=== PATIENT | female | born 1965 | race Caucasian/White ===

== ENCOUNTER 2017-05-30 19:08 | Emergency (ER) | payer MEDICARE, SELFPAY | END 2017-05-30 20:20 | disposition home or self-care (01) | PROVIDERS: Emergency Provider Nurse Practitioner; Family Provider Family Medicine; Visit Provider Nurse Practitioner | DX: J11.1 Influenza due to unidentified influenza virus with other respiratory manifestations (principal); R04.0 Epistaxis; F17.210 Nicotine dependence, cigarettes, uncomplicated; Z88.0 Allergy status to penicillin; Z88.8 Allergy status to other drugs, medicaments and biological substances; Z79.82 Long term (current) use of aspirin; Z79.899 Other long term (current) drug therapy; Z79.51 Long term (current) use of inhaled steroids; I10 Essential (primary) hypertension; E78.5 Hyperlipidemia, unspecified; J44.9 Chronic obstructive pulmonary disease, unspecified | CPT/HCPCS: 71020; 87804; 87880; 99201 ==

== ENCOUNTER 2017-06-13 14:05 | Observation (INO) | payer MEDICARE, SELFPAY ==
[2017-06-13 19:26] VITALS: BMI 43.1
[2017-06-13 23:00] VITALS: PULSE 83; PULSE 89
[2017-06-14] VITALS (7 sets, daily range): BP systolic 142–164; BP diastolic 80–95; PULSE 89–100; RESP 18–22; TEMP 36.7–37.4; O2SAT 90–91
--- NOTE | 2017-06-14 07:20 | HMH.PHAVTE ---
[facility] Pharmacy VTE Monitoring - Patient Demographics Admission date: 07/14/17 Report Date: 06/14/17 Time: 07:20 Allergies/Adverse Reactions: erythromycin base [ERYTHROMYCIN BASE] Allergy (Unknown, Verified 06/14/17 02:22) I-RASH Penicillins [PENICILLINS] Allergy (Unknown, Verified 06/14/17 02:22) DIFFICULTY BREATHING Height: 1.52 m Weight: 100.244 kg - VTE Risk Labs: VTE Related Lab Results Hgb 14.5 g/dL (12.2-16.2) 06/13/17 11:45 Hct 46.1 % (37.0-47.0) 06/13/17 11:45 Plt Count 443 K/mm3 (142-424) H D 06/13/17 11:45 BUN 12 mg/dL (7-18) 06/13/17 11:45 Creatinine 0.8 mg/dL (0.55-1.02) 06/13/17 11:45 Estimated Creat Clear 1299 ML/MIN (50-200) H 06/13/17 11:45 Clinical Trial Participant: No - Prophylaxis VTE Prophylaxis Ordered?: Yes Types of VTE Prophylaxis: TEDS Knee High, Other Location of Applied Device: Refused
--- NOTE | 2017-06-14 07:47 | PC.NURSE ---
C/O PAIN IN CHEST FOLLOWING A COUGH AND C/O RIVERS, ADMINISTERED PRN TYLENOL, ON REASSESSMENT PT NOTED SLEEPING. 2LNC TOLERATED WELL. WHEEZES NOTED PER AUSCULTATION OF LUNG SOUNDS. INDEPENDENT WITH ADLS. VSS. WILL CONTINUE TO MONITOR.
[2017-06-14 08:12] LABS: Basophils % 0.1 % (0.1-2.0); Eosinophils % 0.1 % (0.1-12.0); Hematocrit 40.8 % (37.0-47.0); Lymphocytes # 1.9 K/mm3 (0.7-4.5); Lymphocytes % 7.7 K/mm3 (10-50); Mean Corpuscular HGB Conc 31.8 g/dL (31.8-35.4); Mean Corpuscular Hemoglobin 28.1 pg (27.0-31.2); Mean Corpuscular Volume 88.2 fl (81-99); Mean Platelet Volume 7.7 fl (7.4-10.4); Monocytes # 0.8 K/mm3 (0.1-1.0); Monocytes % 3.1 % (1.7-9.3); Neutrophils # 21.3 K/mm3 (1.8-7.8); Neutrophils % 88.9 % (37.0-80.0); Platelet Count 472 K/mm3 (142-424); Red Blood Count 4.62 M/mm3 (4.20-5.40); Red Cell Distribution Width 14.4 % (11.5-17.5); White Blood Count 23.9 K/mm3 (4.8-10.8)
[2017-06-14 08:13] LABS: MANUAL DIFFERENTIAL MANUAL DIFFERENTIAL (MANUAL DIFF)
[2017-06-14 08:24] LABS: Blood Urea Nitrogen 15 mg/dL (7-18); Carbon Dioxide 27 mmol/L (21.0-32.0); Chloride 98 mmol/L (98-107); Creatinine Clearance Estimated 62 mg/ml (0-300); Creatinine,Serum 0.76 mg/dL (0.55-1.02); Estimated Glomerular Filt Rate > 60 ml/min (>60); GFR (African American) > 60 ML/MIN (>60); Glucose 163 mg/dL (74-106); Sodium 137 mmol/L (136-145)
--- NOTE | 2017-06-14 09:01 | HMH.ACPN ---
Internal Medicine - PN: Subj *Date: 06/14/17 *Time: 09:01 Interval history: Patient did well overnight, is much more comfortable according to nursing staff. Exam Vital signs and Labs for Last 24 Hours: Temp Pulse Resp BP Pulse Ox 99.4 F 91 H 20 164/88 90 L 06/14/17 07:04 06/14/17 07:40 06/14/17 07:04 06/14/17 07:04 06/14/17 07:40 Short CBC 06/14/17 Range/Units 06:38 WBC 23.9 H* (4.8-10.8) K/mm3 Hgb 13.0 (12.2-16.2) g/dL Hct 40.8 (37.0-47.0) % Plt Count 472 H (142-424) K/mm3 BMP 06/14/17 06:38 Sodium 137 Potassium 4.0 Chloride 98 Carbon Dioxide 27 BUN 15 Creatinine 0.76 Glucose 163 H Narrative: Patient did well overnight. She continues to have a small oxygen requirement. She tells me that she has oxygen at home that she uses when I need it. Her respiratory rate has improved, heart rate is now normalized. She is no longer dyspneic with conversation, and her air movement is much improved although she continues to have some tight wheezing. She has no crackles or rhonchi, she also has no sputum production at this point. Heart rate regular. Abdomen soft, good perfusion, neurologically intact. Assessment and Plan (1) Asthma exacerbation in COPD Current visit: Yes Status: Acute Category: Medical Code(s): J44.1 - Chronic obstructive pulmonary disease with (acute) exacerbation; J45.901 - Unspecified asthma with (acute) exacerbation Patient's improving, continue steroids, continue supportive care, and IV fluids. Possible discharge tomorrow, labs ordered for tomorrow morning.
[2017-06-14 12:45] LABS: Lymphocytes % 11 % (10-50); Monocytes % 3 % (2-9); Neutrophils % 85 % (42-76); Total Cells Counted 100
[2017-06-14 12:46] LABS: Platelet Estimate Slight Increase
[2017-06-14 14:10] LABS: RBC Morphology Normal
[2017-06-15 00:53] VITALS: PULSE 90; O2SAT 91
[2017-06-15 04:34] VITALS: BP 147/93; PULSE 74; RESP 18; TEMP 36.9; O2SAT 93
[2017-06-15 06:41] VITALS: PULSE 79; PULSE 82
[2017-06-15 07:21] LABS: Basophils % 0.1 % (0.1-2.0); Eosinophils % 0.1 % (0.1-12.0); Hematocrit 39.7 % (37.0-47.0); Hemoglobin 12.6 g/dL (12.2-16.2); Lymphocytes # 1.7 K/mm3 (0.7-4.5); Lymphocytes % 5.8 K/mm3 (10-50); Mean Corpuscular HGB Conc 31.8 g/dL (31.8-35.4); Mean Corpuscular Hemoglobin 28.4 pg (27.0-31.2); Mean Corpuscular Volume 89.4 fl (81-99); Mean Platelet Volume 7.4 fl (7.4-10.4); Monocytes # 0.8 K/mm3 (0.1-1.0); Monocytes % 2.7 % (1.7-9.3); Neutrophils # 27.1 K/mm3 (1.8-7.8); Neutrophils % 91.4 % (37.0-80.0); Platelet Count 429 K/mm3 (142-424); Red Blood Count 4.44 M/mm3 (4.20-5.40); Red Cell Distribution Width 14.7 % (11.5-17.5); White Blood Count 29.6 K/mm3 (4.8-10.8)
[2017-06-15 07:30] LABS: Alanine Aminotransferase 23 U/L (12-78); Albumin/Globulin Ratio 0.7 (1.1-1.8); Alkaline Phosphatase 88 U/L (46-116); Anion Gap 12.2 mEq/L (5-15); Aspartate Amino Transferase 11 U/L (15-37); Bilirubin,Total 0.1 mg/dL (0.2-1.0); Blood Urea Nitrogen 23 mg/dL (7-18); Calcium 9.3 mg/dL (8.5-10.1); Carbon Dioxide 29 mmol/L (21.0-32.0); Chloride 101 mmol/L (98-107); Creatinine Clearance Estimated 64 mg/ml (0-300); Creatinine,Serum 0.74 mg/dL (0.55-1.02); Estimated Glomerular Filt Rate > 60 ml/min (>60); GFR (African American) > 60 ML/MIN (>60); Globulin 4.2 gm/dl (1.3-3.2); Glucose 159 mg/dL (74-106); Potassium 4.2 mmoL/L (3.5-5.1); Sodium 138 mmol/L (136-145); Total Protein,Serum 7.2 gm/dL (6.4-8.2)
[2017-06-15 07:43] LABS: MANUAL DIFFERENTIAL MANUAL DIFFERENTIAL (MANUAL DIFF)
--- NOTE | 2017-06-15 07:48 | HMH.DCSUM ---
General - General Admission date: 06/13/17 Discharge date: 06/15/17 HPI HPI: 51-year-old asthmatic who wears oxygen at home and to takes nebulizer treatments 3 times daily, who came to the emergency department with cough and congestion, found to have asthma exacerbation that had failed outpatient therapy. She was admitted to hospital for IV steroids, fluids and pulmonary toilet. Please see H&P for details. Objective Vital signs: Temp Pulse Resp BP Pulse Ox 98.4 F 82 18 147/93 93 L 06/15/17 04:34 06/15/17 06:41 06/15/17 04:34 06/15/17 04:34 06/15/17 04:34 Narrative: On admission patient was alert and oriented, she was tachypneic, she had difficulty finishing sentences because of shortness of air. Her lung exam revealed tight wheezing bilaterally but symmetric air entry. Heart rate was tachycardic but regular, morbidly obese, which limits her exam and complicates her care. Neurologically intact. Hospital Course Hospital Course: Patient was admitted, placed on IV steroids, placed on antibiotics, placed on oxygen. She improved in a stepwise fashion. She takes inhaled corticosteroids at home but only intermittently, and we started Advair on a scheduled basis twice daily. This seemed to help her situation, and this morning she was doing much better. Exam revealed much better air entry, no rhonchi, normal expiratory wheezing but excellent air movement. No edema noted. Neurologically intact, tachycardia and tachypnea had resolved. Plan will be to discharge patient today. She needs new, non- nebulizer medication, she needs Advair prescriptions and prednisone, these will be prescribed and she will be seen by her primary physician in the next 5-6 days. Results Labs on day of discharge: Labs from last 24 hours 06/15/17 06/14/17 06/14/17 06:51 06:38 06:38 WBC 29.6 H* 23.9 H* RBC 4.44 4.62 Hgb 12.6 13.0 Hct 39.7 40.8 MCV 89.4 88.2 MCH 28.4 28.1 MCHC 31.8 31.8 RDW 14.7 14.4 Plt Count 429 H 472 H MPV 7.4 7.7 Neut % (Auto) 91.4 H 88.9 H Lymph % (Auto) 5.8 L 7.7 L [place] % (Auto) 2.7 3.1 Eos % (Auto) 0.1 0.1 Baso % (Auto) 0.1 0.1 Neut # (Auto) 27.1 H 21.3 H Lymph # (Auto) 1.7 1.9 [place] # (Auto) 0.8 0.8 Eos # (Auto) 0.0 0.0 Baso # (Auto) 0.0 0.0 Total Counted 100 Neutrophils % (Manual) 85 H Lymphocytes % (Manual) 11 Monocytes % (Manual) 3 Basophils % (Manual) 1.0 Platelet Estimate Slight increase RBC Morphology Normal Sodium 137 Potassium 4.0 Chloride 98 Carbon Dioxide 27 Anion Gap 16.0 H BUN 15 Creatinine 0.76 Estimated Creat Clear 62 Estimated GFR > 60 Est GFR ( Amer) > 60 Glucose 163 H DS: Diagnosis - Discharge Diagnosis (1) Asthma exacerbation in COPD Status: Acute Meds Home Medications Medication Instructions Recorded Confirmed Type Atorvastatin Calcium [Atorvastatin 10 mg PO HS 06/14/17 06/14/17 History 10mg Tab] Bisoprolol Fumarate [Zebeta 5mg 5 mg PO BID 06/14/17 06/14/17 History tablet] Butalb/Acetaminophen/Caffeine 1 tab PO Q6HP PRN 06/14/17 06/14/17 History [Esgic 50-325-40 mg Tablet] Cyclobenzaprine HCl 5 mg PO TIDP PRN 06/14/17 06/14/17 History [Cyclobenzaprine 5mg Tab] Dextromethorphan Polistirex 10 ml PO Q12H 06/14/17 06/14/17 History [Delsym] Escitalopram Oxalate [Lexapro] 20 mg PO DAILY 06/14/17 06/14/17 History Fluticasone Propionate [Flonase 2 spr NS DAILY 06/14/17 06/14/17 History 50mcg nasal spray 16gm] Gabapentin [Neurontin 300mg 300 mg PO TID 06/14/17 06/14/17 History capsule] Ipratropium/Albuterol Sulfate 3 ml INHALATION QIDP PRN 06/14/17 06/14/17 History [Duoneb 3mL neb] Loratadine [Claritin] 10 mg PO DAILY 06/14/17 06/14/17 History Mometasone/Formoterol [Dulera 200 2 puffs INHALATION BID 06/14/17 06/14/17 History Mcg/5 Mcg Inhaler] Omeprazole [Omeprazole 40mg 4
--- NOTE | 2017-06-15 07:51 | P.DS_ITS ---
General - General Admission date: 06/13/17 Discharge date: 06/15/17 HPI HPI: 51-year-old asthmatic who wears oxygen at home and to takes nebulizer treatments 3 times daily, who came to the emergency department with cough and congestion, found to have asthma exacerbation that had failed outpatient therapy. She was admitted to hospital for IV steroids, fluids and pulmonary toilet. Please see H&P for details. Objective Vital signs: Temp Pulse Resp BP Pulse Ox 98.4 F 82 18 147/93 93 L 06/15/17 04:34 06/15/17 06:41 06/15/17 04:34 06/15/17 04:34 06/15/17 04:34 Narrative: On admission patient was alert and oriented, she was tachypneic, she had difficulty finishing sentences because of shortness of air. Her lung exam revealed tight wheezing bilaterally but symmetric air entry. Heart rate was tachycardic but regular, morbidly obese, which limits her exam and complicates her care. Neurologically intact. Hospital Course Hospital Course: Patient was admitted, placed on IV steroids, placed on antibiotics, placed on oxygen. She improved in a stepwise fashion. She takes inhaled corticosteroids at home but only intermittently, and we started Advair on a scheduled basis twice daily. This seemed to help her situation, and this morning she was doing much better. Exam revealed much better air entry, no rhonchi, normal expiratory wheezing but excellent air movement. No edema noted. Neurologically intact, tachycardia and tachypnea had resolved. Plan will be to discharge patient today. She needs new, non- nebulizer medication, she needs Advair prescriptions and prednisone, these will be prescribed and she will be seen by her primary physician in the next 5-6 days. Results Labs on day of discharge: Labs from last 24 hours 06/15/17 06/14/17 06/14/17 06:51 06:38 06:38 WBC 29.6 H* 23.9 H* RBC 4.44 4.62 Hgb 12.6 13.0 Hct 39.7 40.8 MCV 89.4 88.2 MCH 28.4 28.1 MCHC 31.8 31.8 RDW 14.7 14.4 Plt Count 429 H 472 H MPV 7.4 7.7 Neut % (Auto) 91.4 H 88.9 H Lymph % (Auto) 5.8 L 7.7 L [place] % (Auto) 2.7 3.1 Eos % (Auto) 0.1 0.1 Baso % (Auto) 0.1 0.1 Neut # (Auto) 27.1 H 21.3 H Lymph # (Auto) 1.7 1.9 [place] # (Auto) 0.8 0.8 Eos # (Auto) 0.0 0.0 Baso # (Auto) 0.0 0.0 Total Counted 100 Neutrophils % (Manual) 85 H Lymphocytes % (Manual) 11 Monocytes % (Manual) 3 Basophils % (Manual) 1.0 Platelet Estimate Slight increase RBC Morphology Normal Sodium 137 Potassium 4.0 Chloride 98 Carbon Dioxide 27 Anion Gap 16.0 H BUN 15 Creatinine 0.76 Estimated Creat Clear 62 Estimated GFR > 60 Est GFR ( Amer) > 60 Glucose 163 H DS: Diagnosis - Discharge Diagnosis (1) Asthma exacerbation in COPD Status: Acute Meds Home Medications Medication Instructions Recorded Confirmed Type Atorvastatin Calcium [Atorvastatin 10 mg PO HS 06/14/17 06/14/17 History 10mg Tab] Bisoprolol Fumarate [Zebeta 5mg 5 mg PO BID 06/14/17 06/14/17 History tablet] Butalb/Acetaminophen/Ca
[2017-06-15 08:00] VITALS: BP 184/94; PULSE 90; RESP 20; TEMP 36.7; O2SAT 97
[2017-06-15 09:04] LABS: Lymphocytes % 7 % (10-50); Monocytes % 2 % (2-9); Neutrophils % 91 % (42-76); Total Cells Counted 100
[2017-06-15 09:05] LABS: Hypochromasia 1+
[2017-06-15 09:06] LABS: Platelet Estimate Slight Increase
[2017-06-15 11:13] VITALS: PULSE 80; PULSE 84
--- NOTE | 2017-06-15 11:28 | CARE MANAGER ---
PATIENT IS DISCHARGING HOME TODAY WITH NO ORDERS FOR ANY HOME CARE... PATIENT ADMITTED TO [facility] WITH COPD EXACERBATION, SHE RESIDES AT HOME AND WILL NEED TO FOLLOW UP WITH DR MORRIS [facility] ST[facility]..
== END 2017-06-15 11:00 | disposition home or self-care (01) ==
PROVIDERS: Admitting Provider Internal Medicine Adolescent Medicine; Emergency Provider Emergency Medicine; Visit Provider Internal Medicine Adolescent Medicine
DX: J44.1 Chronic obstructive pulmonary disease with (acute) exacerbation (principal); Z99.81 Dependence on supplemental oxygen; Z72.0 Tobacco use; I10 Essential (primary) hypertension; R53.1 Weakness; R06.09 Other forms of dyspnea
CPT/HCPCS: 71020; 80048; 80053; 83605; 83735; 83880; 84484; 85007; 85025; 87040; 87486; 87581; 87633; 87798; 94640; 94761; 96365; 96375; G0378; J1956

== ENCOUNTER 2017-06-23 15:59 | Emergency (ER) | payer MEDICARE, SELFPAY ==
[2017-06-23 16:01] VITALS: BP 129/61; PULSE 99; RESP 20; TEMP 36.7; O2SAT 92; BMI 39.8
--- NOTE | 2017-06-23 17:15 | XR_ITS ---
XR pelvis 1-2V Ordering Physician: Babs Covington MD Patient Age: 51 years: Female HISTORY: ITS.REASON: pain, fall TECHNIQUE: AP, pelvis COMPARISON :Right hip 10/03/2015.. AP pelvis 01/26/2014 FINDINGS Less optimal resolution on today's radiograph versus the previous right hip 2015, and 2013 pelvis due to technique No fracture or acute findings at the pelvis. Mild hypertrophic lipping at the superior rim of acetabulum bilaterally is similar to previous study. There is some dystrophic calcification off the cap of the greater trochanter which is long-standing feature and stable as well on right. Previous posterior fusion L4/5 with disc spacer device incidentally noted. Sacrum and SI joints unremarkable IMPRESSION: ----- Osseous pelvis intact with no acute findings. AP view the hips stable no acute findings
--- NOTE | 2017-06-23 17:15 | XR_ITS ---
XR cervical spine 4V Ordering Physician: Babs Covington MD Patient Age: 51 years: Female HISTORY: ITS.REASON: pain, fall TECHNIQUE: AP, lateral and odontoid view C-spine with additional additional swimmer's view COMPARISON :None relevant FINDINGS No fracture nor subluxation. C1 1 C2 relationships appear normal on the open mouth odontoid view. The cervical spine with normal alignment and no fracture nor subluxation evident. There is disc space narrowing and early spondylosis suggested C6/7 C5/6. Anterior marginal osteophytes most evident C5-C6. Prevertebral soft tissues appear normal. Minimal calcification in the ligamentum nuchae noted posterior to the C 5 spinous process. Normal feature. Swimmer's view hows normal alignment to the cervical thoracic junction region. The AP view demonstrates hypertrophic degenerative facet changes most notable to the right at C3/4 . Apices of the lungs are clear IMPRESSION: . No acute findings. No fracture nor subluxation Early degenerative changes C-spine as above.
--- NOTE | 2017-06-23 19:20 | PC.NURSE ---
SHIFT CHANGE REPORT GIVEN TO MILANARN
--- NOTE | 2017-06-23 19:55 | HMH.EDGENADL ---
ED Disposition Clinical Impression: Musculoskeletal pain Disposition: Home, Self-Care Condition on Discharge: Good Instructions: DI for Acute Pain -- Adult Additional Instructions: Naproxen as needed, see your family MD for follow up in one to three days. Prescriptions: Naproxen [EC-Naprosyn] 500 mg PO BID PRN #20 tablet.dr KING Reason: Pain Per Pt (Interactive Producer Use Only) Referrals: Julien Sun [Primary Care Provider] - - Critical Care Critical Care Time: No Attestation: On 06/23/17, the high probability of a clinically significant, sudden or life threatening deterioration of the following system(s) required my full and direct attention, intervention and personal management. The time I documented below is in addition to time spent performing reported procedures but includes the following listed in this critical care notation. Medical Decision Making Vital Signs: 06/23/17 16:01 Temperature 98.1 F Temperature Source Oral Pulse Rate [Right Brachial] 99 H Respiratory Rate 20 Blood Pressure [Right Arm] 129/61 Blood Pressure Mean [Right Arm] 83 Blood Pressure Source [Right Arm] Automatic Cuff Blood Pressure Position [Right Arm] Sitting 02 Sat by Pulse Oximetry 92 L Oxygen Delivery Method Room Air - Radiology Data #1 Image(s): Pelvis Image Reviewed: Yes I reviewed the patient's radiology results, Yes I have reviewed radiologist's interpretation Preliminary Findings: Normal/NAD, No Fracture Seen #2 Image(s): C-Spine Image Reviewed: Yes I reviewed the patient's radiology image, Yes I have reviewed radiologist's interpretation - Connor Inquiry Pt receiving controlled substance: No General Adult HPI - General Chief complaint: PAIN Stated complaint: AO [id number] kneck/back/leg pain Time Seen by Provider: 06/23/17 19:00 Mode of Arrival: Ambulatory Source of Information: Patient Limitations: No Limitations Description of Symptoms (Recalled from ER Triage Doc. by RN): c/o posterior neck pain, lower back pain and shaina leg pain if standing. pt states fell out of the door of her house landing on her back. - History of Present Illness HPI narrative: Patient fell 2 feet backwards out of her back door today with negative LOC. Complaining of diffuse neck pain primarily on the left no weakness numbness or tingling. She also has a lot of left posterior pelvis pain. - Related Data Home Medications Medication Instructions Recorded Confirmed Atorvastatin Calcium [Atorvastatin 10 mg PO HS 06/14/17 06/14/17 10mg Tab] Bisoprolol Fumarate [Zebeta 5mg 5 mg PO BID 06/14/17 06/14/17 tablet] Butalb/Acetaminophen/Caffeine 1 tab PO Q6HP PRN 06/14/17 06/14/17 [Esgic 50-325-40 mg Tablet] Cyclobenzaprine HCl 5 mg PO TIDP PRN 06/14/17 06/14/17 [Cyclobenzaprine 5mg Tab] Escitalopram Oxalate [Lexapro] 20 mg PO DAILY 06/14/17 06/14/17 Gabapentin [Neurontin 300mg 300 mg PO TID 06/14/17 06/14/17 capsule] Omeprazole [Omeprazole 40mg 40 mg PO DAILY 06/14/17 06/14/17 Capsule] Trazodone HCl [Desyrel 50mg tablet] 50 mg PO HS 06/14/17 06/14/17 Valsartan/Hydrochlorothiazide 1 tab PO DAILY 06/14/17 06/14/17 [Valsartan-Hctz 320-25 mg Tab] dilTIAZem HCl [Diltiazem 120mg 120 mg PO DAILY 06/14/17 06/14/17 24Hr ER Cap] hydroCHLOROthiazide [HCTZ 25mg 25 mg PO DAILY 06/14/17 06/14/17 tab] Previous Rx's Medication Instructions Recorded Naproxen [EC-Naprosyn] 500 mg PO BID PRN #20 tablet. 06/23/17 Allergies Allergy/AdvReac Type Severity Reaction Status Date / Time erythromycin base Allergy Unknown I-RASH Verified 06/23/17 16:16 [ERYTHROMYCIN BASE] Penicillins [PENICILLINS] Allergy Unknown DIFFICULTY Verified 06/23/17 16:16 BREATHING H History Medical History: Denies:: Cancer, Diabetes Mellitus Type 1, Diabetes Mellitus Type 2, MRSA - *Social History Smoking Status: Former smoker Alcohol Intake: never - Psychiatric History Expresses thoughts of harming
--- NOTE | 2017-06-23 20:03 | ED_ITS ---
ED Disposition Clinical Impression: Musculoskeletal pain Disposition: Home, Self-Care Condition on Discharge: Good Instructions: DI for Acute Pain -- Adult Additional Instructions: Naproxen as needed, see your family MD for follow up in one to three days. 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 The time I documented below is in addition to time spent performing reported procedures but includes the following listed in this critical care notation. Medical Decision Making Vital Signs: 06/23/17 16:01 Temperature 98.1 F Temperature Source Oral Pulse Rate [Right Brachial] 99 H Respiratory Rate 20 Blood Pressure [Right Arm] 129/61 Blood Pressure Mean [Right Arm] 83 Blood Pressure Source [Right Arm] Automatic Cuff Blood Pressure Position [Right Arm] Sitting 02 Sat by Pulse Oximetry 92 L Oxygen Delivery Method Room Air - Radiology Data #1 Image(s): Pelvis Image Reviewed: Yes I reviewed the patient's radiology results, Yes I have reviewed radiologist's interpretation Preliminary Findings: Normal/NAD, No Fracture Seen #2 Image(s): C-Spine Image Reviewed: Yes I reviewed the patient's radiology image, Yes I have reviewed radiologist's interpretation - Connor Inquiry Pt receiving controlled substance: No General Adult HPI - General Chief complaint: PAIN Stated complaint: AO [id number] kneck/back/leg pain Time Seen by Provider: 06/23/17 19:00 Mode of Arrival: Ambulatory Source of Information: Patient Limitations: No Limitations Description of Symptoms (Recalled from ER Triage Doc. by RN): c/o posterior neck pain, lower back pain and shaina leg pain if standing. pt states fell out of the door of her house landing on her back. - History of Present Illness HPI narrative: Patient fell 2 feet backwards out of her back door today with negative LOC. Complaining of diffuse neck pain primarily on the left no weakness numbness or tingling. She also has a lot of left posterior pelvis pain. - Related Data Home Medications Medication Instructions Recorded Confirmed Atorvastatin Calcium [Atorvastatin 10 mg PO HS 06/14/17 06/14/17 10mg Tab] Bisoprolol Fumarate [Zebeta 5mg 5 mg PO BID 06/14/17 06/14/17 tablet] Butalb/Acetaminophen/Caffeine 1 tab PO Q6HP PRN 06/14/17 06/14/17 [Esgic 50-325-40 mg Tablet] Cyclobenzaprine HCl 5 mg PO TIDP PRN 06/14/17 06/14/17 [Cyclobenzaprine 5mg Tab] Escitalopram Oxalate [Lexapro] 20 mg PO DAILY 06/14/17 06/14/17 Gabapentin [Neurontin 300mg 300 mg PO TID 06/14/17 06/14/17 capsule] Omeprazole [Omeprazole 40mg 40 mg PO DAILY 06/14/17 06/14/17 Capsule] Trazodone HCl [Desyrel 50mg tablet] 50 mg PO HS 06/14/17 06/14/17 Valsartan/Hydrochlorothiazide 1 tab PO DAILY 06/14/17 06/14/17 [Valsartan-Hctz 320-25 mg Tab] dilTIAZem HCl [Diltiazem 120mg 120 mg PO DAILY 06/14/17 06/14/17 24Hr ER Cap] hydroCHLOROthiazide [HCTZ 25mg 25 mg PO DAILY 06/14/17 06/14/17
[2017-06-23 20:54] VITALS: BP 96/59; PULSE 85; RESP 20; TEMP 36.7; O2SAT 93
== END 2017-06-23 20:55 | disposition home or self-care (01) ==
PROVIDERS: Emergency Provider Emergency Medicine; Family Provider Family Medicine; PCP Family Medicine
DX: M54.2 Cervicalgia (principal); M54.5 Low back pain; W01.0XXA Fall on same level from slipping, tripping and stumbling without subsequent striking against object, initial encounter; Y92.019 Unspecified place in single-family (private) house as the place of occurrence of the external cause; Z88.0 Allergy status to penicillin; Z79.899 Other long term (current) drug therapy; J44.9 Chronic obstructive pulmonary disease, unspecified; Z87.891 Personal history of nicotine dependence
CPT/HCPCS: 72040; 72170; 99283

== ENCOUNTER 2018-05-12 12:22 | Observation (INO) ==
[2018-05-12 13:08] LABS: Basophils # 0.1 K/mm3 (0-0.2); Basophils % 0.5 % (0.1-2.0); Eosinophils # 0.5 K/mm3 (0.0-0.4); Eosinophils % 3.6 % (0.1-12.0); Hematocrit 45.2 % (37.0-47.0); Hemoglobin 14.6 g/dL (12.2-16.2); Lymphocytes # 3.2 K/mm3 (0.7-4.5); Lymphocytes % 25.3 % (10-50); Mean Corpuscular HGB Conc 32.3 g/dL (31.8-35.4); Mean Corpuscular Hemoglobin 28.9 pg (27.0-31.2); Mean Corpuscular Volume 89.3 fl (81-99); Mean Platelet Volume 7.8 fl (7.4-10.4); Monocytes # 0.7 K/mm3 (0.1-1.0); Monocytes % 5.7 % (1.7-9.3); Neutrophils # 8.1 K/mm3 (1.8-7.8); Platelet Count 304 K/mm3 (142-424); Red Blood Count 5.07 M/mm3 (4.20-5.40); Red Cell Distribution Width 14.4 % (11.5-17.5); White Blood Count 12.5 K/mm3 (4.8-10.8)
[2018-05-12 13:18] LABS: Anion Gap 14.1 mEq/L (5-15); Blood Urea Nitrogen 12 mg/dL (7-18); Calcium 8.8 mg/dL (8.5-10.1); Carbon Dioxide 27 mmol/L (21.0-32.0); Chloride 103 mmol/L (98-107); Glucose 116 mg/dL (74-106); Potassium 4.1 mmoL/L (3.5-5.1); Sodium 140 mmol/L (136-145)
--- NOTE | 2018-05-12 14:16 | Emergency Department Note ---
ED Disposition Clinical Impression: Chest pain Disposition: Admitted as Observation Condition on Discharge: Fair Referrals: Provider,Referral, [Primary Care Provider] - - Critical Care Critical Care Time: No Attestation: On 05/12/18, the high probability of a clinically significant, sudden or life threatening deterioration of the following system(s) required my full and direct attention, intervention and personal management. The time I documented below is in addition to time spent performing reported procedures but includes the following listed in this critical care notation. Medical Decision Making - Medical Records Medical records reviewed: Yes: I reviewed the patient's medical records. MR Comment: Discussed case with hospitalist donor relations officer (Dr. Avalos). Admitted to his care for farther management and monitoring .Patient remained stable during his ED care. - Connor Inquiry Pt receiving controlled substance: No Connor was queried for this patient: No Vital Signs: 05/12/18 12:27 05/12/18 12:52 05/12/18 12:59 Temperature 98 F Temperature Source Oral Pulse Rate Pulse Rate [Left Radial] 86 68 71 Respiratory Rate 16 18 Blood Pressure [Right Arm] 194/92 H 157/92 H 136/75 Blood Pressure Mean [Right Arm] 126 113 95 Blood Pressure Source [Right Arm] Automatic Cuff Automatic Cuff Automatic Cuff Blood Pressure Position [Right Arm] Sitting Sitting Sitting 02 Sat by Pulse Oximetry 97 96 Oxygen Delivery Method Room Air Room Air 05/12/18 13:23 05/12/18 13:51 Temperature Temperature Source Pulse Rate 67 Pulse Rate [Left Radial] 71 Respiratory Rate Blood Pressure [Right Arm] 132/72 Blood Pressure Mean [Right Arm] 92 Blood Pressure Source [Right Arm] Automatic Cuff Blood Pressure Position [Right Arm] Sitting 02 Sat by Pulse Oximetry 95 Oxygen Delivery Method Room Air - Lab Data Lab results reviewed: Yes: I reviewed the patient's lab results. Lab Results 05/12/18 12:39: WBC 12.5 H, RBC 5.07, Hgb 14.6, Hct 45.2, MCV 89.3, MCH 28.9, MCHC 32.3, RDW 14.4, Plt Count 304, MPV 7.8, Neut % (Auto) 65.0, Lymph % (Auto) 25.3, [place] % (Auto) 5.7, Eos % (Auto) 3.6, Baso % (Auto) 0.5, Neut # (Auto) 8.1 H, Lymph # (Auto) 3.2, [place] # (Auto) 0.7, Eos # (Auto) 0.5 H, Baso # (Auto) 0.1 05/12/18 12:39: Sodium 140, Potassium 4.1, Chloride 103, Carbon Dioxide 27, Anion Gap 14.1, BUN 12, Creatinine 0.76, Estimated Creat Clear 58, Estimated GFR 80, Est GFR ( Amer) 96, Glucose 116 H, Calcium 8.8, Troponin I < 0.02 Result diagrams: 05/12/18 12:39 05/12/18 12:39 Orders (Tests/Meds): ED MEDICATIONS Generic Name Dose Route Start Last Admin Trade Name Freq PRN Reason Stop Dose Admin Nitroglycerin 0.4 mg 05/12/18 12:24 05/12/18 12:53 Nitrostat 0.4mg Sl Tablet SL 05/13/18 12:24 0.4 mg Q5MINP PRN Administration Chest Pain Discontinued Medications Generic Name Dose Route Start Last Admin Trade Name Freq PRN Reason Stop Dose Admin Albuterol Sulfate 2.5 mg 05/12/18 13:21 05/12/18 13:40 Albuterol 0.083% 2.5mg/3ml Neb IH 05/12/18 13:22 2.5 mg ONCE ONE Administration Aspirin 324 mg 05/12/18 12:24 05/12/18 12:36 Aspirin 81mg Chewable Tablet PO 05/12/18 12:25 324 mg ONCE ONE Administration ORDERS Category Date Time Status Troponin I Q3H Lab 05/12/18 15:30 Ordered Troponin I Q3H Lab 05/12/18 18:30 Ordered - Radiology Data #1 Image(s): Chest Image Reviewed: Yes I reviewed the patient's radiology image - ECG Data Tracing #1 I reviewed this ECG and interpreted as documented below: Normal Sinus Rhythm: Yes Chest Pain HPI - General Chief Complaint: Chest Pain Stated Complaint: chest pain Time Seen by Provider: 05/12/18 12:27 Mode of Arrival: Ambulatory Limitations: No Limitations Description of Symptoms (Recalled from ER Triage Doc. by RN): to ed per pvt car with c/o chest pressure radiating up into lt shoulder and neck, states b/p elevated this am.c/o nausea, sob denies any diaphoresis. cpta b/p medications - History of Present Illness HPI narrative: Comes to the ED with complain of left sided chest pain. Describes her pain as chest discomfort with occasional radiation of her pain to left shoulder. Denies fever, chills, cough, sob, wheezing. Denies any other associated complains at this time. Onset (ago): hour(s) Duration: intermittent Activity at onset: during rest Pain location: left chest Severity: moderate Quality: tightness, aching Pain radiation: LUE Relieving factors: nitroglycerin Treatments prior to or on arrival for Cardiac Chest Pain: aspirin - Related Data Home Medications Medication Instructions Recorded Confirmed Atorvastatin Calcium [Atorvastatin 10 mg PO HS 06/14/17 05/12/18 10mg Tab] Cyclobenzaprine HCl 5 mg PO TIDP PRN 06/14/17 05/12/18 [Cyclobenzaprine 5mg Tab] Escitalopram Oxalate [Lexapro] 20 mg PO DAILY 06/14/17 05/12/18 Omeprazole [Omeprazole 40mg 40 mg PO DAILY 06/14/17 05/12/18 Capsule] dilTIAZem HCl [Diltiazem 120mg 120 mg PO DAILY 06/14/17 05/12/18 24Hr ER Cap] buspirone 10 mg tablet 10 mg PO BID 10/19/17 05/12/18 hydrocodone 5 mg-acetaminophen 325 1 tab PO Q6H PRN 10/19/17 05/12/18 mg tablet meloxicam 15 mg tablet 15 mg PO DAILY tab 10/19/17 05/12/18 gabapentin 800 mg tablet 800 mg PO BID 02/22/18 05/12/18 Bisoprolol Fumarate [Bisoprolol 10 mg PO BID 05/12/18 05/12/18 10mg Tablet] Furosemide [Furosemide 40MG tAB] 40 mg PO DAILY 05/12/18 05/12/18 Spironolactone [Aldactone 50mg Tab] 25 mg PO QAM 05/12/18 05/12/18 Allergies Allergy/AdvReac Type Severity Reaction Status Date / Time erythromycin base Allergy Unknown I-RASH Verified 02/22/18 13:49 [ERYTHROMYCIN BASE] Penicillins [PENICILLINS] Allergy Unknown DIFFICULTY Verified 02/22/18 13:49 BREATHING [facility] History I have reviewed the patient's past medical history: Yes Medical History: Reports:: Chronic Obstructive Pulmonary Disease (COPD), Hypertension Denies:: Cancer, Diabetes Mellitus Type 1, Diabetes Mellitus Type 2, MRSA Other Medical History: Reports: Other Laterality Cases: Bilateral: Tonsillectomy Other Surgeries: Yes: Tubal Ligation, Other (back) Amputation: No Fractures: No - Social History Smoking Status: Current every day smoker Tobacco Type: cigarettes # Packs/Day (cigarettes): 1 Alcohol Intake: never Alcohol Intake Frequency:: other - Psychiatric History Expresses thoughts of harming self/others: None Suicide Plan Description: No Plan ROS Obtained: Yes All systems reviewed & no additional complaints Physical Exam - General General appearance: alert, in no apparent distress - Head Head exam: atraumatic, normocephalic, normal inspection - Eye Eye exam: Present: normal appearance, PERRL, EOMI - ENT ENT exam: Present: normal exam, normal oropharynx, mucous membranes moist, TM's normal bilaterally, normal external ear exam - Neck Neck exam: Present: normal inspection, full ROM, trachea midline. Absent: meningismus, lymphadenopathy - Chest Chest inspection: Present: normal inspection, symmetric chest wall rise. Absent: tenderness - Respiratory Respiratory exam: Present: normal lung sounds bilaterally. Absent: respiratory distress - Cardiovascular Cardiovascular exam: Present: regular rate, normal rhythm. Absent: JVD - Abdominal Exam Abdominal exam: Present: soft, normal bowel sounds. Absent: distention, tenderness, guarding - Extremities Exam Extremities exam: Present: normal inspection, full ROM, normal capillary refill. Absent: calf tenderness - Back Exam Back exam: Present: normal inspection. Absent: tenderness - Neurological Exam Neurological exam: Present: alert, oriented X3 - Psychiatric Psychiatric exam: Present: normal affect, normal mood - Skin Skin exam: Present: warm, dry, intact, normal color - Lymphatic Lymphatic Findings: no adenopathy
--- NOTE | 2018-05-12 16:17 | Pharmacy Consult Notes ---
[facility] Pharmacy VTE Monitoring - Patient Demographics Admission date: 05/12/18 Report Date: 05/12/18 Time: 16:17 Allergies/Adverse Reactions: Patient Allergies erythromycin base [ERYTHROMYCIN BASE] Allergy (Unknown, Verified 02/22/18 13:49) I-RASH Penicillins [PENICILLINS] Allergy (Unknown, Verified 02/22/18 13:49) DIFFICULTY BREATHING Height: 1.5 m Weight: 101.293 kg Patient Problems: Current Active Problems Chest pain (Acute) - VTE Risk Labs: VTE Related Lab Results Hgb 14.6 g/dL (12.2-16.2) 05/12/18 12:39 Hct 45.2 % (37.0-47.0) 05/12/18 12:39 Plt Count 304 K/mm3 (142-424) 05/12/18 12:39 BUN 12 mg/dL (7-18) 05/12/18 12:39 Creatinine 0.76 mg/dL (0.55-1.02) 05/12/18 12:39 Estimated Creat Clear 58 mL/min (50-200) 05/12/18 12:39 Was VTE Risk Assessment Performed: Yes VTE Score: 3 VTE Risk Level: Low Risk Clinical Trial Participant: No - Prophylaxis VTE Prophylaxis Ordered?: Yes Types of VTE Prophylaxis: Pharmacological Location of Applied Device: Not Applicable Pharmacologic Type: Heparin
--- NOTE | 2018-05-12 17:18 | History & Physical Report ---
*Admission Date: 05/12/18 <Lala Coleman 05/12/18 17:21> *Chief complaint: chest pain, HTN <Lala Coleman 05/12/18 17:21> *History of present illness: Ms. aguirre is a 52-year-old female with a history of hypertension, COPD, and chronic back pain. She states she is a patient of Dr. Sun in [place]. She has been having issues for the past 2-3 weeks with elevated blood pressure sometimes as high as 220/104. Along with the elevated blood pressure she has had chest pressure off and on. Today her blood pressure was elevated and she had pain and pressure on the left side of her chest that radiated to her left shoulder, upper neck, and into her jaw. She presented the emergency room for further evaluation and treatment. As of now her enzymes have been normal. She did see Dr. Jimenes approximately 2-3 years ago and had a cath. She states at that time he told her there was a 30% blockage but it could be treated with medication and she did not need a stent. She was admitted for further evaluation and treatment. <Lala Coleman 05/12/18 17:21> [facility] History Medical History: Reports:: Chronic Obstructive Pulmonary Disease (COPD), Hypertension Denies:: Cancer, Diabetes Mellitus Type 1, Diabetes Mellitus Type 2, MRSA <Lala Coleman 05/12/18 17:21> Other Medical History: Reports: Other (Chronic back pain) <Lala Coleman 05/12/18 17:21> Laterality Cases: Bilateral: Tonsillectomy <Lala Coleman 05/12/18 17:21> Other Surgeries: Yes: Cardiac Catheterization, Tubal Ligation, Other (Back surgery, right ovarian cyst removed, tumor removed Left side of [place]) <Lala Coleman 05/12/18 17:21> Amputation: No <Lala Coleman 05/12/18 17:21> Fractures: No <Lala Coleman 05/12/18 17:21> - *Social History Educational Level: Completed High School <Lala Coleman 05/12/18 17:21> Smoking Status: Current every day smoker <Lala Coleman 05/12/18 17:21> Tobacco Type: cigarettes <Lala Coleman 05/12/18 17:21> # Packs/Day (cigarettes): 1 <Alcides Colemana 05/12/18 17:21> Alcohol Intake: never [facility] 05/12/18 17:21> Alcohol Intake Frequency:: other <[facility] 05/12/18 17:21> Occupational Status: disabled <[facility] 05/12/18 17:21> Housing: house <Alcides Colemana 05/12/18 17:21> Household Members: spouse <Alcides Colemana 05/12/18 17:21> - Psychiatric History Expresses thoughts of harming self/others: None <[facility] 05/12/18 17:21> Suicide Plan Description: No Plan <Alcides Colemana 05/12/18 17:21> *Family Hx:: Coronary Artery Disease, Diabetes, Heart Attack, Hypertension <JaredLala 05/12/18 17:21> Review of Systems - Constitutional Denies body ache(s), Denies chills, Denies fever(s) <Alcides Colemana 05/12/18 17:21> - Eyes Denies blurry vision, Denies double vision [facility]> - ENT Reports nasal congestion, Reports sore throat [facility] 05/12/18 17:21> - *Cardiovascular Reports chest pain, Reports shortness of breath, Reports rapid, pounding, or irregular heartbeat <[facility] 05/12/18 17:21> - *Respiratory Reports cough, Reports shortness of breath <[facility] 05/12/18 17:21> - *Gastrointestinal Reports nausea, Denies abdominal pain, Denies loose stools, Denies vomiting <[facility] 05/12/18 17:21> - *Genitourinary Denies difficulty urinating, Denies painful urination <[facility] 05/12/18 17:21> - *Musculoskeletal Reports back pain (chronic) [facility]/12/18 17:21> - *Neurologic Reports headache(s), Reports dizziness, Reports weakness <JaredLala - 05/12/18 17:21> Meds Home Medications Medication Instructions Recorded Confirmed Type Atorvastatin Calcium [Atorvastatin 10 mg PO HS 06/14/17 05/12/18 History 10mg Tab] Cyclobenzaprine HCl 5 mg PO TIDP PRN 06/14/17 05/12/18 History [Cyclobenzaprine 5mg Tab] Escitalopram Oxalate [Lexapro] 20 mg PO DAILY 06/14/17 05/12/18 History Omeprazole [Omeprazole 40mg 40 mg PO DAILY 06/14/17 05/12/18 History Capsule] meloxicam 15 mg tablet 15 mg PO DAILY tab 10/19/17 05/12/18 History gabapentin 800 mg tablet 800 mg PO TID 02/22/18 05/12/18 History Bisoprolol Fumarate [Bisoprolol 5 mg PO BID 05/12/18 05/12/18 History 5mg Tablet] Buspirone HCl 15 mg PO BID 05/12/18 05/12/18 History Butalbital/Aspirin/Caffeine 1 each PO Q6HP PRN 05/12/18 05/12/18 History [Fiorinal 50-325-40 mg Capsule] Furosemide [Furosemide 40MG tAB] 40 mg PO DAILY 05/12/18 05/12/18 History Hydrocodone/Acetaminophen 1 each PO Q8HP PRN 05/12/18 05/12/18 History [Hydrocodon-Acetaminophn 10-325] Loratadine [Claritin 10mg Tablet] 10 mg PO DAILY 05/12/18 05/12/18 History Spironolactone [Aldactone 50mg Tab] 25 mg PO DAILY 05/12/18 05/12/18 History Trazodone HCl 50 mg PO HS 05/12/18 05/12/18 History Umeclidinium [place] [Incruse 1 puff IH DAILY 05/12/18 05/12/18 History Ellipta] hydrOXYzine HCl [Hydroxyzine HCl] 25 mg PO BID 05/12/18 05/12/18 History <[place],Tito - 05/12/18 18:47> Allergies Allergy/AdvReac Type Severity Reaction Status Date / Time erythromycin base Allergy Unknown I-RASH Verified 02/22/18 13:49 [ERYTHROMYCIN BASE] Penicillins [PENICILLINS] Allergy Unknown DIFFICULTY Verified 02/22/18 13:49 BREATHING <Tito Avalos - 05/12/18 18:47> Exam Vital signs and Labs for Last 24 Hours: Temp Pulse Resp BP Pulse Ox 97.8 F 60 16 148/82 H 96 05/12/18 15:30 05/12/18 16:00 05/12/18 15:30 05/12/18 15:30 05/12/18 16:14 Laboratory Results - last 24 hr 05/12/18 12:39: WBC 12.5 H, RBC 5.07, Hgb 14.6, Hct 45.2, MCV 89.3, MCH 28.9, MCHC 32.3, RDW 14.4, Plt Count 304, MPV 7.8, Neut % (Auto) 65.0, Lymph % (Auto) 25.3, [place] % (Auto) 5.7, Eos % (Auto) 3.6, Baso % (Auto) 0.5, Neut # (Auto) 8.1 H, Lymph # (Auto) 3.2, [place] # (Auto) 0.7, Eos # (Auto) 0.5 H, Baso # (Auto) 0.1 05/12/18 12:39: Sodium 140, Potassium 4.1, Chloride 103, Carbon Dioxide 27, Anion Gap 14.1, BUN 12, Creatinine 0.76, Estimated Creat Clear 58, Estimated GFR 80, Est GFR ( Amer) 96, Glucose 116 H, Calcium 8.8, Troponin I < 0.02 05/12/18 16:11: Troponin I < 0.02 <Tito Avalos - 05/12/18 18:47> Temp Pulse Resp BP Pulse Ox 97.8 F 60 16 148/82 H 96 05/12/18 15:30 05/12/18 16:00 05/12/18 15:30 05/12/18 15:30 05/12/18 16:14 Laboratory Results - last 24 hr 05/12/18 12:39: WBC 12.5 H, RBC 5.07, Hgb 14.6, Hct 45.2, MCV 89.3, MCH 28.9, MCHC 32.3, RDW 14.4, Plt Count 304, MPV 7.8, Neut % (Auto) 65.0, Lymph % (Auto) 25.3, [place] % (Auto) 5.7, Eos % (Auto) 3.6, Baso % (Auto) 0.5, Neut # (Auto) 8.1 H, Lymph # (Auto) 3.2, [place] # (Auto) 0.7, Eos # (Auto) 0.5 H, Baso # (Auto) 0.1 05/12/18 12:39: Sodium 140, Potassium 4.1, Chloride 103, Carbon Dioxide 27, Anion Gap 14.1, BUN 12, Creatinine 0.76, Estimated Creat Clear 58, Estimated GFR 80, Est GFR ( Amer) 96, Glucose 116 H, Calcium 8.8, Troponin I < 0.02 05/12/18 16:11: Troponin I < 0.02 <JaredLala - 05/12/18 17:21> I & O for Last 24 hours: Intake & Output 05/10/18 05/11/18 05/12/18 05/13/18 11:59 11:59 11:59 11:59 Intake Total 240 / 240 Balance 240 / 240 Weight 223 lb 5 oz <[place],Tito - 05/12/18 18:47> Intake & Output 05/10/18 05/11/18 05/12/18 05/13/18 11:59 11:59 11:59 11:59 Weight 223 lb 5 oz <JaredLala - 05/12/18 17:21> - Constitutional no acute distress <JaredLala 05/12/18 17:21> - *Routine HEENT Exam Head: Present: normocephalic <JaredLala 05/12/18 17:21> Eye: Present: EOMI, PERRL <JaredLala 05/12/18 17:21> ENT: Present: mucous membranes moist <JaredLala - 05/12/18 17:21> - *Routine Neck Exam Present: supple. Absent: lymphadenopathy <JaredLala 05/12/18 17:21> - *Routine Respiratory Exam Present: CTA bilaterally <JaredLala 05/12/18 17:21> - *Routine Cardiovascular Exam Present: RRR <JaredLala 05/12/18 17:21> - *Routine Abdominal Exam Present: soft, normoactive bowel sounds. Absent: tenderness <Lala Coleman - 05/12/18 17:21> - *Routine Extremities Exam Absent: cyanosis, clubbing, edema <Lala Coleman 05/12/18 17:21> - *Routine Skin Exam Present: warm. Absent: rash <Lala Coleman - 05/12/18 17:21> - *Routine Neurological Exam Present: alert, oriented X3 <Lala Coleman 05/12/18 17:21> H&P: Result - Impressions CXR - nothing acute <Lala Coleman 05/12/18 17:21> Assessment and Plan (1) Chest pain Current visit: Yes Status: Acute Category: Medical Code(s): R07.9 - Chest pain, unspecified (2) CAD (coronary artery disease) Current visit: No Status: Chronic Qualifiers: Coronary Disease-Associated Artery/Lesion type: [place] artery [place] vs. transplanted heart: [place] heart Associated angina: without angina Qualified Code(s): I25.10 - Atherosclerotic heart disease of [place] coronary artery without angina pectoris Category: Medical Code(s): I25.10 - Atherosclerotic heart disease of [place] coronary artery without angina pectoris (3) HHD (hypertensive heart disease) Current visit: No Status: Chronic Qualifiers: Heart failure presence: without heart failure Qualified Code(s): I11.9 - Hypertensive heart disease without heart failure Category: Medical Code(s): I11.9 - Hypertensive heart disease without heart failure (4) Chronic back pain Current visit: Yes Status: Chronic Category: Medical Code(s): M54.9 - Dorsalgia, unspecified; G89.29 - Other chronic pain <[place],Tito - 05/12/18 18:47> (1) Chest pain Current visit: Yes Status: Acute Category: Medical Code(s): R07.9 - Chest pain, unspecified (2) CAD (coronary artery disease) Current visit: No Status: Chronic Qualifiers: Coronary Disease-Associated Artery/Lesion type: [place] artery [place] vs. transplanted heart: [place] heart Associated angina: without angina Qualified Code(s): I25.10 - Atherosclerotic heart disease of [place] coronary artery without angina pectoris Category: Medical Code(s): I25.10 - Atherosclerotic heart disease of [place] coronary artery without angina pectoris (3) HHD (hypertensive heart disease) Current visit: No Status: Chronic Qualifiers: Heart failure presence: without heart failure Qualified Code(s): I11.9 - Hypertensive heart disease without heart failure Category: Medical Code(s): I11.9 - Hypertensive heart disease without heart failure (4) Chronic back pain Current visit: Yes Status: Chronic Category: Medical Code(s): M54.9 - Dorsalgia, unspecified; G89.29 - Other chronic pain <Lala Coleman - 05/12/18 17:15> - Assessment and plan all Dx Assessment and Plan for all problems:: Saw patient, agree with above note. <Tito Avalos - 05/12/18 18:47> Patient's cardiac enzymes have returned normal. As Dr. Jimenes has seen her in the past, will consult cardiology. She is unsure of her medications so the hospital pharmacy is going to contact her pharmacy to get a correct medication list. <Lala Coleman - 05/12/18 17:21>
--- NOTE | 2018-05-13 08:51 | Progress Note ---
Internal Medicine - PN: Subj *Date: 05/13/18 *Time: 08:49 Interval history: Patient had one episode of chest pain last night, no other new complaints. Exam Vital signs and Labs for Last 24 Hours: Temp Pulse Resp BP Pulse Ox 98.4 F 71 18 126/81 93 L 05/13/18 08:00 05/13/18 08:00 05/13/18 08:00 05/13/18 08:00 05/13/18 08:00 Laboratory Results - last 24 hr 05/12/18 12:39: WBC 12.5 H, RBC 5.07, Hgb 14.6, Hct 45.2, MCV 89.3, MCH 28.9, MCHC 32.3, RDW 14.4, Plt Count 304, MPV 7.8, Neut % (Auto) 65.0, Lymph % (Auto) 25.3, [place] % (Auto) 5.7, Eos % (Auto) 3.6, Baso % (Auto) 0.5, Neut # (Auto) 8.1 H, Lymph # (Auto) 3.2, [place] # (Auto) 0.7, Eos # (Auto) 0.5 H, Baso # (Auto) 0.1 05/12/18 12:39: Sodium 140, Potassium 4.1, Chloride 103, Carbon Dioxide 27, Anion Gap 14.1, BUN 12, Creatinine 0.76, Estimated Creat Clear 58, Estimated GFR 80, Est GFR ( Amer) 96, Glucose 116 H, Calcium 8.8, Troponin I < 0.02 05/12/18 16:11: Troponin I < 0.02 05/12/18 18:17: Troponin I < 0.02 Vital Signs Temp Pulse Pulse Resp BP BP BP 05/13/18 08:00 98.4 F 71 18 126/81 05/13/18 04:00 97.9 F 60 62 17 172/97 H 05/13/18 00:00 98.7 F 70 64 16 160/93 H 05/12/18 20:00 98.6 F 70 69 18 143/66 H 05/12/18 16:14 05/12/18 16:00 60 05/12/18 15:30 97.8 F 62 16 148/82 H 05/12/18 15:21 98 F 78 16 135/75 05/12/18 14:35 69 16 138/69 05/12/18 13:51 67 05/12/18 13:23 71 132/72 05/12/18 12:59 71 18 136/75 05/12/18 12:52 68 157/92 H 05/12/18 12:27 98 F 86 16 194/92 H Pulse Ox 05/13/18 08:00 93 L 05/13/18 04:00 96 05/13/18 00:00 94 L 05/12/18 20:00 92 L 05/12/18 16:14 96 05/12/18 16:00 05/12/18 15:30 96 05/12/18 15:21 05/12/18 14:35 96 05/12/18 13:51 95 05/12/18 13:23 05/12/18 12:59 96 05/12/18 12:52 05/12/18 12:27 97 Intake and Output 05/12/18 05/13/18 05/13/18 19:59 03:59 11:59 Intake Total 240 / 240 600 / 600 Output Total 400 / 400 Balance 240 / 240 200 / 200 Intake: Intake, Oral Amount 240 / 240 600 / 600 Output: Output, Urine Amount 400 / 400 Other: Number of Voids 1 Number of Unmeasured Voids 1 Weight 223 lb 5 oz Patient Weight 05/13/18 11:59 Weight 223 lb 5 oz I & O for Last 24 hours: Intake & Output 05/10/18 05/11/18 05/12/18 05/13/18 11:59 11:59 11:59 11:59 Intake Total 840 / 840 Output Total 400 / 400 Balance 440 / 440 Weight 223 lb 5 oz - Constitutional no acute distress - *Routine HEENT Exam Head: Present: normocephalic Eye: Present: EOMI, PERRL ENT: Present: mucous membranes moist - *Routine Neck Exam Present: supple. Absent: lymphadenopathy - *Routine Respiratory Exam Present: CTA bilaterally - *Routine Cardiovascular Exam Present: RRR - *Routine Abdominal Exam Present: soft, normoactive bowel sounds. Absent: tenderness - *Routine Extremities Exam Absent: cyanosis, clubbing, edema - *Routine Skin Exam Present: warm. Absent: rash - *Routine Neurological Exam Present: alert, oriented X3 Assessment and Plan (1) Chest pain Current visit: Yes Status: Acute Category: Medical Code(s): R07.9 - Chest pain, unspecified (2) CAD (coronary artery disease) Current visit: No Status: Chronic Qualifiers: Coronary Disease-Associated Artery/Lesion type: [place] artery [place] vs. transplanted heart: [place] heart Associated angina: without angina Qualified Code(s): I25.10 - Atherosclerotic heart disease of [place] coronary artery without angina pectoris Category: Medical Code(s): I25.10 - Atherosclerotic heart disease of [place] coronary artery without angina pectoris (3) HHD (hypertensive heart disease) Current visit: No Status: Chronic Qualifiers: Heart failure presence: without heart failure Qualified Code(s): I11.9 - Hypertensive heart disease without heart failure Category: Medical Code(s): I11.9 - Hypertensive heart disease without heart failure (4) Chronic back pain Current visit: Yes Status: Chronic Category: Medical Code(s): M54.9 - Dorsalgia, unspecified; G89.29 - Other chronic pain - Assessment and plan all Dx Assessment and Plan for all problems:: Enzymes normal, Cardiology consult pending.
--- NOTE | 2018-05-13 16:14 | Discharge Summary ---
General - General Admission date:: 05/12/18 Discharge date: 05/13/18 HPI HPI: Ms. aguirre is a 52-year-old female with a history of hypertension, COPD, and chronic back pain. She states she is a patient of Dr. Sun in [place]. She has been having issues for the past 2-3 weeks with elevated blood pressure sometimes as high as 220/104. Along with the elevated blood pressure she has had chest pressure off and on. Today her blood pressure was elevated and she had pain and pressure on the left side of her chest that radiated to her left shoulder, upper neck, and into her jaw. She presented the emergency room for further evaluation and treatment. As of now her enzymes have been normal. She did see Dr. Jimenes approximately 2-3 years ago and had a cath. She states at that time he told her there was a 30% blockage but it could be treated with medication and she did not need a stent. She was admitted for further evaluation and treatment. Hospital Course Hospital Course: The patient's cardiac enzymes were normal but she continued with CP. Cardiology saw the patient and decided to do a heart cath. It was normal other than mild nonflow limiting CAD. She did have an elevated LVEDP. They felt she was stable to be discharged home and they sent a rx for 80mg of lasix daily to her pharmacy. She will need to f/u with cardiology in 1 week as well as her PCP in 2 weeks. Objective Vital signs: Temp Pulse Resp BP Pulse Ox 99.0 F 69 16 142/82 H 90 L 05/13/18 11:46 05/13/18 14:30 05/13/18 14:30 05/13/18 14:30 05/13/18 14:30 Narrative: - Constitutional no acute distress - *Routine HEENT Exam Head: Present: normocephalic Eye: Present: EOMI, PERRL ENT: Present: mucous membranes moist - *Routine Neck Exam Present: supple. Absent: lymphadenopathy - *Routine Respiratory Exam Present: CTA bilaterally - *Routine Cardiovascular Exam Present: RRR - *Routine Abdominal Exam Present: soft, normoactive bowel sounds. Absent: tenderness - *Routine Extremities Exam Absent: cyanosis, clubbing, edema - *Routine Skin Exam Present: warm. Absent: rash - *Routine Neurological Exam Present: alert, oriented X3 Results Labs on day of discharge: Labs from last 24 hours 05/12/18 05/12/18 18:17 16:11 Troponin I < 0.02 < 0.02 DS: Diagnosis - Discharge Diagnosis (1) Chest pain Status: Acute (2) CAD (coronary artery disease) Status: Chronic (3) HHD (hypertensive heart disease) Status: Chronic (4) Chronic back pain Status: Chronic Discharge Plan - Patient Discharge Instructions ACTIVITY: Continue current activity DIET: continue same diet - Follow up Plan Follow up with: Vinicio Jimenes MD [Staff Physician] - 1 week Julien Sun [Referring] - 2 weeks Disposition: Home, Self-Long-Term Medications: Home Medications Medication Instructions Recorded Confirmed Type Atorvastatin Calcium [Atorvastatin 10 mg PO HS 06/14/17 05/12/18 History 10mg Tab] Cyclobenzaprine HCl 5 mg PO TIDP PRN 06/14/17 05/12/18 History [Cyclobenzaprine 5mg Tab] Escitalopram Oxalate [Lexapro] 20 mg PO DAILY 06/14/17 05/12/18 History Omeprazole [Omeprazole 40mg 40 mg PO DAILY 06/14/17 05/12/18 History Capsule] meloxicam 15 mg tablet 15 mg PO DAILY tab 10/19/17 05/12/18 History gabapentin 800 mg tablet 800 mg PO TID 02/22/18 05/12/18 History Bisoprolol Fumarate [Bisoprolol 5 mg PO BID 05/12/18 05/12/18 History 5mg Tablet] Buspirone HCl 15 mg PO BID 05/12/18 05/12/18 History Butalbital/Aspirin/Caffeine 1 each PO Q6HP PRN 05/12/18 05/12/18 History [Fiorinal 50-325-40 mg Capsule] Hydrocodone/Acetaminophen 1 each PO Q8HP PRN 05/12/18 05/12/18 History [Hydrocodone-Acetamin 10-325 mg] Loratadine [Claritin 10mg Tablet] 10 mg PO DAILY 05/12/18 05/12/18 History Spironolactone [Aldactone 50mg Tab] 25 mg PO DAILY 05/12/18 05/12/18 History Trazodone HCl 50 mg PO HS 05/12/18 05/12/18 History Umeclidinium [place] [Incruse 1 puff IH DAILY 05/12/18 05/12/18 History Ellipta] hydrOXYzine HCl [Hydroxyzine HCl] 25 mg PO BID 05/12/18 05/12/18 History Prescriptions/Medication Reconciliation: New Furosemide [Lasix 80mg tab] 80 mg PO DAILY #30 tab Continue meloxicam 15 mg tablet 15 mg PO DAILY tab gabapentin 800 mg tablet 800 mg PO TID Escitalopram Oxalate [Lexapro] 20 mg PO DAILY Atorvastatin Calcium [Atorvastatin 10mg Tab] 10 mg PO HS Cyclobenzaprine HCl [Cyclobenzaprine 5mg Tab] 5 mg PO TIDP PRN PRN Reason: Muscle Spasm Omeprazole [Omeprazole 40mg Capsule] 40 mg PO DAILY Spironolactone [Aldactone 50mg Tab] 25 mg PO DAILY Trazodone HCl 50 mg PO HS Loratadine [Claritin 10mg Tablet] 10 mg PO DAILY Butalbital/Aspirin/Caffeine [Fiorinal 50-325-40 mg Capsule] 1 each PO Q6HP PRN PRN Reason: headaches Buspirone HCl 15 mg PO BID Bisoprolol Fumarate [Bisoprolol 5mg Tablet] 5 mg PO BID Hydrocodone/Acetaminophen [Hydrocodone-Acetamin 10-325 mg] 1 each PO Q8HP PRN PRN Reason: pain Umeclidinium [place] [Incruse Ellipta] 1 puff IH DAILY hydrOXYzine HCl [Hydroxyzine HCl] 25 mg PO BID Discontinued Furosemide [Furosemide 40MG tAB] 40 mg PO DAILY
== END 2018-05-13 18:55 | disposition home or self-care (01) ==
LOC: 2ND 12:22 → ER 12:22 → 2ND 15:23
PROVIDERS: ADMIT Family Medicine; ATTEND Family Medicine

== ENCOUNTER → 2018-06-16 13:37 | Outpatient (CLI) | payer MEDICARE, SELFPAY ==
--- NOTE | 2018-06-16 13:40 | CA_ITS ---
PROCEDURE: 2-D M-mode and color Doppler study INDICATIONS FOR THE TEST: Chest pain COPD+ Heart Murmur Tobacco Smoking+ Palpitations Fatigue Syncope Edema Hypertension+Diabetes Mellitus Rheumatic Fever SOB+BOBO Obesity+ Hyperlipidemia Family History HD Additional History cad,cath PATIENT INFORMATION HEIGHT:69 WEIGHT:220 GENDER: Female B/P:148/82 2-D/M-MODE INTERPRETATION: 2-D MEASUREMENTS OBSERVED VALUES IN CMS Right Ventricular Dimension (RVDd) 1.6 Interventricular Septum (Thickness)(IVsd) 0.9 Left Ventricular Internal Dimensions(LVIDd) 5.1 Left Ventricular Posterior Wall (Thickness)(LVPWd) 0.5 Aortic Root 2.1 Aortic Cusp Separation 1.6 Left Atrial Dimensions (LAD) 2.4 2D 1. Technically very difficult study, endocardial surface of very poorly visualized, a repeat study with Definity contrast is recommended. 2. Left atrium is mildly enlarged, left ventricle is normal size, there is mild concentric left ventricular hypertrophy, visually estimated ejection fraction 50%, there appears to be mild hypokinesis involving the inferior wall. Repeat study with Definity contrast is recommended. 3. The right atrium and right ventricle are normal size and contractility. 4. The aortic valve is minimally thickened and fibrosed. 5. Mitral and tricuspid valvular grossly normal. 6. The pulmonic valve is poorly visualized. 7. No significant pericardial effusion noted. DOPPLER INTERROGATION: Doppler interrogation of the aortic, mitral and tricuspid valvular presence of mild mitral and tricuspid regurgitation, tricuspid regurgitation jet velocity is inadequate for calculation of the right ventricular systolic pressure, grade 1 diastolic dysfunction seen with tissue Doppler evidence of raised left atrial pressure. CONCLUSION: 1. Mildly enlarged left atrium, normal left ventricular size, mild concentric left ventricular hypertrophy, visually estimated ejection fraction 50%, there appears to be mild hypokinesis involving the inferior wall, endocardial surfaces are poorly visualized, a repeat study with Definity contrast is recommended. Grade 1 diastolic dysfunction seen with tissue Doppler evidence of raised left atrial pressure. 2. Mild mitral and tricuspid regurgitation 3. No significant pericardial effusion noted.
== END ==
PROVIDERS: PCP Family Medicine; Visit Provider Internal Medicine Cardiovascular Disease
DX: E66.9 Obesity, unspecified (principal); G89.29 Other chronic pain; I11.9 Hypertensive heart disease without heart failure; I25.10 Atherosclerotic heart disease of native coronary artery without angina pectoris; J44.1 Chronic obstructive pulmonary disease with (acute) exacerbation; J45.901 Unspecified asthma with (acute) exacerbation; M54.9 Dorsalgia, unspecified; R06.09 Other forms of dyspnea; R07.9 Chest pain, unspecified; R53.83 Other fatigue
CPT/HCPCS: 93306

== ENCOUNTER → 2018-06-23 11:16 | Outpatient (CLI) | payer MEDICARE, SELFPAY ==
[2018-06-23 12:22] LABS: Anion Gap 14.6 mEq/L (5-15); Blood Urea Nitrogen 21 mg/dL (7-18); Calcium 8.6 mg/dL (8.5-10.1); Carbon Dioxide 31 mmol/L (21.0-32.0); Chloride 96 mmol/L (98-107); Creatinine,Serum 1.11 mg/dL (0.55-1.02); Estimated Glomerular Filt Rate 51 ml/min (>60); GFR (African American) 62 ML/MIN (>60); Glucose 117 mg/dL (74-106); Potassium 3.6 mmoL/L (3.5-5.1); Sodium 138 mmol/L (136-145)
== END ==
PROVIDERS: PCP Family Medicine; Visit Provider Internal Medicine Cardiovascular Disease
DX: G47.9 Sleep disorder, unspecified (principal); R06.83 Snoring; R40.0 Somnolence; E66.9 Obesity, unspecified; G89.29 Other chronic pain; I11.9 Hypertensive heart disease without heart failure; I25.10 Atherosclerotic heart disease of native coronary artery without angina pectoris; J44.1 Chronic obstructive pulmonary disease with (acute) exacerbation; J45.901 Unspecified asthma with (acute) exacerbation; M54.9 Dorsalgia, unspecified; R06.00 Dyspnea, unspecified; R07.9 Chest pain, unspecified; R53.83 Other fatigue; R06.09 Other forms of dyspnea
CPT/HCPCS: 36415; 80048; 83880; G0399

== ENCOUNTER → 2018-07-05 20:03 | Outpatient (CLI) | payer MEDICARE, SELFPAY | PROVIDERS: PCP Family Medicine; Visit Provider Internal Medicine Cardiovascular Disease | DX: I10 Essential (primary) hypertension; R40.0 Somnolence; R06.83 Snoring; G47.30 Sleep apnea, unspecified | CPT/HCPCS: 95810 ==

== ENCOUNTER → 2018-07-29 08:23 | Outpatient (CLI) | payer MEDICARE, SELFPAY ==
--- NOTE | 2018-07-29 08:25 | CA_ITS ---
PROCEDURE: Limited study with definitely contrast INDICATIONS FOR THE TEST: Chest pain COPD Heart Murmur Tobacco Smoking Palpitations Fatigue Syncope Edema Hypertension Diabetes Mellitus Rheumatic Fever SOB BOBO Obesity Hyperlipidemia Family History HD Additional History FOR DEFINITY EVAL PATIENT INFORMATION HEIGHT: WEIGHT: GENDER: Female B/P: 2-D/M-MODE INTERPRETATION: 2-D MEASUREMENTS OBSERVED VALUES IN CMS Right Ventricular Dimension (RVDd) Interventricular Septum (Thickness)(IVsd) Left Ventricular Internal Dimensions(LVIDd) Left Ventricular Posterior Wall (Thickness)(LVPWd) Aortic Root Aortic Cusp Separation Left Atrial Dimensions (LAD) 2D DOPPLER INTERROGATION: CONCLUSION: 1. Technically contrast was utilized to delineate endocardial surfaces, visually estimated ejection fraction of 55-60% with no regional wall motion abnormality.
== END ==
PROVIDERS: PCP Family Medicine; Visit Provider Internal Medicine Cardiovascular Disease
DX: E66.9 Obesity, unspecified (principal); I11.9 Hypertensive heart disease without heart failure; I25.10 Atherosclerotic heart disease of native coronary artery without angina pectoris; J44.1 Chronic obstructive pulmonary disease with (acute) exacerbation; J45.901 Unspecified asthma with (acute) exacerbation; R00.2 Palpitations; R06.09 Other forms of dyspnea; R53.83 Other fatigue
CPT/HCPCS: 93306

== ENCOUNTER → 2019-04-21 11:03 | Outpatient (CLI) | payer MEDICARE, SELFPAY ==
--- NOTE | 2019-04-21 11:12 | MM_ITS ---
PROCEDURE: MM DIG SCREENING MAMM BI W/CAD Patient Age:53Y CLINICAL INDICATION: SCREENING no hormones but no new complaints. Noncontributory family history. COMPARISON: DIGMAMMS MAMMOGRAM SCREEN-FAMILY ASSISTANT N/C from 01/01/2003 DMSB DIGITAL MAMM-SCREEN BILATERAL from 01/12/2012 DMDBAV DIG MAMM-DX BILAT W/ADD VIEWS from 10/14/2012 MM MAMMO DIGITAL EDGAR DIAGN BILAT from 09/22/2016Outside mammogram studies TECHNIQUE: Standard CC and MLO images were obtained. R2 CAD reviewed. Additional nipple profile views left breast CC and MLO included FINDINGS: Areas of moderate density breast tissue seen deep to the nipple at central breast. This pattern is stable since multiple prior studies with no new suspicious or dominant mass, no suspicious calcifications. Bilateral follow-up 1 year recommended IMPRESSION: Stable bilateral mammogram, with no new areas of concern. Bilateral follow-up 1 year recommended BI-RAD Category: 1 Negative FOLLOW-UP: 1YR 1 Year Follow-up (A letter has been sent to the patient regarding results of the study.) Dictated by: Ang Cuellar MD 05/02/2019 09:28 Electronically signed by Ang Cuellar MD in [place] 05/02/2019 09:28
== END ==
PROVIDERS: PCP Family Medicine; Visit Provider Family Medicine
DX: Z12.31 Encounter for screening mammogram for malignant neoplasm of breast (principal)
CPT/HCPCS: 77067

== ENCOUNTER 2019-12-28 21:17 | Observation (INO) | payer MEDICARE, SELFPAY ==
[2019-12-28 21:32] VITALS: BP 153/76; PULSE 110; RESP 16; TEMP 36.7; O2SAT 89; BMI 33.0
--- NOTE | 2019-12-28 21:37 | XR_ITS ---
PROCEDURE: XR CHEST 2V CLINICAL HISTORY: soa Shortness of breath, smoker COMPARISON: [facility] CT CHEST W/O CONTRAST from 06/30/2014 CXR1VP XR chest portable from 05/12/2018 XR CHEST 2V from 03/10/2019 XR CHEST 2V from 06/21/2019 FINDINGS: The cardiomediastinal silhouette and pulmonary vascularity are within normal limits. Stable 12 mm right lower lobe nodule. No lobar consolidation or collapse.. Stable nodular opacity in the retrocardiac region No acute bony abnormalities. IMPRESSION: As above, no change with no acute finding Dictated by: Mack Dunn MD 12/29/2019 06:35 Electronically signed by Mack Dunn MD in [place] 12/29/2019 06:35
[2019-12-28 21:54] LABS: ABG HCO3 32.9 mmhg (22.0-26.0); ABG Oxygen Saturation 94 % (90-100); ABG PO2 64.5 mmhg (80-100); ABG TCO2 34.6 mmhg (23-27)
[2019-12-28 21:54] LABS: Basophils # 0.1 K/mm3 (0-0.2); Basophils % 0.6 % (0.1-2.0); Eosinophils # 0.4 K/mm3 (0.0-0.4); Eosinophils % 3.1 % (0.1-12.0); Hematocrit 43.1 % (37.0-47.0); Hemoglobin 14.6 g/dL (12.2-16.2); Lymphocytes # 2.6 K/mm3 (0.7-4.5); Lymphocytes % 22.8 % (10-50); Mean Corpuscular HGB Conc 33.9 g/dL (31.8-35.4); Mean Corpuscular Hemoglobin 29.1 pg (27.0-31.2); Mean Corpuscular Volume 85.9 fl (81-99); Monocytes # 0.7 K/mm3 (0.1-1.0); Monocytes % 6.3 % (1.7-9.3); Neutrophils # 7.6 K/mm3 (1.8-7.8); Neutrophils % 67.3 % (37.0-80.0); Platelet Count 247 K/mm3 (142-424); Red Blood Count 5.01 M/mm3 (4.20-5.40); Red Cell Distribution Width 13.8 % (11.5-17.5); White Blood Count 11.3 K/mm3 (4.8-10.8)
[2019-12-28 21:55] LABS: Allen's Test Acceptable; Oxygen ROOM AIR %
[2019-12-28 21:56] LABS: Source Left Radial
[2019-12-28 21:57] LABS: ABG PCO2 54.7 mmhg (35.0-45.0)
[2019-12-28 21:59] LABS: Chloride 99 mmol/L (98-107); Potassium 4.1 mmoL/L (3.5-5.1); Sodium 140 mmol/L (136-145)
[2019-12-28 22:02] LABS: Alanine Aminotransferase 49 U/L (12-78); Albumin/Globulin Ratio 1.3 (1.1-1.8); Alkaline Phosphatase 113 U/L (38-126); Anion Gap 9.1 mEq/L (5-15); Aspartate Amino Transferase 38 U/L (14-36); Bilirubin,Total 0.2 mg/dl (0.2-1.3); Blood Urea Nitrogen 10 mg/dl (7-17); Carbon Dioxide 36 mmol/L (22.0-30.0); Creatinine Clearance Estimated 114 mL/min (50-200); Estimated Glomerular Filt Rate 87 ml/min (>60); GFR (African American) 105 ML/MIN (>60)
[2019-12-28 22:03] LABS: Calcium 8.9 mg/dl (8.4-10.2); Glucose 109 mg/dl (74-100); Lactic Acid 1.2 mmol/L (0.7-2.1)
[2019-12-28 22:11] LABS: NT Pro Brain Natriuretic Pep. 37.8 pg/mL (0-125)
[2019-12-28 22:16] VITALS: BP 93/72; PULSE 99; RESP 18; TEMP 36.6; O2SAT 97
--- NOTE | 2019-12-28 22:16 | PC.NURSE ---
pt to radiology via at this time.
[2019-12-28 22:20] LABS: Troponin I < 0.01 ng/ml (0.00-0.034)
--- NOTE | 2019-12-28 22:54 | HMH.EDSOB ---
ED Disposition Clinical Impression: Acute exacerbation of chronic obstructive airways disease, Elevated left ventricular end-diastolic pressure (LVEDP), Tobacco use HTN (hypertension) Qualifiers: Hypertension type: essential hypertension Qualified Code(s): I10 - Essential (primary) hypertension Obesity Qualifiers: Obesity type: due to excess calories Obesity classification: adult class 1 (BMI 30 - 34.9) Serious obesity comorbidity presence: with serious comorbidity Body mass index: BMI 33.0-33.9 Qualified Code(s): E66.09 - Other obesity due to excess calories; Z68.33 - Body mass index (BMI) 33.0-33.9, adult CAD (coronary artery disease) Qualifiers: Coronary Disease-Associated Artery/Lesion type: [place] artery [place] vs. transplanted heart: [place] heart Associated angina: with unspecified angina Qualified Code(s): I25.119 - Atherosclerotic heart disease of [place] coronary artery with unspecified angina pectoris Disposition: Admitted as Observation Condition on Discharge: Good Referrals: Julien Sun [Primary Care Provider] - - Critical Care Critical Care Time: No Attestation: On 12/28/19, the high probability of a clinically significant, sudden or life threatening deterioration of the following system(s) required my full and direct attention, intervention and personal management. The time I documented below is in addition to time spent performing reported procedures but includes the following listed in this critical care notation. Medical Decision Making - Medical Records Medical records reviewed: Yes: I reviewed the patient's medical records. - Connor Inquiry Pt receiving controlled substance: No Vital Signs: 12/28/19 21:32 12/28/19 22:16 12/28/19 23:12 Temperature 98.0 F 97.8 F Temperature Source Oral Oral Pulse Rate [Right Brachial] 110 H 99 H 86 Respiratory Rate 16 18 Blood Pressure [Right Arm] 153/76 H 93/72 L 160/98 H Blood Pressure Mean [Right Arm] 101 79 118 Blood Pressure Source [Right Arm] Automatic Cuff Automatic Cuff Automatic Cuff Blood Pressure Position [Right Arm] Sitting Sitting Sitting 02 Sat by Pulse Oximetry 89 L 97 95 Oxygen Delivery Method Room Air Nasal Cannula Oxygen Flow Rate (LPM) 2 - Lab Data Lab results reviewed: Yes: I reviewed the patient's lab results. Lab Results 12/28/19 21:37: Specimen Source Left radial, O2 % Room air, ABG pH 7.40, ABG pCO2 54.7 H, ABG pO2 64.5 L, ABG HCO3 32.9 H, ABG Total CO2 34.6 H, ABG O2 Saturation 94, ABG Base Excess 8.0 H, Mack Test Acceptable 12/28/19 21:40: WBC 11.3 H, RBC 5.01, Hgb 14.6, Hct 43.1, MCV 85.9, MCH 29.1, MCHC 33.9, RDW 13.8, Plt Count 247, MPV 8.0, Neut % (Auto) 67.3, Lymph % (Auto) 22.8, Leon % (Auto) 6.3, Eos % (Auto) 3.1, Baso % (Auto) 0.6, Neut # (Auto) 7.6, Lymph # (Auto) 2.6, Leon # (Auto) 0.7, Eos # (Auto) 0.4, Baso # (Auto) 0.1 12/28/19 21:40: Sodium 140, Potassium 4.1, Chloride 99, Carbon Dioxide 36 H, Anion Gap 9.1, BUN 10, Creatinine 0.70, Estimated Creat Clear 114, Estimated GFR 87, Est GFR ( Amer) 105, Glucose 109 H, Calcium 8.9, Total Bilirubin 0.2, AST 38 H, ALT 49, Alkaline Phosphatase 113, Troponin I < 0.01, NT-Pro-B Natriuret Pep 37.8, Total Protein 7.0, Albumin 4.0, Globulin 3.0, Albumin/Globulin Ratio 1.3 12/28/19 21:40: Lactate 1.2 12/28/19 21:40: Plasma/Serum Alcohol < 10 Result diagrams: 12/28/19 21:40 12/28/19 21:40 Orders (Tests/Meds): ED MEDICATIONS Generic Name Dose Route Start Last Admin Trade Name Freq PRN Reason Stop Dose Admin Sodium Chloride 1,000 mls @ 999 mls/hr 12/28/19 23:15 12/28/19 23:05 Sod Chlor 0.9% 1000ml Bag IV 12/29/19 00:15 999 mls/hr .Q1H1M ANA Administration Levofloxacin/Dextrose 500 mg in 100 mls @ 100 mls/hr 12/28/19 23:15 12/28/19 23:08 Levaquin 500mg/100ml Premix IV 01/11/20 23:14 100 mls/hr Q24H ANA Administration Protocol Discontinued Medications Generic Name Dose Route Start Last Admin Trade Name Freq PRN Reason Stop Dos
[2019-12-28 23:11] LABS: Ethyl Alcohol < 10 mg/dl (0-10)
[2019-12-28 23:12] VITALS: BP 160/98; PULSE 86; O2SAT 95
[2019-12-28 23:27] LABS: Adenovirus,PCR Not Detected (NotDetected); Bordetella Pertussis Not Detected (NotDetected); Chlamydophila Pneumoniae, PCR Not Detected (NotDetected); Coronavirus 19, PCR Not Detected (NotDetected); Coronavirus 229E Not Detected (NotDetected); Coronavirus NL63 Not Detected (NotDetected); Coronavirus OC43 Not Detected (NotDetected); Coronovirus HKU1,PCR Not Detected (NotDetected); Human Metapneumovirus Not Detected (NotDetected); Influenza A, PCR Not Detected (NotDetected); Influenza AH1, 2009 Not Detected (NotDetected); Influenza AH1, PCR Not Detected (NotDetected); Influenza AH3,PCR Not Detected (NotDetected); Influenza B, PCR Not Detected (NotDetected); Mycoplasma Pneumoniae, PCR Not Detected (NotDected); Parainfluenza 1, PCR Not Detected (NotDetected); Parainfluenza 2, PCR Not Detected (NotDetected); Parainfluenza 3, PCR Not Detected (NotDetected); Parainfluenza 4, PCR Not Detected (NotDetected); Respiratory Syncytial Virus Not Detected (NotDetected); Rhinovirus/Enterovirus Not Detected (NotDetected)
[2019-12-29] VITALS (18 sets, daily range): BP systolic 125–190; BP diastolic 61–116; PULSE 81–103; RESP 15–24; TEMP 36.5–37.3; O2SAT 88–98; BMI 45.6; BMI 45.8
--- NOTE | 2019-12-29 00:25 | ECG_ITS ---
APPROVED REPORT Exam: Resting ECG HR:92 bpm ECG Measurements Heart Rate 92 AXES RI 182 P 58 QRSd 88 QRS 59 QT 416 T 83 QTc 514 <Conclusion> Normal sinus rhythm Prolonged QT Abnormal ECG Electronically signed by : Baljinder Roach, 12/29/2019 17:01:19
--- NOTE | 2019-12-29 00:51 | PC.NURSE ---
pt arrived from the ed at 0048 via wheel chair
[2019-12-29 01:12] LABS: Troponin I < 0.01 ng/ml (0.00-0.034)
[2019-12-29 04:14] LABS: Basophils # 0.1 K/mm3 (0-0.2); Basophils % 0.4 % (0.1-2.0); Eosinophils # 0.1 K/mm3 (0.0-0.4); Eosinophils % 0.4 % (0.1-12.0); Hematocrit 45.9 % (37.0-47.0); Hemoglobin 15.1 g/dL (12.2-16.2); Lymphocytes # 1.2 K/mm3 (0.7-4.5); Lymphocytes % 10.7 % (10-50); Mean Corpuscular HGB Conc 32.9 g/dL (31.8-35.4); Mean Corpuscular Hemoglobin 28.5 pg (27.0-31.2); Mean Corpuscular Volume 86.7 fl (81-99); Mean Platelet Volume 7.7 fl (7.4-10.4); Monocytes # 0.2 K/mm3 (0.1-1.0); Monocytes % 1.8 % (1.7-9.3); Neutrophils % 86.6 % (37.0-80.0); Platelet Count 251 K/mm3 (142-424); Red Cell Distribution Width 13.9 % (11.5-17.5); White Blood Count 11.6 K/mm3 (4.8-10.8)
[2019-12-29 04:23] LABS: MANUAL DIFFERENTIAL MANUAL DIFFERENTIAL (MANUAL DIFF)
[2019-12-29 04:28] LABS: Chloride 95 mmol/L (98-107); Potassium 4.3 mmoL/L (3.5-5.1); Sodium 138 mmol/L (136-145)
[2019-12-29 04:30] LABS: Blood Urea Nitrogen 12 mg/dl (7-17); Creatinine Clearance Estimated 65 mL/min (50-200); Estimated Glomerular Filt Rate 87 ml/min (>60); GFR (African American) 105 ML/MIN (>60)
[2019-12-29 04:31] LABS: Anion Gap 14.3 mEq/L (5-15); Calcium 8.9 mg/dl (8.4-10.2); Carbon Dioxide 33 mmol/L (22.0-30.0); Chol/HDL Ratio 3.3 (1-3.5); Cholesterol 226 mg/dl (140-200); Glucose 161 mg/dl (74-100); HDL Cholesterol 68 mg/dl (40-60); Magnesium 1.7 mg/dl (1.6-2.3); Triglycerides 94 mg/dl (30-150); VLDL Cholesterol 19 mg/dL (0-40)
[2019-12-29 04:42] LABS: Direct LDL Cholesterol 127.84 mg/dL (100-129)
[2019-12-29 05:03] LABS: Troponin I < 0.01 ng/ml (0.00-0.034)
[2019-12-29 05:17] LABS: Lymphocytes % 13 % (10-50); Monocytes % 1 % (2-9); Neutrophils % 86 % (42-76); Stomatocytes 1+; Total Cells Counted 100
--- NOTE | 2019-12-29 06:29 | PC.NURSE ---
Pt has remained awake t/o this shift. Pt has had episodes of anxiety with SOA, but has been easily redirected with conversation. Pt has c/o pain in shoulders and arms, PRN acetaminophen administered per AUG. Sputum culture obtained and sent to lab, results pending. Call light within reach. Will continue to monitor.
--- NOTE | 2019-12-29 07:28 | P.CONPHA_ITS ---
[facility] Pharmacy VTE Monitoring - Patient Demographics Admission date: 12/29/19 Report Date: 12/29/19 Time: 07:28 Allergies/Adverse Reactions: Patient Allergies erythromycin base [ERYTHROMYCIN BASE] Allergy (Unknown, Verified 06/21/19 15:50) I-RASH Penicillins [PENICILLINS] Allergy (Unknown, Verified 06/21/19 15:50) DIFFICULTY BREATHING Height: 1.52 m Weight: 105.914 kg Patient Problems: Current Active Problems Acute exacerbation of chronic obstructive airways disease (Acute) Elevated left ventricular end-diastolic pressure (LVEDP) (Acute) Tobacco use (Acute) HTN (hypertension) (Acute) CAD (coronary artery disease) (Chronic) Obesity (Chronic) - VTE Risk Labs: VTE Related Lab Results Hgb 15.1 g/dL (12.2-16.2) 12/29/19 04:00 Hct 45.9 % (37.0-47.0) 12/29/19 04:00 Plt Count 251 K/mm3 (142-424) 12/29/19 04:00 BUN 12 mg/dl (7-17) 12/29/19 04:00 Creatinine 0.70 mg/dl (0.52-1.04) 12/29/19 04:00 Estimated Creat Clear 65 mL/min (50-200) 12/29/19 04:00 Was VTE Risk Assessment Performed: Yes VTE Score: 6 VTE Risk Level: Moderate Risk Clinical Trial Participant: No - Prophylaxis VTE Prophylaxis Ordered?: Yes Types of VTE Prophylaxis: TEDS Knee High
--- NOTE | 2019-12-29 08:00 | CA_ITS ---
APPROVED REPORT EXAM: Comprehensive 2D, Doppler, and color-flow Echocardiogram Prop And Effects Designer: Cindi Hernandez RDCS Ht: 5 ft 0 in Wt: 233lbs BSA: 1.99 BP: 160/98 mmHg Indications: CHF,COPD,SMOKER,SOA,BOBO,OBESITY M-Mode Dimensions RVDd 2.77 cm (0.9-2.6) LVDd 5.26 cm (3.5-5.7) LVDs 4.46 cm (3.5-5.7) IVSd 0.71 cm (0.6-1.1) PWd 0.98 cm (0.6-1.1) EF (Teich) 32.00% FS 15.20% EDV (Teich) 133.00 mL ESV (Teich) 90.50 mL LV Diastology E/A Ratio 0.53 Mitral Valve MV A Velocity 97.00 (40-130 cm/s) Left Ventricle Technically difficult study because of the patient factors and poor acoustic windows, left atrium is mildly enlarged, left ventricle is normal size, mild concentric left ventricular hypertrophy, visually estimated ejection fraction 55% with no regional wall motion abnormality, grade 1 diastolic dysfunction seen without tissue Doppler evidence of raise left atrial pressure. Right Ventricle Right atrium and right ventricle are mildly enlarged with normal contractility. Aortic Valve Aortic valve is minimally thickened and calcified, leaflet continue to display good mobility, there is no aortic stenosis or aortic insufficiency. Mitral Valve Mitral valve is minimally thickened, there is no mitral stenosis, there is mild mitral regurgitation. Tricuspid Valve Tricuspid valve is grossly normal, there is mild tricuspid regurgitation, tricuspid regurgitation jet velocity is inadequate for calculation of the right ventricular systolic pressure. Pulmonic Valve Pulmonic valve is poorly visualized. Great Vessels Aortic root is normal size. Pericardium No significant pericardial effusion noted. Conclusion 1. Technically difficult study because of the patient factors and poor acoustic windows. 2. Mild biatrial enlargement, normal left ventricular size, mild concentric left ventricular hypertrophy, visually estimated ejection fraction 55% with no regional wall motion abnormality, grade 1 diastolic dysfunction seen without tissue Doppler evidence of raise left atrial pressure. 3. Mildly enlarged right ventricle with normal contractility. 4. Mild mitral and tricuspid regurgitation. 5. No significant pericardial effusion noted. Electronically signed by : Lenin Hess, 12/29/2019 14:02:07
--- NOTE | 2019-12-29 09:29 | HMH.HP ---
*Admission Date: 12/28/19 *Chief complaint: soa *History of present illness: 54 year old female presented to the ED on 12/28/2019 with chest pain and increase shortness of breath. Pt stated for the past 2-3 days she has been having increase shortness of breath. Pt stated her oxygen level at home has been as low as 79%. Pt does wear oxygen at night due to her COPD. Pt continues to smoke. Pt stated her chest pain is dull. She describes this dullness is more in her lungs than in her chest.Initial workup was preformed in the ED. Initial ECG revealed Normal sinus rhythm with prolonged QT with heart rate of 92bpm. Lab work was unremarkable. Pt was hypertensive. Pt stated that he has not been taking her medication as prescribed. [facility] History I have reviewed the patient's past medical history: Yes Medical History: Reports:: Cancer, Chronic Obstructive Pulmonary Disease (COPD), Hyperlipidemia, Hypertension Denies:: Diabetes Mellitus Type 1, Diabetes Mellitus Type 2, MRSA *Have you ever received a pneumonia vaccine?: Yes *Have you received a flu vaccine this season?: Yes Other Medical History: Reports: Arthritis, Other Laterality Cases: Bilateral: Tonsillectomy Other Surgeries: Yes: Cancer Surgery (BENEATH L BREAST), Cardiac Catheterization, Tubal Ligation, Other Amputation: No Fractures: No - *Social History Last grade of school completed: High school graduate Smoking Status: Current some day smoker Tobacco Type: cigarettes # Packs/Day (cigarettes): 1 Alcohol Intake: never Alcohol Intake Frequency:: other Substance Use Type: denies use *Occupational Status:: disabled Housing: house Household Members: spouse *Travel in the last 8 weeks: None Family Hx:: Heart Attack Review of Systems - Review of Systems Review of systems:: pertinent systems reviewed and negative unless documented below - Constitutional Reports fatigue, Reports fever(s) - Eyes Denies blurry vision - ENT Denies nose pain - *Cardiovascular Reports shortness of breath, Denies chest pain with activity - *Respiratory Reports chest congestion, Reports cough, Reports shortness of breath, Reports shortness of breath with activity - *Gastrointestinal Denies nausea, Denies vomiting - *Genitourinary Denies urinary incontinence - *Musculoskeletal Denies body aches - Integumentary/Breasts Denies rash - *Neurologic Denies seizure-like activity - Psychiatric Denies anxiety - Endocrine Denies flushing - Hematologic/Lymphatic Denies enlarged lymph nodes - Allergic/Immunologic Denies lip swelling Meds Home Medications Medication Instructions Recorded Confirmed Type Cyclobenzaprine HCl 5 mg PO TIDP PRN 06/14/17 12/29/19 History [Cyclobenzaprine 5mg Tab] Omeprazole [Omeprazole 40mg 40 mg PO DAILY 06/14/17 12/29/19 History Capsule] Buspirone HCl [Buspirone 15 mg 15 mg PO BID 05/12/18 12/29/19 History Tablets] Butalbital/Aspirin/Caffeine 1 each PO Q6HP PRN 05/12/18 12/29/19 History [Fiorinal 50-325-40 mg Capsule] Loratadine [Claritin 10mg 10 mg PO DAILY 05/12/18 12/29/19 History Tablet] Umeclidinium [place] [Incruse 1 puff IH DAILY 05/12/18 12/29/19 History Ellipta] hydrOXYzine HCL [Hydroxyzine HCl] 25 mg PO BID 05/12/18 12/29/19 History spironolactone 50 mg tablet 50 mg PO DAILY #30 tab 02/17/19 12/29/19 Rx trazodone 50 mg tablet 75 mg PO HSP PRN 02/17/19 12/29/19 History bisoprolol fumarate 10 mg tablet 10 mg PO BID #60 tab 06/22/19 12/29/19 Rx furosemide 80 mg tablet 80 mg PO DAILY #30 tab 06/22/19 12/29/19 Rx losartan 100 mg tablet 100 mg PO DAILY #30 tab 08/30/19 12/29/19 Rx Atorvastatin [place] [Lipitor 40mg 40 mg PO HS 12/29/19 12/29/19 History Tab] Fluoxetine HCl 40 mg PO BID 12/29/19 12/29/19 History Gabapentin [Neurontin 600mg 600 mg PO QID 12/29/19 12/29/19 History tablet] NIFEdipine [Nifedipine ER] 60 mg PO DAILY 12/29/19 12/29/19 History Allergies Allergy/AdvReac Type Severity [place]
--- NOTE | 2019-12-29 09:47 | SW/DCPLANNER ---
This patient currently has home O2 for night time.
--- NOTE | 2019-12-29 13:39 | HMH.CNCARD ---
History of Present Illness Consult date: 12/29/19 Requesting physician: Robbie Kimball Consult reason: chest pain, shortness of breath Chief complaint: Chest pain and shortness of breath Additional Medical History:: 1. COPD (12/29/2019) 2. Chest pain (12/29/2019) a. Last cath: (2018) Mild to moderate non-flowing CAD. Elevated left ventricular end-diastolic pressure. 3. Hyperlipidemia a. LDL 129.84. On statin therapy. 4. Tobacco use. 5. Obesity (BMI 48) 6. Hypertension History of present illness: 54 year old Caucasion female presented to the ED on 12/28/2019 with chest pain and increase shortness of breath. Pt stated for the past 2-3 days she has been having increase shortness of breath. Pt stated her oxygen level at home has been as low as 79%. Pt does wear oxygen at night due to her COPD. Pt continues to smoke. Pt stated her chest pain is dull. She describes this dullness is more in her lungs than in her chest. Denies palpitations or dizziness. Pt does have edema noted of the lower extremities. Pt is wearing ROSALINA hose. Last cath revealed mild to moderate non-flowing CAD, with ELVEDP. Last echo (2019) revealed EF 55% with no wall motion abnormality. Initial workup was preformed in the ED. Initial ECG revealed Normal sinus rhythm with prolonged QT with heart rate of 92bpm. Lab work was unremarkable. Pt was hypertensive. Pt stated that he has not been taking her medication as prescribed. CXR revealed no acute changes or findings. Preliminary Echocardiogram revealed EF 55% with Mild MR and TR. Discussed plan of care with Dr. ZHU. Recommend Echocardiogram to assess LV function and valve status. Recommend better BP control. Instruct pt to take her medications as prescribed. Follow up cardiac clinic in one week for further cardiac testing. Thank you for letting Cardiology participate in the care of this pt. [facility] History Medical History: Reports:: Cancer, Chronic Obstructive Pulmonary Disease (COPD), Hyperlipidemia, Hypertension Denies:: Diabetes Mellitus Type 1, Diabetes Mellitus Type 2, MRSA *Have you ever received a pneumonia vaccine?: Yes *Have you received a flu vaccine this season?: Yes Other Medical History: Reports: Arthritis, Other Laterality Cases: Bilateral: Tonsillectomy Other Surgeries: Yes: Cancer Surgery (BENEATH L BREAST), Cardiac Catheterization, Tubal Ligation, Other Amputation: No Fractures: No - *Social History Last grade of school completed: High school graduate Smoking Status: Current some day smoker Tobacco Type: cigarettes # Packs/Day (cigarettes): 1 Alcohol Intake: never Alcohol Intake Frequency:: other Substance Use Type: denies use *Occupational Status:: disabled Housing: house Household Members: spouse *Travel in the last 8 weeks: None Family Hx:: Heart Attack Meds Home Medications Medication Instructions Recorded Confirmed Type Cyclobenzaprine HCl 5 mg PO TIDP PRN 06/14/17 12/29/19 History [Cyclobenzaprine 5mg Tab] Omeprazole [Omeprazole 40mg 40 mg PO DAILY 06/14/17 12/29/19 History Capsule] Buspirone HCl [Buspirone 15 mg 15 mg PO BID 05/12/18 12/29/19 History Tablets] Butalbital/Aspirin/Caffeine 1 each PO Q6HP PRN 05/12/18 12/29/19 History [Fiorinal 50-325-40 mg Capsule] Loratadine [Claritin 10mg 10 mg PO DAILY 05/12/18 12/29/19 History Tablet] Umeclidinium [place] [Incruse 1 puff IH DAILY 05/12/18 12/29/19 History Ellipta] hydrOXYzine HCL [Hydroxyzine HCl] 25 mg PO BID 05/12/18 12/29/19 History spironolactone 50 mg tablet 50 mg PO DAILY #30 tab 02/17/19 12/29/19 Rx trazodone 50 mg tablet 75 mg PO HSP PRN 02/17/19 12/29/19 History bisoprolol fumarate 10 mg tablet 10 mg PO BID #60 tab 06/22/19 12/29/19 Rx furosemide 80 mg tablet 80 mg PO DAILY #30 tab 06/22/19 12/29/19 Rx losartan 100 mg tablet 100 mg PO DAILY #30 tab 08/30/19 12/29/19 Rx Atorvastatin Calcium [Lipitor 40mg 40 mg PO HS 12/29/19 12/29/19 History Tab] Fluoxetine HCl 40 mg PO BID
--- NOTE | 2019-12-29 14:22 | PC.NURSE ---
PT IS RESTING IN BED. TOLERATED SHOWER THIS SHIFT. O2 SATURATION HAS MAINTAINED 90-92% ON 2 L NC. LUNG SOUNDS HAVE EXPIRATORY RHONCHI IN THE BILATERAL BASES. BOWEL SOUNDS NORMAL. PT STATED SHE HAD A NORMAL BOWEL MOVEMENT IN THE MIDDLE OF THE NIGHT. AMBULATES TO THE BATHROOM. ROSALINA ROONEY NOTED BLE. PT STATED HER BACK WAS HURTING THIS MORNING AND TYLENOL WAS NOT HELPING THE PAIN. NOTIFIED PCP AND HE ORDERED TORADOL 30 MG IV Q6H PRN. PT COMPLAINED OF NAUSEA AFTER EATING BREAKFAST AND REQUESTED A PRN DOSE OF ZOFRAN. WILL CONTINUE TO MONITOR.
--- NOTE | 2019-12-29 15:57 | DIET.NUTRFU ---
Nutritional Assessment,IP completed by student Kia Dong under my direct supervision.
--- NOTE | 2019-12-29 19:14 | PC.NURSE ---
report given to giorgio
--- NOTE | 2019-12-29 23:53 | PC.NURSE ---
Pt's room air sat at rest = 88%.
[2019-12-30] VITALS (12 sets, daily range): BP systolic 123–162; BP diastolic 70–83; PULSE 73–84; RESP 16–24; TEMP 36.4–37.1; O2SAT 92–94; BMI 46.2
--- NOTE | 2019-12-30 06:23 | PC.NURSE ---
Addendum entered by Violetta Brice RN 12/31/19 00:40: LUNGS NOTED DIMINISHED WITH INSPIRATORY WHEEZING IN RIGHT POSTERIOR BASE Original Note: A&OX3. PERRLA. PASTE UP ARTIST EQUAL BILAT. LUNGS NOTED DIMINISHED T/O AUSCULTATION. 2LNC TOLERATED WELL. RA ATTEMPTED AT BEGINNING OF SHIFT, O2SAT NOTED 88%, REAPPLIED 2LNC. ABDOMEN NOTED NONDISTENDED, ACTIVE BOWEL SOUNDS, SOFT AND NONTENDER PER PALPATION. NSR NOTED PER PLUG SORTER. PULSES +2, CAP REFILL <3 SEC. C/O CP, AND STATED MY STOMACH HAS JUST BEEN IN KNOTS PT REPORTS I HONESTLY THINK IT IS FROM MY ANXIETY. PT WAS NOTED TEARFUL ON ASSESSMENT AND ONCE FOLLOWING DOSE OF ATIVAN. MD DISPLAY MAKER WAS MADE AWARE OF C/O ANXIETY. FOLLOWING SPEAKING WITH MD AT 0217, MD ORDERED A ONE TIME DOSE OF HALDOL TO BE GIVEN FOR ANXIETY. ONCE MEDICATION WAS NOTED ON AUG, THIS RN WENT TO GIVE MEDICATION, PT WAS NOTED ASLEEP, PT SLEPT WELL REST OF SHIFT. WILL RETURN HALDOL AND PASS ON IN REPORT THAT THIS ONE TIME DOSE WAS NOT GIVEN. PT IS INDEPENDENT WITH ADLS. VSS. WILL CONTINUE TO MONITOR.
[2019-12-30 07:28] LABS: Basophils % 0.1 % (0.1-2.0); Eosinophils % 0.2 % (0.1-12.0); Hematocrit 40.8 % (37.0-47.0); Hemoglobin 13.3 g/dL (12.2-16.2); Lymphocytes # 1.6 K/mm3 (0.7-4.5); Lymphocytes % 10.3 % (10-50); Mean Corpuscular HGB Conc 32.7 g/dL (31.8-35.4); Mean Corpuscular Hemoglobin 28.5 pg (27.0-31.2); Mean Corpuscular Volume 87.3 fl (81-99); Mean Platelet Volume 7.4 fl (7.4-10.4); Monocytes # 0.6 K/mm3 (0.1-1.0); Monocytes % 3.8 % (1.7-9.3); Neutrophils # 13.6 K/mm3 (1.8-7.8); Neutrophils % 85.7 % (37.0-80.0); Platelet Count 249 K/mm3 (142-424); Red Blood Count 4.67 M/mm3 (4.20-5.40); White Blood Count 15.9 K/mm3 (4.8-10.8)
[2019-12-30 07:30] LABS: MANUAL DIFFERENTIAL MANUAL DIFFERENTIAL (MANUAL DIFF)
[2019-12-30 07:34] LABS: Chloride 98 mmol/L (98-107)
[2019-12-30 07:35] LABS: Potassium 4.2 mmoL/L (3.5-5.1); Sodium 139 mmol/L (136-145)
[2019-12-30 07:37] LABS: Blood Urea Nitrogen 13 mg/dl (7-17); Creatinine Clearance Estimated 72 mL/min (50-200); Estimated Glomerular Filt Rate 104 ml/min (>60); GFR (African American) 126 ML/MIN (>60)
[2019-12-30 07:38] LABS: Anion Gap 12.2 mEq/L (5-15); Calcium 8.9 mg/dl (8.4-10.2); Carbon Dioxide 33 mmol/L (22.0-30.0); Glucose 184 mg/dl (74-100)
[2019-12-30 08:04] LABS: Lymphocytes % 10 % (10-50); Monocytes % 3 % (2-9); Neutrophils % 87 % (42-76); Platelet Estimate Normal; RBC Morphology Normal; Total Cells Counted 100
--- NOTE | 2019-12-30 08:54 | XR_ITS ---
PROCEDURE: XR CHEST 2V CLINICAL INDICATION: sob Shortness of breath COMPARISON: [facility] CT CHEST W/O CONTRAST from 06/30/2014 XR CHEST 2V from 03/10/2019 XR CHEST 2V from 06/21/2019 XR CHEST 2V from 12/28/2019 FINDINGS: Mild cardiomegaly without failure. Lungs are clear. Calcified nodes are present in the retrocardiac region Other findings:No acute bony anomaly. IMPRESSION: Cardiomegaly otherwise negative, no acute finding Dictated by: Mack Dunn MD 12/30/2019 09:56 Electronically signed by Mack Dunn MD in [place] 12/30/2019 09:56
--- NOTE | 2019-12-30 08:55 | HMH.ACPN2 ---
Internal Medicine - PN: Subj *Date: 12/30/19 *Time: 08:55 Interval history: doing some better - has anxiety last pm - added ativan last pm - Exam Vital signs and Labs for Last 24 Hours: Temp Pulse Resp BP Pulse Ox 97.6 F 81 19 132/77 93 L 12/30/19 08:00 12/30/19 08:00 12/30/19 08:00 12/30/19 08:00 12/30/19 08:00 Laboratory Results - last 24 hr 12/30/19 06:44: WBC 15.9 H D, RBC 4.67, Hgb 13.3, Hct 40.8, MCV 87.3, MCH 28.5, MCHC 32.7, RDW 14.0, Plt Count 249, MPV 7.4, Neut % (Auto) 85.7 H, Lymph % (Auto) 10.3, [place] % (Auto) 3.8, Eos % (Auto) 0.2, Baso % (Auto) 0.1, Neut # (Auto) 13.6 H, Lymph # (Auto) 1.6, [place] # (Auto) 0.6, Eos # (Auto) 0.0, Baso # (Auto) 0.0, Total Counted 100, Neutrophils % (Manual) 87 H, Lymphocytes % (Manual) 10, Monocytes % (Manual) 3, Platelet Estimate Normal, RBC Morphology Normal 12/30/19 06:44: Sodium 139, Potassium 4.2, Chloride 98, Carbon Dioxide 33 H, Anion Gap 12.2, BUN 13, Creatinine 0.60, Estimated Creat Clear 72, Estimated GFR 104, Est GFR ( Amer) 126, Glucose 184 H, Calcium 8.9 I & O for Last 24 hours: Intake & Output 12/27/19 12/28/19 12/29/19 12/30/19 11:59 11:59 11:59 11:59 Intake Total 1328 / 1328 1960 / 1960 Output Total 900 / 900 860 / 860 Balance 428 / 428 1100 / 1100 Weight 233 lb 8 oz 235 lb 4.8 oz Microbiology Reports for the Last 24 Hours: Microbiology 12/29/19 05:35 Sputum - Expectorated Sputum Gram Stain - Final 12/29/19 05:35 Sputum - Expectorated Sputum Sputum Culture - Preliminary - Constitutional no acute distress, obese - *Routine HEENT Exam Head: Present: normocephalic Eye: Present: EOMI, PERRL ENT: Present: mucous membranes dry - *Routine Neck Exam Present: supple - *Routine Respiratory Exam Present: decreased breath sounds, wheezes - *Routine Cardiovascular Exam Present: RRR - *Routine Abdominal Exam Present: soft - *Routine Extremities Exam Absent: calf tenderness - *Routine Skin Exam Present: intact - *Routine Neurological Exam Present: alert, CN II-XII intact - Routine Psychiatric Exam Present: anxious Assessment and Plan (1) Acute exacerbation of chronic obstructive airways disease Current visit: Yes Status: Acute Category: Medical Code(s): J44.1 - Chronic obstructive pulmonary disease with (acute) exacerbation (2) Tobacco use Current visit: Yes Status: Acute Category: Social Hx Code(s): Z72.0 - Tobacco use (3) Obesity Current visit: Yes Status: Chronic Qualifiers: Obesity type: due to excess calories Obesity classification: adult class 1 (BMI 30 - 34.9) Serious obesity comorbidity presence: with serious comorbidity Body mass index: BMI 33.0-33.9 Qualified Code(s): E66.09 - Other obesity due to excess calories; Z68.33 - Body mass index (BMI) 33.0-33.9, adult Category: Medical Code(s): E66.9 - Obesity, unspecified (4) Anxiety Current visit: Yes Status: Acute Category: Medical Code(s): F41.9 - Anxiety disorder, unspecified (5) Elevated left ventricular end-diastolic pressure (LVEDP) Current visit: Yes Status: Acute Category: Medical Code(s): R94.30 - Abnormal result of cardiovascular function study, unspecified (6) HTN (hypertension) Current visit: Yes Status: Acute Qualifiers: Hypertension type: essential hypertension Qualified Code(s): I10 - Essential (primary) hypertension Category: Medical Code(s): I10 - Essential (primary) hypertension (7) CAD (coronary artery disease) Current visit: Yes Status: Chronic Qualifiers: Coronary Disease-Associated Artery/Lesion type: [place] artery [place] vs. transplanted heart: [place] heart Associated angina: with unspecified angina Qualified Code(s): I25.119 - Atherosclerotic heart disease of [place] coronary artery with unspecified angina pectoris Category: Medical Code(s): I25.10 - Atherosclerotic heart disease of [place] coronary artery without angin
--- NOTE | 2019-12-30 18:33 | PC.NURSE ---
Pt alert and oriented and able to make needs known. RR even and unlabored. Has continued on 2 L. Did have some anxiety earlier and prn ativan was given. Pt is calm and resting at this time. Has been up to chair this shift. CB in reach. Have encouraged po fluids. NSR on tele. Have also given toradol x 1 this shift for generalized pain. No c/o of pain at this time. VSS.
[2019-12-31] VITALS (10 sets, daily range): BP systolic 145–190; BP diastolic 76–94; PULSE 68–82; RESP 17–21; TEMP 36.4–36.9; O2SAT 90–96; BMI 46.5
--- NOTE | 2019-12-31 04:46 | PC.NURSE ---
ON INITIAL ASSESSMENT PT WAS NOTED LETHARGIC AND WAS UNABLE TO HOLD EYES OPEN WITH COMMUNICATION WITH STAFF. AROUSED TO LIGHT TOUCH AND VERBAL STIMULATION. HELD 2100 ANXIETY MEDICATIONS AT THIS TIME R/T LETHARGY. RESPIRATIONS WERE EVEN, UNLABORED, AND RR WNL. OTHER MEDICATIONS WERE GIVEN PER MAR AT 2100 MED PASS AND TOLERATED WELL. HAS ALSO HAD URGENCY, URINARY INCONTINENCE AND HAS VOIDED IN FLOOR IN R/T UNABLE TO GET TO BATHROOM FAST ENOUGH. BSC WAS PROVIDED AND INSTRUCTED PT TO NOTIFY STAFF IF NEEDING TO GET OOB FOR ASSISTANCE. AROUND 0 PT NOTIFIED STAFF OF NEED TO GO TO THE BATHROOM. PT WAS MORE ALERT AND ABLE TO COMMUNICATE WITH STAFF AND ALERT ENOUGH. REQUESTED ATIVAN AT THIS TIME AND EXPLAINED TO THAT 2100 ANXIETY MEDICATIONS WERE HELD AND REASONING FOR THOSE MEDICATIONS BEING HELD, EXPLAINED TO PT THAT THOSE MEDICATIONS WOULD BE ADMINISTERED NOW. TORADOL WAS ALSO ADMINISTERED FOR C/O CP THAT HAS BEEN EXPERIENCED T/O HOSPITAL STAY. PT VERBALIZED UNDERSTANDING. APPROXIMATELY A HOUR LATER, PT REQUESTED ATIVAN FOR FEELING ANXIOUS, ADMINISTERED ATIVAN PER AUG AND ON REASSESSMENT PT NOTED RESTING IN BED WITH EYES. LUNG SOUNDS NOTED DIMINISHED PER AUSCULTATION. WEANED TO RA AND TOLERATED WELL. PULSES +2, CAP REFILL < 3 SEC. ABDOMEN MILDLY DISTENDED, ACTIVE BOWEL SOUNDS IN ALL QUADS, SOFT AND NONTENDER PER PALPATION. VSS. WILL CONTINUE TO MONITOR.
--- NOTE | 2019-12-31 10:03 | HMH.ACPN2 ---
Internal Medicine - PN: Subj *Date: 01/01/20 *Time: 07:09 Interval history: looks and feels better Exam Vital signs and Labs for Last 24 Hours: Temp Pulse Resp BP Pulse Ox 97.5 F L 70 21 190/90 H 96 12/31/19 08:00 12/31/19 08:00 12/31/19 08:00 12/31/19 08:00 12/31/19 08:00 I & O for Last 24 hours: Intake & Output 12/28/19 12/29/19 12/30/19 12/31/19 11:59 11:59 11:59 11:59 Intake Total 1328 / 1328 2370 / 2370 2393 / 2393 Output Total 900 / 900 1960 / 1960 850 / 850 Balance 428 / 428 410 / 410 1543 / 1543 Weight 233 lb 8 oz 235 lb 4.8 oz 237 lb 4 oz Microbiology Reports for the Last 24 Hours: Microbiology 12/29/19 05:35 Sputum - Expectorated Sputum Gram Stain - Final 12/29/19 05:35 Sputum - Expectorated Sputum Sputum Culture - Preliminary Gram Positive Bacilli 12/28/19 21:40 Blood Blood Culture - Preliminary NO GROWTH AFTER 48 HOURS 12/28/19 21:40 Blood Blood Culture - Preliminary NO GROWTH AFTER 48 HOURS - Constitutional no acute distress, obese - *Routine HEENT Exam Head: Present: normocephalic Eye: Present: EOMI, PERRL ENT: Present: mucous membranes dry - *Routine Neck Exam Absent: JVD - *Routine Respiratory Exam Present: wheezes - *Routine Cardiovascular Exam Present: RRR, murmur - *Routine Abdominal Exam Present: soft - *Routine Extremities Exam Absent: calf tenderness - *Routine Skin Exam Present: intact - *Routine Neurological Exam Present: alert, CN II-XII intact - Routine Psychiatric Exam Present: normal affect Assessment and Plan (1) Acute exacerbation of chronic obstructive airways disease Current visit: Yes Status: Acute Category: Medical Code(s): J44.1 - Chronic obstructive pulmonary disease with (acute) exacerbation (2) Tobacco use Current visit: Yes Status: Acute Category: Social Hx Code(s): Z72.0 - Tobacco use (3) Obesity Current visit: Yes Status: Chronic Qualifiers: Obesity type: due to excess calories Obesity classification: adult class 1 (BMI 30 - 34.9) Serious obesity comorbidity presence: with serious comorbidity Body mass index: BMI 33.0-33.9 Qualified Code(s): E66.09 - Other obesity due to excess calories; Z68.33 - Body mass index (BMI) 33.0-33.9, adult Category: Medical Code(s): E66.9 - Obesity, unspecified (4) Anxiety Current visit: Yes Status: Acute Category: Medical Code(s): F41.9 - Anxiety disorder, unspecified (5) Elevated left ventricular end-diastolic pressure (LVEDP) Current visit: Yes Status: Acute Category: Medical Code(s): R94.30 - Abnormal result of cardiovascular function study, unspecified (6) HTN (hypertension) Current visit: Yes Status: Acute Qualifiers: Hypertension type: essential hypertension Qualified Code(s): I10 - Essential (primary) hypertension Category: Medical Code(s): I10 - Essential (primary) hypertension (7) CAD (coronary artery disease) Current visit: Yes Status: Chronic Qualifiers: Coronary Disease-Associated Artery/Lesion type: [place] artery [place] vs. transplanted heart: [place] heart Associated angina: with unspecified angina Qualified Code(s): I25.119 - Atherosclerotic heart disease of [place] coronary artery with unspecified angina pectoris Category: Medical Code(s): I25.10 - Atherosclerotic heart disease of [place] coronary artery without angina pectoris (8) Hyperlipidemia Current visit: Yes Status: Acute Qualifiers: Hyperlipidemia type: unspecified Qualified Code(s): E78.5 - Hyperlipidemia, unspecified Category: Medical Code(s): E78.5 - Hyperlipidemia, unspecified
[2020-01-01 01:35] VITALS: BP 189/110; BP 197/105; PULSE 77; RESP 18; TEMP 36.8; O2SAT 92
--- NOTE | 2020-01-01 01:59 | ECG_ITS ---
APPROVED REPORT Exam: Resting ECG HR:77 bpm ECG Measurements Heart Rate 77 AXES MD 144 P 49 QRSd 86 QRS 50 QT 416 T 71 QTc 470 <Conclusion> Normal sinus rhythm Normal ECG Electronically signed by : Baljinder Roach, 01/06/2020 08:13:44
--- NOTE | 2020-01-01 02:04 | PC.NURSE ---
rn speaking with md at this time
--- NOTE | 2020-01-01 03:44 | PC.NURSE ---
A&OX3. PERRLA NOTED. INTELLIGENCE OFFICER BASIC EQUAL BILAT. LUNGS NOTED DIMINISHED PER AUSCULTATION. TOLERATED RA WELL. SYMPTOMATIC HYPERTENSION NOTED APPROXIMATELY NOTED THIS SHIFT, MD REGISTERED OCCUPATIONAL THERAPIST MADE AWARE AND ORDERED CLONIDINE PO ONCE. WILL REASSESS EFFECTIVENESS AT 0400 FOR VS ROUND. ADMINISTERED TORADOL AND ATIVAN FOR C/O CP, PT REPORTS RELIEF ON REASSESSMENT. PULSES +2, CAP REFILL < 3 SEC. ABDOMEN NOTED NONDISTENDED, ACTIVE BOWEL SOUNDS IN ALL QUADS AUSCULTATED, SOFT AND NONTENDER PER PALPATION. INDEPENDENT WITH ADLS. VSS. WILL CONTINUE TO MONITOR.
[2020-01-01 04:23] VITALS: BP 153/95; PULSE 74; RESP 16; TEMP 36.7; O2SAT 91
[2020-01-01 05:00] VITALS: BMI 47.2
[2020-01-01 05:47] VITALS: PULSE 74; PULSE 75
--- NOTE | 2020-01-01 05:55 | PC.NURSE ---
URINE NOTED CLEAR AND YELLOW, VOIDS PER TOILET AND BSC.
[2020-01-01 08:00] VITALS: BP 141/102; PULSE 75; RESP 20; TEMP 36.7; O2SAT 90
--- NOTE | 2020-01-01 10:33 | HMH.ACPN ---
Internal Medicine - PN: Subj *Date: 01/01/20 *Time: 10:33 Exam Vital signs and Labs for Last 24 Hours: Temp Pulse Resp BP Pulse Ox 98.1 F 75 20 141/102 H 90 L 01/01/20 08:00 01/01/20 08:00 01/01/20 08:00 01/01/20 08:00 01/01/20 08:00 I & O for Last 24 hours: Intake & Output 12/29/19 12/30/19 12/31/19 01/01/20 23:59 23:59 23:59 23:59 Intake Total 2408 / 2808 2638 / 2638 1822 / 1822 873 / 873 Output Total 1350 / 1350 2360 / 2360 1600 / 1600 Balance 1058 / 1458 278 / 278 1822 / 1822 -727 / -727 Weight 105.9 kg 106.73 kg 107.615 kg 109.032 kg Microbiology Reports for the Last 24 Hours: Microbiology 12/29/19 05:35 Sputum - Expectorated Sputum Gram Stain - Final 12/29/19 05:35 Sputum - Expectorated Sputum Sputum Culture - Preliminary Assessment and Plan (1) Acute exacerbation of chronic obstructive airways disease Current visit: Yes Status: Acute Category: Medical Code(s): J44.1 - Chronic obstructive pulmonary disease with (acute) exacerbation (2) Tobacco use Current visit: Yes Status: Acute Category: Social Hx Code(s): Z72.0 - Tobacco use (3) Obesity Current visit: Yes Status: Chronic Qualifiers: Obesity type: due to excess calories Obesity classification: adult class 1 (BMI 30 - 34.9) Serious obesity comorbidity presence: with serious comorbidity Body mass index: BMI 33.0-33.9 Qualified Code(s): E66.09 - Other obesity due to excess calories; Z68.33 - Body mass index (BMI) 33.0-33.9, adult Category: Medical Code(s): E66.9 - Obesity, unspecified (4) Anxiety Current visit: Yes Status: Acute Category: Medical Code(s): F41.9 - Anxiety disorder, unspecified (5) Elevated left ventricular end-diastolic pressure (LVEDP) Current visit: Yes Status: Acute Category: Medical Code(s): R94.30 - Abnormal result of cardiovascular function study, unspecified (6) HTN (hypertension) Current visit: Yes Status: Acute Qualifiers: Hypertension type: essential hypertension Qualified Code(s): I10 - Essential (primary) hypertension Category: Medical Code(s): I10 - Essential (primary) hypertension (7) CAD (coronary artery disease) Current visit: Yes Status: Chronic Qualifiers: Coronary Disease-Associated Artery/Lesion type: [place] artery [place] vs. transplanted heart: [place] heart Associated angina: with unspecified angina Qualified Code(s): I25.119 - Atherosclerotic heart disease of [place] coronary artery with unspecified angina pectoris Category: Medical Code(s): I25.10 - Atherosclerotic heart disease of [place] coronary artery without angina pectoris (8) Hyperlipidemia Current visit: Yes Status: Acute Qualifiers: Hyperlipidemia type: unspecified Qualified Code(s): E78.5 - Hyperlipidemia, unspecified Category: Medical Code(s): E78.5 - Hyperlipidemia, unspecified The patient's infection will respond to the chosen ABx?: Yes Is the patient receiving the right drug, dose, and route?: Yes Could a more targeted ABx be ordered?: No (SPUTUM CURRENTLY PENDNG)
--- NOTE | 2020-01-01 12:39 | HMH.DCSUM ---
General - General Admission date:: 12/29/19 Discharge date: 01/01/20 HPI HPI: 54 year old female presented to the ED on 12/28/2019 with chest pain and increase shortness of breath. Pt stated for the past 2-3 days she has been having increase shortness of breath. Pt stated her oxygen level at home has been as low as 79%. Pt does wear oxygen at night due to her COPD. Pt continues to smoke. Pt stated her chest pain is dull. She describes this dullness is more in her lungs than in her chest.Initial workup was preformed in the ED. Initial ECG revealed Normal sinus rhythm with prolonged QT with heart rate of 92bpm. Lab work was unremarkable. Pt was hypertensive. Pt stated that he has not been taking her medication as prescribed. Hospital Course Hospital Course: The patient was admitted for nebulizer treatments and bp control. Further evaluation undertaken. Cardiology was consulted. They reported non-flow limiting lesion in 2018. Echo was done, report as below Conclusion 1. Technically difficult study because of the patient factors and poor acoustic windows. 2. Mild biatrial enlargement, normal left ventricular size, mild concentric left ventricular hypertrophy, visually estimated ejection fraction 55% with no regional wall motion abnormality, grade 1 diastolic dysfunction seen without tissue Doppler evidence of raise left atrial pressure. 3. Mildly enlarged right ventricle with normal contractility. 4. Mild mitral and tricuspid regurgitation. 5. No significant pericardial effusion noted. She had some anxiety. Hydralazine was added at 50 tid on brigid day of her discharge. She reported no further chest pain or dyspnea. She relays workup for joanie was unrevealing a few years ago, but habitus suggestive. Objective Vital signs: Temp Pulse Resp BP Pulse Ox 98.1 F 75 20 141/102 H 90 L 01/01/20 08:00 01/01/20 08:00 01/01/20 08:00 01/01/20 08:00 01/01/20 08:00 morbidly obese, cooperative - *Routine HEENT Exam Eye: Absent: conjunctival icterus, scleral injection ENT: Present: mucous membranes moist - *Routine Neck Exam Present: supple, trachea midline. Absent: JVD, tenderness - *Routine Respiratory Exam Present: CTA bilaterally. Absent: accessory muscle use - *Routine Cardiovascular Exam Present: RRR, Normal S1, Normal S2. Absent: murmur, gallop - *Routine Abdominal Exam Present: soft, obese - *Routine Extremities Exam Absent: cyanosis, clubbing, calf tenderness, tenderness - *Routine Skin Exam Present: intact. Absent: cyanosis, jaundice - *Routine Neurological Exam Present: alert, oriented X3 - Routine Psychiatric Exam Present: normal affect, normal thought process, good judgment, anxious Results Labs on day of discharge: Preliminary micro results at discharge 12/29/19 05:35 Sputum Culture - Preliminary Sputum - Expectorated Sputum 12/28/19 21:40 Blood Culture - Preliminary Blood NO GROWTH AFTER 48 HOURS 12/28/19 21:40 Blood Culture - Preliminary Blood NO GROWTH AFTER 48 HOURS DS: Diagnosis - Discharge Diagnosis (1) Acute exacerbation of chronic obstructive airways disease Status: Acute (2) Tobacco use Status: Chronic (3) Obesity Status: Chronic (4) Anxiety Status: Acute (5) Elevated left ventricular end-diastolic pressure (LVEDP) Status: Chronic (6) HTN (hypertension) Status: Chronic (7) CAD (coronary artery disease) Status: Chronic (8) Hyperlipidemia Status: Chronic Discharge Plan - Patient Discharge Instructions ACTIVITY: Ambulate as tolerated DIET: advance to your usual diet Patient Instructions: DI for Chronic Obstructive Pulmonary Disease, DI for Anxiety -- Adult, How to Quit Smoking - Follow up Plan Follow up with: Vinicio Jimenes MD [Staff Physician] - 1 week Julien Sun [Primary Care Provider] - 1 week Disposition: Home, Self-Correction Medications: Home Medications Medi
[2020-01-01 13:03] VITALS: PULSE 3; PULSE 74
--- NOTE | 2020-01-01 13:38 | HMH.PHAINT ---
PATIENT WAS COUNSELED ON NEW MEDICATIONS: METHYLPREDNISOLONE AND HYDRALAZINE. THE PATIENT WILL CONTINUE ALL HOME MEDICATIONS EXCEPT CYCLOBENZAPRINE. THE PATIENT DID NOT HAVE ANY QUESTIONS. THE RXS WERE SENT TO [facility] IN [place].
== END 2020-01-01 14:54 | disposition home or self-care (01) ==
LOC: ER 23:38 → 2ND 12-29 00:53
PROVIDERS: Nurse Practitioner Family; Admitting Provider Family Medicine; Emergency Provider Emergency Medicine; PCP Family Medicine; Visit Provider Family Medicine
DX: J44.1 Chronic obstructive pulmonary disease with (acute) exacerbation (principal); Z99.81 Dependence on supplemental oxygen; Z72.0 Tobacco use; E66.01 Morbid (severe) obesity due to excess calories; Z68.42 Body mass index [BMI] 45.0-49.9, adult; E78.5 Hyperlipidemia, unspecified; Z79.51 Long term (current) use of inhaled steroids; Z79.899 Other long term (current) drug therapy; Z88.0 Allergy status to penicillin; Z88.1 Allergy status to other antibiotic agents; R06.9 Unspecified abnormalities of breathing
CPT/HCPCS: 36415; 71046; 80048; 80053; 80061; 82803; 83605; 83735; 83880; 84484; 85007; 85025; 87040; 87070; 87077; 87205; 87581; 87633; 87798; 93005; 93306; 94640; 94760; 94761; 96365; 96367; 96375; 99284; G0378; J1956; J2405

== ENCOUNTER → 2020-01-15 08:02 | Outpatient (CLI) | payer MEDICARE, SELFPAY ==
--- NOTE | 2020-01-15 08:04 | CA_ITS ---
APPROVED REPORT Cocoa Bean Cleaner: Claudia Hernandez RVT Study Quality: Adequate Indications: HTN Risk Factors Hypertension Obesity Renal Artery Doppler Origin (R) 131.4/ cm/sec Proximal (R) 133.1/ cm/sec Mid (R) 90.5/ cm/sec Distal (R) 129.3/ cm/sec Renal Aorta Ratio (R) 0.84 Segmental A. (R) 80.8/24.3 cm/sec RI: 0.69 Segmental A. Sup (R) 80.8/24.3 cm/sec Segmental A. Mid (R) 66.3/25.9 cm/sec Segmental A. Inf (R) 66.3/27.5 cm/sec Mid (L) 107.7/ cm/sec Distal (L) 102.5/ cm/sec Renal Aorta Ratio (L) 0.68 Segmental A. (L) 82.3/27.4 cm/sec RI: 0.66 Segmental A. Sup (L) 42.8/12.0 cm/sec Segmental A. Mid (L) 56.5/24.0 cm/sec Segmental A. Inf (L) 82.3/27.4 cm/sec Renal Measurements Kidney Size (R) 11.6x6.8 cm Cortical Thickness (R) 1.3 cm Kidney Size (L) 11.9x8.7 cm Cortical Thickness (L) 1.7 cm Findings Study suggests no evidence of renal artery stenosis of the bilateral renal arteries. Proximal left renal artery was not visualized. Conclusion Study suggests no evidence of renal artery stenosis of the bilateral renal arteries. Proximal left renal artery was not visualizied. Electronically signed by : Mack Dunn MD 01/15/2020 15:28:25
== END ==
LOC: RT 08:04
PROVIDERS: PCP Family Medicine; Visit Provider Physician Assistant
DX: I10 Essential (primary) hypertension (principal)
CPT/HCPCS: 93976

== ENCOUNTER → 2020-02-06 12:23 | Outpatient (CLI) | payer MEDICARE, SELFPAY | PROVIDERS: PCP Family Medicine; Visit Provider Urology | DX: R00.2 Palpitations (principal) | CPT/HCPCS: 93270 ==

== ENCOUNTER 2020-02-12 22:23 | Observation (INO) | payer MEDICARE, SELFPAY ==
[2020-02-12 22:24] VITALS: BP 161/135; PULSE 82; RESP 24; TEMP 36.7; O2SAT 90; BMI 48.0
--- NOTE | 2020-02-12 22:31 | XR_ITS ---
PROCEDURE: XR CHEST PORTABLE CLINICAL HISTORY: short of breath COMPARISON: CT [facility] CT CHEST W/O CONTRAST from 06/30/2014 CR XR CHEST 2V from 06/21/2019 CR XR CHEST 2V from 12/28/2019 CR XR CHEST 2V from 12/30/2019 FINDINGS: Borderline cardiomegaly without failure. Calcified granuloma right lower lobe. Lungs are somewhat under penetrated secondary to technique and patient's body habitus. Cannot exclude right upper and right lower lobe infiltrate based on this exam. Consider upright PA and lateral chest for further evaluation. No acute bony abnormalities. IMPRESSION: Cardiomegaly with underpenetration. Possible right upper and right lower lobe infiltrate versus soft tissue attenuation. Consider upright PA and lateral chest for more thorough evaluation Dictated by: Mack Dunn MD 02/13/2020 07:02 Mack Dunn MD in [place] 02/13/2020 07:02
--- NOTE | 2020-02-12 22:41 | HMH.EDGENADL ---
ED Disposition Clinical Impression: COPD exacerbation, Tobacco use disorder Hypertension Qualifiers: Hypertension type: essential hypertension Qualified Code(s): I10 - Essential (primary) hypertension Disposition: Admitted As Inpatient Condition on Discharge: Fair Referrals: Julien Sun [Primary Care Provider] - Time of Disposition: 02:14 - Critical Care Critical Care Time: No Attestation: On , the high probability of a clinically significant, sudden or life threatening deterioration of the following system(s) required my full and direct attention, intervention and personal management. The time I documented below is in addition to time spent performing reported procedures but includes the following listed in this critical care notation. Medical Decision Making - Medical Records Medical records reviewed: Yes: I reviewed the patient's medical records. - Connor Inquiry Pt receiving controlled substance: No Vital Signs: 02/12/20 22:24 02/12/20 22:54 02/12/20 23:24 Temperature 98.1 F Temperature Source Oral Pulse Rate [Right Brachial] 82 78 77 Respiratory Rate 24 22 22 Blood Pressure [Right Arm] 161/135 H 93/68 L 126/55 L Blood Pressure Mean [Right Arm] 143 76 78 Blood Pressure Source [Right Arm] Automatic Cuff Blood Pressure Position [Right Arm] Sitting 02 Sat by Pulse Oximetry 90 L 95 96 Oxygen Delivery Method Nasal Cannula Nasal Cannula Nasal Cannula Oxygen Flow Rate (LPM) 3 3 3 02/12/20 23:30 02/13/20 00:00 02/13/20 00:30 Temperature Temperature Source Pulse Rate [Right Brachial] 77 85 80 Respiratory Rate 22 20 Blood Pressure [Right Arm] 143/87 H 140/80 137/76 Blood Pressure Mean [Right Arm] 105 100 96 Blood Pressure Source [Right Arm] Blood Pressure Position [Right Arm] 02 Sat by Pulse Oximetry 95 96 97 Oxygen Delivery Method Nasal Cannula Nasal Cannula Oxygen Flow Rate (LPM) 3 3 02/13/20 01:00 02/13/20 01:30 Temperature 98.3 F Temperature Source Oral Pulse Rate [Right Brachial] 79 80 Respiratory Rate 19 Blood Pressure [Right Arm] 146/96 H 156/89 H Blood Pressure Mean [Right Arm] 112 111 Blood Pressure Source [Right Arm] Blood Pressure Position [Right Arm] 02 Sat by Pulse Oximetry 93 L 95 Oxygen Delivery Method Nasal Cannula Nasal Cannula Oxygen Flow Rate (LPM) 3 3 - Lab Data Lab Results 02/12/20 22:45: WBC 13.9 H, RBC 4.89, Hgb 14.3, Hct 43.6, MCV 89.1, MCH 29.3, MCHC 32.9, RDW 14.8, Plt Count 319, MPV 7.8, Neut % (Auto) 61.0, Lymph % (Auto) 26.9, [place] % (Auto) 8.1, Eos % (Auto) 3.1, Baso % (Auto) 0.9, Neut # (Auto) 8.5 H, Lymph # (Auto) 3.8, [place] # (Auto) 1.1 H, Eos # (Auto) 0.4, Baso # (Auto) 0.1 02/12/20 22:45: Sodium 143, Potassium 4.3, Chloride 104, Carbon Dioxide 32 H, Anion Gap 11.3, BUN 16, Creatinine 0.70, Estimated Creat Clear 62, Estimated GFR 87, Est GFR ( Amer) 105, Glucose 199 H, Calcium 9.6, Troponin I < 0.01 02/12/20 22:45: SARS-CoV-2 IgG Ab (Rapid) Negative, SARS-CoV-2 IgM Ab (Rapid) Negative 02/12/20 22:45: NT-Pro-B Natriuret Pep 176 H 02/12/20 22:45: Lactate 1.4 02/12/20 22:54: VBG pH 7.31, VBG pCO2 57.1 H, VBG pO2 144.8 H, VBG HCO3 27.8, VBG Total CO2 29.5 H, VBG O2 Saturation 98.7 H, VBG Base Excess 1.4 Result diagrams: 02/12/20 22:45 02/12/20 22:45 Orders (Tests/Meds): ED MEDICATIONS Discontinued Medications Generic Name Dose Route Start Last Admin Trade Name Floyd PRN Reason Stop Dose Admin Albuterol Sulfate 2 puffs 02/12/20 22:50 02/12/20 22:54 Proventil-Hfa 90mcg/Puff Inhaler IH 02/12/20 22:51 2 puffs ONCE ONE Administration Hydrocodone Bit/Homatropine Methylb 1 each 02/13/20 00:25 02/13/20 00:31 Hycodan 5mg Tablet PO 02/13/20 00:26 1 each ONCE ONE Administration Levofloxacin 750 mg 02/12/20 22:47 02/12/20 22:52 Levaquin 750mg Tablet PO 02/12/20 22:48 750 mg ONCE ONE Administration Protocol Methylprednisolone Sodium Succinate 125 mg 02/12/20 22:32 02/12/20 22:36
--- NOTE | 2020-02-12 22:45 | ECG_ITS ---
APPROVED REPORT Exam: Resting ECG HR:76 bpm ECG Measurements Heart Rate 76 AXES MT 140 P 28 QRSd 72 QRS 64 QT 416 T 73 QTc 468 <Conclusion> Normal sinus rhythm Normal ECG Electronically signed by : Baljinder Roach, 02/16/2020 06:40:08
[2020-02-12 22:53] LABS: Basophils # 0.1 K/mm3 (0-0.2); Basophils % 0.9 % (0.1-2.0); Eosinophils # 0.4 K/mm3 (0.0-0.4); Eosinophils % 3.1 % (0.1-12.0); Hematocrit 43.6 % (37.0-47.0); Hemoglobin 14.3 g/dL (12.2-16.2); Lymphocytes # 3.8 K/mm3 (0.7-4.5); Lymphocytes % 26.9 % (10-50); Mean Corpuscular HGB Conc 32.9 g/dL (31.8-35.4); Mean Corpuscular Hemoglobin 29.3 pg (27.0-31.2); Mean Corpuscular Volume 89.1 fl (81-99); Mean Platelet Volume 7.8 fl (7.4-10.4); Monocytes # 1.1 K/mm3 (0.1-1.0); Monocytes % 8.1 % (1.7-9.3); Neutrophils # 8.5 K/mm3 (1.8-7.8); Platelet Count 319 K/mm3 (142-424); Red Blood Count 4.89 M/mm3 (4.20-5.40); Red Cell Distribution Width 14.8 % (11.5-17.5); White Blood Count 13.9 K/mm3 (4.8-10.8)
[2020-02-12 22:54] VITALS: BP 93/68; PULSE 78; RESP 22; O2SAT 95
[2020-02-12 23:01] LABS: VBG Base Excess 1.4 mmol/L (-2.4-2.3); VBG HCO3 27.8 mmol/L (23-30); VBG Oxygen Saturation 98.7 % (50-70); VBG PH 7.31 mmol/L (7.31-7.41); VBG PO2 144.8 mmol/L (28-40); VBG Total CO2 29.5 mmol/L (23-27)
[2020-02-12 23:02] LABS: VBG PCO2 57.1 mmol/L (35-51)
[2020-02-12 23:03] LABS: Lactic Acid 1.4 mmol/L (0.7-2.1)
[2020-02-12 23:15] LABS: Anion Gap 11.3 mEq/L (5-15); Blood Urea Nitrogen 16 mg/dl (7-17); Calcium 9.6 mg/dl (8.4-10.2); Carbon Dioxide 32 mmol/L (22.0-30.0); Chloride 104 mmol/L (98-107); Creatinine Clearance Estimated 62 mL/min (50-200); Estimated Glomerular Filt Rate 87 ml/min (>60); GFR (African American) 105 ML/MIN (>60); Glucose 199 mg/dl (74-100); Potassium 4.3 mmoL/L (3.5-5.1); Sodium 143 mmol/L (136-145)
[2020-02-12 23:16] LABS: NT Pro Brain Natriuretic Pep. 176 pg/mL (0-125); Troponin I < 0.01 ng/ml (0.00-0.034)
[2020-02-12 23:24] VITALS: BP 126/55; PULSE 77; RESP 22; O2SAT 96
[2020-02-12 23:30] VITALS: BP 143/87; PULSE 77; RESP 22; O2SAT 95
[2020-02-12 23:30] LABS: Coronavirus 19 IgG Antibody Negative (Negative); Coronavirus 19 IgM Antibody Negative (Negative)
[2020-02-13] VITALS (19 sets, daily range): BP systolic 127–170; BP diastolic 71–96; PULSE 70–91; RESP 18–22; TEMP 36.4–36.9; O2SAT 90–97; BMI 48.4
--- NOTE | 2020-02-13 00:03 | PC.NURSE ---
patient and given refreshments at this time. no further needs voiced at this time
--- NOTE | 2020-02-13 00:45 | PC.NURSE ---
patient given refreshment and updated on plan of care
--- NOTE | 2020-02-13 01:13 | PC.NURSE ---
Pt states that she feels slightly better. She is currently sitting up in the bed, resting. Updated on plan on care. Informed patient MD wanted to admit her, patient agreeable.
--- NOTE | 2020-02-13 01:40 | PC.NURSE ---
Assisted patient to bathroom at this time. Personal care pad given to patient. Pt needs 1x assist and oxygen with ambulation
--- NOTE | 2020-02-13 01:56 | PC.NURSE ---
MD ivett Saravia
--- NOTE | 2020-02-13 02:12 | PC.NURSE ---
Dr Franco paged for service call. Agreed to admit.
[2020-02-13 02:54] LABS: Troponin I < 0.01 ng/ml (0.00-0.034)
[2020-02-13 06:40] LABS: Mean Corpuscular HGB Conc 32.4 g/dL (31.8-35.4); Mean Corpuscular Hemoglobin 28.7 pg (27.0-31.2); Mean Platelet Volume 7.9 fl (7.4-10.4); Monocytes # 0.2 K/mm3 (0.1-1.0); Red Cell Distribution Width 14.7 % (11.5-17.5)
[2020-02-13 06:42] LABS: Chloride 101 mmol/L (98-107); Potassium 4.5 mmoL/L (3.5-5.1); Sodium 138 mmol/L (136-145)
[2020-02-13 06:45] LABS: Anion Gap 11.5 mEq/L (5-15); Blood Urea Nitrogen 15 mg/dl (7-17); Calcium 9.5 mg/dl (8.4-10.2); Carbon Dioxide 30 mmol/L (22.0-30.0); Creatinine Clearance Estimated 72 mL/min (50-200); Estimated Glomerular Filt Rate 104 ml/min (>60); GFR (African American) 126 ML/MIN (>60); Glucose 182 mg/dl (74-100)
--- NOTE | 2020-02-13 06:47 | PC.NURSE ---
She is A&Ox4. She reports tightness in her chest that she believes is from my COPD. She has a non-productive cough. She refused the ibuprofen for pain at first but later decided to take it. She has been ambulating to the bathroom independently with steady gait. Per report she is on 2LPM n/c at home. She states that she increases it when she is short of breathe. O2 noted to be at 3LPM n/c upon arrival to the floor. She reports SOA at rest. She has a flight attendant with her from cardiology. She is not wearing it at this time.
[2020-02-13 06:53] LABS: Basophils % 0.3 % (0.1-2.0); Eosinophils % 0.1 % (0.1-12.0); Hematocrit 39.8 % (37.0-47.0); Lymphocytes # 1.3 K/mm3 (0.7-4.5); Lymphocytes % 12.3 % (10-50); Mean Corpuscular Volume 88.6 fl (81-99); Monocytes % 2.2 % (1.7-9.3); Neutrophils # 8.9 K/mm3 (1.8-7.8); Platelet Count 272 K/mm3 (142-424); White Blood Count 10.4 K/mm3 (4.8-10.8)
[2020-02-13 07:07] LABS: Hemoglobin 12.9 g/dL (12.2-16.2); MANUAL DIFFERENTIAL MANUAL DIFFERENTIAL (MANUAL DIFF)
[2020-02-13 09:09] LABS: Eosinophils % 4 % (0-3); Lymphocytes % 9 % (10-50); Monocytes % 2 % (2-9); Neutrophils % 74 % (42-76); Total Cells Counted 100
[2020-02-13 09:10] LABS: Platelet Estimate Normal; RBC Morphology Normal
--- NOTE | 2020-02-13 10:41 | HMH.PHAVTE ---
[facility] Pharmacy VTE Monitoring - Patient Demographics Admission date: 02/13/20 Report Date: 02/13/20 Time: 10:41 Allergies/Adverse Reactions: Patient Allergies erythromycin base [ERYTHROMYCIN BASE] Allergy (Unknown, Verified 02/13/20 02:56) I-RASH Penicillins [PENICILLINS] Allergy (Unknown, Verified 02/13/20 02:56) DIFFICULTY BREATHING Height: 1.5 m Weight: 109.089 kg Patient Problems: Current Active Problems COPD exacerbation (Acute) Tobacco use disorder (Acute) HTN (hypertension) (Chronic) - VTE Risk Labs: VTE Related Lab Results Hgb 12.9 g/dL (12.2-16.2) 02/13/20 05:48 Hct 39.8 % (37.0-47.0) 02/13/20 05:48 Plt Count 272 K/mm3 (142-424) 02/13/20 05:48 BUN 15 mg/dl (7-17) 02/13/20 05:48 Creatinine 0.60 mg/dl (0.52-1.04) 02/13/20 05:48 Estimated Creat Clear 72 mL/min (50-200) 02/13/20 05:48 Was VTE Risk Assessment Performed: Yes VTE Score: 5 VTE Risk Level: Low Risk Clinical Trial Participant: No - Prophylaxis VTE Prophylaxis Ordered?: Yes Types of VTE Prophylaxis: TEDS Knee High
--- NOTE | 2020-02-13 14:03 | PC.NURSE ---
Sputum speciman sent to lab per Lexy Vivas, BAKERY SUPERVISOR @1400
--- NOTE | 2020-02-13 16:49 | HMH.HP ---
*Admission Date: 02/13/20 *Chief complaint: Shortness of breath *History of present illness: 54-year-old female with COPD presented to the emergency department with 3 days of progressive dyspnea that had reached the point were supplemental oxygen at home was no longer effective. She presented to the emergency department with active exacerbation with tight lungs on examination. Patient was given aerosol treatments and steroids with improvement in her work of breathing. A venous blood gas revealed mild hypercapnia. Decision was made to admit the patient for further treatment of COPD exacerbation with IV steroids, aerosols, antibiotics. This morning the patient reports feeling significantly better. She uses oxygen at home during the day on an as-needed basis and at night regularly. Home oxygen flow at night is 2 L/min [facility] History I have reviewed the patient's past medical history: Yes Medical History: Reports:: Anxiety, Cancer (skin cancer on her face.), Chronic Obstructive Pulmonary Disease (COPD), Coronary Artery Disease, Home Oxygen, Hyperlipidemia, Hypertension Denies:: Diabetes Mellitus Type 1, Diabetes Mellitus Type 2, MRSA *Have you ever received a pneumonia vaccine?: Yes *Have you received a flu vaccine this season?: No Other Medical History: Reports: Anemia, Arthritis, Other Laterality Cases: Bilateral: Tonsillectomy Other Surgeries: Yes: Cancer Surgery (BENEATH L BREAST), Cardiac Catheterization, Tubal Ligation, Other Amputation: No Fractures: No - *Social History Last grade of school completed: High school graduate Smoking Status: Current some day smoker Tobacco Type: cigarettes # Packs/Day (cigarettes): 1 Alcohol Intake: never Alcohol Intake Frequency:: other Substance Use Type: denies use *Occupational Status:: disabled Housing: house Household Members: spouse *Travel in the last 8 weeks: None - Psychiatric History Pschychiatric History:: Reports:: Anxiety Family Hx:: Heart Attack, Hyperlipidemia, Hypertension, Stroke Review of Systems - Constitutional Denies body ache(s), Denies chills - *Cardiovascular Denies chest pain at rest - *Respiratory Reports cough, Reports shortness of breath, Reports shortness of breath with activity, Denies excessive phlegm production, Denies coughing up blood, Denies pain on inspiration, Denies pain with cough - *Gastrointestinal Denies abdominal pain - *Musculoskeletal Denies abnormal walking, Denies joint pain, Denies decreased muscle mass - *Neurologic Reports weakness, Denies headache(s), Denies numbness Meds Home Medications Medication Instructions Recorded Confirmed Type Omeprazole [Omeprazole 40mg 40 mg PO DAILY 06/14/17 02/13/20 History Capsule] Butalbital/Aspirin/Caffeine 1 each PO Q6HP PRN 05/12/18 02/13/20 History [Fiorinal 50-325-40 mg Capsule] Loratadine [Claritin 10mg 10 mg PO DAILY 05/12/18 02/13/20 History Tablet] trazodone 50 mg tablet 75 mg PO HSP PRN 02/17/19 02/13/20 History Atorvastatin Calcium [Lipitor 40mg 40 mg PO HS 12/29/19 02/13/20 History Tab] Albuterol Sulfate [Proair 2 puffs IH Q4HP PRN 12/30/19 02/13/20 History Digihaler] gabapentin 600 mg tablet 600 mg PO 0900,1300 tab 02/06/20 02/13/20 History risperidone 1 mg tablet 1 mg PO DAILY 02/06/20 02/13/20 History Furosemide [Furosemide 80mg Tab] 80 mg PO DAILY 02/12/20 02/13/20 History Hydralazine HCl 50 mg PO TID 02/12/20 02/13/20 History Losartan Potassium [Cozaar 100mg 100 mg PO DAILY 02/12/20 02/13/20 History Tablets] Spironolactone 50 mg PO DAILY 02/12/20 02/13/20 History bisoproloL fumarate [Bisoprolol 20 mg PO BID 02/12/20 02/13/20 History 10mg Tablet] Amlodipine Besylate [Amlodipine 5 mg PO DAILY 02/13/20 02/13/20 History 5mg tab] Fluoxetine HCl [Prozac 20mg 80 mg PO DAILY 02/13/20 02/13/20 History Capsule] Fluticasone/Umeclidin/Vilanter 1 each IH DAILY #1 blst.w.dev 02/13/20 Rx [Agustín Zavala 100-62.5-25] Gabapentin [Oswaldo
--- NOTE | 2020-02-13 18:04 | PC.NURSE ---
PATIENT COMPLAINS OF TIGHTNESS AND PAIN IN CHEST ALONG WITH A MIGRAINE. THIS RN ENCOURAGED PATIENT TO SIT UP AND NOT LIE FLAT. THIS RN ADMINISTERED MIGRAINE MEDICATION. PATIENT HAD NO NEW COMPLAINTS. PATIENT IS A&O X4, LUNGS, WHEEZING HEARD, PULSES EQUAL. NO NEW CONCERNS AT THIS TIME.
--- NOTE | 2020-02-14 03:23 | PC.NURSE ---
A&OX4. PT UP INDEPENDENTLY IN ROOM. PT TOLERATING 2.5LNC WELL T/O SHIFT. PT HAS C/O COUGH, BUT NO C/O SOA OR TROUBLE BREATHING. PT HAS ALSO C/O OF PAINS T/O CHEST AND BACK FROM COUGHING, AND NA. ALL TREATED WITH TYLENOL, TESSALON PEARLS, AND ZOFRAN PER MAR. ON REASSESSMENT, PT RESTING IN BED WITH EYES CLOSED FOR REMAINDER OF SHIFT. PT HAS NO OTHER C/O THUS FAR, VSS WILL CONTINUE TO MONITOR.
[2020-02-14 05:00] VITALS: BMI 47.5
--- NOTE | 2020-02-14 06:48 | HMH.ACPN2 ---
Internal Medicine - PN: Subj *Date: 02/14/20 *Time: 06:48 Interval history: Patient reports improvement this morning compared to yesterday. She does admit her evening was somewhat challenging due to frequency of cough and chest discomfort from frequent coughing. Cough is produced only small amounts of sputum. She has maintained O2 sats in the 90s on 2 to 2-1/2 L/min of oxygen via the nasal cannula. Exam Vital signs and Labs for Last 24 Hours: Temp Pulse Resp BP Pulse Ox 98.2 F 82 22 140/80 96 02/13/20 20:00 02/13/20 20:30 02/13/20 20:00 02/13/20 20:00 02/13/20 20:00 Laboratory Results - last 24 hr 02/13/20 05:48: WBC 10.4 D, RBC 4.50, Hgb 12.9, Hct 39.8, MCV 88.6, MCH 28.7, MCHC 32.4, RDW 14.7, Plt Count 272, MPV 7.9, Neut % (Auto) 85.0 H, Lymph % (Auto) 12.3, [place] % (Auto) 2.2, Eos % (Auto) 0.1, Baso % (Auto) 0.3, Neut # (Auto) 8.9 H, Lymph # (Auto) 1.3, [place] # (Auto) 0.2, Eos # (Auto) 0.0, Baso # (Auto) 0.0, Total Counted 100, Neutrophils % (Manual) 74, Band Neutrophils % 9.0 H, Lymphocytes % (Manual) 9 L, Monocytes % (Manual) 2, Eosinophils % (Manual) 4 H, Basophils % (Manual) 2.0 H, Platelet Estimate Normal, RBC Morphology Normal I & O for Last 24 hours: Intake & Output 02/11/20 02/12/20 02/13/20 02/14/20 11:59 11:59 11:59 11:59 Intake Total 480 / 480 1080 / 1080 Output Total 350 / 350 Balance 480 / 480 730 / 730 Weight 240 lb 8 oz 236 lb Microbiology Reports for the Last 24 Hours: Microbiology 02/13/20 12:30 Sputum - Expectorated Sputum Gram Stain - Final Narrative: Patient awakens easily. She is conversant and oriented. Lung exam reveals improved aeration. Patient has some anterior wheezing this morning. No posterior rales or wheezes Assessment and Plan (1) COPD exacerbation Current visit: Yes Status: Acute Category: Medical Code(s): J44.1 - Chronic obstructive pulmonary disease with (acute) exacerbation Patient will be discharged home. She will finish her course of steroids, aerosols, as well as antibiotics due to suspicion of pneumonia on patient's chest x-ray. Patient will follow-up with her primary care physician within 48 hours.
--- NOTE | 2020-02-14 06:50 | HMH.DCSUM ---
General - General Admission date:: 02/13/20 Discharge date: 02/14/20 HPI HPI: 54-year-old female with COPD presented to the emergency department with 3 days of progressive dyspnea that had reached the point were supplemental oxygen at home was no longer effective. She presented to the emergency department with active exacerbation with tight lungs on examination. Patient was given aerosol treatments and steroids with improvement in her work of breathing. A venous blood gas revealed mild hypercapnia. Decision was made to admit the patient for further treatment of COPD exacerbation with IV steroids, aerosols, antibiotics. This morning the patient reports feeling significantly better. She uses oxygen at home during the day on an as-needed basis and at night regularly. Home oxygen flow at night is 2 L/min Hospital Course Hospital Course: Patient was admitted and started on IV steroids, duo nebs 4 times daily, and given oral Levaquin due to suspicion of pneumonia on chest x-ray. Patient responded well to treatments. Over course of hospitalization patient's aeration improved. At discharge she still had some faint wheezing anteriorly in the morning. Patient's O2 sats remained in the 90s on 2 to 2-1/2 L/min of oxygen via the nasal cannula. Patient has home oxygen. Patient's appetite was good. She was ambulating independently within her room and to the bathroom. Patient was discharged home on February 13. She will finish a course of oral Levaquin totaling 5 days of antibiotics, continue duo nebs 4 times daily, steroids. Patient was taking Incruse on admission and this is been discontinued in favor of Trelegy. Patient was provided with a sample. Patient will follow-up with her primary care physician within 48 hours. Objective Vital signs: Temp Pulse Resp BP Pulse Ox 98.2 F 82 22 140/80 96 02/13/20 20:00 02/13/20 20:30 02/13/20 20:00 02/13/20 20:00 02/13/20 20:00 no acute distress - *Routine Respiratory Exam Present: wheezes (Faint wheezes anteriorly, clear posteriorly), distant breath sounds. Absent: accessory muscle use - *Routine Cardiovascular Exam Present: RRR Results Labs on day of discharge: Labs from last 24 hours 02/13/20 05:48 WBC 10.4 D RBC 4.50 Hgb 12.9 Hct 39.8 MCV 88.6 MCH 28.7 MCHC 32.4 RDW 14.7 Plt Count 272 MPV 7.9 Neut % (Auto) 85.0 H Lymph % (Auto) 12.3 [place] % (Auto) 2.2 Eos % (Auto) 0.1 Baso % (Auto) 0.3 Neut # (Auto) 8.9 H Lymph # (Auto) 1.3 [place] # (Auto) 0.2 Eos # (Auto) 0.0 Baso # (Auto) 0.0 Total Counted 100 Neutrophils % (Manual) 74 Band Neutrophils % 9.0 H Lymphocytes % (Manual) 9 L Monocytes % (Manual) 2 Eosinophils % (Manual) 4 H Basophils % (Manual) 2.0 H Platelet Estimate Normal RBC Morphology Normal DS: Diagnosis - Discharge Diagnosis (1) COPD exacerbation Status: Acute (2) Community acquired pneumonia Status: Suspected Discharge Plan - Patient Discharge Instructions ACTIVITY: Continue current activity DIET: continue same diet - Follow up Plan Follow up with: Julien Sun [Primary Care Provider] - 2 days Disposition: Home, Self-Residential Medications: Home Medications Medication Instructions Recorded Confirmed Type Omeprazole [Omeprazole 40mg 40 mg PO DAILY 06/14/17 02/13/20 History Capsule] Butalbital/Aspirin/Caffeine 1 each PO Q6HP PRN 05/12/18 02/13/20 History [Fiorinal 50-325-40 mg Capsule] Loratadine [Claritin 10mg 10 mg PO DAILY 05/12/18 02/13/20 History Tablet] trazodone 50 mg tablet 75 mg PO HSP PRN 02/17/19 02/13/20 History Atorvastatin Calcium [Lipitor 40mg 40 mg PO HS 12/29/19 02/13/20 History Tab] Albuterol Sulfate [Proair 2 puffs IH Q4HP PRN 12/30/19 02/13/20 History Digihaler] gabapentin 600 mg tablet 600 mg PO 0900,1300 tab 02/06/20 02/13/20 History risperidone 1 mg tablet 1 mg PO DAILY 02/06/20 02/13/20 History Furosemide
[2020-02-14 07:12] VITALS: PULSE 90; PULSE 92; O2SAT 91
[2020-02-14 07:54] VITALS: BP 140/86; PULSE 91; RESP 18; TEMP 36.5; O2SAT 91
--- NOTE | 2020-02-14 09:10 | SW/DCPLANNER ---
PATIENT ADMITTED TO [facility] WITH A DIAGNOSIS OF ACUTE EXACERBATION OF COPD.. SHE IS DISCHARGING TO HOME WITH NO ORDERS FOR ANY HOME CARE.. SHE IS TO FOLLOW UP WITH DR ESPAÑA IN HIS OFFICE. AN APPT WILL BE MADE PRIOR TO PATIENT LEAVING THE BUILDING...
--- NOTE | 2020-02-14 11:43 | PC.NURSE ---
THIS RN PROVIDED D/C INSTRUCTIONS FOR SMOKING CESSATION AND COPD. PATIENT VERBALIZED AN UNDERSTANDING. THIS RN ENCOURAGED PATIENT TO LAY WITH HEAD OF BED SLIGHTLY ELEVATED FOR EASIER BREATHING. PATIENT VERBALIZED AN UNDERSTANDING. NO NEW CONCERNS AT D/C.
== END 2020-02-14 11:00 | disposition home or self-care (01) ==
LOC: ER 02-13 02:14 → 2ND 02-13 02:39
PROVIDERS: Admitting Provider Family Medicine; Emergency Provider Emergency Medicine; PCP Family Medicine; Visit Provider Family Medicine
DX: J44.1 Chronic obstructive pulmonary disease with (acute) exacerbation (principal); J18.9 Pneumonia, unspecified organism; J44.0 Chronic obstructive pulmonary disease with (acute) lower respiratory infection; I25.10 Atherosclerotic heart disease of native coronary artery without angina pectoris; Z99.81 Dependence on supplemental oxygen; E78.5 Hyperlipidemia, unspecified; I10 Essential (primary) hypertension; Z72.0 Tobacco use; Z79.52 Long term (current) use of systemic steroids; Z79.899 Other long term (current) drug therapy; Z88.0 Allergy status to penicillin; Z88.2 Allergy status to sulfonamides; R06.9 Unspecified abnormalities of breathing
CPT/HCPCS: 36415; 71045; 80048; 82803; 83605; 83880; 84484; 85007; 85025; 86328; 87040; 87070; 87205; 93005; 94640; 94761; 96374; 99285; G0378; J2405

== ENCOUNTER 2020-02-27 21:41 | Emergency (ER) | payer MEDICARE, SELFPAY ==
[2020-02-27 21:50] VITALS: BP 132/87; PULSE 87; RESP 18; TEMP 37; O2SAT 96; BMI 50.5
--- NOTE | 2020-02-27 21:55 | XR_ITS ---
PROCEDURE: XR KNEE RT 3V CLINICAL INDICATION: PAIN/SWELLING COMPARISON: No exams were available for comparison FINDINGS: No fracture or dislocation. No lytic or blastic change. There is normal mineralization. There are severe osteoarthritic changes at the patellofemoral joint. A well-circumscribed lucency with sclerotic margin is present along the superior aspect of the patella and there present either an old fracture or ununited ossification center. There are mild osteoarthritic changes of the medial and lateral compartment. Prominent osteophyte is present along the distal and lateral aspect of the femur. There is a faint rounded calcific density just lateral to the distal aspect of the femur at the diaphyseal metaphyseal junction within the soft tissues measuring 2.3 cm Other findings:None. IMPRESSION: 1. Osteoarthritis worse at the patellofemoral joint 2. 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 Calcification within the muscle itself is also consideration which could be posttraumatic or even neoplastic. Consider MRI for more thorough evaluation. Dictated by: Mack Dunn MD 02/28/2020 06:22 Mack Dunn MD in [place] 02/28/2020 06:22
--- NOTE | 2020-02-27 22:29 | HMH.EDGENADL ---
ED Disposition Clinical Impression: Acute knee pain Qualifiers: Laterality: right Qualified Code(s): M25.561 - Pain in right knee Disposition: Home, Self-Care Condition on Discharge: Good Instructions: DI for Knee Pain Additional Instructions: ice and call pcp and your ortho in am Prescriptions: predniSONE [Prednisone 20mg Tab] 20 mg PO BID #10 tab Transmission Status: P[facility] to [id number] Referrals: Julien Sun [Primary Care Provider] - - Critical Care Critical Care Time: No Attestation: On 02/27/20, the high probability of a clinically significant, sudden or life threatening deterioration of the following system(s) required my full and direct attention, intervention and personal management. The time I documented below is in addition to time spent performing reported procedures but includes the following listed in this critical care notation. Medical Decision Making - Medical Records Medical records reviewed: Yes: I reviewed the patient's medical records. - Connor Inquiry Pt receiving controlled substance: No Vital Signs: 02/27/20 21:50 Temperature 98.6 F Temperature Source Oral Pulse Rate [Left] 87 Respiratory Rate 18 Blood Pressure [Right Arm] 132/87 Blood Pressure Mean [Right Arm] 102 Blood Pressure Source [Right Arm] Automatic Cuff Blood Pressure Position [Right Arm] Sitting 02 Sat by Pulse Oximetry 96 Oxygen Delivery Method Room Air - Lab Data Lab results reviewed: Yes: I reviewed the patient's lab results. Orders (Tests/Meds): ORDERS Category Date Time Status XR knee RT 3V Stat Exams 02/27/20 21:55 Taken - Radiology Data #1 Image(s): Knee Image Reviewed: Yes I reviewed the patient's radiology image Preliminary Findings: No Fracture Seen General Adult HPI - General Chief complaint: PAIN Stated complaint: right knee swelling and pain Time Seen by Provider: 02/27/20 22:29 Mode of Arrival: Wheelchair Source of Information: Patient, Medical Record Limitations: No Limitations Description of Symptoms (Recalled from ER Triage Doc. by RN): PATIENT REPORTS SHE WAS SITTING ON THE COUGH LAST NIGHT WHEN SHE FELL ASLEEP, AND FELL FORWARD OFF OF THE COUGH. PATIENT UNAWARE OF ANY DIRECT INJURY, BUT REPORTS UNABLE TO BARE WEIGHT AND INCREASED PAIN/SWELLING. PATIENT HAS BEEN USING A WALKER SINCE LAST NIGHT, BUT ARRIVES IN A WHEELCHAIR - History of Present Illness HPI narrative: rt knee pain w/o def trauma over the last days - dec rom and wt bearing Onset (ago): day(s) Location: lower extremity Consistency: intermittent Associated symptoms: denies other symptoms Treatments prior to arrival: none - Related Data Home Medications Medication Instructions Recorded Confirmed Omeprazole [Omeprazole 40mg 40 mg PO DAILY 06/14/17 02/13/20 Capsule] Butalbital/Aspirin/Caffeine 1 each PO Q6HP PRN 05/12/18 02/13/20 [Fiorinal 50-325-40 mg Capsule] Loratadine [Claritin 10mg 10 mg PO DAILY 05/12/18 02/13/20 Tablet] trazodone 50 mg tablet 75 mg PO HSP PRN 02/17/19 02/13/20 Atorvastatin Calcium [Lipitor 40mg 40 mg PO HS 12/29/19 02/13/20 Tab] Albuterol Sulfate [Proair 2 puffs IH Q4HP PRN 12/30/19 02/13/20 Digihaler] gabapentin 600 mg tablet 600 mg PO 0900,1300 tab 02/06/20 02/13/20 risperidone 1 mg tablet 1 mg PO DAILY 02/06/20 02/13/20 Furosemide [Furosemide 80mg Tab] 80 mg PO DAILY 02/12/20 02/13/20 Hydralazine HCl 50 mg PO TID 02/12/20 02/13/20 Losartan Potassium [Cozaar 100mg 100 mg PO DAILY 02/12/20 02/13/20 Tablets] bisoproloL fumarate [Bisoprolol 20 mg PO BID 02/12/20 02/13/20 10mg Tablet] Amlodipine Besylate [Amlodipine 5 mg PO DAILY 02/13/20 02/13/20 5mg tab] Fluoxetine HCl [Prozac 20mg 80 mg PO DAILY 02/13/20 02/13/20 Capsule] Gabapentin [Gabapentin 100mg Cap] 1,200 mg PO HS 02/13/20 02/13/20 Previous Rx's Medication Instructions Recorded Fluticasone/Umeclidin/Vilanter 1 each IH DAILY #1 blst.w.dev 02/12
[2020-02-27 22:57] VITALS: BP 130/70; PULSE 74; RESP 16; TEMP 36.9; O2SAT 98
== END 2020-02-27 22:58 | disposition home or self-care (01) ==
PROVIDERS: Emergency Provider Emergency Medicine; PCP Family Medicine
DX: M25.561 Pain in right knee (principal); W01.0XXA Fall on same level from slipping, tripping and stumbling without subsequent striking against object, initial encounter; Y92.019 Unspecified place in single-family (private) house as the place of occurrence of the external cause; I10 Essential (primary) hypertension; E78.5 Hyperlipidemia, unspecified; J44.9 Chronic obstructive pulmonary disease, unspecified; I25.10 Atherosclerotic heart disease of native coronary artery without angina pectoris; F17.210 Nicotine dependence, cigarettes, uncomplicated; Z88.0 Allergy status to penicillin; Z90.09 Acquired absence of other part of head and neck; Z79.899 Other long term (current) drug therapy
CPT/HCPCS: 73562; 99282

== ENCOUNTER 2020-03-10 16:49 | Observation (INO) | payer MEDICARE, SELFPAY ==
[2020-03-10] VITALS (8 sets, daily range): BP systolic 124–205; BP diastolic 56–105; PULSE 83–96; RESP 16–20; TEMP 36.7–37.3; O2SAT 91–98; BMI 46.4; BMI 48.6
--- NOTE | 2020-03-10 17:05 | PC.NURSE ---
registration calls stating pt states they do not want to wait in UTC would like to be seen in ER. Pt assigned to room 10
--- NOTE | 2020-03-10 17:22 | HMH.EDGENADL ---
ED Disposition Clinical Impression: Dental abscess, Dental infection Disposition: Admitted as Observation Condition on Discharge: Fair Referrals: Sun,Viral [Primary Care Provider] - - Critical Care Critical Care Time: No Attestation: On 03/10/20, the high probability of a clinically significant, sudden or life threatening deterioration of the following system(s) required my full and direct attention, intervention and personal management. The time I documented below is in addition to time spent performing reported procedures but includes the following listed in this critical care notation. Medical Decision Making - Medical Records Medical records reviewed: Yes: I reviewed the patient's medical records. - Connor Inquiry Pt receiving controlled substance: Yes Connor was queried for this patient: Yes Reference #:: [id number] Risks and benefits of using a controlled substance: were discussed with pt by me Comment: 17 rxs. last rxs 6 Tyl#3 02/26, gabapentin 03/05 Vital Signs: 03/10/20 16:58 03/10/20 17:05 03/10/20 17:51 Temperature 99.1 F 99.1 F Temperature Source Oral Oral Pulse Rate [Left Radial] 84 84 89 Respiratory Rate 18 18 20 Blood Pressure [Left Arm] 161/94 H 161/94 H 205/105 H Blood Pressure Mean [Left Arm] 116 116 138 Blood Pressure Source [Left Arm] Automatic Cuff Automatic Cuff Blood Pressure Position [Left Arm] Sitting Sitting 02 Sat by Pulse Oximetry 95 95 96 Oxygen Delivery Method Room Air Room Air Room Air 03/10/20 19:02 Temperature Temperature Source Pulse Rate [Left Radial] 85 Respiratory Rate 18 Blood Pressure [Left Arm] 140/84 Blood Pressure Mean [Left Arm] 102 Blood Pressure Source [Left Arm] Automatic Cuff Blood Pressure Position [Left Arm] Sitting 02 Sat by Pulse Oximetry 95 Oxygen Delivery Method Room Air - Lab Data Lab results reviewed: Yes: I reviewed the patient's lab results. Lab Results 03/10/20 17:45: WBC 15.6 H, RBC 5.05, Hgb 14.7, Hct 44.3, MCV 87.7, MCH 29.1, MCHC 33.2, RDW 15.5, Plt Count 306, MPV 7.4, Neut % (Auto) 75.4, Lymph % (Auto) 15.5, [place] % (Auto) 6.1, Eos % (Auto) 2.6, Baso % (Auto) 0.4, Neut # (Auto) 11.8 H, Lymph # (Auto) 2.4, [place] # (Auto) 1.0, Eos # (Auto) 0.4, Baso # (Auto) 0.1, Total Counted 100, Neutrophils % (Manual) 81 H, Band Neutrophils % 5.0, Lymphocytes % (Manual) 11, Monocytes % (Manual) 2, Eosinophils % (Manual) 1, Platelet Estimate Normal, RBC Morphology Normal 03/10/20 17:45: Sodium 141, Potassium 4.0, Chloride 101, Carbon Dioxide 32 H, Anion Gap 12.0, BUN 14, Creatinine 0.60, Estimated Creat Clear 72, Estimated GFR 104, Est GFR ( Amer) 126, Glucose 92, Calcium 9.4, Total Bilirubin 0.3, AST 28, ALT 23, Alkaline Phosphatase 149 H, Total Protein 8.0, Albumin 4.5, Globulin 3.5 H, Albumin/Globulin Ratio 1.3 03/10/20 17:45: Lactate 0.9 Result diagrams: 03/10/20 17:45 03/10/20 17:45 Orders (Tests/Meds): ED MEDICATIONS Generic Name Dose Route Start Last Admin Trade Name Freq PRN Reason Stop Dose Admin Clindamycin Phosphate 900 mg/ 106 mls @ 100 mls/hr 03/10/20 17:45 03/10/20 17:46 Sodium Chloride IV 03/24/20 17:44 100 mls/hr Q8H ANA Administration Protocol Discontinued Medications Generic Name Dose Route Start Last Admin Trade Name Freq PRN Reason Stop Dose Admin Hydromorphone HCl 1 mg 03/10/20 17:40 03/10/20 17:45 Dilaudid 2mg/Ml Syringe IV 03/10/20 17:41 1 mg ONCE ONE Administration Ketorolac Tromethamine 30 mg 03/10/20 18:18 03/10/20 18:19 Toradol 30mg/Ml Vial IV 03/10/20 18:19 30 mg ONCE ONE Administration Ondansetron HCl 4 mg 03/10/20 17:40 03/10/20 17:46 Zofran 4mg/2ml Vial IV 03/10/20 17:41 4 mg ONCE ONE Administration ORDERS Category Date Time Status Covid-19 IgG/IgM ([facility]) Stat Lab 09/27/20 19:13 Ordered Blood Culture Stat Micro 03/10/20 17:45 Received - Physician Consults Physician Consulted: Dr. Roach Time: 19:19 Reason -: Admission, Pt con
[2020-03-10 18:04] LABS: Basophils # 0.1 K/mm3 (0-0.2); Basophils % 0.4 % (0.1-2.0); Eosinophils # 0.4 K/mm3 (0.0-0.4); Eosinophils % 2.6 % (0.1-12.0); Hematocrit 44.3 % (37.0-47.0); Hemoglobin 14.7 g/dL (12.2-16.2); Lymphocytes # 2.4 K/mm3 (0.7-4.5); Lymphocytes % 15.5 % (10-50); Mean Corpuscular HGB Conc 33.2 g/dL (31.8-35.4); Mean Corpuscular Hemoglobin 29.1 pg (27.0-31.2); Mean Corpuscular Volume 87.7 fl (81-99); Mean Platelet Volume 7.4 fl (7.4-10.4); Monocytes % 6.1 % (1.7-9.3); Neutrophils # 11.8 K/mm3 (1.8-7.8); Neutrophils % 75.4 % (37.0-80.0); Platelet Count 306 K/mm3 (142-424); Red Blood Count 5.05 M/mm3 (4.20-5.40); Red Cell Distribution Width 15.5 % (11.5-17.5); White Blood Count 15.6 K/mm3 (4.8-10.8)
[2020-03-10 18:08] LABS: MANUAL DIFFERENTIAL MANUAL DIFFERENTIAL (MANUAL DIFF)
[2020-03-10 18:18] LABS: Alanine Aminotransferase 23 U/L (12-78); Albumin Level 4.5 g/dl (3.5-5.0); Albumin/Globulin Ratio 1.3 (1.1-1.8); Alkaline Phosphatase 149 U/L (38-126); Aspartate Amino Transferase 28 U/L (14-36); Bilirubin,Total 0.3 mg/dl (0.2-1.3); Blood Urea Nitrogen 14 mg/dl (7-17); Calcium 9.4 mg/dl (8.4-10.2); Carbon Dioxide 32 mmol/L (22.0-30.0); Chloride 101 mmol/L (98-107); Creatinine Clearance Estimated 72 mL/min (50-200); Estimated Glomerular Filt Rate 104 ml/min (>60); GFR (African American) 126 ML/MIN (>60); Globulin 3.5 g/dL (1.3-3.2); Glucose 92 mg/dl (74-100); Sodium 141 mmol/L (136-145)
[2020-03-10 18:19] LABS: Lactic Acid 0.9 mmol/L (0.7-2.1)
[2020-03-10 18:24] LABS: Eosinophils % 1 % (0-3); Lymphocytes % 11 % (10-50); Monocytes % 2 % (2-9); Neutrophils % 81 % (42-76); Platelet Estimate Normal; RBC Morphology Normal; Total Cells Counted 100
--- NOTE | 2020-03-10 19:08 | PC.NURSE ---
received report from day nurse
--- NOTE | 2020-03-10 19:39 | PC.NURSE ---
attempt made to call report. receiving nurse states she is still getting report on her patient assignment and will call back
[2020-03-10 19:42] LABS: Coronavirus 19 IgG Antibody Negative (Negative); Coronavirus 19 IgM Antibody Negative (Negative)
--- NOTE | 2020-03-10 20:13 | PC.NURSE ---
PT ARRIVED TO THE FLOOR VIA W/C FROM ED W/NSG STAFF @ 2011
--- NOTE | 2020-03-11 03:51 | PC.NURSE ---
Pt is alert and oriented x4. Rested well with eyes closed this shift. PERRLA. Facial edema noted upon admission. Applied ice pack to face intermittently t/o shift. Decreased facial edema noted this am upon reassessment. Rates pain to right side of mouth and t/o face a 10/10 on pain scale at highest. Administered Dilaudid and Tylenol per mar for pain relief. Upon reassessment with both meds, pt was noted resting with eyes closed with no further complaints. 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 Cap refill < 3 seconds. Bilateral breath sounds noted clear t/o upon auscultation. Tolerated RA well with no c/o SOA. Applied 2 lnc for sleep this HS per pt request. She states she wears 2 lnc at home while sleeping due to her COPD. Tolerated 2 lnc well with no complaints. RR noted even and unlabored. Active bowel sounds noted in all 4 quads upon auscultation. Abdomen noted large, round and soft upon palpation. Ambulates well independently in room. Adequate urine output noted. TEDS BLE. No edema noted. VSS. Remains safe. Call light within reach. Will continue to monitor.
[2020-03-11 04:00] VITALS: BP 145/82; PULSE 85; RESP 19; TEMP 37.2; O2SAT 94
[2020-03-11 05:04] VITALS: BMI 49.9
[2020-03-11 06:44] LABS: Basophils % 0.2 % (0.1-2.0); Eosinophils # 0.1 K/mm3 (0.0-0.4); Eosinophils % 0.4 % (0.1-12.0); Hematocrit 39.1 % (37.0-47.0); Lymphocytes # 1.6 K/mm3 (0.7-4.5); Lymphocytes % 11.3 % (10-50); Mean Corpuscular HGB Conc 33.5 g/dL (31.8-35.4); Mean Corpuscular Hemoglobin 29.6 pg (27.0-31.2); Mean Corpuscular Volume 88.2 fl (81-99); Monocytes # 0.8 K/mm3 (0.1-1.0); Monocytes % 5.8 % (1.7-9.3); Neutrophils # 11.7 K/mm3 (1.8-7.8); Neutrophils % 82.3 % (37.0-80.0); Platelet Count 274 K/mm3 (142-424); Red Blood Count 4.43 M/mm3 (4.20-5.40); Red Cell Distribution Width 15.6 % (11.5-17.5); White Blood Count 14.2 K/mm3 (4.8-10.8)
[2020-03-11 07:57] VITALS: BP 157/80; PULSE 86; RESP 18; TEMP 36.5; O2SAT 93
--- NOTE | 2020-03-11 08:19 | P.CONPHA_ITS ---
[facility] Pharmacy VTE Monitoring - Patient Demographics Admission date: 03/10/20 Report Date: 03/11/20 Time: 08:20 Allergies/Adverse Reactions: Patient Allergies erythromycin base [ERYTHROMYCIN BASE] Allergy (Unknown, Verified 02/13/20 02:56) I-RASH Penicillins [PENICILLINS] Allergy (Unknown, Verified 02/13/20 02:56) DIFFICULTY BREATHING Height: 1.5 m Weight: 112.491 kg Patient Problems: Current Active Problems Dental abscess (Acute) Dental infection (Acute) - VTE Risk Labs: VTE Related Lab Results Hgb 14.7 g/dL (12.2-16.2) 03/10/20 17:45 Hct 39.1 % (37.0-47.0) 03/11/20 05:55 Plt Count 274 K/mm3 (142-424) 03/11/20 05:55 BUN 14 mg/dl (7-17) 03/10/20 17:45 Creatinine 0.60 mg/dl (0.52-1.04) 03/10/20 17:45 Estimated Creat Clear 72 mL/min (50-200) 03/10/20 17:45 Was VTE Risk Assessment Performed: Yes VTE Score: 8 VTE Risk Level: Moderate Risk - Prophylaxis VTE Prophylaxis Ordered?: Yes Types of VTE Prophylaxis: TEDS Knee High Location of Applied Device: Bilateral Lower Extremeties
--- NOTE | 2020-03-11 08:29 | HMH.HPDC ---
General - General Admission date:: 03/10/20 Discharge date: 03/11/20 *Admission Date: 03/10/20 *Chief complaint: Dental abscess *History of present illness: 54-year-old white female with hypertension, who normally sees Dr. Celestin as her dentist who 3 days ago began developing a very painful dental abscess in the right upper gumline. She tried to go camping but the pain became incredibly more intense and she came to the emergency department. Found to have a significant dental abscess, admitted overnight for IV antibiotics and steroids pending dental evaluation. [facility] History I have reviewed the patient's past medical history: Yes Medical History: Reports:: Anxiety, Cancer, Chronic Obstructive Pulmonary Disease (COPD), Coronary Artery Disease, Home Oxygen, Hyperlipidemia, Hypertension, MRSA Denies:: Diabetes Mellitus Type 1, Diabetes Mellitus Type 2 *Have you ever received a pneumonia vaccine?: Yes *Have you received a flu vaccine this season?: No Other Medical History: Reports: Anemia, Arthritis, Other Laterality Cases: Bilateral: Tonsillectomy Other Surgeries: Yes: Cancer Surgery (BENEATH L BREAST), Cardiac Catheterization, Tubal Ligation, Other Amputation: No Fractures: No - *Social History Last grade of school completed: High school graduate Smoking Status: Current every day smoker Tobacco Type: cigarettes # Packs/Day (cigarettes): 1 Alcohol Intake: current Alcohol Intake Frequency:: holidays/special occasions only Substance Use Type: denies use *Occupational Status:: disabled Housing: other Household Members: spouse *Travel in the last 8 weeks: None - Psychiatric History Pschychiatric History:: Reports:: Anxiety Family Hx:: Cancer, Heart Attack, Hyperlipidemia, Hypertension Review of Systems - Review of Systems Review of systems:: pertinent systems reviewed and negative unless documented below Exam Vital signs and Labs for Last 24 Hours: Temp Pulse Resp BP Pulse Ox 97.7 F 86 18 157/80 H 93 L 03/11/20 07:57 03/11/20 07:57 03/11/20 07:57 03/11/20 07:57 03/11/20 07:57 Laboratory Results - last 24 hr 03/10/20 17:45: WBC 15.6 H, RBC 5.05, Hgb 14.7, Hct 44.3, MCV 87.7, MCH 29.1, MCHC 33.2, RDW 15.5, Plt Count 306, MPV 7.4, Neut % (Auto) 75.4, Lymph % (Auto) 15.5, [place] % (Auto) 6.1, Eos % (Auto) 2.6, Baso % (Auto) 0.4, Neut # (Auto) 11.8 H, Lymph # (Auto) 2.4, [place] # (Auto) 1.0, Eos # (Auto) 0.4, Baso # (Auto) 0.1, Total Counted 100, Neutrophils % (Manual) 81 H, Band Neutrophils % 5.0, Lymphocytes % (Manual) 11, Monocytes % (Manual) 2, Eosinophils % (Manual) 1, Platelet Estimate Normal, RBC Morphology Normal 03/10/20 17:45: Sodium 141, Potassium 4.0, Chloride 101, Carbon Dioxide 32 H, Anion Gap 12.0, BUN 14, Creatinine 0.60, Estimated Creat Clear 72, Estimated GFR 104, Est GFR ( Amer) 126, Glucose 92, Calcium 9.4, Total Bilirubin 0.3, AST 28, ALT 23, Alkaline Phosphatase 149 H, Total Protein 8.0, Albumin 4.5, Globulin 3.5 H, Albumin/Globulin Ratio 1.3 03/10/20 17:45: Lactate 0.9 03/10/20 17:45: SARS-CoV-2 IgG Ab (Rapid) Negative, SARS-CoV-2 IgM Ab (Rapid) Negative 03/11/20 05:55: WBC 14.2 H, RBC 4.43, Hct 39.1, MCV 88.2, MCH 29.6, MCHC 33.5, RDW 15.6, Plt Count 274, MPV 8.0, Neut % (Auto) 82.3 H, Lymph % (Auto) 11.3, [place] % (Auto) 5.8, Eos % (Auto) 0.4, Baso % (Auto) 0.2, Neut # (Auto) 11.7 H, Lymph # (Auto) 1.6, [place] # (Auto) 0.8, Eos # (Auto) 0.1, Baso # (Auto) 0.0 I & O for Last 24 hours: Intake & Output 03/08/20 03/09/20 03/10/20 03/11/20 11:59 11:59 11:59 11:59 Intake Total 745 / 745 Balance 745 / 745 Weight 248 lb - Constitutional no acute distress, morbidly obese - *Routine HEENT Exam Head: Present: normocephalic Eye: Present: EOMI, PERRL ENT: Present: mucous membranes moist Comments: Significant abscess in the right upper gumline in the posterior molar area. No evidence of drainage. No neck lymphadenitis. Tympanic membrane's are clear. - *Routine Neck Exam Present
--- NOTE | 2020-03-11 08:31 | HMH.PHAINT ---
HOME MEDICATIONS RECONCILED FROM DISCHARGE LIST FROM [facility] THIS MONTH.
[2020-03-11 09:45] LABS: Hemoglobin 13.1 g/dL (12.2-16.2)
== END 2020-03-11 11:11 | disposition home or self-care (01) ==
LOC: ER 17:13 → 2ND 19:20
PROVIDERS: Admitting Provider Internal Medicine Adolescent Medicine; Emergency Provider Emergency Medicine; PCP Family Medicine; Visit Provider Internal Medicine Adolescent Medicine
DX: K04.7 Periapical abscess without sinus (principal); J44.9 Chronic obstructive pulmonary disease, unspecified; Z99.81 Dependence on supplemental oxygen; I25.10 Atherosclerotic heart disease of native coronary artery without angina pectoris; I10 Essential (primary) hypertension; E78.5 Hyperlipidemia, unspecified; Z72.0 Tobacco use; Z88.0 Allergy status to penicillin; Z79.899 Other long term (current) drug therapy
CPT/HCPCS: 36415; 80053; 83605; 85007; 85025; 86328; 87040; 94760; 96365; 96375; 99284; G0378; J2405

== ENCOUNTER 2020-04-10 15:23 | Emergency (ER) | payer MEDICARE, SELFPAY ==
[2020-04-10 15:38] VITALS: BP 135/118; PULSE 92; RESP 20; TEMP 36.7; O2SAT 91; BMI 46.8
--- NOTE | 2020-04-10 15:43 | XR_ITS ---
PROCEDURE: XR CHEST 2V CLINICAL HISTORY: soa Shortness of air, smoker COMPARISON: CT [facility] CT CHEST W/O CONTRAST from 06/30/2014 CR XR CHEST 2V from 12/28/2019 CR XR CHEST 2V from 12/30/2019 CR XR CHEST PORTABLE from 02/12/2020 FINDINGS: The cardiomediastinal silhouette and pulmonary vascularity are within normal limits. Well-circumscribed nodules present in the right lower lobe at 11 mm not significantly changed consistent with a granuloma. The remaining lungs are clear. No acute bony abnormalities. IMPRESSION: No change with no acute finding Dictated by: Mack Dunn MD 04/10/2020 16:46 Mack Dunn MD in [place] 04/10/2020 16:46
--- NOTE | 2020-04-10 15:49 | HMH.EDSOB ---
ED Disposition Clinical Impression: COPD with acute exacerbation Disposition: Home, Self-Care Condition on Discharge: Good Instructions: DI for Chronic Obstructive Pulmonary Disease Prescriptions: Doxycycline Hyclate [Doxycycline 100mg Capsule] 100 mg PO BID 7 Days #14 cap Prescription Printed predniSONE [Prednisone 50mg Tab] 50 mg PO DAILY #5 tab Prescription Printed Benzonatate [Tessalon Perle 100mg Cap*] 200 mg PO TID PRN 5 Days cap PRN Reason: Cough Prescription Printed Referrals: Sun,Viral [Primary Care Provider] - 3 days - Critical Care Critical Care Time: No Attestation: On , the high probability of a clinically significant, sudden or life threatening deterioration of the following system(s) required my full and direct attention, intervention and personal management. The time I documented below is in addition to time spent performing reported procedures but includes the following listed in this critical care notation. Medical Decision Making - Medical Records Medical records reviewed: Yes: I reviewed the patient's medical records. - Connor Inquiry Pt receiving controlled substance: No Vital Signs: 04/10/20 15:38 04/10/20 16:24 Temperature 98.1 F Temperature Source Oral Pulse Rate [Right Brachial] 92 H 89 Respiratory Rate 20 Blood Pressure [Right Arm] 135/118 H 150/108 H Blood Pressure Mean [Right Arm] 123 122 Blood Pressure Source [Right Arm] Automatic Cuff Automatic Cuff Blood Pressure Position [Right Arm] Sitting Sitting 02 Sat by Pulse Oximetry 91 L 91 L Oxygen Delivery Method Room Air Room Air - Lab Data Lab results reviewed: Yes: I reviewed the patient's lab results. Lab Results 04/10/20 16:20: WBC 9.1, RBC 5.18, Hgb 14.9, Hct 44.9, MCV 86.6, MCH 28.7, MCHC 33.2, RDW 14.5, Plt Count 303, MPV 7.7, Neut % (Auto) 61.4, Lymph % (Auto) 25.2, [place] % (Auto) 9.5 H, Eos % (Auto) 3.0, Baso % (Auto) 0.8, Neut # (Auto) 5.6, Lymph # (Auto) 2.3, [place] # (Auto) 0.9, Eos # (Auto) 0.3, Baso # (Auto) 0.1 04/10/20 16:20: Sodium 138, Potassium 3.7, Chloride 98, BUN 11, Creatinine 0.60, Estimated Creat Clear 76, Estimated GFR 104, Est GFR ( Amer) 126 Result diagrams: 04/10/20 16:20 04/10/20 16:20 Orders (Tests/Meds): ED MEDICATIONS Generic Name Dose Route Start Last Admin Trade Name Freq PRN Reason Stop Dose Admin Benzonatate 200 mg 04/10/20 17:00 Benzonatate 100mg Capsule PO 05/10/20 16:59 ONCE ANA Discontinued Medications Generic Name Dose Route Start Last Admin Trade Name Freq PRN Reason Stop Dose Admin Albuterol/Ipratropium 6 puff 04/10/20 15:48 04/10/20 16:13 Combivent 20mcg/100mcg Respimat Inhaler IH 04/10/20 15:49 6 puff ONCE ONE Administration Ibuprofen 600 mg 04/10/20 16:54 Ibuprofen 600 Mg Tablet PO 04/10/20 16:55 ONCE ONE Methylprednisolone Sodium Succinate 125 mg 04/10/20 15:48 04/10/20 16:51 Methylprednisolone Sod Succ 125mg Vial IV 04/10/20 15:49 125 mg ONCE ONE Administration Miscellaneous 1 unit 04/10/20 15:48 Aerochamber/Optihaler MC 04/10/20 15:49 ONCE ONE ORDERS Category Date Time Status Basic Metabolic Panel Stat Lab 04/10/20 16:20 Results Covid-19 Nasal PCR Sendout Roman Stat Lab 04/10/20 15:47 Ordered - Radiology Data #1 Image(s): Chest Image Reviewed: Yes I reviewed the patient's radiology results No acute changes or infiltrates. Medical Decision Narrative: Patient with acute COPD exacerbation, possibly viral URI. Covid swab was sent. Chest x-ray shows no signs of pneumonia. She has no fever or leukocytosis. She was given Solu-Medrol here and DuoNeb MDI. Recommend using her home nebulizers 3-4 times daily and will discharge home with prophylactic antibiotic and steroid burst therapy. Encouraged follow-up with PCP in 2 to 3 days and quarantine until results of Covid test are known. Resp/SOB HPI - General Chief Complaint: Shortness of Breath/Dyspnea State
--- NOTE | 2020-04-10 16:05 | PC.NURSE ---
RT at bedside
--- NOTE | 2020-04-10 16:12 | PC.NURSE ---
Pt to rad.
--- NOTE | 2020-04-10 16:15 | PC.NURSE ---
Pt returned from rad.
--- NOTE | 2020-04-10 16:23 | PC.NURSE ---
v/s delayed due to IV insertion
[2020-04-10 16:24] VITALS: BP 150/108; PULSE 89; O2SAT 91
[2020-04-10 16:31] LABS: Basophils # 0.1 K/mm3 (0-0.2); Basophils % 0.8 % (0.1-2.0); Eosinophils # 0.3 K/mm3 (0.0-0.4); Hematocrit 44.9 % (37.0-47.0); Hemoglobin 14.9 g/dL (12.2-16.2); Lymphocytes # 2.3 K/mm3 (0.7-4.5); Lymphocytes % 25.2 % (10-50); Mean Corpuscular HGB Conc 33.2 g/dL (31.8-35.4); Mean Corpuscular Hemoglobin 28.7 pg (27.0-31.2); Mean Corpuscular Volume 86.6 fl (81-99); Mean Platelet Volume 7.7 fl (7.4-10.4); Monocytes # 0.9 K/mm3 (0.1-1.0); Monocytes % 9.5 % (1.7-9.3); Neutrophils # 5.6 K/mm3 (1.8-7.8); Neutrophils % 61.4 % (37.0-80.0); Platelet Count 303 K/mm3 (142-424); Red Blood Count 5.18 M/mm3 (4.20-5.40); Red Cell Distribution Width 14.5 % (11.5-17.5); White Blood Count 9.1 K/mm3 (4.8-10.8)
[2020-04-10 16:34] LABS: Chloride 98 mmol/L (98-107)
[2020-04-10 16:35] LABS: Potassium 3.7 mmoL/L (3.5-5.1); Sodium 138 mmol/L (136-145)
[2020-04-10 16:37] LABS: Blood Urea Nitrogen 11 mg/dl (7-17); Creatinine Clearance Estimated 76 mL/min (50-200); Estimated Glomerular Filt Rate 104 ml/min (>60); GFR (African American) 126 ML/MIN (>60)
[2020-04-10 16:38] LABS: Anion Gap 11.7 mEq/L (5-15); Calcium 9.3 mg/dl (8.4-10.2); Carbon Dioxide 32 mmol/L (22.0-30.0); Glucose 98 mg/dl (74-100)
--- NOTE | 2020-04-10 16:49 | PC.NURSE ---
Pt complains of pain in her lungs and requests meds for it. aware.
[2020-04-10 17:00] VITALS: BP 180/116; PULSE 92; O2SAT 95
[2020-04-10 17:04] VITALS: BP 180/116; PULSE 92; RESP 20; TEMP 36.7; O2SAT 95
[2020-04-10 17:21] LABS: Adenovirus,PCR Not Detected (NotDetected); Bordetella Pertussis Not Detected (NotDetected); Chlamydophila Pneumoniae, PCR Not Detected (NotDetected); Coronavirus 19, PCR Not Detected (NotDetected); Coronavirus 229E Not Detected (NotDetected); Coronavirus NL63 Not Detected (NotDetected); Coronavirus OC43 Not Detected (NotDetected); Coronovirus HKU1,PCR Not Detected (NotDetected); Human Metapneumovirus Not Detected (NotDetected); Influenza A, PCR Not Detected (NotDetected); Influenza AH1, 2009 Not Detected (NotDetected); Influenza AH1, PCR Not Detected (NotDetected); Influenza AH3,PCR Not Detected (NotDetected); Influenza B, PCR Not Detected (NotDetected); Mycoplasma Pneumoniae, PCR Not Detected (NotDetected); Parainfluenza 1, PCR Not Detected (NotDetected); Parainfluenza 2, PCR Not Detected (NotDetected); Parainfluenza 3, PCR Not Detected (NotDetected); Parainfluenza 4, PCR Not Detected (NotDetected); Respiratory Syncytial Virus Not Detected (NotDetected)
[2020-04-11 09:23] LABS: Rhinovirus/Enterovirus Detected (NotDetected)
== END 2020-04-10 17:10 | disposition home or self-care (01) ==
PROVIDERS: Emergency Provider Emergency Medicine; PCP Family Medicine
DX: Z20.828 Contact with and (suspected) exposure to other viral communicable diseases (principal); J44.1 Chronic obstructive pulmonary disease with (acute) exacerbation; F17.210 Nicotine dependence, cigarettes, uncomplicated; I10 Essential (primary) hypertension; I25.10 Atherosclerotic heart disease of native coronary artery without angina pectoris; E78.5 Hyperlipidemia, unspecified; Z88.0 Allergy status to penicillin; Z79.899 Other long term (current) drug therapy
CPT/HCPCS: 71046; 80048; 85025; 87581; 87633; 87798; 96374; 99283; U0003

== ENCOUNTER 2021-01-04 22:18 | Emergency (ER) | payer MEDICARE, SELFPAY ==
[2021-01-04 22:42] VITALS: BP 171/118; PULSE 96; RESP 30; TEMP 39.6; O2SAT 96; BMI 39.8; BMI 40.2
--- NOTE | 2021-01-04 22:43 | XR_ITS ---
PROCEDURE INFORMATION: Exam: XR Chest Exam date and time: 01/04/2021 10:43 PM Age: 55 years old Clinical indication: Other: N/v/d TECHNIQUE: Imaging protocol: XR of the chest. Views: 2 views. COMPARISON: CR XR CHEST 2V 04/10/2020 4:05 PM FINDINGS: Lungs: Right hilar calcified nodes, and right lung base calcified granuloma unchanged from prior exam. Pleural spaces: Unremarkable. No pleural effusion. No pneumothorax. Heart/Mediastinum: Unremarkable. No cardiomegaly. Bones/joints: Unremarkable. IMPRESSION: No acute findings.
--- NOTE | 2021-01-04 22:43 | CT_ITS ---
PROCEDURE INFORMATION: Exam: CT Abdomen And Pelvis With Contrast Exam date and time: 01/04/2021 10:43 PM Age: 55 years old Clinical indication: Nausea and vomiting; Abdominal pain; Generalized; Patient HX: General abd pain; Additional info: N/v/d TECHNIQUE: Imaging protocol: Computed tomography of the abdomen and pelvis with contrast. Radiation optimization: All CT scans at this facility use at least one of these dose optimization techniques: automated exposure control; mA and/or kV adjustment per patient size (includes targeted exams where dose is matched to clinical indication); or iterative reconstruction. Contrast material: ISOVUE; Contrast volume: 75 ml; Contrast route: IV; COMPARISON: CR PEL1V XR pelvis 1-2V 06/23/2017 5:23 PM FINDINGS: Liver: Normal. No mass. Gallbladder and bile ducts: Normal. No calcified stones. No ductal dilation. Pancreas: Normal. No ductal dilation. Spleen: Multiple calcific densities spleen are likely related to prior granulomatous process. Adrenal glands: Normal. No mass. Kidneys and ureters: Normal. No hydronephrosis. Stomach and bowel: Unremarkable. No obstruction. No mucosal thickening. Appendix: No evidence of appendicitis. Intraperitoneal space: Unremarkable. No free air. No significant fluid collection. Vasculature: Mild calcific atherosclerotic disease is scattered throughout the abdominal aorta without aneurysmal dilatation. Lymph nodes: Right hilar calcified nodes and right lung base calcified granuloma likely related to prior granulomatous process. Left upper quadrant multiple mesenteric nodes measuring greater than 5 mm in short axis are present, which can be seen with mesenteric adenitis. Urinary bladder: Unremarkable as visualized. Reproductive: Unremarkable as visualized. Bones/joints: Posterior fusion hardware identified at L4-L5 without perihardware lucencies. Moderate discogenic degenerative changes from L3 through S1 are present. Soft tissues: Normal. IMPRESSION: Left upper quadrant multiple mesenteric nodes measuring greater than 5 mm in short axis are present, which can be seen with mesenteric adenitis.
[2021-01-04 22:48] LABS: Microscopic, Urine URINE MICROSCOPIC (MICROSCOPIC)
[2021-01-04 22:49] LABS: Appearance,Urine CLOUDY (Clear); Bilirubin,Urine Negative (Negative); Blood, Urine TRACE-I (Negative); Color,Urine YELLOW (Yellow); Glucose,Urine (UA) Negative (Negative); Ketones,Urine Negative (Negative); Leukocyte Esterase,Urine 1+ (Negative); Nitrate,Urine POSITIVE (Negative); Protein,Urine 1+ (Negative)
--- NOTE | 2021-01-04 22:54 | HMH.EDNVD ---
ED Disposition Clinical Impression: SIRS (systemic inflammatory response syndrome) UTI (urinary tract infection) Qualifiers: Urinary tract infection type: site unspecified Hematuria presence: without hematuria Qualified Code(s): N39.0 - Urinary tract infection, site not specified Disposition: Home, Self-Care Condition on Discharge: Good Instructions: DI for Urinary Tract Infection (UTI) Additional Instructions: fluids and use meds and call pcp for follow up and urine culture results Prescriptions: levoFLOXacin [Levaquin 500mg tab] 500 mg PO DAILY #7 tab Transmission Status: Pending to [id number] Referrals: DinoViral [Primary Care Provider] - - Critical Care Critical Care Time: No Attestation: On 01/04/21, the high probability of a clinically significant, sudden or life threatening deterioration of the following system(s) required my full and direct attention, intervention and personal management. The time I documented below is in addition to time spent performing reported procedures but includes the following listed in this critical care notation. Medical Decision Making - Medical Records Medical records reviewed: Yes: I reviewed the patient's medical records. - Connor Inquiry Pt receiving controlled substance: No Vital Signs: 01/04/21 22:42 01/04/21 23:01 Temperature 103.2 F H Temperature Source Oral Pulse Rate 87 Pulse Rate [Right] 96 H Respiratory Rate 30 H Blood Pressure 149/62 H Blood Pressure [Right Arm] 171/118 H Blood Pressure Mean 113 Blood Pressure Mean [Right Arm] 135 Blood Pressure Source [Right Arm] Automatic Cuff Blood Pressure Position [Right Arm] Supine 02 Sat by Pulse Oximetry 96 96 Oxygen Delivery Method Nasal Cannula Oxygen Flow Rate (LPM) 2 2 - Lab Data Lab results reviewed: Yes: I reviewed the patient's lab results. Lab Results 01/04/21 22:30: Urine Color Yellow, Urine Appearance Cloudy, Urine pH 7.0, Ur Specific [place] 1.020, Urine Protein 1+, Urine Glucose (UA) Negative, Urine Ketones Negative, Urine Blood Trace-i, Urine Nitrate Positive, Urine Bilirubin Negative, Urine Urobilinogen 4.0, Ur Leukocyte Esterase 1+ A, Urine WBC 50-100, Ur Squamous Epith Cells 5-10, Urine Bacteria 3+ 01/04/21 22:56: WBC 15.8 H, RBC 5.35, Hgb 15.1, Hct 45.3, MCV 84.6, MCH 28.2, MCHC 33.3, RDW 14.7, Plt Count 303, MPV 7.8, Neut % (Auto) 85.3 H, Lymph % (Auto) 8.6 L, [place] % (Auto) 4.7, Eos % (Auto) 0.8, Baso % (Auto) 0.7, Neut # (Auto) 13.5 H, Lymph # (Auto) 1.4, [place] # (Auto) 0.7, Eos # (Auto) 0.1, Baso # (Auto) 0.1, Total Counted 100, Neutrophils % (Manual) 78 H, Band Neutrophils % 8.0, Lymphocytes % (Manual) 12, Monocytes % (Manual) 2, Platelet Estimate Normal, RBC Morphology Normal, ESR 15 01/04/21 22:56: Lactate 1.2 01/04/21 22:56: C-Reactive Protein 99.5 H, Amylase 39, Procalcitonin 0.174 01/04/21 22:56: SARS-CoV-2 (PCR) Not detected, Influenza A Untype (PCR) Not detected, Influenza Type B (PCR) Not detected 01/04/21 22:56: Sodium 139, Potassium 3.8, Chloride 99, Carbon Dioxide 29, Anion Gap 14.8, BUN 12, Creatinine 0.80, Estimated Creat Clear 116, Estimated GFR 74, Est GFR ( Amer) 90, Glucose 91, Calcium 9.3, Total Bilirubin 0.5, AST 26, ALT 23, Alkaline Phosphatase 134 H, Total Protein 8.2, Albumin 4.7, Globulin 3.5 H, Albumin/Globulin Ratio 1.3, Lipase 16 L Result diagrams: 01/04/21 22:56 01/04/21 22:56 Orders (Tests/Meds): ED MEDICATIONS Generic Name Dose Route Start Last Admin Trade Name Freq PRN Reason Stop Dose Admin Sodium Chloride 1,000 mls @ 999 mls/hr 01/04/21 22:45 01/04/21 22:57 Sod Chlor 0.9% 1000ml Bag IV 01/04/21 23:45 999 mls/hr .Q1H1M ANA Administration Ceftriaxone Sodium 1 gm/ 50 mls @ 100 mls/hr 01/04/21 23:15 01/04/21 23:14 Sodium Chloride IV 01/18/21 23:14 100 mls/hr Q24H ANA Administration Protocol Sodium Chloride 8 ml 01/04/21 22:45 Sodium Chloride 0.9% 10ml Vial IV 02/03/21 22:44 NEED
[2021-01-04 22:56] LABS: Bacteria,Urine 3+ /lpf; WBC,Urine 50-100 #/hpf (0-3)
[2021-01-04 23:01] VITALS: BP 149/62; PULSE 87; O2SAT 96
[2021-01-04 23:02] LABS: Coronavirus 19, PCR Not Detected (NotDetected); Influenza A, PCR Not Detected (NotDetected); Influenza B, PCR Not Detected (NotDetected)
[2021-01-04 23:07] LABS: Basophils # 0.1 K/mm3 (0-0.2); Basophils % 0.7 % (0.1-2.0); Eosinophils # 0.1 K/mm3 (0.0-0.4); Eosinophils % 0.8 % (0.1-12.0); Hematocrit 45.3 % (37.0-47.0); Hemoglobin 15.1 g/dL (12.2-16.2); Lymphocytes # 1.4 K/mm3 (0.7-4.5); Lymphocytes % 8.6 % (10-50); Mean Corpuscular HGB Conc 33.3 g/dL (31.8-35.4); Mean Corpuscular Hemoglobin 28.2 pg (27.0-31.2); Mean Corpuscular Volume 84.6 fl (81-99); Mean Platelet Volume 7.8 fl (7.4-10.4); Monocytes # 0.7 K/mm3 (0.1-1.0); Monocytes % 4.7 % (1.7-9.3); Neutrophils # 13.5 K/mm3 (1.8-7.8); Neutrophils % 85.3 % (37.0-80.0); Platelet Count 303 K/mm3 (142-424); Red Blood Count 5.35 M/mm3 (4.20-5.40); Red Cell Distribution Width 14.7 % (11.5-17.5); White Blood Count 15.8 K/mm3 (4.8-10.8)
[2021-01-04 23:12] LABS: MANUAL DIFFERENTIAL MANUAL DIFFERENTIAL (MANUAL DIFF)
[2021-01-04 23:19] LABS: Amylase 39 U/L (30-110); Lymphocytes % 12 % (10-50); Monocytes % 2 % (2-9); Neutrophils % 78 % (42-76); Platelet Estimate Normal; RBC Morphology Normal; Total Cells Counted 100
[2021-01-04 23:20] LABS: Alanine Aminotransferase 23 U/L (12-78); Albumin Level 4.7 g/dl (3.5-5.0); Albumin/Globulin Ratio 1.3 (1.1-1.8); Alkaline Phosphatase 134 U/L (38-126); Anion Gap 14.8 mEq/L (5-15); Aspartate Amino Transferase 26 U/L (14-36); Bilirubin,Total 0.5 mg/dl (0.2-1.3); Blood Urea Nitrogen 12 mg/dl (7-17); Calcium 9.3 mg/dl (8.4-10.2); Carbon Dioxide 29 mmol/L (22.0-30.0); Chloride 99 mmol/L (98-107); Creatinine Clearance Estimated 116 mL/min (50-200); Estimated Glomerular Filt Rate 74 ml/min (>60); GFR (African American) 90 ML/MIN (>60); Globulin 3.5 g/dL (1.3-3.2); Glucose 91 mg/dl (74-100); Lipase 16 U/L (23-300); Potassium 3.8 mmoL/L (3.5-5.1); Sodium 139 mmol/L (136-145); Total Protein,Serum 8.2 g/dl (6.3-8.2)
[2021-01-04 23:21] LABS: Lactic Acid 1.2 mmol/L (0.7-2.1)
[2021-01-04 23:24] LABS: C-Reactive Protein 99.5 mg/L (0-4)
[2021-01-04 23:31] LABS: Erythrocyte Sedimentation Rate 15 mm/hr (0-30)
[2021-01-04 23:38] LABS: Procalcitonin 0.174 ng/mL (0.0-2.0)
[2021-01-05] VITALS: BP 137/79; PULSE 81; RESP 18; O2SAT 98
[2021-01-05 00:31] VITALS: BP 119/75; PULSE 82; RESP 20; O2SAT 96
[2021-01-05 01:02] VITALS: BP 134/79; PULSE 78; RESP 20; O2SAT 96
[2021-01-05 01:59] VITALS: BP 134/79; PULSE 78; RESP 18; TEMP 37.1; O2SAT 95
== END 2021-01-05 02:03 | disposition home or self-care (01) ==
PROVIDERS: Emergency Provider Emergency Medicine; PCP Family Medicine
DX: N30.00 Acute cystitis without hematuria (principal); R65.10 Systemic inflammatory response syndrome (SIRS) of non-infectious origin without acute organ dysfunction; J44.9 Chronic obstructive pulmonary disease, unspecified; I25.10 Atherosclerotic heart disease of native coronary artery without angina pectoris; I10 Essential (primary) hypertension; E78.5 Hyperlipidemia, unspecified; Z79.899 Other long term (current) drug therapy; Z88.0 Allergy status to penicillin; Z20.822 Contact with and (suspected) exposure to COVID-19
CPT/HCPCS: 71046; 74177; 80053; 81001; 82150; 83605; 83690; 84145; 85007; 85025; 85651; 86140; 87040; 87086; 87088; 87186; 96365; 96367; 96375; 99284; J2405; Q9967; U0003

== ENCOUNTER 2021-01-05 23:47 | Observation (INO) | payer MEDICARE, SELFPAY ==
[2021-01-06] VITALS (10 sets, daily range): BP systolic 112–178; BP diastolic 72–105; PULSE 70–87; RESP 17–24; TEMP 36.7–37.3; O2SAT 90–100; BMI 39.8; BMI 41.2; BMI 41.1
--- NOTE | 2021-01-06 00:12 | CT_ITS ---
PROCEDURE INFORMATION: Exam: CT Abdomen And Pelvis With Contrast Exam date and time: 01/06/2021 12:12 AM Age: 55 years old Clinical indication: Abdominal pain; Generalized; Patient HX: General pain with nausea; Additional info: Luq pain TECHNIQUE: Imaging protocol: Computed tomography of the abdomen and pelvis with contrast. Radiation optimization: All CT scans at this facility use at least one of these dose optimization techniques: automated exposure control; mA and/or kV adjustment per patient size (includes targeted exams where dose is matched to clinical indication); or iterative reconstruction. Contrast material: ISOVUE; Contrast volume: 75 ml; Contrast route: IV; COMPARISON: CT ABDOMEN PELVIS W CON 01/04/2021 11:42 PM FINDINGS: Liver: Hepatomegaly, measuring 19.5 cm in craniocaudal axis. No suspicious liver lesions. Gallbladder and bile ducts: Within normal limits. Pancreas: Within normal limits. Spleen: Scattered punctate calcifications in the spleen, likely sequelae of prior granulomatous disease. Adrenal glands: Within normal limits. Kidneys and ureters: Within normal limits. Stomach and bowel: Colonic diverticulosis without evidence of acute diverticulitis. Small bowel in the left hemiabdomen contains feculent material and gas mild regional mesenteric edema. No dilated small bowel to suggest bowel obstruction. Normal colonic stool burden. Appendix: Appendix is normal. Intraperitoneal space: No free fluid. No pneumoperitoneum. Vasculature: Within normal limits. Lymph nodes: No enlarged lymph nodes by CT criteria. Urinary bladder: Within normal limits. Reproductive: Postoperative changes of prior right oophorectomy. CT appearance of reproductive organs is otherwise unremarkable. Bones/joints: No acute osseous abnormality. Soft tissues: Unremarkable. IMPRESSION: 1. Mild mesenteric edema and ileus in the proximal small bowel, compatible with acute enteritis. 2. Colonic diverticulosis without evidence of acute diverticulitis. 3. Hepatomegaly.
[2021-01-06 00:18] LABS: Microscopic, Urine URINE MICROSCOPIC (MICROSCOPIC)
[2021-01-06 00:20] LABS: Appearance,Urine CLEAR (Clear); Bilirubin,Urine Negative (Negative); Blood, Urine TRACE-I (Negative); Color,Urine YELLOW (Yellow); Glucose,Urine (UA) Negative (Negative); Ketones,Urine Negative (Negative); Leukocyte Esterase,Urine Negative (Negative); Nitrate,Urine Negative (Negative); PH,Urine 6.5 (5.0-8.5); Protein,Urine Negative (Negative); Specific Gravity, Urine 1.015 (1.005-1.030); Urobilinogen,Urine 0.2 EU/dl (0.2)
[2021-01-06 00:21] LABS: Basophils # 0.1 K/mm3 (0-0.2); Basophils % 0.3 % (0.1-2.0); Eosinophils # 0.1 K/mm3 (0.0-0.4); Eosinophils % 0.7 % (0.1-12.0); Hematocrit 42.5 % (37.0-47.0); Lymphocytes # 2.5 K/mm3 (0.7-4.5); Lymphocytes % 16.1 % (10-50); Mean Corpuscular HGB Conc 32.9 g/dL (31.8-35.4); Mean Corpuscular Hemoglobin 28.3 pg (27.0-31.2); Mean Platelet Volume 7.8 fl (7.4-10.4); Monocytes # 0.8 K/mm3 (0.1-1.0); Monocytes % 5.3 % (1.7-9.3); Neutrophils # 12.3 K/mm3 (1.8-7.8); Neutrophils % 77.6 % (37.0-80.0); Platelet Count 266 K/mm3 (142-424); Red Blood Count 4.95 M/mm3 (4.20-5.40); Red Cell Distribution Width 13.9 % (11.5-17.5); White Blood Count 15.8 K/mm3 (4.8-10.8)
[2021-01-06 00:22] LABS: Chloride 101 mmol/L (98-107); Sodium 139 mmol/L (136-145)
[2021-01-06 00:23] LABS: Amorphous Sediment,Urine Trace /lpf; Potassium 3.4 mmoL/L (3.5-5.1); WBC,Urine Occasional #/hpf (0-3)
[2021-01-06 00:25] LABS: Alanine Aminotransferase 21 U/L (12-78); Alkaline Phosphatase 130 U/L (38-126); Amylase 34 U/L (30-110); Anion Gap 12.4 mEq/L (5-15); Aspartate Amino Transferase 25 U/L (14-36); Bilirubin,Total 0.2 mg/dl (0.2-1.3); Blood Urea Nitrogen 17 mg/dl (7-17); Calcium 9.4 mg/dl (8.4-10.2); Carbon Dioxide 29 mmol/L (22.0-30.0); Creatinine Clearance Estimated 115 mL/min (50-200); Estimated Glomerular Filt Rate 74 ml/min (>60); GFR (African American) 90 ML/MIN (>60); Glucose 95 mg/dl (74-100); Lipase 26 U/L (23-300)
[2021-01-06 00:26] LABS: Albumin Level 4.6 g/dl (3.5-5.0); Albumin/Globulin Ratio 1.4 (1.1-1.8); Globulin 3.3 g/dL (1.3-3.2); Lactic Acid 0.9 mmol/L (0.7-2.1); MANUAL DIFFERENTIAL MANUAL DIFFERENTIAL (MANUAL DIFF); Total Protein,Serum 7.9 g/dl (6.3-8.2)
[2021-01-06 00:42] LABS: Lymphocytes % 12 % (10-50); Monocytes % 4 % (2-9); Neutrophils % 77 % (42-76); Platelet Estimate Normal; RBC Morphology Normal; Total Cells Counted 100
[2021-01-06 00:48] LABS: Erythrocyte Sedimentation Rate 25 mm/hr (0-30)
[2021-01-06 01:00] LABS: C-Reactive Protein 96.4 mg/L (0-4)
[2021-01-06 01:38] LABS: Coronavirus 19, PCR Not Detected (NotDetected); Influenza A, PCR Not Detected (NotDetected); Influenza B, PCR Not Detected (NotDetected)
--- NOTE | 2021-01-06 01:49 | HMH.EDGENADL ---
ED Disposition Clinical Impression: Enteritis, Dehydration Disposition: Admitted as Observation Condition on Discharge: Fair - Critical Care Critical Care Time: No Attestation: On 01/05/21, the high probability of a clinically significant, sudden or life threatening deterioration of the following system(s) required my full and direct attention, intervention and personal management. The time I documented below is in addition to time spent performing reported procedures but includes the following listed in this critical care notation. Medical Decision Making - Medical Records Medical records reviewed: Yes: I reviewed the patient's medical records. MR Comment: Reviewed emergency department record from last night. Reviewed lab results, CT scan result. Chest x-ray result. Urine culture result: No growth at 24 hours. - Connor Inquiry Pt receiving controlled substance: No Vital Signs: 01/06/21 00:00 01/06/21 01:08 01/06/21 01:31 Temperature 99.2 F Temperature Source Oral Pulse Rate 72 76 Pulse Rate [Right] 87 Respiratory Rate 24 Blood Pressure 178/105 H 148/84 H Blood Pressure [Right Arm] 134/78 Blood Pressure Mean 105 Blood Pressure Mean [Right Arm] 96 Blood Pressure Source [Right Arm] Automatic Cuff Blood Pressure Position [Right Arm] Supine 02 Sat by Pulse Oximetry 94 L 100 99 Oxygen Delivery Method Room Air 01/06/21 02:01 Temperature Temperature Source Pulse Rate 73 Pulse Rate [Right] Respiratory Rate Blood Pressure 135/98 H Blood Pressure [Right Arm] Blood Pressure Mean 109 Blood Pressure Mean [Right Arm] Blood Pressure Source [Right Arm] Blood Pressure Position [Right Arm] 02 Sat by Pulse Oximetry Oxygen Delivery Method - Lab Data Lab Results 01/06/21 00:05: Urine Color Yellow, Urine Appearance Clear, Urine pH 6.5, Ur Specific [place] 1.015, Urine Protein Negative, Urine Glucose (UA) Negative, Urine Ketones Negative, Urine Blood Trace-i, Urine Nitrate Negative, Urine Bilirubin Negative, Urine Urobilinogen 0.2, Ur Leukocyte Esterase Negative, Urine RBC 3-5, Urine WBC Occasional, Amorphous Sediment Trace 01/06/21 00:05: WBC 15.8 H, RBC 4.95, Hgb 14.0, Hct 42.5, MCV 86.0, MCH 28.3, MCHC 32.9, RDW 13.9, Plt Count 266, MPV 7.8, Neut % (Auto) 77.6, Lymph % (Auto) 16.1, [place] % (Auto) 5.3, Eos % (Auto) 0.7, Baso % (Auto) 0.3, Neut # (Auto) 12.3 H, Lymph # (Auto) 2.5, [place] # (Auto) 0.8, Eos # (Auto) 0.1, Baso # (Auto) 0.1, Total Counted 100, Neutrophils % (Manual) 77 H, Band Neutrophils % 7.0, Lymphocytes % (Manual) 12, Monocytes % (Manual) 4, Platelet Estimate Normal, RBC Morphology Normal, ESR 25 01/06/21 00:05: Sodium 139, Potassium 3.4 L, Chloride 101, Carbon Dioxide 29, Anion Gap 12.4, BUN 17 D, Creatinine 0.80, Estimated Creat Clear 115, Estimated GFR 74, Est GFR ( Amer) 90, Glucose 95, Calcium 9.4, Total Bilirubin 0.2, AST 25, ALT 21, Alkaline Phosphatase 130 H, C-Reactive Protein 96.4 H, Total Protein 7.9, Albumin 4.6, Globulin 3.3 H, Albumin/Globulin Ratio 1.4, Amylase 34, Lipase 26, Procalcitonin 0.210 01/06/21 00:05: Lactate 0.9 01/06/21 01:31: SARS-CoV-2 (PCR) Not detected, Influenza A Untype (PCR) Not detected, Influenza Type B (PCR) Not detected Result diagrams: 01/06/21 00:05 01/06/21 00:05 Orders (Tests/Meds): ED MEDICATIONS Generic Name Dose Route Start Last Admin Trade Name Freq PRN Reason Stop Dose Admin Sodium Chloride 1,000 mls @ 999 mls/hr 01/06/21 00:15 01/06/21 00:21 Sod Chlor 0.9% 1000ml Bag IV 01/06/21 01:15 999 mls/hr .Q1H1M ANA Administration Levofloxacin/Dextrose 750 mg in 150 mls @ 100 mls/hr 01/06/21 02:15 Levofloxacin 750mg/150ml Premix IV 01/20/21 02:14 Q24H ANA Protocol Discontinued Medications Generic Name Dose Route Start Last Admin Trade Name Freq PRN Reason Stop Dose Admin Iopamidol 75 ml 01/06/21 00:56 01/06/21 00:57 Iopamidol-370 (76%);100ml Bottle IV 01/06/21 00:57 75 ml ONCE
--- NOTE | 2021-01-06 02:59 | PC.NURSE ---
patient up to floor via stretcher.
--- NOTE | 2021-01-06 06:09 | PC.NURSE ---
shift summary, received patient to floor on 2l nc. patient complaining of pain after receiving pain medication within the last hour, ed physician put prn morphine order in. when medication was due it was administered. patients it does help but the pain is still there, doesn't wish to have doctor called for additional meds at this time.
--- NOTE | 2021-01-06 08:43 | HMH.HP ---
*Admission Date: 01/05/21 *Chief complaint: Vomiting and diarrhea *History of present illness: States that she has been ill for the past few days. Initially had diarrhea. A day later developed generalized abdominal pain/cramping with vomiting and fever. Seen in this emergency department last night approximately 24 hours ago for the symptoms. Had an extensive work-up including CT scan of the abdomen and pelvis. Diagnosed with a urinary tract infection. She declined admission. She was given a dose of Rocephin and says she filled her outpatient antibiotic prescription this morning and started it today, but has not improved. No longer having diarrhea or vomiting but still has nausea severe abdominal cramping and spiked a fever of 101 degrees this evening, treated with Tylenol. She now feels like she needs to be admitted to the hospital says I cannot do this anymore . No recent travel or exposures. No recent antibiotics prior to this illness. No blood in her diarrhea. Decreased urine output despite drinking lots of water today. Above Per ER admission. Patient states this morning that she is had no further diarrhea but continues to feel somewhat nauseated, has been able to take Jell-O and fluids down. [facility] History I have reviewed the patient's past medical history: Yes Medical History: Reports:: Anxiety, Cancer, Congestive Heart Failure, Chronic Obstructive Pulmonary Disease (COPD), Coronary Artery Disease, Home Oxygen, Hyperlipidemia, Hypertension, MRSA Denies:: Diabetes Mellitus Type 1, Diabetes Mellitus Type 2 *Have you ever received a pneumonia vaccine?: Yes *Have you received a flu vaccine this season?: Yes Other Medical History: Reports: Anemia, Arthritis, Other Laterality Cases: Bilateral: Tonsillectomy Other Surgeries: Yes: Cancer Surgery (BENEATH L BREAST), Cardiac Catheterization, Tubal Ligation, Other Amputation: No Fractures: No - *Social History Smoking Status: Current every day smoker Tobacco Type: cigarettes # Packs/Day (cigarettes): 1 Alcohol Intake: never Alcohol Intake Frequency:: holidays/special occasions only Substance Use Type: denies use *Occupational Status:: disabled Housing: other Household Members: spouse *Travel in the last 8 weeks: None - Psychiatric History Pschychiatric History:: Reports:: Anxiety Family Hx:: No significant family history Review of Systems - Review of Systems Review of systems:: pertinent systems reviewed and negative unless documented below Meds Home Medications Medication Instructions Recorded Confirmed Type Omeprazole [Omeprazole 40mg 40 mg PO DAILY 06/14/17 01/06/21 History Capsule] Butalbital/Aspirin/Caffeine 1 each PO Q6HP PRN 05/12/18 01/06/21 History [Fiorinal 50-325-40 mg Capsule] Loratadine [Claritin 10mg 10 mg PO DAILY 05/12/18 01/06/21 History Tablet] trazodone 50 mg tablet 75 mg PO HSP PRN 02/17/19 01/06/21 History Atorvastatin Calcium [Lipitor 40mg 40 mg PO HS 12/29/19 01/06/21 History Tab] Albuterol Sulfate [Proair 2 puffs IH Q4HP PRN 12/30/19 01/06/21 History Digihaler] risperidone 1 mg tablet 1 mg PO HS 02/06/20 01/06/21 History Furosemide [Furosemide 80mg Tab] 80 mg PO DAILY 02/12/20 01/06/21 History bisoproloL fumarate [Bisoprolol 10 mg PO BID 02/12/20 01/06/21 History 10mg Tablet] Amlodipine Besylate [Amlodipine 5 mg PO DAILY 02/13/20 01/06/21 History 5mg tab] Fluoxetine HCl [Prozac 20mg 80 mg PO DAILY 02/13/20 01/06/21 History Capsule] Gabapentin [Gabapentin 100mg Cap] 1,200 mg PO HS 02/13/20 01/06/21 History spironolactone 50 mg tablet 50 mg PO DAILY #30 tab 02/20/20 01/06/21 Rx Fluticasone/Umeclidin/Vilanter 1 each IH DAILY 03/10/20 01/06/21 History [Trelegy Ellipta 100-62.5-25] Gabapentin [Neurontin 800mg Tab] 800 mg PO DAILY 03/10/20 01/06/21 History losartan 100 mg tablet 100 mg PO DAILY #30 tab 04/18/20 01/06/21 Rx levoFLOXacin [Levaquin 500mg 500 mg PO DAILY 01/06/21 01/06/21 History tab]
--- NOTE | 2021-01-06 10:46 | HMH.PHAINT ---
MEDICATION RECONCILIATION COMPLETED USING LIST FROM MD OFFICE, JASE REPORT, PATIENT INTERVIEW, AND EXTERNAL PHARMACY FILL HISTORY.
--- NOTE | 2021-01-06 17:27 | PC.NURSE ---
Patient is alert and oriented x4. Lungs are clear, bowel sounds active x4. She remains on 2L NC w/O2 sats in the upper 90's. She ambulates independently to the bathroom. She has requested pain meds around the clock for abd/flank pain and zofran x1 for nausea. Relief noted on reassessment. She is tolerating her clear liquid diet. Family is at bedside and supportive.
[2021-01-07 03:48] VITALS: BP 134/79; PULSE 63; RESP 18; TEMP 36.9; O2SAT 98
--- NOTE | 2021-01-07 03:56 | PC.NURSE ---
patient has had much better night than previous night. patient has requested pain medication twice this shift, toradol given with successful results. patient has been ambulating to restroom independantly, has voided multiple times. patient denies burning or urgency when voiding. states i feel like I'm emptying completely out when i pee . states i feel like i can go home today
[2021-01-07 05:07] VITALS: BMI 41.3
--- NOTE | 2021-01-07 07:24 | HMH.DCSUM ---
General - General Admission date:: 01/06/21 Discharge date: 01/07/21 HPI HPI: States that she has been ill for the past few days. Initially had diarrhea. A day later developed generalized abdominal pain/cramping with vomiting and fever. Seen in this emergency department last night approximately 24 hours ago for the symptoms. Had an extensive work-up including CT scan of the abdomen and pelvis. Diagnosed with a urinary tract infection. She declined admission. She was given a dose of Rocephin and says she filled her outpatient antibiotic prescription this morning and started it today, but has not improved. No longer having diarrhea or vomiting but still has nausea severe abdominal cramping and spiked a fever of 101 degrees this evening, treated with Tylenol. She now feels like she needs to be admitted to the hospital says I cannot do this anymore . No recent travel or exposures. No recent antibiotics prior to this illness. No blood in her diarrhea. Decreased urine output despite drinking lots of water today. Above Per ER admission. Patient states this morning that she is had no further diarrhea but continues to feel somewhat nauseated, has been able to take Jell-O and fluids down. Hospital Course Hospital Course: Patient was diagnosed with gastroenteritis. Treated with IV fluids and levofloxacin. Tolerated this well, ER doctor ordered morphine for abdominal pain, this was transitioned to Toradol which was much better for her. This morning she was doing well, eating clear liquids vigorously. [place] well enough to go home. Plan will be to discharge home with Toradol and Phenergan and Levaquin to finish therapy for possible bacterial gastroenteritis. She will follow up with her regular doctor Dr. Sun in [place] in the next week. Objective Vital signs: Temp Pulse Resp BP Pulse Ox 98.4 F 63 18 134/79 98 01/07/21 03:48 01/07/21 03:48 01/07/21 03:48 01/07/21 03:48 01/07/21 03:48 no acute distress - *Routine HEENT Exam Head: Present: normocephalic Eye: Present: EOMI, PERRL ENT: Present: mucous membranes moist - *Routine Neck Exam Present: supple - *Routine Respiratory Exam Present: CTA bilaterally - *Routine Cardiovascular Exam Present: RRR - *Routine Abdominal Exam Present: soft, normoactive bowel sounds. Absent: tenderness - *Routine Extremities Exam Absent: cyanosis, clubbing, edema - *Routine Skin Exam Present: warm. Absent: rash - Detailed Eye Exam Eyelids: Bilateral normal inspection DS: Diagnosis - Discharge Diagnosis (1) Dehydration Status: Resolved (2) Enteritis Status: Acute Discharge Plan - Patient Discharge Instructions ACTIVITY: Continue current activity DIET: continue same diet Patient Instructions: Diarrhea, DI for Dehydration -- Adult - Follow up Plan Follow up with: Julien Sun [Primary Care Provider] - Disposition: Home, Self-Care Condition at discharge:: Improved Home Medications: Home Medications Medication Instructions Recorded Confirmed Type Omeprazole [Omeprazole 40mg 40 mg PO DAILY 06/14/17 01/06/21 History Capsule] Loratadine [Claritin 10mg 10 mg PO DAILY 05/12/18 01/06/21 History Tablet] trazodone 50 mg tablet 75 mg PO HSP PRN 02/17/19 01/06/21 History Atorvastatin Calcium [Lipitor 40mg 40 mg PO HS 12/29/19 01/06/21 History Tab] Albuterol Sulfate [Proair 2 puffs IH Q4HP PRN 12/30/19 01/06/21 History Digihaler] risperidone 1 mg tablet 1 mg PO HS 02/06/20 01/06/21 History Furosemide [Furosemide 80mg Tab] 80 mg PO DAILY 02/12/20 01/06/21 History bisoproloL fumarate [Bisoprolol 10 mg PO BID 02/12/20 01/06/21 History 10mg Tablet] Amlodipine Besylate [Amlodipine 5 mg PO DAILY 02/13/20 01/06/21 History 5mg tab] Fluoxetine HCl [Prozac 20mg 80 mg PO DAILY 02/13/20 01/06/21 History Capsule] spironolactone 50 mg tablet 50 mg PO DAILY #30 tab 02/20/20 01/06/21 Rx Fluticasone/
[2021-01-07 08:00] VITALS: BP 128/74; PULSE 69; RESP 17; TEMP 37; O2SAT 90
[2021-01-07 08:24] LABS: Basophils % 0.4 % (0.1-2.0); Eosinophils # 0.1 K/mm3 (0.0-0.4); Eosinophils % 2.4 % (0.1-12.0); Hematocrit 39.4 % (37.0-47.0); Hemoglobin 12.4 g/dL (12.2-16.2); Lymphocytes # 1.6 K/mm3 (0.7-4.5); Lymphocytes % 27.4 % (10-50); Mean Corpuscular HGB Conc 31.4 g/dL (31.8-35.4); Mean Corpuscular Hemoglobin 27.8 pg (27.0-31.2); Mean Corpuscular Volume 88.5 fl (81-99); Mean Platelet Volume 7.4 fl (7.4-10.4); Monocytes # 0.4 K/mm3 (0.1-1.0); Monocytes % 7.1 % (1.7-9.3); Neutrophils # 3.5 K/mm3 (1.8-7.8); Neutrophils % 62.7 % (37.0-80.0); Platelet Count 183 K/mm3 (142-424); Red Blood Count 4.45 M/mm3 (4.20-5.40); Red Cell Distribution Width 14.1 % (11.5-17.5); White Blood Count 5.6 K/mm3 (4.8-10.8)
[2021-01-07 08:37] LABS: Chloride 105 mmol/L (98-107); Sodium 140 mmol/L (136-145)
[2021-01-07 08:38] LABS: Potassium 3.8 mmoL/L (3.5-5.1)
[2021-01-07 08:40] LABS: Alanine Aminotransferase 22 U/L (12-78); Albumin Level 3.5 g/dl (3.5-5.0); Albumin/Globulin Ratio 1.2 (1.1-1.8); Alkaline Phosphatase 98 U/L (38-126); Anion Gap 9.8 mEq/L (5-15); Aspartate Amino Transferase 28 U/L (14-36); Bilirubin,Total 0.2 mg/dl (0.2-1.3); Blood Urea Nitrogen 6 mg/dl (7-17); Calcium 8.5 mg/dl (8.4-10.2); Carbon Dioxide 29 mmol/L (22.0-30.0); Creatinine Clearance Estimated 71 mL/min (50-200); Estimated Glomerular Filt Rate 103 ml/min (>60); GFR (African American) 125 ML/MIN (>60); Glucose 119 mg/dl (74-100); Total Protein,Serum 6.5 g/dl (6.3-8.2)
[2021-01-07 08:41] LABS: Magnesium 1.8 mg/dl (1.6-2.3)
== END 2021-01-07 10:20 | disposition home or self-care (01) ==
LOC: ER 23:56 → 2ND 01-06 02:10
PROVIDERS: Admitting Provider Internal Medicine Adolescent Medicine; Emergency Provider Emergency Medicine; PCP Family Medicine; Visit Provider Internal Medicine Adolescent Medicine
DX: E86.0 Dehydration (principal); K52.9 Noninfective gastroenteritis and colitis, unspecified; Z20.822 Contact with and (suspected) exposure to COVID-19; Z79.899 Other long term (current) drug therapy; J44.9 Chronic obstructive pulmonary disease, unspecified; Z99.81 Dependence on supplemental oxygen; I10 Essential (primary) hypertension; I25.10 Atherosclerotic heart disease of native coronary artery without angina pectoris
CPT/HCPCS: G0378; 36415; 74177; 80053; 81001; 82150; 83605; 83690; 83735; 84145; 85007; 85025; 85651; 86140; 87040; 96365; 96367; 96375; 99285; J1956; J2405; Q9967; U0003

== ENCOUNTER 2021-02-13 23:27 | Emergency (ER) | payer MEDICARE, SELFPAY ==
[2021-02-13 23:42] VITALS: BP 181/99; PULSE 108; RESP 22; TEMP 36.7; O2SAT 94; BMI 39.0
[2021-02-13 23:47] VITALS: BMI 36.1
[2021-02-14 00:01] VITALS: BP 171/72; PULSE 106; O2SAT 95
[2021-02-14 00:18] LABS: Basophils # 0.1 K/mm3 (0-0.2); Basophils % 0.8 % (0.1-2.0); Eosinophils # 0.3 K/mm3 (0.0-0.4); Eosinophils % 2.1 % (0.1-12.0); Hematocrit 44.3 % (37.0-47.0); Hemoglobin 14.5 g/dL (12.2-16.2); Lymphocytes % 23.5 % (10-50); Mean Corpuscular HGB Conc 32.6 g/dL (31.8-35.4); Mean Corpuscular Hemoglobin 28.9 pg (27.0-31.2); Mean Corpuscular Volume 88.7 fl (81-99); Mean Platelet Volume 8.3 fl (7.4-10.4); Monocytes # 0.6 K/mm3 (0.1-1.0); Monocytes % 4.3 % (1.7-9.3); Neutrophils # 8.8 K/mm3 (1.8-7.8); Neutrophils % 69.2 % (37.0-80.0); Platelet Count 412 K/mm3 (142-424); Red Cell Distribution Width 14.1 % (11.5-17.5); White Blood Count 12.6 K/mm3 (4.8-10.8)
[2021-02-14 00:20] LABS: Chloride 98 mmol/L (98-107); Sodium 142 mmol/L (136-145)
[2021-02-14 00:23] LABS: Alanine Aminotransferase 26 U/L (12-78); Albumin Level 4.2 g/dl (3.5-5.0); Albumin/Globulin Ratio 1.2 (1.1-1.8); Alkaline Phosphatase 136 U/L (38-126); Aspartate Amino Transferase 28 U/L (14-36); Blood Urea Nitrogen 8 mg/dl (7-17); Calcium 9.4 mg/dl (8.4-10.2); Carbon Dioxide 33 mmol/L (22.0-30.0); Creatinine Clearance Estimated 130 mL/min (50-200); Estimated Glomerular Filt Rate 74 ml/min (>60); GFR (African American) 90 ML/MIN (>60); Globulin 3.6 g/dL (1.3-3.2); Glucose 109 mg/dl (74-100); Total Protein,Serum 7.8 g/dl (6.3-8.2)
[2021-02-14 00:29] LABS: Bilirubin,Total 0.1 mg/dl (0.2-1.3); C-Reactive Protein 23.9 mg/L (0-4)
[2021-02-14 00:30] VITALS: BP 166/90; PULSE 99; RESP 18; O2SAT 95
--- NOTE | 2021-02-14 00:34 | PC.NURSE ---
Juan in LAB called Critical K+ and results to Dr Kimball
[2021-02-14 00:47] LABS: Erythrocyte Sedimentation Rate 18 mm/hr (0-30)
--- NOTE | 2021-02-14 01:36 | HMH.EDANIB ---
ED Disposition Clinical Impression: Dog bite Qualifiers: Encounter type: initial encounter Qualified Code(s): W54.0XXA - Bitten by dog, initial encounter Disposition: Home, Self-Care Condition on Discharge: Good Instructions: Animal Bites Additional Instructions: call pcp for follow up Prescriptions: clindamycin HCL [Clindamycin HCl] 300 mg PO TID #30 cap Transmission Status: Pending to [id number] Minocycline HCl [Minocycline HCl 100mg Tab*] 100 mg PO BID #20 tab Transmission Status: Pending to [id number] Referrals: Sun,Viral [Primary Care Provider] - - Critical Care Critical Care Time: No Attestation: On 02/13/21, the high probability of a clinically significant, sudden or life threatening deterioration of the following system(s) required my full and direct attention, intervention and personal management. The time I documented below is in addition to time spent performing reported procedures but includes the following listed in this critical care notation. Medical Decision Making - Medical Records Medical records reviewed: Yes: I reviewed the patient's medical records. - Connor Inquiry Pt receiving controlled substance: No Vital Signs: 02/13/21 23:42 02/14/21 00:01 Temperature 98.1 F Temperature Source Oral Pulse Rate 106 H Pulse Rate [Right] 108 H Respiratory Rate 22 Blood Pressure 171/72 H Blood Pressure [Right Arm] 181/99 H Blood Pressure Mean [Right Arm] 126 Blood Pressure Source [Right Arm] Automatic Cuff Blood Pressure Position [Right Arm] Supine 02 Sat by Pulse Oximetry 94 L 95 Oxygen Delivery Method Room Air - Lab Data Lab results reviewed: Yes: I reviewed the patient's lab results. Lab Results 02/14/21 00:07: WBC 12.6 H, RBC 5.00, Hgb 14.5, Hct 44.3, MCV 88.7, MCH 28.9, MCHC 32.6, RDW 14.1, Plt Count 412, MPV 8.3, Neut % (Auto) 69.2, Lymph % (Auto) 23.5, [place] % (Auto) 4.3, Eos % (Auto) 2.1, Baso % (Auto) 0.8, Neut # (Auto) 8.8 H, Lymph # (Auto) 3.0, [place] # (Auto) 0.6, Eos # (Auto) 0.3, Baso # (Auto) 0.1, ESR 18 02/14/21 00:07: Sodium 142, Potassium 3.0 L, Chloride 98, Carbon Dioxide 33 H, Anion Gap 14.0, BUN 8, Creatinine 0.80, Estimated Creat Clear 130, Estimated GFR 74, Est GFR ( Amer) 90, Glucose 109 H, Calcium 9.4, Total Bilirubin 0.1 L, AST 28, ALT 26, Alkaline Phosphatase 136 H, C-Reactive Protein 23.9 H, Total Protein 7.8, Albumin 4.2, Globulin 3.6 H, Albumin/Globulin Ratio 1.2 02/14/21 00:07: Lactate 1.0 Result diagrams: 02/14/21 00:07 02/14/21 00:07 Orders (Tests/Meds): ED MEDICATIONS Generic Name Dose Route Start Last Admin Trade Name Freq PRN Reason Stop Dose Admin Sodium Chloride 1,000 mls @ 999 mls/hr 02/13/21 23:45 02/14/21 00:05 Sod Chlor 0.9% 1000ml Bag IV 02/14/21 00:45 999 mls/hr .Q1H1M ANA Administration Discontinued Medications Generic Name Dose Route Start Last Admin Trade Name Freq PRN Reason Stop Dose Admin Ketorolac Tromethamine 30 mg 02/13/21 23:53 02/14/21 00:05 Ketorolac 30mg/Ml Vial IV 02/13/21 23:54 30 mg ONCE ONE Administration ORDERS Category Date Time Status C-Reactive Protein Stat Lab 02/13/21 23:53 Results Comprehensive Metabolic Panel Stat Lab 02/13/21 23:53 Results Procalcitonin Stat Lab 02/13/21 23:53 Results Blood Culture Stat Micro 02/14/21 00:07 Received Wound Culture and Gram Stain Stat Micro 02/14/21 00:07 Results Medical Decision Narrative: dog bite and has finished augumentin - will add abx and ask pt to see pcp Animal Bite HPI - General Chief Complaint: Animal Bite Stated Complaint: dog bite from 01/31/21 with drainage Time Seen by Provider: 02/14/21 00:20 Mode of Arrival: Wheelchair Source of Information: Patient, Medical Record Limitations: No Limitations Description of Symptoms (Recalled from ER Triage Doc. by RN): Pt was dog bit on 01/31/21 and was placed on Augmentin, she has completed her ABX, but has not f/u with her PCP
--- NOTE | 2021-02-14 01:37 | PC.NURSE ---
This RN and Dr. Kimball at bedside for eval of healing dog bite.
[2021-02-14 01:39] VITALS: BP 175/87; PULSE 104; RESP 20; TEMP 36.8; O2SAT 97
== END 2021-02-14 02:05 | disposition home or self-care (01) ==
PROVIDERS: Emergency Provider Emergency Medicine; PCP Family Medicine
DX: S71.132A Puncture wound without foreign body, left thigh, initial encounter (principal); W54.0XXA Bitten by dog, initial encounter; J44.9 Chronic obstructive pulmonary disease, unspecified; I50.9 Heart failure, unspecified; F41.9 Anxiety disorder, unspecified; I10 Essential (primary) hypertension; F17.210 Nicotine dependence, cigarettes, uncomplicated; Z88.0 Allergy status to penicillin; Z79.899 Other long term (current) drug therapy
CPT/HCPCS: 80053; 83605; 84145; 85025; 85651; 86140; 87040; 87070; 87205; 96365; 96375; 99284

== ENCOUNTER 2021-03-18 10:13 | Emergency (ER) | payer MEDICARE, SELFPAY ==
[2021-03-18] VITALS (7 sets, daily range): BP systolic 167–215; BP diastolic 100–128; PULSE 67–73; RESP 14–18; TEMP 36.6; O2SAT 94–97; BMI 40.6
--- NOTE | 2021-03-18 10:13 | ECG_ITS ---
APPROVED REPORT Exam: Resting ECG HR:74 bpm ECG Measurements Heart Rate 74 AXES SC 130 P 26 QRSd 78 QRS 58 QT 440 T 112 QTc 488 Conclusion Normal sinus rhythm Nonspecific T wave abnormality Prolonged QT Abnormal ECG Electronically signed by : Baljinder Roach MD 03/20/2021 17:51:18
--- NOTE | 2021-03-18 10:17 | XR_ITS ---
PROCEDURE: XR CHEST PORTABLE CLINICAL HISTORY: cp Chest pain COMPARISON: CT [facility] CT CHEST W/O CONTRAST from 06/30/2014 CR XR CHEST PORTABLE from 02/12/2020 CR XR CHEST 2V from 04/10/2020 CR XR CHEST 2V from 01/04/2021 FINDINGS: The cardiomediastinal silhouette and pulmonary vascularity are within normal limits. Calcified granuloma is present in the right lung base. No acute bony abnormalities. IMPRESSION: No acute findings. Dictated by: Mack Dunn MD 03/18/2021 11:22 Mack Dunn MD in [place] 03/18/2021 11:22
--- NOTE | 2021-03-18 10:20 | HMH.EDGENADL ---
ED Disposition Clinical Impression: Chest pain Qualifiers: Chest pain type: unspecified Qualified Code(s): R07.9 - Chest pain, unspecified Disposition: Home, Self-Care Condition on Discharge: Good Additional Instructions: Medications as directed. Return to emergency department for chest pain, shortness of breath, breaking out in sweat. Follow with Dr. Jimenes at 9:00 in the morning. Referrals: Provider,MD Rosangela [Primary Care Provider] - 3 days Vinicio Jimenes MD [Staff Physician] - 03/19/21 9:00 am Time of Disposition: 15:06 - Critical Care Critical Care Time: No Attestation: On , the high probability of a clinically significant, sudden or life threatening deterioration of the following system(s) required my full and direct attention, intervention and personal management. The time I documented below is in addition to time spent performing reported procedures but includes the following listed in this critical care notation. Medical Decision Making - Medical Records Medical records reviewed: Yes: I reviewed the patient's medical records. - Connor Inquiry Pt receiving controlled substance: No Vital Signs: 03/18/21 10:18 03/18/21 10:51 03/18/21 11:01 Pulse Rate 72 72 Pulse Rate [Radial] 73 Respiratory Rate 17 18 16 Blood Pressure 212/112 H 172/101 H Blood Pressure [Right Arm] 215/128 H Blood Pressure Mean 139 124 Blood Pressure Mean [Right Arm] 157 Blood Pressure Source Blood Pressure Source [Right Arm] Automatic Cuff Blood Pressure Position Blood Pressure Position [Right Arm] Sitting 02 Sat by Pulse Oximetry 94 L 94 L 94 L Oxygen Delivery Method Room Air 03/18/21 11:30 03/18/21 12:01 03/18/21 13:25 Pulse Rate 67 70 71 Pulse Rate [Radial] Respiratory Rate 16 14 16 Blood Pressure 181/103 H 199/102 H 197/102 H Blood Pressure [Right Arm] Blood Pressure Mean 130 134 Blood Pressure Mean [Right Arm] Blood Pressure Source Automatic Cuff Blood Pressure Source [Right Arm] Blood Pressure Position Sitting Blood Pressure Position [Right Arm] 02 Sat by Pulse Oximetry 96 97 95 Oxygen Delivery Method Room Air - Lab Data Lab results reviewed: Yes: I reviewed the patient's lab results. Lab Results 03/18/21 10:52: WBC 13.5 H, RBC 5.21, Hgb 15.2, Hct 46.9, MCV 90.1, MCH 29.3, MCHC 32.5, RDW 13.9, Plt Count 308, MPV 8.3, Neut % (Auto) 71.2, Lymph % (Auto) 17.7, [place] % (Auto) 4.6, Eos % (Auto) 5.9, Baso % (Auto) 0.7, Neut # (Auto) 9.6 H, Lymph # (Auto) 2.4, [place] # (Auto) 0.6, Eos # (Auto) 0.8 H, Baso # (Auto) 0.1 03/18/21 10:52: Sodium 141, Potassium 3.8, Chloride 104, Carbon Dioxide 28, Anion Gap 12.8, BUN 16, Creatinine 0.70, Estimated Creat Clear 129, Estimated GFR 87, Est GFR ( Amer) 105, Glucose 133 H, Calcium 9.0, Total Bilirubin < 0.1 L, AST 30, ALT 26, Alkaline Phosphatase 109, Troponin I < 0.01, Total Protein 7.1, Albumin 3.9, Globulin 3.2, Albumin/Globulin Ratio 1.2 03/18/21 10:52: SARS-CoV-2 (PCR) Not detected, Influenza A Untype (PCR) Not detected, Influenza Type B (PCR) Not detected 03/18/21 13:00: Troponin I < 0.01 Result diagrams: 03/18/21 10:52 03/18/21 10:52 Orders (Tests/Meds): ED MEDICATIONS Discontinued Medications Generic Name Dose Route Start Last Admin Trade Name Vanceq PRN Reason Stop Dose Admin Acetaminophen 1,000 mg 03/18/21 12:52 03/18/21 12:54 Acetaminophen 500mg Tab PO 03/18/21 12:53 1,000 mg ONCE ONE Administration Aspirin 324 mg 03/18/21 10:17 03/18/21 10:57 Aspirin 81mg Chewable Tablet PO 03/18/21 10:18 324 mg ONCE ONE Administration Hydralazine HCl 5 mg 03/18/21 12:22 03/18/21 12:54 Hydralazine 20mg/Ml Vial IV 03/18/21 12:23 5 mg ONCE ONE Administration Nitroglycerin 0.4 mg 03/18/21 10:25 03/18/21 10:57 Nitroglycerin 0.4mg Sl Tablet SL 03/18/21 10:26 0.4 mg ONCE ONE Administration Ondansetron HCl 4 mg 03/18/21 12:52 03/18/21 12:54 Ondansetron 4mg/2ml Vial IV 10
[2021-03-18 10:56] LABS: Coronavirus 19, PCR Not Detected (NotDetected); Influenza A, PCR Not Detected (NotDetected); Influenza B, PCR Not Detected (NotDetected)
[2021-03-18 10:58] LABS: Basophils # 0.1 K/mm3 (0-0.2); Basophils % 0.7 % (0.1-2.0); Eosinophils # 0.8 K/mm3 (0.0-0.4); Eosinophils % 5.9 % (0.1-12.0); Hematocrit 46.9 % (37.0-47.0); Hemoglobin 15.2 g/dL (12.2-16.2); Lymphocytes # 2.4 K/mm3 (0.7-4.5); Lymphocytes % 17.7 % (10-50); Mean Corpuscular HGB Conc 32.5 g/dL (31.8-35.4); Mean Corpuscular Hemoglobin 29.3 pg (27.0-31.2); Mean Corpuscular Volume 90.1 fl (81-99); Mean Platelet Volume 8.3 fl (7.4-10.4); Monocytes # 0.6 K/mm3 (0.1-1.0); Monocytes % 4.6 % (1.7-9.3); Neutrophils # 9.6 K/mm3 (1.8-7.8); Neutrophils % 71.2 % (37.0-80.0); Platelet Count 308 K/mm3 (142-424); Red Blood Count 5.21 M/mm3 (4.20-5.40); Red Cell Distribution Width 13.9 % (11.5-17.5); White Blood Count 13.5 K/mm3 (4.8-10.8)
[2021-03-18 11:02] LABS: Chloride 104 mmol/L (98-107); Potassium 3.8 mmoL/L (3.5-5.1); Sodium 141 mmol/L (136-145)
[2021-03-18 11:05] LABS: Alanine Aminotransferase 26 U/L (12-78); Albumin Level 3.9 g/dl (3.5-5.0); Albumin/Globulin Ratio 1.2 (1.1-1.8); Alkaline Phosphatase 109 U/L (38-126); Anion Gap 12.8 mEq/L (5-15); Aspartate Amino Transferase 30 U/L (14-36); Blood Urea Nitrogen 16 mg/dl (7-17); Carbon Dioxide 28 mmol/L (22.0-30.0); Creatinine Clearance Estimated 129 mL/min (50-200); Estimated Glomerular Filt Rate 87 ml/min (>60); GFR (African American) 105 ML/MIN (>60); Globulin 3.2 g/dL (1.3-3.2); Total Protein,Serum 7.1 g/dl (6.3-8.2)
[2021-03-18 11:06] LABS: Glucose 133 mg/dl (74-100)
[2021-03-18 11:15] LABS: Bilirubin,Total < 0.1 mg/dl (0.2-1.3)
[2021-03-18 11:17] LABS: Troponin I < 0.01 ng/ml (0.00-0.034)
--- NOTE | 2021-03-18 13:28 | PC.NURSE ---
Went in and assessed pt. Pt advised most of her chest pain was gone and that her head still hurt a little but she had just received oral medications and wanted to see how she was feeling in a little bit. Pt resting in bed with lights off. Notified . B/P 170/96. No new orders at this time
[2021-03-18 14:09] LABS: Troponin I < 0.01 ng/ml (0.00-0.034)
== END 2021-03-18 15:20 | disposition home or self-care (01) ==
PROVIDERS: Emergency Provider Family Medicine
DX: R07.9 Chest pain, unspecified (principal); J44.9 Chronic obstructive pulmonary disease, unspecified; I25.10 Atherosclerotic heart disease of native coronary artery without angina pectoris; E78.5 Hyperlipidemia, unspecified; I10 Essential (primary) hypertension; F17.210 Nicotine dependence, cigarettes, uncomplicated; Z20.822 Contact with and (suspected) exposure to COVID-19; Z88.0 Allergy status to penicillin; Z79.899 Other long term (current) drug therapy
CPT/HCPCS: 71045; 80053; 84484; 85025; 93005; 96374; 96375; 99284; C9803; J2405; U0003; U0005

== ENCOUNTER 2021-07-05 15:02 | Observation (INO) | payer MEDICARE, SELFPAY ==
[2021-07-05] VITALS (7 sets, daily range): BP systolic 130–162; BP diastolic 77–100; PULSE 86–105; RESP 18–24; TEMP 36.8–36.9; O2SAT 91–95; BMI 42.4; BMI 42.3
[2021-07-05 16:11] LABS: Influenza A, PCR Not Detected (NotDetected); Influenza B, PCR Not Detected (NotDetected)
--- NOTE | 2021-07-05 16:30 | ECG_ITS ---
APPROVED REPORT Exam: Resting ECG HR:96 bpm ECG Measurements Heart Rate 96 AXES NC 153 P 55 QRSd 86 QRS 69 QT 364 T 74 QTc 418 Conclusion SINUS RHYTHM NONSPECIFIC ST & T-WAVE ABNORMALITY BORDERLINE ECG UNCONFIRMED REPORT Electronically signed by : Baljinder Roach MD 07/06/2021 14:04:36
--- NOTE | 2021-07-05 16:31 | XR_ITS ---
PROCEDURE INFORMATION: Exam: XR Chest Exam date and time: 07/05/2021 4:31 PM Age: 55 years old Clinical indication: Shortness of breath and wheezing; Additional info: Cough, shortness of breath, wheezing on exam TECHNIQUE: Imaging protocol: XR of the chest. Views: 1 view. COMPARISON: CR XR CHEST PORTABLE 03/18/2021 10:39 AM FINDINGS: Airway: Patent Lungs: Stable calcified granuloma in the right lung base. Low lung volumes causes crowding of the bronchovascular structures. Subtle bilateral basal and infrahilar segmental bronchial wall thickening and ground-glass opacity. Pleural spaces: Unremarkable. No pleural effusion. No pneumothorax. Heart/Mediastinum: Cardiomediastinal silhouette is magnified due to technique. Bones/joints: No acute skeletal abnormality or aggressive osseous lesion. IMPRESSION: Findings in the bilateral infrahilar regions and lung bases may be related to crowding of bronchovascular structures versus developing pneumonia in the appropriate clinical setting.
--- NOTE | 2021-07-05 16:32 | HMH.EDGENADL ---
ED Disposition Clinical Impression: COVID, Pneumonia due to COVID-19 virus Disposition: Admitted as Observation Condition on Discharge: [facility] - Critical Care Critical Care Time: No Attestation: On 07/05/21, the high probability of a clinically significant, sudden or life threatening deterioration of the following system(s) required my full and direct attention, intervention and personal management. The time I documented below is in addition to time spent performing reported procedures but includes the following listed in this critical care notation. Medical Decision Making - Connor Inquiry Pt receiving controlled substance: No Vital Signs: 07/05/21 15:20 07/05/21 16:00 07/05/21 16:42 Temperature 98.5 F Temperature Source Oral Pulse Rate 105 H 99 H Pulse Rate [Left Radial] 102 H Respiratory Rate 18 Blood Pressure 130/100 H Blood Pressure [Right Arm] 158/99 H Blood Pressure Mean [Right Arm] 118 Blood Pressure Source [Right Arm] Automatic Cuff Blood Pressure Position [Right Arm] Sitting 02 Sat by Pulse Oximetry 94 L 91 L 93 L Oxygen Delivery Method Room Air Nasal Cannula Oxygen Flow Rate (LPM) 1 07/05/21 18:12 07/05/21 20:00 07/05/21 20:27 Temperature 98.2 F 98.5 F Temperature Source Oral Oral Pulse Rate 94 H 91 H Pulse Rate [Left Radial] 86 Respiratory Rate 24 20 Blood Pressure 151/83 H 142/82 H Blood Pressure [Right Arm] 162/77 H Blood Pressure Mean [Right Arm] 105 Blood Pressure Source [Right Arm] Automatic Cuff Blood Pressure Position [Right Arm] 02 Sat by Pulse Oximetry 95 93 L Oxygen Delivery Method Nasal Cannula Nasal Cannula Nasal Cannula Oxygen Flow Rate (LPM) 1 2 2 - Lab Data Lab Results 07/05/21 15:20: SARS-CoV-2 (PCR) Detected A, Influenza A Untype (PCR) Not detected, Influenza Type B (PCR) Not detected 07/05/21 17:03: Urine Color Yellow, Urine Appearance Clear, Urine pH 6.0, Ur Specific [place] 1.025, Urine Protein Trace, Urine Glucose (UA) Negative, Urine Ketones Negative, Urine Blood Negative, Urine Nitrate Negative, Urine Bilirubin Negative, Urine Urobilinogen 0.2, Ur Leukocyte Esterase Negative, Urine RBC Occasional, Urine WBC 5-10, Ur Squamous Epith Cells 3-5, Urine Bacteria 1+ 07/05/21 17:48: WBC 7.5, RBC 4.87, Hgb 14.4, Hct 42.1, MCV 86.5, MCH 29.5, MCHC 34.1, RDW 14.8, Plt Count 238, MPV 8.5, Neut % (Auto) 62.1, Lymph % (Auto) 29.4, [place] % (Auto) 7.1, Eos % (Auto) 1.4, Baso % (Auto) 4.4 H, Neut # (Auto) 4.7, Lymph # (Auto) 2.2, [place] # (Auto) 0.5, Eos # (Auto) 0.1, Baso # (Auto) 0.3 H 07/05/21 17:48: Sodium 133 L, Potassium 4.0, Chloride 97 L, Carbon Dioxide 27, Anion Gap 13.0, BUN 25 H, Creatinine 0.70, Estimated Creat Clear 61, Estimated GFR 87, Est GFR ( Amer) 105, Glucose 93, Calcium 9.1, Magnesium 1.7, Total Bilirubin 0.6, AST 73 H, ALT 43, Alkaline Phosphatase 100, Troponin I < 0.01, Total Protein 7.6, Albumin 4.3, Globulin 3.3 H, Albumin/Globulin Ratio 1.3, Lipase 22 L Result diagrams: 07/05/21 17:48 07/05/21 17:48 Orders (Tests/Meds): ED MEDICATIONS Generic Name Dose Route Start Last Admin Trade Name Freq PRN Reason Stop Dose Admin Acetaminophen 650 mg 07/05/21 20:01 Acetaminophen 325mg Tab PO 08/04/21 17:56 Q6HP PRN Mild pain,fever,headache Ascorbic Acid 500 mg 07/05/21 21:00 07/05/21 20:54 Ascorbic Acid 500mg Tab PO 08/04/21 20:59 500 mg QID ANA Administration Buspirone HCl 10 mg 07/05/21 21:17 Buspirone Hcl 10 Mg Tablet PO 08/04/21 21:16 TIDP PRN Anxiety Docusate Sodium 100 mg 07/06/21 09:00 Docusate Sodium 100 Mg Capsule PO 08/04/21 17:59 DAILY [facility] Enoxaparin Sodium 60 mg 07/06/21 09:00 Enoxaparin 60mg/0.6ml Syringe SQ 08/04/21 17:59 DAILY ANA Ergocalciferol 50,000 unit 07/05/21 20:01 07/05/21 20:54 Ergocalciferol 50,000 Units (1.25mg) Capsule PO 08/04/21 17:59 50,000 unit WEEKLY ANA Administration Famotidine 20 mg 07/05/21 21:00 07/05
--- NOTE | 2021-07-05 16:49 | PC.NURSE ---
Radiology at bedside
--- NOTE | 2021-07-05 16:55 | PC.NURSE ---
Patient taken to bathroom by wheelchair.
[2021-07-05 17:07] LABS: Microscopic, Urine URINE MICROSCOPIC (MICROSCOPIC)
[2021-07-05 17:11] LABS: Appearance,Urine CLEAR (Clear); Bilirubin,Urine Negative (Negative); Blood, Urine Negative (Negative); Color,Urine YELLOW (Yellow); Glucose,Urine (UA) Negative (Negative); Ketones,Urine Negative (Negative); Leukocyte Esterase,Urine Negative (Negative); Nitrate,Urine Negative (Negative); Protein,Urine TRACE (Negative); Specific Gravity, Urine 1.025 (1.005-1.030); Urobilinogen,Urine 0.2 EU/dl (0.2)
[2021-07-05 17:15] LABS: Coronavirus 19, PCR Detected (NotDetected)
--- NOTE | 2021-07-05 17:53 | PC.NURSE ---
speaking with Dr. Roach
[2021-07-05 17:59] LABS: RBC,Urine Occasional #/hpf (0-3)
[2021-07-05 18:00] LABS: Bacteria,Urine 1+ /lpf
[2021-07-05 18:14] LABS: Alanine Aminotransferase 43 U/L (12-78); Albumin Level 4.3 g/dl (3.5-5.0); Albumin/Globulin Ratio 1.3 (1.1-1.8); Alkaline Phosphatase 100 U/L (38-126); Aspartate Amino Transferase 73 U/L (14-36); Bilirubin,Total 0.6 mg/dl (0.2-1.3); Blood Urea Nitrogen 25 mg/dl (7-17); Calcium 9.1 mg/dl (8.4-10.2); Carbon Dioxide 27 mmol/L (22.0-30.0); Chloride 97 mmol/L (98-107); Creatinine Clearance Estimated 61 mL/min (50-200); Estimated Glomerular Filt Rate 87 ml/min (>60); GFR (African American) 105 ML/MIN (>60); Globulin 3.3 g/dL (1.3-3.2); Glucose 93 mg/dl (74-100); Lipase 22 U/L (23-300); Magnesium 1.7 mg/dl (1.6-2.3); Sodium 133 mmol/L (136-145); Total Protein,Serum 7.6 g/dl (6.3-8.2)
[2021-07-05 18:18] LABS: Basophils # 0.3 K/mm3 (0-0.2); Basophils % 4.4 % (0.1-2.0); Eosinophils # 0.1 K/mm3 (0.0-0.4); Eosinophils % 1.4 % (0.1-12.0); Hematocrit 42.1 % (37.0-47.0); Hemoglobin 14.4 g/dL (12.2-16.2); Lymphocytes # 2.2 K/mm3 (0.7-4.5); Lymphocytes % 29.4 % (10-50); Mean Corpuscular HGB Conc 34.1 g/dL (31.8-35.4); Mean Corpuscular Hemoglobin 29.5 pg (27.0-31.2); Mean Corpuscular Volume 86.5 fl (81-99); Mean Platelet Volume 8.5 fl (7.4-10.4); Monocytes # 0.5 K/mm3 (0.1-1.0); Monocytes % 7.1 % (1.7-9.3); Neutrophils # 4.7 K/mm3 (1.8-7.8); Neutrophils % 62.1 % (37.0-80.0); Platelet Count 238 K/mm3 (142-424); Red Blood Count 4.87 M/mm3 (4.20-5.40); Red Cell Distribution Width 14.8 % (11.5-17.5); White Blood Count 7.5 K/mm3 (4.8-10.8)
[2021-07-05 18:26] LABS: Troponin I < 0.01 ng/ml (0.00-0.034)
--- NOTE | 2021-07-05 20:24 | PC.NURSE ---
PT ARRIVED TO FLOOR VIA W/C FROM ED W/STAFF @ 2024
[2021-07-05 21:12] LABS: Troponin I < 0.01 ng/ml (0.00-0.034)
[2021-07-06] VITALS: BP 162/96; PULSE 80; PULSE 90; RESP 24; TEMP 37.1; O2SAT 95
[2021-07-06 04:00] VITALS: BP 173/98; PULSE 71; PULSE 76; RESP 18; TEMP 36.7; O2SAT 99
--- NOTE | 2021-07-06 04:39 | PC.NURSE ---
Pt is unaware of the medication names and dosages she takes at home. States her pharmacy is in [place] but could not recall the name.
[2021-07-06 06:00] VITALS: BMI 42.3
[2021-07-06 08:00] VITALS: PULSE 70
--- NOTE | 2021-07-06 09:07 | HMH.HPDC ---
General - General Admission date:: 07/05/21 Discharge date: 07/06/21 *Admission Date: 07/05/21 *Chief complaint: Cough/congestion *History of present illness: 55-year-old white female, who suffers from morbid obesity, oxygen requiring COPD who is on 2 L nasal cannula at night and during most of the day when she sits down, who is unvaccinated from COVID because it is too new and I also have gnosticist objections. She came to the emergency department with cough, congestion and shortness of air. She had her baseline oxygen requirement, but was admitted because of her significant risk factors for progression, minimal infiltrate on chest x-ray. White count, kidney function normal on admission testing. [facility] History I have reviewed the patient's past medical history: Yes Medical History: Reports:: Anxiety, Congestive Heart Failure, Chronic Obstructive Pulmonary Disease (COPD), Coronary Artery Disease, Home Oxygen, Hyperlipidemia, Hypertension Denies:: Cancer, Diabetes Mellitus Type 1, Diabetes Mellitus Type 2, MRSA *Have you ever received a pneumonia vaccine?: Yes *Have you received a flu vaccine this season?: Yes Other Medical History: Reports: Anemia, Arthritis, Other Laterality Cases: Bilateral: Tonsillectomy Other Surgeries: Yes: Cancer Surgery (BENEATH L BREAST), Cardiac Catheterization, Tubal Ligation, Other Amputation: No Fractures: No - *Social History Smoking Status: Current some day smoker Tobacco Type: cigarettes # Packs/Day (cigarettes): 1 Alcohol Intake: never Alcohol Intake Frequency:: holidays/special occasions only Substance Use Type: denies use *Occupational Status:: disabled Housing: other Household Members: spouse *Travel in the last 8 weeks: None - Psychiatric History Pschychiatric History:: Reports:: Anxiety Family Hx:: No significant family history Review of Systems - Review of Systems Review of systems:: pertinent systems reviewed and negative unless documented below - *Neurologic Reports headache(s) Exam Vital signs and Labs for Last 24 Hours: Temp Pulse Resp BP Pulse Ox 98.0 F 71 18 173/98 H 99 07/06/21 04:00 07/06/21 04:00 07/06/21 04:00 07/06/21 04:00 07/06/21 04:00 Laboratory Results - last 24 hr 07/05/21 15:20: SARS-CoV-2 (PCR) Detected A, Influenza A Untype (PCR) Not detected, Influenza Type B (PCR) Not detected 07/05/21 17:03: Urine Color Yellow, Urine Appearance Clear, Urine pH 6.0, Ur Specific [place] 1.025, Urine Protein Trace, Urine Glucose (UA) Negative, Urine Ketones Negative, Urine Blood Negative, Urine Nitrate Negative, Urine Bilirubin Negative, Urine Urobilinogen 0.2, Ur Leukocyte Esterase Negative, Urine RBC Occasional, Urine WBC 5-10, Ur Squamous Epith Cells 3-5, Urine Bacteria 1+ 07/05/21 17:48: WBC 7.5, RBC 4.87, Hgb 14.4, Hct 42.1, MCV 86.5, MCH 29.5, MCHC 34.1, RDW 14.8, Plt Count 238, MPV 8.5, Neut % (Auto) 62.1, Lymph % (Auto) 29.4, [place] % (Auto) 7.1, Eos % (Auto) 1.4, Baso % (Auto) 4.4 H, Neut # (Auto) 4.7, Lymph # (Auto) 2.2, [place] # (Auto) 0.5, Eos # (Auto) 0.1, Baso # (Auto) 0.3 H 07/05/21 17:48: Sodium 133 L, Potassium 4.0, Chloride 97 L, Carbon Dioxide 27, Anion Gap 13.0, BUN 25 H, Creatinine 0.70, Estimated Creat Clear 61, Estimated GFR 87, Est GFR ( Amer) 105, Glucose 93, Calcium 9.1, Magnesium 1.7, Total Bilirubin 0.6, AST 73 H, ALT 43, Alkaline Phosphatase 100, Troponin I < 0.01, Total Protein 7.6, Albumin 4.3, Globulin 3.3 H, Albumin/Globulin Ratio 1.3, Lipase 22 L 07/05/21 19:50: Troponin I < 0.01 I & O for Last 24 hours: Intake & Output 07/03/21 07/04/21 07/05/21 07/06/21 11:59 11:59 11:59 11:59 Weight 210 lb - Constitutional no acute distress, morbidly obese, chronically ill appearing - *Routine HEENT Exam Head: Present: normocephalic Eye: Present: EOMI, PERRL ENT: Present: mucous membranes moist - *Routine Neck Exam Present: supple. Absent: lymphadenopathy - *Routine Respiratory Exam Present: prolonged expiratory ph
--- NOTE | 2021-07-06 11:07 | PC.NURSE ---
Patient stated understanding of all discharge instructions, and new prescriptions.
== END 2021-07-06 11:08 | disposition home or self-care (01) ==
LOC: ER 17:55 → 2ND 19:29
PROVIDERS: Admitting Provider Internal Medicine Adolescent Medicine; Emergency Provider Student in an Organized Health Care Education/Training Program; PCP Family Medicine; Visit Provider Internal Medicine Adolescent Medicine
DX: U07.1 COVID-19 (principal); J12.82 Pneumonia due to coronavirus disease 2019; Z79.899 Other long term (current) drug therapy; E66.01 Morbid (severe) obesity due to excess calories; Z68.41 Body mass index [BMI] 40.0-44.9, adult; J44.9 Chronic obstructive pulmonary disease, unspecified; Z99.81 Dependence on supplemental oxygen; I11.0 Hypertensive heart disease with heart failure; I50.9 Heart failure, unspecified
CPT/HCPCS: G0378; 36415; 71045; 80053; 81001; 83690; 83735; 84484; 85025; 93005; 96365; 96367; 99284; C9803; J2405; U0003; U0005

== ENCOUNTER 2021-10-01 15:11 | Observation (INO) | payer MEDICARE, SELFPAY ==
--- NOTE | 2021-10-01 15:08 | ECG_ITS ---
APPROVED REPORT Exam: Resting ECG HR:114 bpm ECG Measurements Heart Rate 114 AXES PA 151 P 58 QRSd 76 QRS 69 QT 351 T 82 QTc 418 Conclusion SINUS TACHYCARDIA MINIMAL ST DEPRESSION [0.025+ mV ST DEPRESSION] ABNORMAL RHYTHM ECG UNCONFIRMED REPORT Electronically signed by : Baljinder Roach MD 10/02/2021 11:48:12
[2021-10-01 15:11] VITALS: BP 163/102; PULSE 114; RESP 20; TEMP 36.9; O2SAT 93; BMI 45.8
--- NOTE | 2021-10-01 15:15 | HMH.EDGENADL ---
ED Disposition Clinical Impression: Hemoptysis, Lung mass Disposition: Admitted as Observation Condition on Discharge: Fair Referrals: Provider,Referral, [Referring] - - Critical Care Critical Care Time: No Attestation: On , the high probability of a clinically significant, sudden or life threatening deterioration of the following system(s) required my full and direct attention, intervention and personal management. The time I documented below is in addition to time spent performing reported procedures but includes the following listed in this critical care notation. Medical Decision Making - Connor Inquiry Pt receiving controlled substance: Yes Connor was queried for this patient: Yes Risks and benefits of using a controlled substance: were not discussed with pt by me Vital Signs: 10/01/21 15:11 Temperature 98.5 F Temperature Source Oral Pulse Rate [Right] 114 H Respiratory Rate 20 Blood Pressure [Right Arm] 163/102 H Blood Pressure Mean [Right Arm] 122 Blood Pressure Source [Right Arm] Automatic Cuff Blood Pressure Position [Right Arm] Sitting 02 Sat by Pulse Oximetry 93 L Oxygen Delivery Method Room Air - Lab Data Lab Results 10/01/21 15:16: WBC 12.5 H, RBC 5.00, Hgb 14.4, Hct 45.1, MCV 90.2, MCH 28.8, MCHC 31.9, RDW 14.6, Plt Count 349, MPV 8.7, Neut % (Auto) 70.7, Lymph % (Auto) 18.2, [place] % (Auto) 5.3, Eos % (Auto) 3.6, Baso % (Auto) 2.1 H, Neut # (Auto) 8.8 H, Lymph # (Auto) 2.3, [place] # (Auto) 0.7, Eos # (Auto) 0.5 H, Baso # (Auto) 0.3 H 10/01/21 15:16: Sodium 139, Potassium 3.9, Chloride 101, Carbon Dioxide 34 H, Anion Gap 7.9, BUN 19 H, Creatinine 0.70, Estimated Creat Clear 60, Estimated GFR 86, Est GFR ( Amer) 104, Glucose 175 H, Calcium 8.5, Total Bilirubin 0.2, AST 36, ALT 37, Alkaline Phosphatase 116, Troponin I < 0.01, Total Protein 7.1, Albumin 3.9, Globulin 3.2, Albumin/Globulin Ratio 1.2 Result diagrams: 10/01/21 15:16 10/01/21 15:16 Orders (Tests/Meds): ED MEDICATIONS Generic Name Dose Route Start Last Admin Trade Name Freq PRN Reason Stop Dose Admin Sodium Chloride 10 ml 10/01/21 15:31 Sodium Chloride 0.9% 10ml Flush Syringe IV 10/31/21 15:30 NEEDED PRN Maintain IV Site Discontinued Medications Generic Name Dose Route Start Last Admin Trade Name Freq PRN Reason Stop Dose Admin Iopamidol 70 ml 10/01/21 16:36 10/01/21 16:37 Iopamidol-370 (76%);100ml Bottle IV 10/01/21 16:37 70 ml ONCE ONE Administration Morphine Sulfate 4 mg 10/01/21 15:58 10/01/21 16:24 Morphine 4mg/Ml Syringe IV 10/01/21 15:59 4 mg ONCE ONE Administration Ondansetron HCl 4 mg 10/01/21 15:58 10/01/21 16:24 Ondansetron 4mg/2ml Vial IV 10/01/21 15:59 4 mg ONCE ONE Administration Sodium Chloride 50 ml 10/01/21 16:36 10/01/21 16:37 0.9 % Sodium Chloride 50 Ml Vial IV 10/01/21 16:37 50 ml ONCE ONE Administration Sodium Chloride 10 ml 10/01/21 16:36 10/01/21 16:37 Sodium Chloride 0.9% 10ml Syr (Rad Only) IV 10/01/21 16:37 10 ml ONCE ONE Administration ORDERS Category Date Time Status Troponin I Q3H Lab 10/01/21 18:45 Ordered Troponin I Q3H Lab 10/01/21 21:45 Ordered - Radiology Data #1 Image(s): Chest Image Reviewed: Yes I have reviewed radiologist's interpretation Procedure(s): XR chest 2V Accession Number(s): [id number] cc: Colby Kolb MD; Julien Sun ~ FINAL REPORT CLINICAL HISTORY: SOA COMPARISON: 07/05/2021 FINDINGS: 2 views of the chest were obtained. The heart size is normal. The mediastinum is unremarkable. The lungs are clear. There are no pleural effusions. There is no pneumothorax. There is no acute osseous abnormality. IMPRESSION: No acute cardiopulmonary process. Reviewed, Interpreted and Dictated by Colby Kolb III, MD Transcribed by Vida Devine Authenticated by Colby Kolb III, MD on 10/01/2021 04:42:30 PM [facility]
--- NOTE | 2021-10-01 15:31 | XR_ITS ---
FINAL REPORT CLINICAL HISTORY: SOA COMPARISON: 07/05/2021 FINDINGS: 2 views of the chest were obtained. The heart size is normal. The mediastinum is unremarkable. The lungs are clear. There are no pleural effusions. There is no pneumothorax. There is no acute osseous abnormality. IMPRESSION: No acute cardiopulmonary process. Reviewed, Interpreted and Dictated by Colby Kolb III, MD Transcribed by Vida Devine Authenticated by Colby Kolb III, MD on 10/01/2021 04:42:30 PM [facility]
--- NOTE | 2021-10-01 15:40 | PC.NURSE ---
Patient to radiology with electrostatic powder coating technician by wheelchair
[2021-10-01 15:48] LABS: Chloride 101 mmol/L (98-107); Potassium 3.9 mmoL/L (3.5-5.1); Sodium 139 mmol/L (136-145)
[2021-10-01 15:51] LABS: Alanine Aminotransferase 37 U/L (12-78); Albumin Level 3.9 g/dl (3.5-5.0); Albumin/Globulin Ratio 1.2 (1.1-1.8); Alkaline Phosphatase 116 U/L (38-126); Anion Gap 7.9 mEq/L (5-15); Aspartate Amino Transferase 36 U/L (14-36); Bilirubin,Total 0.2 mg/dl (0.2-1.3); Blood Urea Nitrogen 19 mg/dl (7-17); Calcium 8.5 mg/dl (8.4-10.2); Carbon Dioxide 34 mmol/L (22.0-30.0); Creatinine Clearance Estimated 60 mL/min (50-200); Estimated Glomerular Filt Rate 86 ml/min (>60); GFR (African American) 104 ML/MIN (>60); Globulin 3.2 g/dL (1.3-3.2); Glucose 175 mg/dl (74-100); Total Protein,Serum 7.1 g/dl (6.3-8.2)
[2021-10-01 15:54] LABS: Basophils # 0.3 K/mm3 (0-0.2); Basophils % 2.1 % (0.1-2.0); Eosinophils # 0.5 K/mm3 (0.0-0.4); Eosinophils % 3.6 % (0.1-12.0); Hematocrit 45.1 % (37.0-47.0); Hemoglobin 14.4 g/dL (12.2-16.2); Lymphocytes # 2.3 K/mm3 (0.7-4.5); Lymphocytes % 18.2 % (10-50); Mean Corpuscular HGB Conc 31.9 g/dL (31.8-35.4); Mean Corpuscular Hemoglobin 28.8 pg (27.0-31.2); Mean Corpuscular Volume 90.2 fl (81-99); Mean Platelet Volume 8.7 fl (7.4-10.4); Monocytes # 0.7 K/mm3 (0.1-1.0); Monocytes % 5.3 % (1.7-9.3); Neutrophils # 8.8 K/mm3 (1.8-7.8); Neutrophils % 70.7 % (37.0-80.0); Platelet Count 349 K/mm3 (142-424); Red Cell Distribution Width 14.6 % (11.5-17.5); White Blood Count 12.5 K/mm3 (4.8-10.8)
--- NOTE | 2021-10-01 15:55 | PC.NURSE ---
GEOVANNY TIM at
--- NOTE | 2021-10-01 15:58 | CT_ITS ---
PROCEDURE INFORMATION: Exam: CTA Chest With Contrast Exam date and time: 10/01/2021 4:30 PM Age: 56 years old Clinical indication: Other: Hemoptysis TECHNIQUE: Imaging protocol: Computed tomographic angiography of the chest with contrast. 3D rendering (Not supervised by radiologist): MIP and/or 3D reconstructed images were created by the technologist. Radiation optimization: All CT scans at this facility use at least one of these dose optimization techniques: automated exposure control; mA and/or kV adjustment per patient size (includes targeted exams where dose is matched to clinical indication); or iterative reconstruction. Contrast material: ISOVUE 370; Contrast volume: 70 ml; Contrast route: INTRAVENOUS (IV); COMPARISON: CR XR CHEST 2V 10/01/2021 3:34 PM FINDINGS: Pulmonary arteries: No evidence of pulmonary embolus. Aorta: Unremarkable. No aortic aneurysm. No aortic dissection. Lungs: There is a nodular region of opacification surrounding right upper lobe segmental arterial branches. This measures approximately 2.6 cm in maximum dimensions. Findings demonstrated on series 5, image number 36, 37, series 1002 image number 30. There is a 5 mm nodular opacity demonstrated anteriorly in the left lower lobe. There is an 8 mm polar poorly defined region of nodularity posteriorly at the left lung base. Findings demonstrated on series 5, image number 71, series 1001 image number 54. Additional smaller pulmonary nodules are present posteriorly in the left lower lobe . No cavitating lesions are demonstrated. There is a densely calcified granuloma at the right lung base which measures 1.4 cm in maximum dimensions. These findings are visible on film radiographs. Multiple calcified lymph nodes are present throughout the mediastinum as well as in the right perihilar region. A 17 mm calcified lymph node is demonstrated in the posterior mediastinum in the adjacent to the esophagus, resulting in mild mild mass effect. Pleural spaces: Unremarkable. No pneumothorax. No pleural effusion. Heart: Unremarkable. No cardiomegaly. No pericardial effusion. Lymph nodes: See Lungs finding. Liver: There is evidence of prior splenic and hepatic granulomas disease. Bones/joints: Unremarkable. No acute fracture. Soft tissues: Unremarkable. IMPRESSION: 1. No evidence of pulmonary embolus. 2. Demonstration of 2.6 cm noncalcified irregular pulmonary nodule surrounding a right upper lobe arterial branch. This most likely corresponds to the source of the hemoptysis. Additional scattered regions of nodular opacities anteriorly in the left lower lobe measuring up to 8 mm. No cavitating lesions demonstrated. Findings suspicious for malignancy although an infectious etiology could not be excluded. 3. Highly suspicious nodule(s). Consider non-emergent PET/CT, or tissue sampling.(Reference: Daniel) 4. Evidence of prior granulomatous disease with densely calcified lymph nodes in the middle mediastinum as well as posterior mediastinum as described above. 1.4 cm densely calcified granuloma right lung base. REFERENCES: Daniel Thorne, et al. Guidelines for Management of Incidental Pulmonary Nodules Detected on CT Images: From the Fleischner Society 2017. Radiology. 2017;284(1):228-243.
[2021-10-01 16:04] LABS: Troponin I < 0.01 ng/ml (0.00-0.034)
--- NOTE | 2021-10-01 16:17 | PC.NURSE ---
Pt going for CT
--- NOTE | 2021-10-01 16:42 | PC.NURSE ---
patient back from CT with technician support association by luciana
--- NOTE | 2021-10-01 17:21 | PC.NURSE ---
patient to restroom by wheelchair with assistance from tech
--- NOTE | 2021-10-01 17:49 | PC.NURSE ---
Updated pt on POC, advised her we were waiting on CT results. Pt has no new needs at this time
--- NOTE | 2021-10-01 18:22 | PC.NURSE ---
speaking with NAOMI at this time
--- NOTE | 2021-10-01 18:34 | PC.NURSE ---
ED MD at for update on POC
--- NOTE | 2021-10-01 18:41 | PC.NURSE ---
fruit harvest machine operator paging service logistics operations manager
--- NOTE | 2021-10-01 18:42 | PC.NURSE ---
GEOVANNY TIM speaking with
--- NOTE | 2021-10-01 18:46 | PC.NURSE ---
notified warehouse manager of admission
[2021-10-01 18:57] LABS: Coronavirus 19, PCR Not Detected (NotDetected); Influenza A, PCR Not Detected (NotDetected); Influenza B, PCR Not Detected (NotDetected)
[2021-10-01 19:32] LABS: Troponin I < 0.01 ng/ml (0.00-0.034)
--- NOTE | 2021-10-01 21:34 | PC.NURSE ---
PT requested that her pain meds be switched to dilaudid from morphine due to headaches
[2021-10-01 22:25] LABS: Troponin I < 0.01 ng/ml (0.00-0.034)
[2021-10-01 22:39] VITALS: BP 165/112; PULSE 99; RESP 21; TEMP 36.9; O2SAT 95
--- NOTE | 2021-10-01 22:53 | PC.NURSE ---
PT ARRIVED TO FLOOR VIA W/C FROM ED W/STAFF @ [id number]
[2021-10-01 23:01] VITALS: BP 126/85; PULSE 97; RESP 18; TEMP 36.7; O2SAT 91; BMI 46.6
[2021-10-01 23:51] VITALS: PULSE 100
[2021-10-02] VITALS (9 sets, daily range): BP systolic 116–150; BP diastolic 65–85; PULSE 75–103; RESP 16–21; TEMP 36.4–36.9; O2SAT 86–94; BMI 46.6
[2021-10-02 07:08] LABS: Basophils # 0.1 K/mm3 (0-0.2); Eosinophils # 0.6 K/mm3 (0.0-0.4); Eosinophils % 5.9 % (0.1-12.0); Hematocrit 42.8 % (37.0-47.0); Hemoglobin 13.2 g/dL (12.2-16.2); Lymphocytes % 28.6 % (10-50); Mean Corpuscular HGB Conc 30.7 g/dL (31.8-35.4); Mean Corpuscular Hemoglobin 28.7 pg (27.0-31.2); Mean Corpuscular Volume 93.3 fl (81-99); Mean Platelet Volume 8.7 fl (7.4-10.4); Monocytes # 0.7 K/mm3 (0.1-1.0); Monocytes % 6.8 % (1.7-9.3); Neutrophils # 6.1 K/mm3 (1.8-7.8); Neutrophils % 57.7 % (37.0-80.0); Platelet Count 301 K/mm3 (142-424); Red Blood Count 4.59 M/mm3 (4.20-5.40); Red Cell Distribution Width 14.8 % (11.5-17.5); White Blood Count 10.5 K/mm3 (4.8-10.8)
--- NOTE | 2021-10-02 07:28 | P.CONPHA_ITS ---
[facility] Pharmacy VTE Monitoring - Patient Demographics Admission date: 10/01/21 Report Date: 10/02/21 Time: 07:28 Allergies/Adverse Reactions: Patient Allergies erythromycin base [ERYTHROMYCIN BASE] Allergy (Unknown, Verified 03/18/21 10:40) I-RASH Penicillins [PENICILLINS] Allergy (Unknown, Verified 03/18/21 10:40) DIFFICULTY BREATHING Height: 1.5 m Weight: 105.007 kg Patient Problems: Current Active Problems Hemoptysis (Acute) Lung mass (Acute) - VTE Risk Labs: VTE Related Lab Results Hgb 14.4 g/dL (12.2-16.2) 10/01/21 15:16 Hct 45.1 % (37.0-47.0) 10/01/21 15:16 Plt Count 349 K/mm3 (142-424) 10/01/21 15:16 BUN 19 mg/dl (7-17) H 10/01/21 15:16 Creatinine 0.70 mg/dl (0.52-1.04) 10/01/21 15:16 Estimated Creat Clear 60 mL/min (50-200) 10/01/21 15:16 Was VTE Risk Assessment Performed: Yes VTE Score: 5 VTE Risk Level: Low Risk - Prophylaxis VTE Prophylaxis Ordered?: Yes Types of VTE Prophylaxis: TEDS Knee High Location of Applied Device: Bilateral Lower Extremeties
--- NOTE | 2021-10-02 09:01 | HMH.PHAINT ---
home medication list verified using list from outpatient pharmacy
--- NOTE | 2021-10-02 09:58 | HMH.HP ---
*Admission Date: 10/01/21 *Chief complaint: Hemoptysis, chest pain *History of present illness: Patient states she woke up this morning and coughed up a large amount of blood. Since then she has a pain across her anterior chest that feels like an ache, increases with deep breath. Increased shortness of breath today. She has had some aching in her right leg for a month. No recent hospitalizations, surgery, or travel. No history of PE, DVT. She has never had hemoptysis before. She is not on any anticoagulants. She has COPD and is oxygen dependent, 2 L, at home. She is a smoker. (above as per ER physician) The patient had a chest x-ray which showed nothing acute. She then had a chest CTA which showed a 2.6 cm noncalcified irregular pulmonary nodule surrounding the right upper lobe arterial branch. Radiology felt this most likely corresponded to the source of the hemoptysis. There were additional scattered regions of nodular opacities anteriorly in the left lower lobe. Findings were suspicious for malignancy although an infectious etiology cannot be excluded. She was admitted and pulmonology was consulted. This morning, her main complaint is of severe chest pain. She states the morphine is not helping and requests Dilaudid. [facility] History I have reviewed the patient's past medical history: Yes Medical History: Reports:: Anxiety, Congestive Heart Failure, Chronic Obstructive Pulmonary Disease (COPD), Coronary Artery Disease, Home Oxygen, Hyperlipidemia, Hypertension Denies:: Cancer, Diabetes Mellitus Type 1, Diabetes Mellitus Type 2, MRSA *Have you ever received a pneumonia vaccine?: Yes *Have you received a flu vaccine this season?: Yes Other Medical History: Reports: Anemia, Arthritis, Other Laterality Cases: Bilateral: Tonsillectomy Other Surgeries: Yes: Cancer Surgery (BENEATH L BREAST), Cardiac Catheterization, Tubal Ligation, Other Amputation: No Fractures: No - *Social History Last grade of school completed: Some college Smoking Status: Current every day smoker Tobacco Type: cigarettes # Packs/Day (cigarettes): 1 Alcohol Intake: never Alcohol Intake Frequency:: holidays/special occasions only Substance Use Type: other 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 *Occupational Status:: disabled Housing: house Household Members: spouse, children *Travel in the last 8 weeks: None - Psychiatric History Pschychiatric History:: Reports:: Anxiety Family Hx:: Asthma, Diabetes, Heart Attack, Hyperlipidemia, Hypertension Review of Systems - Constitutional Denies fever(s) - Eyes Denies blurry vision, Denies double vision - ENT Denies nasal congestion, Denies sore throat - *Cardiovascular Reports chest pain, Reports shortness of breath - *Respiratory Reports cough, Reports shortness of breath, Reports coughing up blood - *Gastrointestinal Reports nausea, Denies abdominal pain, Denies loose stools, Denies vomiting - *Genitourinary Denies difficulty urinating, Denies painful urination - *Musculoskeletal Denies body aches - *Neurologic Reports headache(s), Reports dizziness, Denies weakness Meds Home Medications Medication Instructions Recorded Confirmed Type Omeprazole [Omeprazole 40mg 40 mg PO DAILY 06/14/17 10/01/21 History Capsule] Loratadine [Claritin 10mg 10 mg PO DAILY 05/12/18 10/01/21 History Tablet] trazodone 50 mg tablet 75 mg PO HSP PRN 02/17/19 10/01/21 History Atorvastatin Calcium [Lipitor 40mg 40 mg PO HS 12/29/19 10/01/21 History Tab] Albuterol Sulfate [Proair 2 puffs IH Q4HP PRN 12/30/19 10/01/21 History Digihaler] risperidone 1 mg tablet 1 mg PO HS 02/06/20 10/01/21 History Furosemide [Furosemide 80mg Tab] 80 mg PO DAILY 02/12/20 10/01/21 History Fluoxetine HCl [Prozac 20mg 80 mg PO DAILY 02/13/20 10/01/21 History Capsule] spironolactone 50 mg tablet 50 mg PO DAILY #30 tab 02/20/20 10/01/21 Rx Fluticasone/Umeclidin/Vilanter 1 each IH DAILY 03/10/20 10/01/21 History
--- NOTE | 2021-10-02 12:46 | HMH.PULMCON ---
*Admission Date: 10/01/21 *Reason for consult:: Hemoptysis *History of present illness: Ms. Webb is a 56-year-old female current smoker greater than [id number] smoking history, carries a diagnosis COPD, on trilogy inhaler at home, long-term oxygen therapy to the hospital complaining of hemoptysis and pulmonary was called for further management. [facility] History Medical History: Reports:: Anxiety, Congestive Heart Failure, Chronic Obstructive Pulmonary Disease (COPD), Coronary Artery Disease, Home Oxygen, Hyperlipidemia, Hypertension Denies:: Cancer, Diabetes Mellitus Type 1, Diabetes Mellitus Type 2, MRSA *Have you ever received a pneumonia vaccine?: Yes *Have you received a flu vaccine this season?: Yes Other Medical History: Reports: Anemia, Arthritis, Other Laterality Cases: Bilateral: Tonsillectomy Other Surgeries: Yes: Cancer Surgery (BENEATH L BREAST), Cardiac Catheterization, Tubal Ligation, Other Amputation: No Fractures: No - *Social History Last grade of school completed: Some college Smoking Status: Current every day smoker Tobacco Type: cigarettes # Packs/Day (cigarettes): 1 Alcohol Intake: never Alcohol Intake Frequency:: holidays/special occasions only Substance Use Type: other 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 *Occupational Status:: disabled Housing: house Household Members: spouse, children *Travel in the last 8 weeks: None - Psychiatric History Pschychiatric History:: Reports:: Anxiety Family Hx:: Asthma, Diabetes, Heart Attack, Hyperlipidemia, Hypertension ROS - Cons Reports daytime sleepiness, Reports fatigue - Eyes Denies pain - ENT Reports nosebleed - Card Reports shortness of breath, Reports shortness of breath with activity, Reports leg swelling - Resp Respiratory: Reports chest congestion, Reports cough, Denies excessive phlegm production, Reports coughing up blood, Reports cough with sputum production - GI Gastrointestingal: Denies: abdominal pain - [place] Musculoskeletal: Reports back pain - Psych Denies thoughts of hurting/killing others, Denies thoughts of hurting/killing yourself Meds Home Medications Medication Instructions Recorded Confirmed Type Omeprazole [Omeprazole 40mg 40 mg PO DAILY 06/14/17 10/01/21 History Capsule] Loratadine [Claritin 10mg 10 mg PO DAILY 05/12/18 10/01/21 History Tablet] trazodone 50 mg tablet 75 mg PO HSP PRN 02/17/19 10/01/21 History Atorvastatin Calcium [Lipitor 40mg 40 mg PO HS 12/29/19 10/01/21 History Tab] Albuterol Sulfate [Proair 2 puffs IH Q4HP PRN 12/30/19 10/01/21 History Digihaler] risperidone 1 mg tablet 1 mg PO HS 02/06/20 10/01/21 History Furosemide [Furosemide 80mg Tab] 80 mg PO DAILY 02/12/20 10/01/21 History Fluoxetine HCl [Prozac 20mg 80 mg PO DAILY 02/13/20 10/01/21 History Capsule] spironolactone 50 mg tablet 50 mg PO DAILY #30 tab 02/20/20 10/01/21 Rx Fluticasone/Umeclidin/Vilanter 1 each IH DAILY 03/10/20 10/01/21 History [Trelegy Ellipta 100-62.5-25] Gabapentin [Neurontin 800mg Tab] 800 mg PO BID 03/10/20 10/01/21 History losartan 100 mg tablet 100 mg PO DAILY #30 tab 04/18/20 10/01/21 Rx Butalbital/Aspirin/Caffeine 1 each PO Q6HP PRN 01/06/21 10/01/21 History [Xhitqzsmdn-Yyhjndi-Veisqulz Tb] Cyclobenzaprine HCl 5 mg PO TIDP PRN 01/06/21 10/01/21 History [Cyclobenzaprine 5mg Tab*] Fluticasone Propionate [Flonase 1 spr NS DAILYP PRN 01/06/21 10/01/21 History 50mcg nasal spray 16gm] Ipratropium/Albuterol Sulfate 3 ml IH QIDP PRN 01/06/21 10/01/21 History [Duoneb 3mL neb] Amlodipine Besylate [Norvasc 2.5mg 2.5 mg PO DAILY 10/02/21 10/02/21 History tablet] Bisoprolol Fumarate [Bisoprolol 5 mg PO BID 10/02/21 10/02/21 History 5mg Tablet] hydrOXYzine HCL [Hydroxyzine HCl] 25 mg PO TIDP PRN 10/02/21 10/02/21 History Allergies Allergy/AdvReac Type Severity Reaction Status Date / Time erythromycin base Allergy Unknown I-RASH Verified 03/18/21 10:40 [ERYTHROMYCIN
--- NOTE | 2021-10-02 14:36 | PC.NURSE ---
patient has done well. complaints of pain/ pressure in chest. plan for bronch tomorrow so npo after midnight. some nausea, but noted to still eat well. family bringing food from outside. vitals have been stable. requiring 2 units o2. after ambulation from bathroom with out o2 noted to be 84%. some expiratory wheezing noted at times. rings out as needed.
--- NOTE | 2021-10-02 18:52 | PC.NURSE ---
patient noted to continue eating, but does have vomiting. encouraged patient to cut back on food, and take it slow for now
[2021-10-03] VITALS (33 sets, daily range): BP systolic 91–177; BP diastolic 59–114; PULSE 64–110; RESP 14–24; TEMP 36.2–37.1; O2SAT 81–99; BMI 50.5
--- NOTE | 2021-10-03 03:53 | PC.NURSE ---
NO ACUTE CHANGES FROM PREVIOUS ASSESSMENT. PT HAS SLEPT AT INTERVALS WITH PRN PAIN MEDICATION. PT HAS HAD A PRODUCTIVE COUGH WITH MAINLY CLEAR PHLEGM. VS REMAIN STABLE, WILL CONTINUE TO MONITOR.
--- NOTE | 2021-10-03 08:23 | HMH.PULMPN ---
Internal Medicine - PN: Subj *Date: 10/03/21 *Time: 09:37 Interval history: Acute respiratory events overnight. Patient continued to complain of wheezing and coughing intermittently productive with no episodes of hemoptysis Exam - Constitutional Constitutional:: Absent: no acute distress, comfortable - HENMT Exam HENMT: Present: normocephalic - Eye Exam Eyes:: Present: normal appearance both eyes and related structures - Neck Exam Neck:: Present: normal visual inspection - Respiratory Exam Respiratory:: Present: able to speak in complete sentences, respiratory distress, wheezing - Cardiovascular Exam Cardiac:: Present: S1, S2 - GI Exam GI:: Present: soft - Skin Exam Skin: Present: warm, no rash - Neurological Exam Neurological: Present: alert, awake - Extremities Exam Extremities: Present: no cyanosis, no clubbing - Psychiatric Exam Psychiatric: Present: normal affect Assessment and Plan (1) Hemoptysis Status: Acute Category: Medical Code(s): R04.2 - Hemoptysis (2) Lung mass Status: Acute Category: Medical Code(s): R91.8 - Other nonspecific abnormal finding of lung field (3) CAD (coronary artery disease) Status: Chronic Qualifiers: Coronary Disease-Associated Artery/Lesion type: [place] artery [place] vs. transplanted heart: [place] heart Associated angina: with unspecified angina Category: Medical Code(s): I25.10 - Atherosclerotic heart disease of [place] coronary artery without angina pectoris (4) HHD (hypertensive heart disease) Status: Chronic Qualifiers: Heart failure presence: without heart failure Qualified Code(s): I11.9 - Hypertensive heart disease without heart failure Category: Medical Code(s): I11.9 - Hypertensive heart disease without heart failure (5) HTN (hypertension) Status: Chronic Qualifiers: Hypertension type: essential hypertension Category: Medical Code(s): I10 - Essential (primary) hypertension (6) Hyperlipidemia Status: Chronic Qualifiers: Hyperlipidemia type: unspecified Qualified Code(s): E78.5 - Hyperlipidemia, unspecified Category: Medical Code(s): E78.5 - Hyperlipidemia, unspecified (7) Obesity Status: Chronic Qualifiers: Obesity type: due to excess calories Obesity classification: adult class 1 (BMI 30 - 34.9) Serious obesity comorbidity presence: with serious comorbidity Body mass index: BMI 33.0-33.9 Qualified Code(s): E66.09 - Other obesity due to excess calories; Z68.33 - Body mass index [BMI] 33.0-33.9, adult Category: Medical Code(s): E66.9 - Obesity, unspecified (8) Tobacco use Status: Chronic Category: Social Hx Code(s): Z72.0 - Tobacco use - Assessment and plan all Dx Assessment and Plan for all problems:: #Hemoptysis: #COPD exacerbation 56-year-old current smoker greater than [id number] smoking history, history of COPD. Presents hospital complaining of hemoptysis, patient admits basis episode started all of a sudden in the morning of 10/01/2021 and she coughed total of around 22 to 50 cc of blood that eventually stopped by 12 PM. Patient denies any further episodes of hemoptysis since then however she still admits phlegm mixed with blood streaks. Not on antiplatelets or anticoagulants upon reviewing home medications. Patient on long-term oxygen therapy at 2 L, admits recurrent nasal bleeds, however she denied any recent nasal bleeds yesterday. Hemoglobin stable. Appeared to be in mild respiratory distress. On [address] chest reviewed, patient noted to have prior granulomatous disease with calcified lymphadenopathy and calcified right lower lobe lung nodule, likely chronic She also noted to have RUL- Anterior groundglass airspace disease which is of a concern at this point of time. Interval update: Acute respiratory events overnight. Patient continued to notice more wheezing. Mild improvement in respiratory distress. We will follow with charlene
--- NOTE | 2021-10-03 08:41 | HMH.ANESCL ---
[facility] Anesthesia Checklist - Patient Identification Patient Identification: Arm Band - Structural Data Admitted From: Inpatient Planned Operative Procedure/s: Bronch Consent for Planned Operative Procedure(s) Verified: Yes - NPO Status Verified Time NPO: 00:00 - Airway Assessment C-Spine Mobility Assessed: Yes TMJ Mobility Assessed: Yes Dentition: Poor Dentition (Most missing) - Neurological Assessment Level of Consciousness: Awake Hx Seizures: No Numbness or tingling in extremities: No - Anesthesia Plan Anesthesia Risk discussed: Yes Anesthesia Plan: Verified ASA Class: IV Anesthesia Type: General [facility] History I have reviewed the patient's past medical history: Yes Medical History: Reports:: Anxiety, Congestive Heart Failure, Chronic Obstructive Pulmonary Disease (COPD), Coronary Artery Disease, Home Oxygen, Hyperlipidemia, Hypertension Denies:: Cancer, Diabetes Mellitus Type 1, Diabetes Mellitus Type 2, MRSA *Have you ever received a pneumonia vaccine?: Yes *Have you received a flu vaccine this season?: Yes Other Medical History: Reports: Anemia, Arthritis, Other Anesthesia experience/problems:: None Laterality Cases: Bilateral: Tonsillectomy Other Surgeries: Yes: Cancer Surgery (BENEATH L BREAST), Cardiac Catheterization, Tubal Ligation, Other Amputation: No Fractures: No - *Social History Last grade of school completed: Some college Smoking Status: Current every day smoker Tobacco Type: cigarettes # Packs/Day (cigarettes): 1 Alcohol Intake: never Alcohol Intake Frequency:: holidays/special occasions only Substance Use Type: other 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
--- NOTE | 2021-10-03 09:17 | P.PN_ITS ---
Internal Medicine - PN: Subj *Date: 10/03/21 *Time: 09:17 Interval history: Patient continues with pain across her chest and a cough. She states this has not improved. She was not able to rest last night. She was seen by pulmonology yesterday and is going to have a bronchoscopy with biopsy of the lung mass today. Exam Vital signs and Labs for Last 24 Hours: Temp Pulse Resp BP Pulse Ox 97.8 F 97 H 18 177/80 H 94 L 10/03/21 04:48 10/03/21 06:12 10/03/21 04:48 10/03/21 04:48 10/03/21 06:12 I & O for Last 24 hours: Intake & Output 09/30/21 10/01/21 10/02/21 10/03/21 11:59 11:59 11:59 11:59 Intake Total 240 / 240 2230 / 2230 Output Total 350 / 350 Balance 240 / 240 1880 / 1880 Weight 231 lb 7.766 oz 251 lb - Constitutional no acute distress - *Routine Respiratory Exam Present: decreased breath sounds, wheezes (Faint) - *Routine Cardiovascular Exam Present: RRR - *Routine Abdominal Exam Present: soft, normoactive bowel sounds. Absent: tenderness - *Routine Extremities Exam Present: edema (Trace lower extremity edema). Absent: cyanosis, clubbing - *Routine Skin Exam Present: warm. Absent: rash - *Routine Neurological Exam Present: alert, oriented X3 Assessment and Plan (1) Hemoptysis Status: Acute Category: Medical Code(s): R04.2 - Hemoptysis (2) Lung mass Status: Acute Category: Medical Code(s): R91.8 - Other nonspecific abnormal finding of lung field (3) CAD (coronary artery disease) Status: Chronic Qualifiers: Coronary Disease-Associated Artery/Lesion type: [place] artery [place] vs. transplanted heart: [place] heart Associated angina: with unspecified angina Qualified Code(s): I25.119 - Atherosclerotic heart disease of [place] coronary artery with unspecified angina pectoris Category: Medical Code(s): I25.10 - Atherosclerotic heart disease of [place] coronary artery without angina pectoris (4) HHD (hypertensive heart disease) Status: Chronic Qualifiers: Heart failure presence: without heart failure Qualified Code(s): I11.9 - Hypertensive heart disease without heart failure Category: Medical Code(s): I11.9 - Hypertensive heart disease without heart failure (5) HTN (hypertension) Status: Chronic Qualifiers: Hypertension type: essential hypertension Qualified Code(s): I10 - Essential (primary) hypertension Category: Medical Code(s): I10 - Essential (primary) hypertension (6) Hyperlipidemia Status: Chronic Qualifiers: Hyperlipidemia type: unspecified Qualified Code(s): E78.5 - Hyperlipidemia, unspecified Category: Medical Code(s): E78.5 - Hyperlipidemia, unspecified (7) Obesity Status: Chronic Qualifiers: Obesity type: due to excess calories Obesity classification: adult class 1 (BMI 30 - 34.9) Serious obesity comorbidity presence: with serious comorbidity Body mass index: BMI 33.0-33.9 Qualified Code(s): E66.09 - Other obesity due to excess calories; Z68.33 - Body mass index (BMI) 33.0-33.9, adult Category: Medical Code(s): E66.9 - Obesity, unspecified (8) Tobacco use Status: Chronic Category: Social Hx Code(s): Z72.0 - Tobacco use - Assessment and plan all Dx Assessment and Plan for all problems:: Patient is scheduled for bronchoscopy with biopsy of the lung mass today.
[2021-10-03 09:21] LABS: INR 0.93 (0.9-1.1); Prothrombin Time 10.6 seconds (10.1-12.5)
--- NOTE | 2021-10-03 10:37 | XR_ITS ---
FINAL REPORT TECHNIQUE: Fluoroscopy was provided for clinical service during bronchoscopy. CLINICAL HISTORY: BRONCH WITH BIOPSY IN OR FT: 1.9 FINDINGS: A single image demonstrates the bronchoscope in place. IMPRESSION: Fluoroscopy for bronchoscopy. Fluoroscopy time: 1.9 minutes Reviewed, Interpreted and Dictated by Camacho Izaguirre MD Transcribed by PIERRE Ballesteros Authenticated by Camacho Izaguirre MD on 10/06/2021 09:51:55 AM [facility]
--- NOTE | 2021-10-03 10:40 | P.PN_ITS ---
[facility] Anesthesia Record Part I Intake, IV Amount: 600 Estimated blood loss (mL): 5 Urine output (mL): 0 Blood Pressure: 154/83 SaO2: 92 Pulse Rate: 109 Respiratory Rate: 20 Temperature: 98.7 F Patient is:: Drowsy, Oral/Nasal airway Stable to PACU at:: 10:37
--- NOTE | 2021-10-03 10:57 | XR_ITS ---
FINAL REPORT CLINICAL HISTORY: post bronchoscopy COMPARISON: Plain radiographs and CT dated October 01, 2021 FINDINGS: The heart size is normal. The mediastinum is normal. There is seen right upper lobe opacity. The left lung is clear. There are no pleural effusions. There is no pneumothorax. There is no osseous abnormality. IMPRESSION: Worsening right upper lobe opacity may represent pneumonia or hemorrhage. No pneumothorax. Reviewed, Interpreted and Dictated by Colby Kolb III, MD Transcribed by Thien Winkler Authenticated by Colby Kolb III, MD on 10/03/2021 11:21:42 AM [facility]
[2021-10-03 11:27] LABS: ABG Base Excess 0.8 mmol/L (-2.4-2.3); ABG HCO3 27.7 mmhg (22.0-26.0); ABG Oxygen Saturation 86 % (90-100); ABG PH 7.27 mmol/L (7.35-7.45); ABG PO2 54.7 mmhg (80-100); ABG TCO2 29.6 mmhg (23-27)
[2021-10-03 11:29] LABS: Allen's Test Acceptable; Oxygen 30 %; PEEP 10; Source Left Radial; Vent Rate 20
[2021-10-03 11:32] LABS: ABG PCO2 62.2 mmhg (35.0-45.0)
--- NOTE | 2021-10-03 12:04 | SUR.PHASEI ---
1037- pt to pacu. pt at 89-90% 15L simple mask 1045- pt sats dropped to 81-83%, pt color pale and blue. Pt coughing thick secretions mixed with blood. Suction at bedside used. Pt did not tolerate well. Anesthesia notified. Respiratory contacted by phone and duoneb ordered. Chest xray taken at 1057. respiratory remains at bedside. Pt sats 89%. 1055 R. 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 Verbal order from anesthesia to respiratory to begin bi pap. VSS. pt color is improved and a pale pink. 1110- dr allen at bedside. Orders given to respiratory to draw ABGs and give an albuterol treatment. No further orders at this time. MD will notify of any changes to orders once ABG results are back. Pt to remain in PACU at this time. 1124- abg results reported to dr allen per respiratory. pt restless, remains on bi pap-respiratory maintaining. see recorded vss. 1140- spoke to dr allen per phone. Pt stable and clear to be discharged from pacu to inpt room. Attempted to call report to floor nurse. Floor nurse will call back. 1200- respiratory adjusted pt bi pap per MD orders. Pt resting more comfortably. VSS and heart rate and bp have returned to lower rates. see vs in charting. Pt maintaining sats at 93-94% on bipap. Attempted to call nurse again for report. 1215- report given via phone to Dyana Olivera RN. Nurse has no further questions at this time. Will notify respiratory pt is ready to be transferred back to room so that they can monitor bipap settings during transport.
[2021-10-04] VITALS (10 sets, daily range): BP systolic 108–141; BP diastolic 59–89; PULSE 79–93; RESP 16–18; TEMP 36.3–36.7; O2SAT 90–96; BMI 48.2
--- NOTE | 2021-10-04 04:57 | PC.NURSE ---
Patient has rested well this RN's shift and required 1 dose of pain medication. Patient requested to be taken off of BiPAP at the beginning of shift. She has remained on 5LNC and has maintained an oxygen saturation of 90-93%. Patient has been able to get up to the bedside commode with assistance of one. Patient has remained NSR on telemetry.
[2021-10-04 07:47] LABS: Basophils # 0.1 K/mm3 (0-0.2); Basophils % 0.3 % (0.1-2.0); Eosinophils # 0.1 K/mm3 (0.0-0.4); Eosinophils % 0.6 % (0.1-12.0); Hematocrit 38.8 % (37.0-47.0); Lymphocytes # 2.7 K/mm3 (0.7-4.5); Lymphocytes % 17.1 % (10-50); Mean Corpuscular HGB Conc 30.8 g/dL (31.8-35.4); Mean Corpuscular Hemoglobin 27.4 pg (27.0-31.2); Mean Corpuscular Volume 88.7 fl (81-99); Mean Platelet Volume 7.2 fl (7.4-10.4); Monocytes % 6.4 % (1.7-9.3); Neutrophils % 75.5 % (37.0-80.0); Platelet Count 255 K/mm3 (142-424); Red Blood Count 4.38 M/mm3 (4.20-5.40); Red Cell Distribution Width 13.7 % (11.5-17.5); White Blood Count 15.8 K/mm3 (4.8-10.8)
[2021-10-04 07:49] LABS: MANUAL DIFFERENTIAL MANUAL DIFFERENTIAL (MANUAL DIFF)
[2021-10-04 08:09] LABS: Chloride 99 mmol/L (98-107); Potassium 4.1 mmoL/L (3.5-5.1); Sodium 137 mmol/L (136-145)
[2021-10-04 08:12] LABS: Blood Urea Nitrogen 16 mg/dl (7-17); Creatinine Clearance Estimated 71 mL/min (50-200); Estimated Glomerular Filt Rate 103 ml/min (>60); GFR (African American) 125 ML/MIN (>60)
[2021-10-04 08:13] LABS: Anion Gap 5.1 mEq/L (5-15); Calcium 8.1 mg/dl (8.4-10.2); Carbon Dioxide 37 mmol/L (22.0-30.0); Glucose 143 mg/dl (74-100)
--- NOTE | 2021-10-04 09:12 | HMH.ACPN2 ---
Internal Medicine - PN: Subj *Date: 10/04/21 *Time: 09:12 Interval history: This lady seems much more stable. She is on nasal O2 and is not requiring BiPAP. Unfortunately I do not have the bronchoscopy report from pulmonary, nor do I have plans for continued management at this point. I anticipate that I will watch her through the weekend and discharge her on Wednesday morning if she is stable and if she receives permission for discharge from pulmonary. Exam Vital signs and Labs for Last 24 Hours: Temp Pulse Resp BP Pulse Ox 97.8 F 86 17 140/88 94 L 10/04/21 08:00 10/04/21 08:00 10/04/21 08:00 10/04/21 08:00 10/04/21 08:00 Laboratory Results - last 24 hr 10/03/21 09:03: PT 10.6, INR 0.93 10/03/21 11:24: Specimen Source Left radial, O2 % 30, ABG pH 7.27 L, ABG pCO2 62.2 H, ABG pO2 54.7 L, ABG HCO3 27.7 H, ABG Total CO2 29.6 H, ABG O2 Saturation 86 L*, ABG Base Excess 0.8, Mack Test Acceptable, Vent Rate 20, PEEP 10 10/04/21 07:10: WBC 15.8 H D, RBC 4.38, Hgb 12.0 L, Hct 38.8, MCV 88.7, MCH 27.4, MCHC 30.8 L, RDW 13.7, Plt Count 255, MPV 7.2 L, Neut % (Auto) 75.5, Lymph % (Auto) 17.1, Sullivan % (Auto) 6.4, Eos % (Auto) 0.6, Baso % (Auto) 0.3, Neut # (Auto) 12.0 H, Lymph # (Auto) 2.7, Sullivan # (Auto) 1.0, Eos # (Auto) 0.1, Baso # (Auto) 0.1 10/04/21 07:10: Sodium 137, Potassium 4.1, Chloride 99, Carbon Dioxide 37 H, Anion Gap 5.1, BUN 16, Creatinine 0.60, Estimated Creat Clear 71, Estimated GFR 103, Est GFR ( Amer) 125 D, Glucose 143 H, Calcium 8.1 L I & O for Last 24 hours: Intake & Output 10/01/21 10/02/21 10/03/21 10/04/21 11:59 11:59 11:59 11:59 Intake Total 240 / 240 2830 / 2830 454 / 454 Output Total 350 / 350 25 / 25 Balance 240 / 240 2480 / 2480 429 / 429 Weight 231 lb 7.766 oz 251 lb 239 lb 6.4 oz Microbiology Reports for the Last 24 Hours: Microbiology 10/03/21 10:00 Bronchial Washings - Right Upper Lobe Gram Stain - Final - Constitutional no acute distress - *Routine HEENT Exam Head: Present: normocephalic Eye: Present: EOMI, PERRL ENT: Present: mucous membranes moist - *Routine Neck Exam Present: supple. Absent: lymphadenopathy - *Routine Respiratory Exam Present: decreased breath sounds, wheezes - *Routine Cardiovascular Exam Present: RRR - *Routine Abdominal Exam Present: soft, normoactive bowel sounds, obese. Absent: tenderness - *Routine Extremities Exam Present: edema (Trace). Absent: cyanosis, clubbing - *Routine Skin Exam Present: warm. Absent: rash - *Routine Neurological Exam Present: alert, oriented X3, normal speech. Absent: altered mental status - Routine Psychiatric Exam Present: normal affect Assessment and Plan (1) Hemoptysis Status: Acute Category: Medical Code(s): R04.2 - Hemoptysis (2) Lung mass Status: Acute Category: Medical Code(s): R91.8 - Other nonspecific abnormal finding of lung field (3) CAD (coronary artery disease) Status: Chronic Qualifiers: Coronary Disease-Associated Artery/Lesion type: [place] artery [place] vs. transplanted heart: [place] heart Associated angina: with unspecified angina Category: Medical Code(s): I25.10 - Atherosclerotic heart disease of [place] coronary artery without angina pectoris (4) HHD (hypertensive heart disease) Status: Chronic Qualifiers: Heart failure presence: without heart failure Qualified Code(s): I11.9 - Hypertensive heart disease without heart failure Category: Medical Code(s): I11.9 - Hypertensive heart disease without heart failure (5) HTN (hypertension) Status: Chronic Qualifiers: Hypertension type: essential hypertension Category: Medical Code(s): I10 - Essential (primary) hypertension (6) Hyperlipidemia Status: Chronic Qualifiers: Hyperlipidemia type: unspecified Qualified Code(s): E78.5 - Hyperlipidemia, unspecified Category: Medical Code(s): E78.5 - Hyperlipidemia, unspecified (7) Obesity
[2021-10-04 09:42] LABS: Eosinophils % 1 % (0-3); Hypochromasia 2+; Lymphocytes % 17 % (10-50); Monocytes % 5 % (2-9); Neutrophils % 77 % (42-76); Platelet Estimate Normal; Total Cells Counted 100
[2021-10-05] VITALS (16 sets, daily range): BP systolic 116–152; BP diastolic 60–94; PULSE 62–90; RESP 16–20; TEMP 35.9–36.9; O2SAT 92–97; BMI 48.4
--- NOTE | 2021-10-05 04:00 | PC.NURSE ---
PT RESTED MOST OF THE NIGHT, PT STILL ASKING FOR DILAUDID FOR PAIN EVERY 4 HOURS, VSS, NOT OTHER ISSUES NOTED, PT REMAINS ON 02 AT 5L PNC, PT WAS TREATED FOR HEAD LICE YESTERDAY, VSS
--- NOTE | 2021-10-05 07:58 | XR_ITS ---
PROCEDURE INFORMATION: Exam: XR Chest Exam date and time: 10/05/2021 9:00 AM Age: 56 years old Clinical indication: Shortness of breath; Additional info: Follow-up TECHNIQUE: Imaging protocol: XR of the chest. Views: 1 view. COMPARISON: CR XR CHEST PORTABLE 10/03/2021 10:55 AM FINDINGS: Lungs: Marked interval improvement in right upper lobe airspace disease, with residual linear parenchymal density overlying the right mid lung field. Pleural spaces: Mild blunting of the left costophrenic angle. Heart/Mediastinum: No cardiomegaly. Bones/joints: Degenerative change. Calcific tendinitis about the left shoulder. IMPRESSION: Marked interval improvement in right upper lobe airspace disease, with residual linear parenchymal density overlying the right mid lung field.
--- NOTE | 2021-10-05 08:51 | HMH.ITSTN ---
2 view chest was ordered-- however when I went to get patient she was to weak and tired to stand for xrays had to modify to a portable. It was not safe for patient to stand.
[2021-10-05 08:52] LABS: Basophils # 0.1 K/mm3 (0-0.2); Basophils % 0.5 % (0.1-2.0); Eosinophils # 0.4 K/mm3 (0.0-0.4); Eosinophils % 3.2 % (0.1-12.0); Hematocrit 39.6 % (37.0-47.0); Hemoglobin 12.8 g/dL (12.2-16.2); Lymphocytes # 3.4 K/mm3 (0.7-4.5); Lymphocytes % 25.9 % (10-50); Mean Corpuscular HGB Conc 32.4 g/dL (31.8-35.4); Mean Corpuscular Hemoglobin 28.3 pg (27.0-31.2); Mean Corpuscular Volume 87.3 fl (81-99); Monocytes # 0.7 K/mm3 (0.1-1.0); Monocytes % 5.4 % (1.7-9.3); Neutrophils # 8.4 K/mm3 (1.8-7.8); Platelet Count 248 K/mm3 (142-424); Red Blood Count 4.53 M/mm3 (4.20-5.40); Red Cell Distribution Width 13.6 % (11.5-17.5)
[2021-10-05 09:59] LABS: Chloride 97 mmol/L (98-107); Potassium 4.1 mmoL/L (3.5-5.1); Sodium 137 mmol/L (136-145)
[2021-10-05 10:02] LABS: Anion Gap 8.1 mEq/L (5-15); Blood Urea Nitrogen 24 mg/dl (7-17); Calcium 9.5 mg/dl (8.4-10.2); Carbon Dioxide 36 mmol/L (22.0-30.0); Creatinine Clearance Estimated 71 mL/min (50-200); Estimated Glomerular Filt Rate 103 ml/min (>60); GFR (African American) 125 ML/MIN (>60); Glucose 155 mg/dl (74-100)
--- NOTE | 2021-10-05 10:42 | HMH.ACPN2 ---
Internal Medicine - PN: Subj *Date: 10/05/21 *Time: 10:42 Interval history: Clinically she is stable but she continues to complain of chest pain. She takes her Dilaudid frequently as ordered. I am going to change this to every 6 hours. Her breath sounds are decreased with expiratory wheezes. She is in no acute distress. We will see what Dr. Melissa judges tomorrow Exam Vital signs and Labs for Last 24 Hours: Temp Pulse Resp BP Pulse Ox 98.1 F 77 18 125/80 95 10/05/21 07:52 10/05/21 10:18 10/05/21 07:52 10/05/21 07:52 10/05/21 10:18 Laboratory Results - last 24 hr 10/05/21 08:30: WBC 13.0 H, RBC 4.53, Hgb 12.8, Hct 39.6, MCV 87.3, MCH 28.3, MCHC 32.4, RDW 13.6, Plt Count 248, MPV 8.0, Neut % (Auto) 65.0, Lymph % (Auto) 25.9, [place] % (Auto) 5.4, Eos % (Auto) 3.2, Baso % (Auto) 0.5, Neut # (Auto) 8.4 H, Lymph # (Auto) 3.4, [place] # (Auto) 0.7, Eos # (Auto) 0.4, Baso # (Auto) 0.1 10/05/21 08:30: Sodium 137, Potassium 4.1, Chloride 97 L, Carbon Dioxide 36 H, Anion Gap 8.1, BUN 24 H D, Creatinine 0.60, Estimated Creat Clear 71, Estimated GFR 103, Est GFR ( Amer) 125, Glucose 155 H, Calcium 9.5 I & O for Last 24 hours: Intake & Output 10/02/21 10/03/21 10/04/21 10/05/21 11:59 11:59 11:59 11:59 Intake Total 240 / 240 2830 / 2830 934 / 934 2160 / 2160 Output Total 350 / 350 25 / 25 400 / 400 Balance 240 / 240 2480 / 2480 909 / 909 1760 / 1760 Weight 231 lb 7.766 oz 251 lb 239 lb 6.4 oz 240 lb 3.2 oz Microbiology Reports for the Last 24 Hours: Microbiology 10/03/21 10:00 Transbronchial Biopsy - Right Upper Lobe Acid Fast Bacilli Smear - Final 10/03/21 10:00 Bronchial Washings - Right Upper Lobe Acid Fast Bacilli Smear - Final 10/03/21 10:00 Transbronchial Biopsy - Right Upper Lobe Gram Stain - Final 10/03/21 10:00 Transbronchial Biopsy - Right Upper Lobe Surgical Biopsy Culture - Preliminary - Constitutional no acute distress - *Routine HEENT Exam Head: Present: normocephalic Eye: Present: EOMI, PERRL ENT: Present: mucous membranes moist - *Routine Neck Exam Present: supple. Absent: lymphadenopathy - *Routine Respiratory Exam Present: decreased breath sounds, wheezes (Expiratory) - *Routine Cardiovascular Exam Present: RRR - *Routine Abdominal Exam Present: soft, normoactive bowel sounds, obese. Absent: tenderness - *Routine Extremities Exam Absent: cyanosis, clubbing, edema - *Routine Skin Exam Present: warm. Absent: rash - *Routine Neurological Exam Present: alert, oriented X3 Assessment and Plan (1) Hemoptysis Status: Acute Category: Medical Code(s): R04.2 - Hemoptysis (2) Lung mass Status: Acute Category: Medical Code(s): R91.8 - Other nonspecific abnormal finding of lung field (3) CAD (coronary artery disease) Status: Chronic Qualifiers: Coronary Disease-Associated Artery/Lesion type: [place] artery [place] vs. transplanted heart: [place] heart Associated angina: with unspecified angina Category: Medical Code(s): I25.10 - Atherosclerotic heart disease of [place] coronary artery without angina pectoris (4) HHD (hypertensive heart disease) Status: Chronic Qualifiers: Heart failure presence: without heart failure Qualified Code(s): I11.9 - Hypertensive heart disease without heart failure Category: Medical Code(s): I11.9 - Hypertensive heart disease without heart failure (5) HTN (hypertension) Status: Chronic Qualifiers: Hypertension type: essential hypertension Category: Medical Code(s): I10 - Essential (primary) hypertension (6) Hyperlipidemia Status: Chronic Qualifiers: Hyperlipidemia type: unspecified Qualified Code(s): E78.5 - Hyperlipidemia, unspecified Category: Medical Code(s): E78.5 - Hyperlipidemia, unspecified (7) Obesity Status: Chronic Qualifiers: Obesity type: due to excess calories Obesity classification: adult class 1 (BMI 30 - 34.9) Rajni
--- NOTE | 2021-10-05 17:57 | PC.NURSE ---
pt complains of pain off and on. When i administered the dilaudid earlier pt became hypotensive and lethargic for several hours. I contacted Dr. Hernandez regarding pt pain control. New orders received
[2021-10-06] VITALS (7 sets, daily range): BP systolic 124–175; BP diastolic 77–100; PULSE 74–94; RESP 18–21; TEMP 36.6–37.1; O2SAT 90–97; BMI 47.9
--- NOTE | 2021-10-06 06:00 | XR_ITS ---
PROCEDURE INFORMATION: Exam: XR Chest Exam date and time: 10/06/2021 5:40 AM Age: 56 years old Clinical indication: Cough and shortness of breath; Additional info: Pnm TECHNIQUE: Imaging protocol: XR of the chest. Views: 1 view. COMPARISON: CR XR CHEST PORTABLE 10/05/2021 9:00 AM FINDINGS: Lungs: Atelectasis in the right mid lung field. The lungs are otherwise clear. Pleural spaces: Unremarkable. No pleural effusion. No pneumothorax. Heart/Mediastinum: The heart is moderately enlarged. Bones/joints: Unremarkable. There is no acute fracture present. IMPRESSION: 1. Atelectasis in the right mid lung field. This is unchanged. 2. Moderate cardiomegaly.
--- NOTE | 2021-10-06 09:22 | HMH.PULMPN ---
Internal Medicine - PN: Subj *Date: 10/06/21 *Time: 11:31 Interval history: No acute respiratory events over the weekend. Exam - Constitutional Constitutional:: Present: no acute distress, comfortable - HENMT Exam HENMT: Present: normocephalic - Eye Exam Eyes:: Present: normal appearance both eyes and related structures - Neck Exam Neck:: Present: normal visual inspection - Respiratory Exam Respiratory:: Present: able to speak in complete sentences, no respiratory distress. Absent: crackles, wheezing - Cardiovascular Exam Cardiac:: Present: S1, S2 - GI Exam GI:: Present: soft - Skin Exam Skin: Present: warm, no rash - Neurological Exam Neurological: Present: alert, awake - Extremities Exam Extremities: Present: no cyanosis, no clubbing Assessment and Plan (1) Hemoptysis Status: Acute Category: Medical Code(s): R04.2 - Hemoptysis (2) Lung mass Status: Acute Category: Medical Code(s): R91.8 - Other nonspecific abnormal finding of lung field (3) CAD (coronary artery disease) Status: Chronic Qualifiers: Coronary Disease-Associated Artery/Lesion type: [place] artery [place] vs. transplanted heart: [place] heart Associated angina: with unspecified angina Category: Medical Code(s): I25.10 - Atherosclerotic heart disease of [place] coronary artery without angina pectoris (4) HHD (hypertensive heart disease) Status: Chronic Qualifiers: Heart failure presence: without heart failure Qualified Code(s): I11.9 - Hypertensive heart disease without heart failure Category: Medical Code(s): I11.9 - Hypertensive heart disease without heart failure (5) HTN (hypertension) Status: Chronic Qualifiers: Hypertension type: essential hypertension Category: Medical Code(s): I10 - Essential (primary) hypertension (6) Hyperlipidemia Status: Chronic Qualifiers: Hyperlipidemia type: unspecified Qualified Code(s): E78.5 - Hyperlipidemia, unspecified Category: Medical Code(s): E78.5 - Hyperlipidemia, unspecified (7) Obesity Status: Chronic Qualifiers: Obesity type: due to excess calories Obesity classification: adult class 1 (BMI 30 - 34.9) Serious obesity comorbidity presence: with serious comorbidity Body mass index: BMI 33.0-33.9 Qualified Code(s): E66.09 - Other obesity due to excess calories; Z68.33 - Body mass index [BMI] 33.0-33.9, adult Category: Medical Code(s): E66.9 - Obesity, unspecified (8) Tobacco use Status: Chronic Category: Social Hx Code(s): Z72.0 - Tobacco use - Assessment and plan all Dx Assessment and Plan for all problems:: #Hemoptysis: #COPD exacerbation 56-year-old current smoker greater than [id number]-[id number] smoking history, history of COPD. Presents hospital complaining of hemoptysis, patient admits basis episode started all of a sudden in the morning of 10/01/2021 and she coughed total of around 22 to 50 cc of blood that eventually stopped by 12 PM. Patient denies any further episodes of hemoptysis since then however she still admits phlegm mixed with blood streaks. Not on antiplatelets or anticoagulants upon reviewing home medications. Patient on long-term oxygen therapy at 2 L, admits recurrent nasal bleeds, however she denied any recent nasal bleeds yesterday. Hemoglobin stable. Appeared to be in mild respiratory distress. On [address] chest reviewed, patient noted to have prior granulomatous disease with calcified lymphadenopathy and calcified right lower lobe lung nodule, likely chronic She also noted to have RUL- Anterior [place] airspace disease which is of a concern at this point of time. She underwent bronchoscopy with BAL and transbronchial biopsy, she experienced significant bronchospasm needing BiPAP postprocedure eventually weaned to nasal cannula. Interval update: No further episodes hemoptysis. Had pain and pain medications managed by primary team. BAL infectious work-up negativ
--- NOTE | 2021-10-06 09:25 | HMH.ACPN2 ---
Internal Medicine - PN: Subj *Date: 10/06/21 *Time: 09:25 Interval history: Ms. aguirre is clinically stable except she is still coughing up blood. She is not in distress. Again we need direction from pulmonary regarding her disposition. On auscultation she has some bilateral rhonchi and wheezes still present. She has no leg edema. Exam Vital signs and Labs for Last 24 Hours: Temp Pulse Resp BP Pulse Ox 97.9 F 83 20 169/100 H 97 10/06/21 08:00 10/06/21 08:00 10/06/21 08:00 10/06/21 08:00 10/06/21 08:00 Laboratory Results - last 24 hr 10/05/21 08:30: Sodium 137, Potassium 4.1, Chloride 97 L, Carbon Dioxide 36 H, Anion Gap 8.1, BUN 24 H D, Creatinine 0.60, Estimated Creat Clear 71, Estimated GFR 103, Est GFR ( Amer) 125, Glucose 155 H, Calcium 9.5 I & O for Last 24 hours: Intake & Output 10/03/21 10/04/21 10/05/21 10/06/21 11:59 11:59 11:59 11:59 Intake Total 2830 / 2830 934 / 934 2160 / 2160 2609 / 2609 Output Total 350 / 350 400 / 400 1999 / 1999 Balance 2480 / 2480 909 / 909 1760 / 1760 609 / 609 Weight 251 lb 239 lb 6.4 oz 240 lb 3.2 oz 238 lb 1.588 oz Microbiology Reports for the Last 24 Hours: Microbiology 10/05/21 18:19 Sputum - Expectorated Sputum Gram Stain - Final 10/05/21 18:19 Sputum - Expectorated Sputum GLORY Preparation - Final 10/03/21 10:00 Transbronchial Biopsy - Right Upper Lobe Acid Fast Bacilli Smear - Final 10/03/21 10:00 Bronchial Washings - Right Upper Lobe Acid Fast Bacilli Smear - Final 10/03/21 10:00 Transbronchial Biopsy - Right Upper Lobe Gram Stain - Final 10/03/21 10:00 Transbronchial Biopsy - Right Upper Lobe Surgical Biopsy Culture - Preliminary - Constitutional no acute distress - *Routine HEENT Exam Head: Present: normocephalic Eye: Present: EOMI, PERRL ENT: Present: mucous membranes moist - *Routine Neck Exam Present: supple. Absent: lymphadenopathy - *Routine Respiratory Exam Present: rhonchi, wheezes - *Routine Cardiovascular Exam Present: RRR - *Routine Abdominal Exam Present: soft, normoactive bowel sounds, obese. Absent: tenderness - *Routine Extremities Exam Absent: cyanosis, clubbing, edema - *Routine Skin Exam Present: warm. Absent: rash - *Routine Neurological Exam Present: alert, oriented X3 Assessment and Plan (1) Hemoptysis Status: Acute Category: Medical Code(s): R04.2 - Hemoptysis (2) Lung mass Status: Acute Category: Medical Code(s): R91.8 - Other nonspecific abnormal finding of lung field (3) CAD (coronary artery disease) Status: Chronic Qualifiers: Coronary Disease-Associated Artery/Lesion type: [place] artery [place] vs. transplanted heart: [place] heart Associated angina: with unspecified angina Category: Medical Code(s): I25.10 - Atherosclerotic heart disease of [place] coronary artery without angina pectoris (4) HHD (hypertensive heart disease) Status: Chronic Qualifiers: Heart failure presence: without heart failure Qualified Code(s): I11.9 - Hypertensive heart disease without heart failure Category: Medical Code(s): I11.9 - Hypertensive heart disease without heart failure (5) HTN (hypertension) Status: Chronic Qualifiers: Hypertension type: essential hypertension Category: Medical Code(s): I10 - Essential (primary) hypertension (6) Hyperlipidemia Status: Chronic Qualifiers: Hyperlipidemia type: unspecified Qualified Code(s): E78.5 - Hyperlipidemia, unspecified Category: Medical Code(s): E78.5 - Hyperlipidemia, unspecified (7) Obesity Status: Chronic Qualifiers: Obesity type: due to excess calories Obesity classification: adult class 1 (BMI 30 - 34.9) Serious obesity comorbidity presence: with serious comorbidity Body mass index: BMI 33.0-33.9 Qualified Code(s): E66.09 - Other obesity due to excess calories; Z68.33 - Body mass index [BMI] 33.0-33.9, adult Category: Medic
--- NOTE | 2021-10-06 09:52 | P.PN_ITS ---
[facility] Anesthesia Record Part II Discharge Time: 12:25 Destination: Medical Surgical Department PACU nurse assessment reviewed?: Yes Patient Condition:: Good Anesthesia Complications:: None Swallowing reflex intact?: Yes Cyanosis?: No Blood Pressure: 124/77 Pulse Rate: 93 Temperature: 98.7 F Mental Status: Alert & Oriented Pain level:: 0 Nausea and/or vomitting:: None Intake, IV Amount: 0 Comments:: Pt became hypoxemic in PACU. Facemask O2 attempted but saturations remained in the 80's. Bipap initiated and 02 saturations became more stable in the 90's.
--- NOTE | 2021-10-06 12:09 | PC.NURSE ---
RESP CARE NOTE: Pt instructed on incentive spirometry usage and Trelegy MDI usage.
--- NOTE | 2021-10-06 13:40 | HMH.PHAINT ---
I spoke with the patient today about her medication list. Went over the new medications that were being sent in for the patient, medications she was to continue, change in directions of one of her home medications, and the medications he was to stop taking. When we spoke the patient did not have any questions or concerns. The patient was provided a copy of the medication list and informed on where she could pickle cutter the prescriptions being sent in for her.
--- NOTE | 2021-10-06 15:12 | PC.NURSE ---
PT IS BEING DISCHARGED HOME. O2 SATURATION HAS MAINTAINED 90-93% ON 2 L NC. LUNG SOUNDS HAVE SCATTERED WHEEZES/RHONCHI. PT WAS MEDICATED PER MAR THIS SHIFT FOR BACK DISCOMFORT.
--- NOTE | 2021-10-07 13:32 | CARE MANAGER ---
Spoke with patient during post-discharge phone interview and he states that patient is fine and he will pick her meds up today. No needs noted.
--- NOTE | 2021-10-07 22:17 | HMH.DCSUM ---
General - General Admission date:: 10/01/21 Discharge date: 10/06/21 HPI HPI: Patient states she woke up this morning and coughed up a large amount of blood. Since then she has a pain across her anterior chest that feels like an ache, increases with deep breath. Increased shortness of breath today. She has had some aching in her right leg for a month. No recent hospitalizations, surgery, or travel. No history of PE, DVT. She has never had hemoptysis before. She is not on any anticoagulants. She has COPD and is oxygen dependent, 2 L, at home. She is a smoker. (above as per ER physician) The patient had a chest x-ray which showed nothing acute. She then had a chest CTA which showed a 2.6 cm noncalcified irregular pulmonary nodule surrounding the right upper lobe arterial branch. Radiology felt this most likely corresponded to the source of the hemoptysis. There were additional scattered regions of nodular opacities anteriorly in the left lower lobe. Findings were suspicious for malignancy although an infectious etiology cannot be excluded. She was admitted and pulmonology was consulted. This morning, her main complaint is of severe chest pain. She states the morphine is not helping and requests Dilaudid. Hospital Course Hospital Course: The patient was admitted. Her cardiac enzymes were all normal. Pulmonology was consulted for her hemoptysis and lung mass. The community planner saw her in consultation and scheduled a bronchoscopy with biopsy. He felt she should be continued on duo nebs and also initiated Levaquin 750 mg. She did continue to have pain across her chest. She had the bronchoscopy and had a repeat chest x-ray post bronchoscopy that showed worsening right upper lobe opacity representing either pneumonia or hemorrhage. There was no pneumothorax. During the bronchoscopy, she experienced significant bronchospasm and needed BiPAP. She was then weaned to nasal oxygen. She was kept for monitoring through the weekend. She had another chest x-ray on 10/05/2021 which showed marked interval improvement in the right upper lobe airspace disease with residual density overlying the right midlung field. She continued to complain of chest pain and took Dilaudid frequently as ordered. The Dilaudid was changed to every 6 hours. Her gabapentin was increased to 800 mg 3 times a day. She was seen in follow-up by pulmonology who wanted to initiate the patient on Trelegy and felt she could be discharged on duo nebs, Trelegy, and Levaquin. He wanted her to follow-up with him for bronchoscopy and transbronchial biopsy results. She was stable to be discharged. Objective Vital signs: Temp Pulse Resp BP Pulse Ox 98.7 F 92 H 21 175/86 H 90 L 10/06/21 12:00 10/06/21 13:30 10/06/21 12:00 10/06/21 12:00 10/06/21 13:30 Narrative: - Constitutional no acute distress - *Routine HEENT Exam Head: Present: normocephalic Eye: Present: EOMI, PERRL ENT: Present: mucous membranes moist - *Routine Neck Exam Present: supple. Absent: lymphadenopathy - *Routine Respiratory Exam Present: CTA bilaterally - *Routine Cardiovascular Exam Present: RRR - *Routine Abdominal Exam Present: soft, normoactive bowel sounds. Absent: tenderness - *Routine Rectal Exam Rectal:: deferred - *Routine Genitalia Exam Genitalia:: deferred - *Routine Extremities Exam Absent: cyanosis, clubbing, edema - *Routine Skin Exam Present: warm. Absent: rash - *Routine Neurological Exam Present: alert, oriented X3 Results Labs on day of discharge: Preliminary micro results at discharge 10/03/21 10:00 Surgical Biopsy Culture - Preliminary Transbronchial Biopsy - Right Upper Lobe 10/05/21 18:19 Sputum Culture - Preliminary Sputum - Expectorated Sputum DS: Diagnosis - Discharge Diagnosis (1) Hemoptysis Status: Acute (2) Lung mass Status: Acute (3) CAD (coronary artery disease) Status: Chr
--- NOTE | 2021-10-13 13:19 | HMH.BRONCH ---
- Procedure: Date: 10/03/21 Patient Date of :: 1965 Procedure Performed:: Bronchoscopy airway examination and transbronchial biopsy Indications:: Hemoptysis Performing Provider:: Clark Melissa MD Referring Provider:: Dr. Saravia Sedation:: General anesthesia Procedure:: Bronchoscopy airway examination and transbronchial biopsy: Clean diagnostic bronchoscopy was advanced the ET tube and airways were examined up to subsegmental bronchi. No active evidence of hemoptysis noted. No old blood clots noted. Diffuse airway inflammation with airway thickening noted predominantly in the right upper lobe along with right lower lobe bronchi. Left lung bronchi appeared grossly normal. BAL was performed in the right upper lobe with a total of instillation of 60 cc with a return of 30 cc back. BAL fluid were sent for bacterial fungal AFB stain culture along with cytopathology with special request to look for AFB and fungal elements in the cytopathology specimen. Transbronchial biopsy was also performed the right upper lobe total of 7 biopsies performed, 2 biopsies were sent in normal saline for bacterial fungal AFB stain culture and 5 biopsies were sent for cytopathologic examination. Diffuse bronchospasm was noted throughout the procedure needing albuterol treatments Patient tolerated the procedure well. Patient experienced worsening respiratory distress and increased wheezing postprocedure and was initiated noninvasive ventilation therapy. Findings:: Please see the procedure note Recommendations:: Follow with final results. Complications:: No acute complications. Patient noted to have worsening respiratory distress needing noninvasive ventilator therapy postprocedure Estimated blood obtained (mL): 5
== END 2021-10-06 15:14 | disposition home or self-care (01) ==
LOC: ER 18:45 → 2ND 23:42
PROVIDERS: Internal Medicine Pulmonary Disease; Admitting Provider Family Medicine; Emergency Provider Emergency Medicine; PCP Family Medicine; Visit Provider Family Medicine
PROC: (CPT 31624; principal; 2021-10-03 11:00)
DX: R07.9 Chest pain, unspecified (principal); R91.8 Other nonspecific abnormal finding of lung field; Z20.822 Contact with and (suspected) exposure to COVID-19; Z99.81 Dependence on supplemental oxygen; J44.9 Chronic obstructive pulmonary disease, unspecified; R04.2 Hemoptysis; I25.10 Atherosclerotic heart disease of native coronary artery without angina pectoris; I10 Essential (primary) hypertension; Z79.899 Other long term (current) drug therapy; Z68.42 Body mass index [BMI] 45.0-49.9, adult; E66.9 Obesity, unspecified
CPT/HCPCS: 31624; 31628; 96365; G0378; 36415; 71045; 71046; 71275; 76000; 80048; 80053; 82803; 84484; 85007; 85025; 85610; 87070; 87077; 87102; 87116; 87186; 87205; 87206; 87220; 88305; 88312; 89051; 93005; 94640; 94660; 94760; 94761; 96375; 96376; 99285; C9803; J1956; J2405; Q9967; U0003; U0005

== ENCOUNTER 2022-01-26 16:59 | Inpatient (IN) | payer MEDICARE, SELFPAY ==
[2022-01-26 16:45] VITALS: BP 145/109; PULSE 112; RESP 22; TEMP 37.1; O2SAT 96; BMI 46.4
--- NOTE | 2022-01-26 16:52 | XR_ITS ---
PROCEDURE INFORMATION: Exam: XR Chest Exam date and time: 01/26/2022 5:11 PM Age: 56 years old Clinical indication: Cough TECHNIQUE: Imaging protocol: Radiologic exam of the chest. Views: 1 view. Portable AP upright exam 5:13 p.m. COMPARISON: CR XR CHEST PORTABLE 10/06/2021 5:40 AM FINDINGS: Tubes, catheters and devices: Overlying monitor car operator electrodes, and overlying clothing artifacts. Lungs: No acute pulmonary findings. No pulmonary consolidation. Lung volumes within normal limits. Pulmonary vessels do not appear congested. Pleural spaces: Unremarkable. No significant pleural effusion. No pneumothorax. Heart/Mediastinum: Cardiac silhouette remains mildly enlarged, accentuated by portable AP technique. Bones/joints: There are spinal degenerative changes, with multilevel disc narrrowing and spondylosis. IMPRESSION: 1. No acute findings. 2. Non emergency and chronic findings as above.
--- NOTE | 2022-01-26 17:04 | PC.NURSE ---
Rebel STACK RN ATTEMPTED TO PLACE IV X 3 UNSUCCESSFUL. WILL ATTEMPT US GUIDED IV
--- NOTE | 2022-01-26 17:04 | PC.NURSE ---
attempted an IV x3 with no success. Charge will attempt via US
--- NOTE | 2022-01-26 17:07 | PC.NURSE ---
Manager Drive Gay at bs attempting IV
[2022-01-26 17:08] LABS: Influenza A, PCR Not Detected (NotDetected); Influenza B, PCR Not Detected (NotDetected)
--- NOTE | 2022-01-26 17:12 | PC.NURSE ---
respiratory called for duoneb order
--- NOTE | 2022-01-26 17:21 | PC.NURSE ---
contacted lab to draw blood on pt, IV line started per spenser bass unable to obtain blood specimens.
--- NOTE | 2022-01-26 17:30 | PC.NURSE ---
AFTER 2 IV'S NO SUCCESS WITH BLOOD LAB CALLED
--- NOTE | 2022-01-26 17:30 | HMH.EDSOB ---
ED Disposition Clinical Impression: COPD with acute exacerbation, COVID-19, Acute on chronic respiratory failure with hypoxia and hypercapnia Disposition: Admitted As Inpatient Condition on Discharge: Fair Referrals: Provider,Referral, [Primary Care Provider] - - Critical Care Critical Care Time: No Attestation: On 01/26/22, the high probability of a clinically significant, sudden or life threatening deterioration of the following system(s) required my full and direct attention, intervention and personal management. The time I documented below is in addition to time spent performing reported procedures but includes the following listed in this critical care notation. Medical Decision Making - Medical Records Medical records reviewed: Yes: I reviewed the patient's medical records. - Connor Inquiry Pt receiving controlled substance: No Vital Signs: 01/26/22 16:45 01/26/22 17:51 Temperature 98.8 F Temperature Source Oral Pulse Rate 85 Pulse Rate [Radial] 112 H Respiratory Rate 22 Blood Pressure [Right Arm] 145/109 H Blood Pressure Mean [Right Arm] 121 Blood Pressure Source [Right Arm] Automatic Cuff Blood Pressure Position [Right Arm] Sitting 02 Sat by Pulse Oximetry 96 Oxygen Delivery Method Nasal Cannula Oxygen Flow Rate (LPM) 4 - Lab Data Lab Results 01/26/22 16:55: SARS-CoV-2 (PCR) Detected A, Influenza A Untype (PCR) Not detected, Influenza Type B (PCR) Not detected 01/26/22 17:31: Specimen Source Right radial, O2 % 3lpm, ABG pH 7.40, ABG pCO2 46.9 H, ABG pO2 67.8 L, ABG HCO3 28.7 H, ABG Total CO2 30.1 H, ABG O2 Saturation 94, ABG Base Excess 3.9 H, Mack Test Acceptable 01/26/22 17:55: WBC 7.6, RBC 4.67, Hgb 11.9 L, Hct 37.2, MCV 79.6 L, MCH 25.4 L, MCHC 31.9, RDW 16.4, Plt Count 271, MPV 8.1, Neut % (Auto) 72.1, Lymph % (Auto) 14.1, Sharkey % (Auto) 7.6, Eos % (Auto) 5.1, Baso % (Auto) 1.1, Neut # (Auto) 5.5, Lymph # (Auto) 1.1, Sharkey # (Auto) 0.6, Eos # (Auto) 0.4, Baso # (Auto) 0.1 01/26/22 17:55: Sodium 135 L, Potassium 4.0, Chloride 102, Carbon Dioxide 28, Anion Gap 9.0, BUN 12, Creatinine 0.50 L, Estimated Creat Clear 85, Estimated GFR 127, Est GFR ( Amer) 154, Glucose 104 H, Calcium 8.9, Total Bilirubin 0.4, AST 74 H, ALT 48, Alkaline Phosphatase 131 H, Troponin I < 0.01, NT-Pro-B Natriuret Pep 67.9, Total Protein 6.4, Albumin 3.7, Globulin 2.7, Albumin/Globulin Ratio 1.4 Result diagrams: 01/26/22 17:55 01/26/22 17:55 Orders (Tests/Meds): ED MEDICATIONS Generic Name Dose Route Start Last Admin Trade Name Freq PRN Reason Stop Dose Admin Sodium Chloride 1,000 mls @ 999 mls/hr 01/26/22 17:00 01/26/22 17:20 Sod Chlor 0.9% 1000ml Bag IV 01/26/22 18:00 999 mls/hr .Q1H1M ANA Administration Sodium Chloride 10 ml 01/26/22 17:24 Sodium Chloride 0.9% 10ml Flush Syringe IV 02/25/22 17:23 NEEDED PRN Maintain IV Site Discontinued Medications Generic Name Dose Route Start Last Admin Trade Name Freq PRN Reason Stop Dose Admin Albuterol/Ipratropium 3 ml 01/26/22 16:52 01/26/22 17:51 Ipratropium/Albuterol 3 Ml Neb IH 01/26/22 16:53 3 ml ONCE ONE Administration Dexamethasone Sodium Phosphate 10 mg 01/26/22 16:52 01/26/22 17:20 Dexamethasone 4mg/Ml 5ml Mdv IV 01/26/22 16:53 10 mg ONCE ONE Administration Diphenhydramine HCl 25 mg 01/26/22 17:30 01/26/22 18:23 Diphenhydramine 50mg/Ml Vial IV 01/26/22 17:31 25 mg ONCE ONE Administration Morphine Sulfate 4 mg 01/26/22 19:29 Morphine 4mg/Ml Syringe IV 01/26/22 19:30 ONCE ONE ORDERS Category Date Time Status CTA Chest [CT angio chest PE protocol] Stat Cat Scan 01/26/22 19:29 Ordered Consult to Pulmonology [CONS] Stat Cons 01/26/22 19:32 Ordered Troponin I Q3H Lab 01/26/22 20:00 Ordered Troponin I Q3H Lab 01/26/22 23:00 Ordered - Radiology Data #1 Image(s): Chest Image Reviewed: Yes I reviewed the patient's radiology results, Yes I hav
[2022-01-26 17:36] LABS: Coronavirus 19, PCR Detected (NotDetected)
[2022-01-26 17:51] VITALS: PULSE 115; PULSE 85
[2022-01-26 18:09] LABS: Basophils # 0.1 K/mm3 (0-0.2); Basophils % 1.1 % (0.1-2.0); Eosinophils # 0.4 K/mm3 (0.0-0.4); Eosinophils % 5.1 % (0.1-12.0); Hematocrit 37.2 % (37.0-47.0); Hemoglobin 11.9 g/dL (12.2-16.2); Lymphocytes # 1.1 K/mm3 (0.7-4.5); Lymphocytes % 14.1 % (10-50); Mean Corpuscular HGB Conc 31.9 g/dL (31.8-35.4); Mean Corpuscular Hemoglobin 25.4 pg (27.0-31.2); Mean Corpuscular Volume 79.6 fl (81-99); Mean Platelet Volume 8.1 fl (7.4-10.4); Monocytes # 0.6 K/mm3 (0.1-1.0); Monocytes % 7.6 % (1.7-9.3); Neutrophils # 5.5 K/mm3 (1.8-7.8); Neutrophils % 72.1 % (37.0-80.0); Platelet Count 271 K/mm3 (142-424); Red Blood Count 4.67 M/mm3 (4.20-5.40); Red Cell Distribution Width 16.4 % (11.5-17.5); White Blood Count 7.6 K/mm3 (4.8-10.8)
--- NOTE | 2022-01-26 18:10 | ECG_ITS ---
APPROVED REPORT Exam: Resting ECG HR:114 bpm ECG Measurements Heart Rate 114 AXES LA 144 P 51 QRSd 74 QRS 69 QT 331 T 90 QTc 398 Conclusion SINUS TACHYCARDIA NONSPECIFIC ST & T-WAVE ABNORMALITY ABNORMAL RHYTHM ECG UNCONFIRMED REPORT Electronically signed by : Baljinder Roach MD 01/27/2022 13:51:54
[2022-01-26 18:15] LABS: ABG Base Excess 3.9 mmol/L (-2.4-2.3); ABG HCO3 28.7 mmhg (22.0-26.0); ABG Oxygen Saturation 94 % (90-100); ABG PCO2 46.9 mmhg (35.0-45.0); ABG PO2 67.8 mmhg (80-100); ABG TCO2 30.1 mmhg (23-27); Allen's Test Acceptable; Oxygen 3LPM %; Source Right Radial
--- NOTE | 2022-01-26 18:32 | PC.NURSE ---
PT REQUESTING WATER, OK'D PER ED MD. WATER PROVIDED AT THIS TIME. NO FURTHER NEEDS
[2022-01-26 19:00] LABS: Chloride 102 mmol/L (98-107); Sodium 135 mmol/L (136-145)
[2022-01-26 19:03] LABS: Alanine Aminotransferase 48 U/L (12-78); Albumin Level 3.7 g/dl (3.5-5.0); Albumin/Globulin Ratio 1.4 (1.1-1.8); Alkaline Phosphatase 131 U/L (38-126); Aspartate Amino Transferase 74 U/L (14-36); Bilirubin,Total 0.4 mg/dl (0.2-1.3); Blood Urea Nitrogen 12 mg/dl (7-17); Calcium 8.9 mg/dl (8.4-10.2); Carbon Dioxide 28 mmol/L (22.0-30.0); Creatinine Clearance Estimated 85 mL/min (50-200); Estimated Glomerular Filt Rate 127 ml/min (>60); GFR (African American) 154 ML/MIN (>60); Globulin 2.7 g/dL (1.3-3.2); Glucose 104 mg/dl (74-100); Total Protein,Serum 6.4 g/dl (6.3-8.2)
[2022-01-26 19:12] LABS: NT Pro Brain Natriuretic Pep. 67.9 pg/mL (0-125)
[2022-01-26 19:16] LABS: Troponin I < 0.01 ng/ml (0.00-0.034)
--- NOTE | 2022-01-26 19:29 | CT_ITS ---
PROCEDURE INFORMATION: Exam: CTA Chest With Contrast Exam date and time: 01/26/2022 7:52 PM Age: 56 years old Clinical indication: Shortness of breath; Additional info: SOB TECHNIQUE: Imaging protocol: Computed tomographic angiography of the chest with contrast. 3D rendering (Not supervised by radiologist): MIP and/or 3D reconstructed images were created by the technologist. Radiation optimization: All CT scans at this facility use at least one of these dose optimization techniques: automated exposure control; mA and/or kV adjustment per patient size (includes targeted exams where dose is matched to clinical indication); or iterative reconstruction. Contrast material: ISOVUE; Contrast volume: 70 ml; Contrast route: INTRAVENOUS (IV); COMPARISON: CT ANGIO CHEST PE PROTOCOL 10/01/2021 4:30 PM FINDINGS: Pulmonary arteries: No definite pulmonary emboli. Resolution is suboptimal due to large body habitus. No large, central or segmental pulmonary emboli. Aorta: No thoracic aortic aneurysm. No evidence of aortic dissection in the chest. Calcified atherosclerotic plaques. Lungs: A previously reported 2.6 cm ground-glass nodule in the anterior right upper lobe has resolved since the previous CT from 10/01/2021, arguing in favor of infectious/inflammatory etiology. There is a large partially calcified granuloma in the right lower lobe which is unchanged. No consolidation. Mild subsegmental atelectasis in the posterior and lower lungs. Pleural spaces: Unremarkable. No pneumothorax. No pleural effusion. Heart: The heart is not enlarged. Multiple coronary artery calcifications are present. No significant pericardial effusion. Heart RV/LV ratio: RV/LV ratio approximate 0.8, within normal limits. There is no reflux of contrast into the IVC or hepatic veins to suggest acute right heart strain. Lymph nodes: Calcified mediastinal and right hilar lymph nodes. Small noncalcified nodes. No significantly enlarged noncalcified nodes, by short axis criteria. Spleen: Calcified splenic granulomas. Bones/joints: There are spinal degenerative changes, with multilevel disc narrrowing and spondylosis. Soft tissues: There are no soft tissue masses or fluid collections. IMPRESSION: 1. No acute findings. 2. No acute pulmonary emboli. 3. A previously reported right upper lobe nodule on CTA of 10/01/2021 has resolved in the interval, suggesting this was infectious/inflammatory in nature. Chronic calcified right pulmonary granuloma. No new mass or consolidation. 4. Coronary artery disease. 5. Additional nonemergency and chronic findings as above.
--- NOTE | 2022-01-26 19:43 | PC.NURSE ---
PATIENT ADMITTED TO [facility] WITH DX OF COPD WITH EXACERBATION AND COVID, TO SERVICE OF DR. WOO.
[2022-01-26 19:50] VITALS: BMI 49.6
[2022-01-26 20:25] VITALS: BP 137/98; PULSE 97; RESP 22; TEMP 37.1; O2SAT 95
--- NOTE | 2022-01-26 20:59 | PC.NURSE ---
PT ARRIVED TO FLOOR VIA W/C @ 2058
[2022-01-27] VITALS: BP 156/76; PULSE 98; RESP 19; TEMP 37; O2SAT 93
[2022-01-27 04:00] VITALS: BP 154/92; PULSE 73; RESP 16; TEMP 36.5; O2SAT 94
--- NOTE | 2022-01-27 04:42 | PC.NURSE ---
Patient rested well t/o night. Pt reported generalized pain x2, admin meds per MAR with relief. Pt remains on 4L NC O2 93-94%. Lung sounds bilaterally inspiratory and expiratory wheezing present. Pt states she normally wears 2L O2 NC at home. Pt ambulates to the bathroom independently. Bed alarm on for safety.
[2022-01-27 06:52] LABS: Basophils # 0.1 K/mm3 (0-0.2); Basophils % 1.4 % (0.1-2.0); Eosinophils # 0.1 K/mm3 (0.0-0.4); Hematocrit 41.8 % (37.0-47.0); Lymphocytes # 0.7 K/mm3 (0.7-4.5); Lymphocytes % 10.7 % (10-50); Mean Corpuscular HGB Conc 31.3 g/dL (31.8-35.4); Mean Corpuscular Hemoglobin 26.2 pg (27.0-31.2); Mean Corpuscular Volume 83.6 fl (81-99); Mean Platelet Volume 8.8 fl (7.4-10.4); Monocytes # 0.3 K/mm3 (0.1-1.0); Monocytes % 3.9 % (1.7-9.3); Neutrophils # 5.8 K/mm3 (1.8-7.8); Platelet Count 268 K/mm3 (142-424); Red Blood Count 5.01 M/mm3 (4.20-5.40); Red Cell Distribution Width 16.4 % (11.5-17.5)
[2022-01-27 06:53] LABS: Hemoglobin 13.1 g/dL (12.2-16.2)
--- NOTE | 2022-01-27 07:19 | P.CONPHA_ITS ---
[facility] Pharmacy VTE Monitoring - Patient Demographics Admission date: 01/26/22 Report Date: 01/27/22 Time: 07:19 Allergies/Adverse Reactions: Patient Allergies erythromycin base [ERYTHROMYCIN BASE] Allergy (Unknown, Verified 03/18/21 10:40) I-RASH Penicillins [PENICILLINS] Allergy (Unknown, Verified 03/18/21 10:40) DIFFICULTY BREATHING Height: 1.5 m Weight: 111.72 kg Patient Problems: Current Active Problems COPD with acute exacerbation (Acute) COVID-19 (Acute) Acute on chronic respiratory failure with hypoxia and hypercapnia (Acute) - VTE Risk Labs: VTE Related Lab Results Hgb 13.1 g/dL (12.2-16.2) D 01/27/22 06:17 Hct 41.8 % (37.0-47.0) 01/27/22 06:17 Plt Count 268 K/mm3 (142-424) 01/27/22 06:17 BUN 12 mg/dl (7-17) 01/26/22 17:55 Creatinine 0.50 mg/dl (0.52-1.04) L 01/26/22 17:55 Estimated Creat Clear 85 mL/min (50-200) 01/26/22 17:55 VTE Score: 7 VTE Risk Level: Moderate Risk - Prophylaxis VTE Prophylaxis Ordered?: Yes Types of VTE Prophylaxis: TEDS Knee High, Pharmacological Location of Applied Device: Bilateral Lower Extremeties Pharmacologic Type: Enoxaparin
[2022-01-27 07:20] LABS: Chloride 101 mmol/L (98-107); Potassium 4.4 mmoL/L (3.5-5.1); Sodium 136 mmol/L (136-145)
[2022-01-27 07:23] LABS: Anion Gap 6.4 mEq/L (5-15); Blood Urea Nitrogen 13 mg/dl (7-17); Calcium 9.1 mg/dl (8.4-10.2); Carbon Dioxide 33 mmol/L (22.0-30.0); Creatinine Clearance Estimated 85 mL/min (50-200); Estimated Glomerular Filt Rate 127 ml/min (>60); GFR (African American) 154 ML/MIN (>60); Glucose 160 mg/dl (74-100)
[2022-01-27 08:00] VITALS: BP 156/66; PULSE 88; RESP 25; TEMP 36.4; O2SAT 90
--- NOTE | 2022-01-27 08:58 | HMH.HP ---
*Admission Date: 01/26/22 *Chief complaint: Shortness of breath *History of present illness: 56-year-old female patient presented to the [facility] emergency department with reports of increasing shortness of breath and cough for 2 days. She also reports hives to scalp, under chin, and abdomen. She does have history of tobacco use with COPD and is on 2 L per nasal cannula at home. She reports some change in yellow productive sputum. She denies fever/chills/body aches, nausea/vomiting/diarrhea, or abdominal pain. Oxygen saturation in the emergency department 92% on 4 L per nasal cannula and she tested positive for COVID-19. 01/26/2022 chest x-ray: Lungs: No acute pulmonary findings. No pulmonary consolidation. Lung volumes within normal limits. Pulmonary vessels do not appear congested. Pleural spaces: Unremarkable. No significant pleural effusion. No pneumothorax. Heart/Mediastinum: Cardiac silhouette remains mildly enlarged, accentuated by portable AP technique. Bones/joints: There are spinal degenerative changes, with multilevel disc narrrowing and spondylosis. IMPRESSION: 1. No acute findings. 2. Non emergency and chronic findings as above. Electronically signed by Anastasiya Khalil MD 01/26/2022 chest CTA: FINDINGS: Pulmonary arteries: No definite pulmonary emboli. Resolution is suboptimal due to large body habitus. No large, central or segmental pulmonary emboli. Aorta: No thoracic aortic aneurysm. No evidence of aortic dissection in the chest. Calcified atherosclerotic plaques. Lungs: A previously reported 2.6 cm ground-glass nodule in the anterior right upper lobe has resolved since the previous CT from 10/01/2021, arguing in favor of infectious/inflammatory etiology. There is a large partially calcified granuloma in the right lower lobe which is unchanged. No consolidation. Mild subsegmental atelectasis in the posterior and lower lungs. Pleural spaces: Unremarkable. No pneumothorax. No pleural effusion. Heart: The heart is not enlarged. Multiple coronary artery calcifications are present. No significant pericardial effusion. Heart RV/LV ratio: RV/LV ratio approximate 0.8, within normal limits. There is no reflux of contrast into the IVC or hepatic veins to suggest acute right heart strain. Lymph nodes: Calcified mediastinal and right hilar lymph nodes. Small noncalcified nodes. No significantly enlarged noncalcified nodes, by short axis criteria. Spleen: Calcified splenic granulomas. Bones/joints: There are spinal degenerative changes, with multilevel disc narrrowing and spondylosis. Soft tissues: There are no soft tissue masses or fluid collections. IMPRESSION: 1. No acute findings. 2. No acute pulmonary emboli. 3. A previously reported right upper lobe nodule on CTA of 10/01/2021 has resolved in the interval, suggesting this was infectious/inflammatory in nature. Chronic calcified right pulmonary granuloma. No new mass or consolidation. 4. Coronary artery disease. 5. Additional nonemergency and chronic findings as above. Electronically signed by Anastasiya Khalil MD [facility] History I have reviewed the patient's past medical history: Yes Medical History: Reports:: Anxiety, Congestive Heart Failure, Chronic Obstructive Pulmonary Disease (COPD), Coronary Artery Disease, Home Oxygen, Hyperlipidemia, Hypertension, Palpitations Denies:: Cancer, Diabetes Mellitus Type 1, Diabetes Mellitus Type 2, MRSA, Seizures *Have you ever received a pneumonia vaccine?: Yes *Have you received a flu vaccine this season?: Yes Other Medical History: Reports: Anemia, Arthritis, Other Laterality Cases: Bilateral: Tonsillectomy Other Surgeries: Yes: Cancer Surgery (BENEATH L BREAST), Cardiac Catheterization, Tubal Ligation, Other Amputation: No Fractures: No - *Social History Smoking Status: Former smoker Tobacco Type: cigarettes # Packs/Day (cigarettes): 1 Alcohol Intake: never Alcohol Intake
--- NOTE | 2022-01-27 09:11 | HMH.PHAINT ---
MEDICATION RECONCILIATION COMPLETED ON PATIENT USING EXTERNAL FILL HISTORY FROM PHARMACY. -MILAD MILLER, CHRISTOD
--- NOTE | 2022-01-27 09:20 | HMH.PULMCON ---
*Admission Date: 01/26/22 *Reason for consult:: Acute on chronic hypoxic respiratory failure, COVID-19 pneumonia *History of present illness: 56-year-old female history of COPD on long-term oxygen therapy 2 L presented to the hospital with worsening respiratory distress followed by cough and productive phlegm gradually getting worse for the last 1 week. Denies any known sick contacts. Have not not received vaccination for COVID-19 pneumonia. [facility] History Medical History: Reports:: Anxiety, Congestive Heart Failure, Chronic Obstructive Pulmonary Disease (COPD), Coronary Artery Disease, Home Oxygen, Hyperlipidemia, Hypertension, Palpitations Denies:: Cancer, Diabetes Mellitus Type 1, Diabetes Mellitus Type 2, MRSA, Seizures *Have you ever received a pneumonia vaccine?: Yes *Have you received a flu vaccine this season?: Yes Other Medical History: Reports: Anemia, Arthritis, Other Laterality Cases: Bilateral: Tonsillectomy Other Surgeries: Yes: Cancer Surgery (BENEATH L BREAST), Cardiac Catheterization, Tubal Ligation, Other Amputation: No Fractures: No - *Social History Smoking Status: Former smoker Tobacco Type: cigarettes # Packs/Day (cigarettes): 1 Alcohol Intake: never Alcohol Intake Frequency:: holidays/special occasions only Substance Use Type: other *Occupational Status:: disabled Housing: house Household Members: spouse *Travel in the last 8 weeks: None - Psychiatric History Pschychiatric History:: Reports:: Anxiety Family Hx:: Cancer, Heart Attack ROS - Cons Reports body ache(s), Reports chills, Reports fatigue, Reports lack of energy - Eyes Reports blurry vision, Denies change in vision - ENT Denies bleeding gums, Denies difficulty swallowing - Card Reports shortness of breath, Reports shortness of breath with activity, Reports leg swelling - Resp Respiratory: Reports shortness of breath, Reports chest congestion, Reports cough, Reports cough with sputum production - GI Gastrointestingal: Reports: nausea. Denies: abdominal pain - [place] Musculoskeletal: Reports back pain, Reports muscle weakness - Psych Denies thoughts of hurting/killing others, Denies thoughts of hurting/killing yourself Meds Home Medications Medication Instructions Recorded Confirmed Type Omeprazole [Omeprazole 40mg 40 mg PO DAILY 06/14/17 01/26/22 History Capsule] trazodone 50 mg tablet 75 mg PO HS 02/17/19 01/27/22 History Atorvastatin Calcium [Lipitor 40mg 40 mg PO HS 12/29/19 01/26/22 History Tab] Albuterol Sulfate [Proair 2 puffs IH Q4HP PRN 12/30/19 01/26/22 History Digihaler] Furosemide [Furosemide 80mg Tab] 80 mg PO DAILY 02/12/20 01/26/22 History Fluoxetine HCl [Prozac 20mg 80 mg PO DAILY 02/13/20 01/26/22 History Capsule] spironolactone 50 mg tablet 50 mg PO DAILY #30 tab 02/20/20 01/26/22 Rx losartan 100 mg tablet 100 mg PO DAILY #30 tab 04/18/20 01/26/22 Rx Butalbital/Aspirin/Caffeine 1 each PO Q6HP PRN 01/06/21 01/26/22 History [Heslrnoyiy-Culauzu-Pet[place]asc Tb] Cyclobenzaprine HCl 5 mg PO TIDP PRN 01/06/21 01/26/22 History [Cyclobenzaprine 5mg Tab*] Ipratropium/Albuterol Sulfate 3 ml IH QIDP PRN 01/06/21 01/26/22 History [Duoneb 3mL neb] Bisoprolol Fumarate [Bisoprolol 5 mg PO BID 10/02/21 01/27/22 History 5mg Tablet] hydrOXYzine HCL [Hydroxyzine HCl] 25 mg PO TIDP PRN 10/02/21 01/26/22 History Amlodipine Besylate [Norvasc 2.5mg 2.5 mg PO DAILY 01/27/22 01/27/22 History tablet] Gabapentin [Neurontin 800mg Tab] 800 mg PO BID 01/27/22 01/27/22 History Loratadine [Claritin 10mg 10 mg PO DAILY 01/27/22 01/27/22 History Tablet] Umeclidinium [place] [Incruse 1 puff IH DAILY 01/27/22 01/27/22 History Ellipta] risperiDONE [Risperdal] 1 mg PO DAILY 01/27/22 01/27/22 History Allergies Allergy/AdvReac Type Severity Reaction Status Date / Time erythromycin base Allergy Unknown I-RASH Verified 03/18/21 10:40 [ERYTHROMYCIN BASE] Penicillins [PENICILLINS]
--- NOTE | 2022-01-27 10:09 | PC.NURSE ---
Rounded on pt, cleaned and straightened room. Pt resting, no needs voiced at this time.
[2022-01-27 11:15] LABS: C-Reactive Protein 57.1 mg/L (0-4); D-Dimer 0.75 ug/mL (0.0-0.5)
[2022-01-27 12:00] VITALS: BP 154/88; PULSE 92; RESP 22; TEMP 36.8; O2SAT 91
--- NOTE | 2022-01-27 12:06 | PC.NURSE ---
Addendum entered by Pia Pulliam RN 01/27/22 12:10: also to add patient did mention she had been having hives at home. upon further discussion patient states this has been something shes had for multiple years. patient does not currently have any hives noted. wrote this on white board as a reminder to bring up to md for patient. she is encouraged to ring out with any concerns or needs. call light within reach. Original Note: two iv sticks done without ultrasound, and two done with ultrasound. 20 gauge in r upper arm was successful. during this time patient stated she had just had a shower, educated on importance of daily baths, also assisted patient to bathroom twice. patient had just gotten lasix. removed old iv in l forearm. patient states no concerns or questions currently.. no needs voiced at this time.
[2022-01-27 13:56] VITALS: BMI 49.3
--- NOTE | 2022-01-27 14:51 | PC.NURSE ---
Patient complains of generalized pain everywhere on body. Patient states her pain is a 9 out of ten on most pain assessments despite patient calmly sitting in chair. IV morphine given for pain with some relief noted. German Chung notified of patient requests for Dilaudid during rounds, no new orders placed. VS stable. Patient oxygen increased to 5LNC and iv lasix given with good output noted.
--- NOTE | 2022-01-27 15:03 | PC.NURSE ---
RESP CARE NOTE: RN informed of MDI in lock drawer for patient use. [place] slip request also noted.
[2022-01-27 16:00] VITALS: BP 144/89; PULSE 87; RESP 20; TEMP 36.8; O2SAT 95
[2022-01-27 20:00] VITALS: BP 167/95; PULSE 91; RESP 19; TEMP 36.5; O2SAT 93
[2022-01-28] VITALS (11 sets, daily range): BP systolic 92–121; BP diastolic 51–72; PULSE 65–83; RESP 16–20; TEMP 36.4–37.1; O2SAT 93–100; BMI 50.3
--- NOTE | 2022-01-28 05:41 | PC.NURSE ---
Pt has rested well throughout shift. Pt voiced generalized pain x1, medicated per AUG. Pt remains on 4L NC with O2 93-96%. Pt can ambulate independently to bathroom to void. Lung sounds bilaterally inspiratory and expiratory wheezing present.
[2022-01-28 06:08] LABS: Basophils # 0.1 K/mm3 (0-0.2); Eosinophils # 0.1 K/mm3 (0.0-0.4); Eosinophils % 1.5 % (0.1-12.0); Hematocrit 39.8 % (37.0-47.0); Hemoglobin 12.2 g/dL (12.2-16.2); Lymphocytes # 2.1 K/mm3 (0.7-4.5); Lymphocytes % 22.6 % (10-50); Mean Corpuscular HGB Conc 30.6 g/dL (31.8-35.4); Mean Corpuscular Hemoglobin 25.2 pg (27.0-31.2); Mean Corpuscular Volume 82.4 fl (81-99); Mean Platelet Volume 7.7 fl (7.4-10.4); Monocytes # 0.8 K/mm3 (0.1-1.0); Monocytes % 9.1 % (1.7-9.3); Neutrophils % 65.9 % (37.0-80.0); Platelet Count 281 K/mm3 (142-424); Red Blood Count 4.83 M/mm3 (4.20-5.40); Red Cell Distribution Width 16.5 % (11.5-17.5); White Blood Count 9.2 K/mm3 (4.8-10.8)
[2022-01-28 06:12] LABS: Chloride 98 mmol/L (98-107)
[2022-01-28 06:13] LABS: Potassium 3.3 mmoL/L (3.5-5.1); Sodium 139 mmol/L (136-145)
[2022-01-28 06:15] LABS: Alanine Aminotransferase 44 U/L (12-78); Alkaline Phosphatase 130 U/L (38-126); Anion Gap 8.3 mEq/L (5-15); Aspartate Amino Transferase 42 U/L (14-36); Blood Urea Nitrogen 24 mg/dl (7-17); Carbon Dioxide 36 mmol/L (22.0-30.0); Creatinine Clearance Estimated 47 mL/min (50-200); Estimated Glomerular Filt Rate 65 ml/min (>60); GFR (African American) 78 ML/MIN (>60)
[2022-01-28 06:16] LABS: Albumin Level 3.7 g/dl (3.5-5.0); Albumin/Globulin Ratio 1.3 (1.1-1.8); Bilirubin,Total < 0.1 mg/dl (0.2-1.3); Calcium 8.7 mg/dl (8.4-10.2); Globulin 2.9 g/dL (1.3-3.2); Glucose 154 mg/dl (74-100); Total Protein,Serum 6.6 g/dl (6.3-8.2)
--- NOTE | 2022-01-28 08:51 | HMH.ACPN2 ---
Internal Medicine - PN: Subj *Date: 01/28/22 *Time: 12:44 Exam Vital signs and Labs for Last 24 Hours: Temp Pulse Resp BP Pulse Ox 97.6 F 66 16 105/51 L 94 L 01/28/22 07:35 01/28/22 07:35 01/28/22 07:35 01/28/22 07:35 01/28/22 08:07 Laboratory Results - last 24 hr 01/27/22 10:55: C-Reactive Protein 57.1 H 01/27/22 10:55: D-Dimer 0.75 H 01/28/22 05:48: Sodium 139, Potassium 3.3 L D, Chloride 98, Carbon Dioxide 36 H, Anion Gap 8.3, BUN 24 H D, Creatinine 0.90 D, Estimated Creat Clear 47, Estimated GFR 65, Est GFR ( Amer) 78 D, Glucose 154 H, Calcium 8.7, Total Bilirubin < 0.1 L, AST 42 H D, ALT 44, Alkaline Phosphatase 130 H, Total Protein 6.6, Albumin 3.7, Globulin 2.9, Albumin/Globulin Ratio 1.3 01/28/22 05:48: WBC 9.2 D, RBC 4.83, Hgb 12.2, Hct 39.8, MCV 82.4, MCH 25.2 L, MCHC 30.6 L, RDW 16.5, Plt Count 281, MPV 7.7, Neut % (Auto) 65.9, Lymph % (Auto) 22.6, [place] % (Auto) 9.1, Eos % (Auto) 1.5, Baso % (Auto) 1.0, Neut # (Auto) 6.0, Lymph # (Auto) 2.1, [place] # (Auto) 0.8, Eos # (Auto) 0.1, Baso # (Auto) 0.1 I & O for Last 24 hours: Intake & Output 01/25/22 01/26/22 01/27/22 01/28/22 23:59 23:59 23:59 23:59 Intake Total 1380 / 1380 120 / 120 Output Total 1300 / 1300 120 / 120 Balance 80 / 80 0 / 0 Weight 246 lb 4.8 oz 244 lb 11.41 oz 250 lb - Constitutional mild distress, obese, chronically ill appearing - *Routine HEENT Exam Head: Present: normocephalic Eye: Present: EOMI ENT: Present: mucous membranes moist - *Routine Neck Exam Present: trachea midline. Absent: tracheal deviation - *Routine Respiratory Exam Present: wheezes, crackles - *Routine Cardiovascular Exam Present: RRR - *Routine Abdominal Exam Present: soft, normoactive bowel sounds. Absent: tenderness, firm - *Routine Extremities Exam Present: edema, full ROM, pulses intact. Absent: cyanosis, clubbing, calf tenderness - *Routine Skin Exam Present: dry, warm. Absent: intact, cyanosis, erythema - *Routine Neurological Exam Present: alert, oriented X3, moving all extremities. Absent: motor deficit - Routine Psychiatric Exam Present: normal affect, normal thought process. Absent: auditory hallucinations Assessment and Plan (1) Acute exacerbation of chronic obstructive airways disease Status: Acute Category: Medical Code(s): J44.1 - Chronic obstructive pulmonary disease with (acute) exacerbation (2) Tobacco use Status: Chronic Category: Social Hx Code(s): Z72.0 - Tobacco use (3) Anxiety Status: Acute Category: Medical Code(s): F41.9 - Anxiety disorder, unspecified (4) Pneumonia due to COVID-19 virus Status: Acute Category: Medical Code(s): U07.1 - COVID-19; J12.82 - Pneumonia due to coronavirus disease 2019 (5) Acute on chronic respiratory failure with hypoxia and hypercapnia Status: Acute Category: Medical Code(s): J96.21 - Acute and chronic respiratory failure with hypoxia; J96.22 - Acute and chronic respiratory failure with hypercapnia - Assessment and plan all Dx Assessment and Plan for all problems:: Rounded with Dr. Kimball, all orders per Dr. Kimball: 1. Pulmonology following 2. Wean O2 as tolerated
--- NOTE | 2022-01-28 09:31 | HMH.PULMPN ---
Internal Medicine - PN: Subj *Date: 01/28/22 *Time: 11:00 Interval history: No acute respiratory vents overnight patient continued to complain of symptoms of cough and shortness of breath and diffuse body aches. Exam - Constitutional Constitutional:: Absent: no acute distress, comfortable - HENMT Exam HENMT: Present: normocephalic, atraumatic - Eye Exam Eyes:: Present: normal appearance both eyes and related structures - Neck Exam Neck:: Present: normal visual inspection, thyroid normal - Respiratory Exam Respiratory:: Present: able to speak in complete sentences, respiratory distress, crackles, wheezing - Cardiovascular Exam Cardiac:: Present: S1, S2. Absent: chest pain - GI Exam GI:: Present: soft, normoactive bowel sounds, obese - Skin Exam Skin: Present: warm, no rash - Neurological Exam Neurological: Present: alert, awake, normal cognition - Extremities Exam Extremities: Present: no cyanosis, no clubbing, edema Assessment and Plan - Assessment and plan all Dx Assessment and Plan for all problems:: #Acute on chronic hypoxic respiratory failure: #COVID-19 pneumonia: 56-year-old female greater than [id number] smoking history. History of COPD. On triple inhaler therapy along with long-term oxygen therapy. Most recent hospital was from October where she admitted for hemoptysis with bronchoscopy with no acute infiltrate at that time eventually discharged. He was treated for COPD exacerbation and pneumonia with levofloxacin on that admission. CTA reviewed, no evidence of pulmonary embolism. No dense consolidation noted. Mild lung base opacities noted. Still examination bibasilar crackles and worsening lower extremity swelling Labs labs personally reviewed, no evidence of leukocytosis, neutrophilic predominance noted. COVID-19 serology positive. Interval update: No significant improvement in patient respiratory status. Add levofloxacin. Creatinine remained on 4 L nasal cannula. D-dimer mildly elevated 0.75. CRP at 57.1. Continue to receive diuresis. received IV Lasix yesterday. Lower extremity edema improved from yesterday. Plan: -Continue nasal cannula oxygen supplementation to maintain O2 saturation goal of 90% and above. Currently on 4 L nasal cannula. Wean as tolerated. - Awake proning protocol. - Continue remdesivir x 5 days OR untill Discharge - Continue dexamethasone x5 days OR untill Discharge - Add Levofloxacin 750 mg every 48 hours x5 days - Continue Trelegy inhaler along with albuterol every 6 hours scheduled and duo nebs PRN - Recommend chemical prophylactic anticoagulation and GI ulcer prophylaxis. #Thank you for involving pulmonary in this patient care. We will continue to follow.
--- NOTE | 2022-01-28 13:30 | PC.NURSE ---
PT COULD NOT TOLERATE POTASSIUM INFUSION. ATTEMPTED TO DECREASE RATE OF INFUSION BUT PT STILL COULD NOT TOLERATE. CONTACTED PHARM WHO WILL CHANGE ORDER TO INCLUDE LIDOCAINE IN POTASSIUM INFUSION.
--- NOTE | 2022-01-28 14:10 | PC.NURSE ---
rounded on patient who is up to chair. no questions or concerns. retrieved items requested by patient. encouraged her to ring with any concerns or wuestions.
--- NOTE | 2022-01-28 15:52 | PC.NURSE ---
SPOKE WITH LAVERNE REGARDING PTS B/P. MORPHINE TO BE DC TO PREPARE PT FOR HOME. TO ORDER NORCO.
--- NOTE | 2022-01-28 18:18 | PC.NURSE ---
PT HAS HAD PRESCRIBED MORPHINE Q4 HRS T/O SHIFT, RATING PAIN 10/10 EACH TIME IN NO APPARENT STRESS, SITTING UP TO CHAIR, WALKING AROUND ROOM, ON THE PHONE WITH FAMILY. ALERT X4. MORPHINE HAS SINCE BEEN DC, NORCO ORDERED. ZOFRAN GIVEN IN THE AM, NO COMPLAINTS SINCE THEN. BILAT WHEEZING, O2 ON 4L NC. CB WITHIN REACH
[2022-01-29 04:00] VITALS: BP 114/68; PULSE 70; RESP 18; TEMP 36.6; O2SAT 98
--- NOTE | 2022-01-29 04:42 | PC.NURSE ---
Pt c/o pain in shoulders/back 2x t/o shift. [place] 5mg administered per MAR, pt states no relief. MD fashion designer notified. 800mg Ibuprofen po ONCE read back, verified, and carried out. Pt has not voiced any c/o pain since administration. Pt has rested well t/o night. Pt titrated down to 3 L nc, tolerating well with sats >90%. Call light within reach.
[2022-01-29 05:00] VITALS: BMI 50.5
--- NOTE | 2022-01-29 06:00 | XR_ITS ---
PROCEDURE INFORMATION: Exam: XR Chest Exam date and time: 01/29/2022 5:40 AM Age: 56 years old Clinical indication: Condition or disease; Lung condition and disease; Pneumonia; Other: Covid; Shortness of breath; Additional info: SOjulieta Donid TECHNIQUE: Imaging protocol: Radiologic exam of the chest. Views: 1 view. COMPARISON: CR XR CHEST PORTABLE 01/26/2022 5:11 PM FINDINGS: Lungs: Clear. No consolidation. Pleural spaces: No pleural effusion. No pneumothorax. Heart/Mediastinum: Unremarkable. No cardiomegaly. Bones/joints: Unremarkable. IMPRESSION: No acute findings.
[2022-01-29 06:55] LABS: Basophils # 0.1 K/mm3 (0-0.2); Basophils % 0.5 % (0.1-2.0); Eosinophils # 0.1 K/mm3 (0.0-0.4); Eosinophils % 0.8 % (0.1-12.0); Hematocrit 40.5 % (37.0-47.0); Hemoglobin 12.1 g/dL (12.2-16.2); Lymphocytes % 21.8 % (10-50); Mean Corpuscular HGB Conc 29.8 g/dL (31.8-35.4); Mean Corpuscular Hemoglobin 25.3 pg (27.0-31.2); Mean Corpuscular Volume 84.7 fl (81-99); Mean Platelet Volume 7.9 fl (7.4-10.4); Monocytes # 0.7 K/mm3 (0.1-1.0); Monocytes % 7.7 % (1.7-9.3); Neutrophils # 6.2 K/mm3 (1.8-7.8); Neutrophils % 69.2 % (37.0-80.0); Platelet Count 221 K/mm3 (142-424); Red Blood Count 4.79 M/mm3 (4.20-5.40); Red Cell Distribution Width 16.4 % (11.5-17.5)
[2022-01-29 06:59] LABS: Chloride 102 mmol/L (98-107); Potassium 3.7 mmoL/L (3.5-5.1); Sodium 140 mmol/L (136-145)
[2022-01-29 07:02] LABS: Alanine Aminotransferase 42 U/L (12-78); Albumin Level 3.3 g/dl (3.5-5.0); Albumin/Globulin Ratio 1.3 (1.1-1.8); Alkaline Phosphatase 108 U/L (38-126); Anion Gap 5.7 mEq/L (5-15); Aspartate Amino Transferase 35 U/L (14-36); Blood Urea Nitrogen 28 mg/dl (7-17); Calcium 8.1 mg/dl (8.4-10.2); Carbon Dioxide 36 mmol/L (22.0-30.0); Creatinine Clearance Estimated 53 mL/min (50-200); Estimated Glomerular Filt Rate 74 ml/min (>60); GFR (African American) 89 ML/MIN (>60); Globulin 2.6 g/dL (1.3-3.2); Glucose 163 mg/dl (74-100); Total Protein,Serum 5.9 g/dl (6.3-8.2)
[2022-01-29 07:03] LABS: Bilirubin,Total < 0.1 mg/dl (0.2-1.3)
[2022-01-29 08:00] VITALS: BP 148/81; PULSE 67; RESP 16; TEMP 36.7; O2SAT 96
[2022-01-29 09:52] VITALS: O2SAT 85
--- NOTE | 2022-01-29 09:55 | PC.NURSE ---
RESP CARE NOTE: Room air oxygen saturation was at 85%. Oxygen placed back on patient at 2 lpm nasal cannula. SPO2 increased to 92% at 2 lpm nasal cannula.
--- NOTE | 2022-01-29 10:22 | P.PN_ITS ---
Internal Medicine - PN: Subj *Date: 01/29/22 *Time: 10:22 Interval history: No acute respiratory events overnight. Patient admits continued improvement in her respiratory symptoms. Complains of diffuse body aches Exam - Constitutional Constitutional:: Present: no acute distress, comfortable - HENMT Exam HENMT: Present: normocephalic, atraumatic - Eye Exam Eyes:: Present: normal appearance both eyes and related structures, eyelids normal - Neck Exam Neck:: Present: normal visual inspection, thyroid normal - Respiratory Exam Respiratory:: Present: able to speak in complete sentences, no respiratory distress. Absent: wheezing - Cardiovascular Exam Cardiac:: Present: S1, S2. Absent: chest pain - GI Exam GI:: Present: soft, no hepatosplenomegaly - Skin Exam Skin: Present: warm, no rash - Neurological Exam Neurological: Present: alert, awake, normal cognition - Extremities Exam Extremities: Present: no cyanosis, no clubbing, no edema Assessment and Plan (1) Acute exacerbation of chronic obstructive airways disease Status: Acute Category: Medical Code(s): J44.1 - Chronic obstructive pulmonary disease with (acute) exacerbation (2) Tobacco use Status: Chronic Category: Social Hx Code(s): Z72.0 - Tobacco use (3) Anxiety Status: Acute Category: Medical Code(s): F41.9 - Anxiety disorder, unspecified (4) Pneumonia due to COVID-19 virus Status: Acute Category: Medical Code(s): U07.1 - COVID-19; J12.82 - Pneumonia due to coronavirus disease 2019 (5) Acute on chronic respiratory failure with hypoxia and hypercapnia Status: Acute Category: Medical Code(s): J96.21 - Acute and chronic respiratory failure with hypoxia; J96.22 - Acute and chronic respiratory failure with hypercapnia - Assessment and plan all Dx Assessment and Plan for all problems:: #Acute on chronic hypoxic respiratory failure: #COVID-19 pneumonia: 56-year-old female greater than [id number] smoking history. History of COPD. On triple inhaler therapy along with long-term oxygen therapy. Most recent hospital was from October where she admitted for hemoptysis with bronchoscopy with no acute infiltrate at that time eventually discharged. He was treated for COPD exacerbation and pneumonia with levofloxacin on that admission. CTA reviewed, no evidence of pulmonary embolism. No dense consolidation noted. Mild lung base opacities noted. Still examination bibasilar crackles and worsening lower extremity swelling Labs labs personally reviewed, no evidence of leukocytosis, neutrophilic predominance noted. COVID-19 serology positive. D-dimer mildly elevated 0.75. CRP at 57.1. Given patient's severe COVID-19 pneumonia, she was initiated on remdesivir dexamethasone along with levofloxacin and also received diuresis with eventual improvement in her respiratory status Interval update: Improvement in her respiratory status. Weaned to 2 L nasal cannula. Saturations maintained at 90% and above. Chest clear to auscultate Plan: -Continue nasal cannula oxygen supplementation to maintain O2 saturation goal of 90% and above. Currently on 2 L nasal cannula. - Continue remdesivir x 5 days OR untill Discharge - Continue dexamethasone x5 days OR untill Discharge - Levofloxacin 750 mg every 48 hours x5 days - Continue Trelegy inhaler along with albuterol duo nebs every 6 hours on as- needed basis - Recommend chemical prophylactic anticoagulation and GI ulcer prophylaxis. #Thank you for involving pulmonary in this patient care. Follow patient in pulmonary clinic in 2 weeks
--- NOTE | 2022-01-29 11:42 | HMH.DCSUM ---
General - General Admission date:: 01/26/22 Discharge date: 01/29/22 HPI HPI: 56-year-old female patient presented to the [facility] emergency department with reports of increasing shortness of breath and cough for 2 days. She also reports hives to scalp, under chin, and abdomen. She does have history of tobacco use with COPD and is on 2 L per nasal cannula at home. She reports some change in yellow productive sputum. She denies fever/chills/body aches, nausea/vomiting/diarrhea, or abdominal pain. Oxygen saturation in the emergency department 92% on 4 L per nasal cannula and she tested positive for COVID-19. Hospital Course Hospital Course: 56-year-old female patient presented to the [facility] emergency department with reports of increasing shortness of breath and cough for 2 days. She also reports hives to scalp, under chin, and abdomen. She does have history of tobacco use with COPD and is on 2 L per nasal cannula at home. She reports some change in yellow productive sputum. She denies fever/chills/body aches, nausea/vomiting/diarrhea, or abdominal pain. Oxygen saturation in the emergency department 92% on 4 L per nasal cannula and she tested positive for COVID-19. 01/26/22 CXR: Lungs: No acute pulmonary findings. No pulmonary consolidation. Lung volumes within normal limits. Pulmonary vessels do not appear congested. Pleural spaces: Unremarkable. No significant pleural effusion. No pneumothorax. Heart/Mediastinum: Cardiac silhouette remains mildly enlarged, accentuated by portable AP technique. Bones/joints: There are spinal degenerative changes, with multilevel disc narrrowing and spondylosis. IMPRESSION: 1. No acute findings. 2. Non emergency and chronic findings as above. Electronically signed by Anastasiya Khalil MD 01/26/22 Chest CTA: FINDINGS: Pulmonary arteries: No definite pulmonary emboli. Resolution is suboptimal due to large body habitus. No large, central or segmental pulmonary emboli. Aorta: No thoracic aortic aneurysm. No evidence of aortic dissection in the chest. Calcified atherosclerotic plaques. Lungs: A previously reported 2.6 cm ground-glass nodule in the anterior right upper lobe has resolved since the previous CT from 10/01/2021, arguing in favor of infectious/inflammatory etiology. There is a large partially calcified granuloma in the right lower lobe which is unchanged. No consolidation. Mild subsegmental atelectasis in the posterior and lower lungs. Pleural spaces: Unremarkable. No pneumothorax. No pleural effusion. Heart: The heart is not enlarged. Multiple coronary artery calcifications are present. No significant pericardial effusion. Heart RV/LV ratio: RV/LV ratio approximate 0.8, within normal limits. There is no reflux of contrast into the IVC or hepatic veins to suggest acute right heart strain. Lymph nodes: Calcified mediastinal and right hilar lymph nodes. Small noncalcified nodes. No significantly enlarged noncalcified nodes, by short axis criteria. Spleen: Calcified splenic granulomas. Bones/joints: There are spinal degenerative changes, with multilevel disc narrrowing and spondylosis. Soft tissues: There are no soft tissue masses or fluid collections. IMPRESSION: 1. No acute findings. 2. No acute pulmonary emboli. 3. A previously reported right upper lobe nodule on CTA of 10/01/2021 has resolved in the interval, suggesting this was infectious/inflammatory in nature. Chronic calcified right pulmonary granuloma. No new mass or consolidation. 4. Coronary artery disease. 5. Additional nonemergency and chronic findings as above. Electronically signed by Anastasiya Khalil MD Pulmonology has seen and recommends: Assessment and Plan for all problems:: #Acute on chronic hypoxic respiratory failure: #COVID-19 pneumonia: 56-year-old female greater than 61-[id number] smoking history. History of COPD. On triple
[2022-01-29 12:00] VITALS: BP 119/67; PULSE 84; RESP 24; TEMP 36.6; O2SAT 97
--- NOTE | 2022-01-29 13:31 | PC.NURSE ---
discharge update: pt is waiting on her son to arrive to [facility] to take her home
--- NOTE | 2022-01-29 14:00 | PC.NURSE ---
arrived to [facility] to transport pt home
--- NOTE | 2022-02-02 14:40 | CARE MANAGER ---
Spoke with Archie, patient's spouse r/t post discharge status. He states that Mrs. Webb is doing well and was able to pick remover and start new medications that were prescribed. Patient has no known needs at this time.
== END 2022-01-29 14:18 | disposition home or self-care (01) | DRG 177 ==
LOC: ER 19:44 → 2ND 20:31
PROVIDERS: Internal Medicine Pulmonary Disease; Nurse Practitioner Family; Admitting Provider Family Medicine; Emergency Provider Emergency Medicine; Visit Provider Family Medicine
DX: U07.1 COVID-19 (principal); J12.82 Pneumonia due to coronavirus disease 2019; J96.21 Acute and chronic respiratory failure with hypoxia; J96.22 Acute and chronic respiratory failure with hypercapnia; J44.9 Chronic obstructive pulmonary disease, unspecified; F17.210 Nicotine dependence, cigarettes, uncomplicated; Z99.81 Dependence on supplemental oxygen; F41.9 Anxiety disorder, unspecified; E78.5 Hyperlipidemia, unspecified; I10 Essential (primary) hypertension
CPT/HCPCS: 36415; 71045; 71275; 80048; 80053; 82803; 83880; 84484; 85025; 85378; 86140; 93005; 94640; 94761; 99285; C9803; G0378; J2405; Q9967; U0003; U0005

== ENCOUNTER 2022-07-24 07:50 | Emergency (ER) | payer MEDICARE, SELFPAY ==
[2022-07-24] VITALS (16 sets, daily range): BP systolic 120–167; BP diastolic 65–99; PULSE 77–82; RESP 16–19; TEMP 36.8; O2SAT 97–100; BMI 46.8
--- NOTE | 2022-07-24 07:50 | ECG_ITS ---
APPROVED REPORT Exam: Resting ECG HR:81 bpm ECG Measurements Heart Rate 81 AXES CO 146 P 58 QRSd 88 QRS 66 QT 414 T 81 QTc 451 Conclusion SINUS RHYTHM NONSPECIFIC T-WAVE ABNORMALITY BORDERLINE ECG UNCONFIRMED REPORT Electronically signed by : Baljinder Roach MD 07/25/2022 12:09:35
--- NOTE | 2022-07-24 08:01 | XR_ITS ---
FINAL REPORT TECHNIQUE: Single view chest CLINICAL HISTORY: Midsternal chest pain COMPARISON: 01/29/2022 FINDINGS: A single view of the chest was obtained. The heart and mediastinum are within normal limits. The lungs are underinflated but clear. There is no pneumothorax. Osseous structures are unremarkable. IMPRESSION: No acute cardiopulmonary process. Reviewed, Interpreted and Dictated by Camacho Izaguirre MD Transcribed by Madeleine Porter Authenticated and [facility]
[2022-07-24 08:02] LABS: ABG Base Excess 0.2 mmol/L (-2.4-2.3); ABG HCO3 26.7 mmhg (22.0-26.0); ABG Oxygen Saturation 91 % (90-100); ABG PO2 63.3 mmhg (80-100); ABG TCO2 28.4 mmhg (23-27); Allen's Test ACCEPTABLE; Oxygen R/A %; Source Left Radial
[2022-07-24 08:04] LABS: ABG PCO2 55.6 mmhg (35.0-45.0)
--- NOTE | 2022-07-24 08:05 | PC.NURSE ---
aware of ABG
[2022-07-24 08:15] LABS: Basophils # 0.1 K/mm3 (0-0.2); Eosinophils # 0.5 K/mm3 (0.0-0.4); Eosinophils % 3.7 % (0.1-12.0); Hemoglobin 14.2 g/dL (12.2-16.2); Lymphocytes # 1.9 K/mm3 (0.7-4.5); Lymphocytes % 15.8 % (10-50); Mean Corpuscular HGB Conc 32.2 g/dL (31.8-35.4); Mean Corpuscular Hemoglobin 27.1 pg (27.0-31.2); Mean Corpuscular Volume 83.9 fl (81-99); Mean Platelet Volume 7.4 fl (7.4-10.4); Monocytes # 0.6 K/mm3 (0.1-1.0); Monocytes % 4.7 % (1.7-9.3); Neutrophils # 9.2 K/mm3 (1.8-7.8); Neutrophils % 74.7 % (37.0-80.0); Platelet Count 263 K/mm3 (142-424); Red Blood Count 5.25 M/mm3 (4.20-5.40); White Blood Count 12.3 K/mm3 (4.8-10.8)
[2022-07-24 08:28] LABS: Alanine Aminotransferase 45 U/L (12-78); Albumin Level 4.3 g/dl (3.5-5.0); Albumin/Globulin Ratio 1.3 (1.1-1.8); Alkaline Phosphatase 135 U/L (38-126); Anion Gap 8.6 mEq/L (5-15); Aspartate Amino Transferase 47 U/L (14-36); Bilirubin,Total 0.4 mg/dl (0.2-1.3); Blood Urea Nitrogen 18 mg/dl (7-17); Calcium 9.6 mg/dl (8.4-10.2); Carbon Dioxide 33 mmol/L (22.0-30.0); Chloride 102 mmol/L (98-107); Creatinine Clearance Estimated 64 mL/min (50-200); Estimated Glomerular Filt Rate 86 ml/min (>60); GFR (African American) 104 ML/MIN (>60); Globulin 3.2 g/dL (1.3-3.2); Glucose 123 mg/dl (74-100); Potassium 4.6 mmoL/L (3.5-5.1); Sodium 139 mmol/L (136-145); Total Protein,Serum 7.5 g/dl (6.3-8.2)
[2022-07-24 08:40] LABS: Troponin I < 0.01 ng/ml (0.00-0.034)
--- NOTE | 2022-07-24 08:41 | HMH.EDGENADL ---
Discharge Plan Disposition Patient Disposition: Home, Self-Care Condition: Good Prescriptions Prescriptions: No Action spironolactone 50 mg tablet 50 mg PO DAILY Qty: 30 5RF losartan 100 mg tablet 100 mg PO DAILY Qty: 30 5RF omeprazole 40 MG capsule,delayed release(DR/EC) 40 mg PO DAILY atorvastatin 40 MG tablet 40 mg PO HS albuterol sulfate 90 MCG aero powdr breath act w/sensor 2 puffs IH Q4HP PRN (Reason: Wheezing) furosemide 80 MG tablet 80 mg PO DAILY fluoxetine 20 MG capsule 80 mg PO DAILY bisoprolol fumarate 5 MG tablet 5 mg PO BID hydroxyzine HCl 25 MG tablet 25 mg PO TIDP PRN (Reason: Itching) amlodipine 2.5 MG tablet 2.5 mg PO DAILY gabapentin 800 MG tablet 800 mg PO BID risperidone 1 MG tablet 1 mg PO DAILY loratadine 10 MG tablet 10 mg PO DAILY ibuprofen 800 mg Tablet 800 mg PO Q8H PRN (Reason: Pain) benzonatate 100 mg capsule 100 mg PO TID Label Comments: TAKE 2 CAPSULES BY MOUTH THREE TIMES DAILY NEEDED FOR COUGH FOR UP TO 10 DAYS levofloxacin 750 MG tablet 750 mg PO 1100 exvbvlcturh-wgdfvaryi-czdprzoo 28 PUFF blister with device 1 puff IH DAILY trazodone 50 mg tablet 75 mg PO HS vimuwxccsa-vffypvm-kkpcfyun 1 EACH tablet 1 each PO Q6HP PRN (Reason: Headache) ipratropium-albuterol 3 ML solution for nebulization 3 ml IH QIDP PRN (Reason: COPD) cyclobenzaprine 5 MG tablet 5 mg PO TIDP PRN (Reason: Muscle Spasm) Referrals Follow up/Referrals: Provider,Referral, MD [Primary Care Provider] - See instructions Activity Restrictions/Add. Instructions Additional Instructions/Restrictions: Avoid taking other peoples medications and illicit drugs. Follow-up with your PCP in 1 to 2 days Clinical Impressions Clinical Impression: Benzodiazepine abuse Discharge ED Provider: Quincy Horton [facility] General Chief complaint: Chest Pain Stated complaint: chest pain Time Seen by Provider: 07/24/22 08:11 Mode of Arrival: EMS Source of Information: Patient Limitations: No Limitations Description of Symptoms (Recalled from ER Triage Doc. by RN): pt states she has had chest pain since last night, states she vomited last night and again this morning, states chest pain is in the center of her chest and doesn't radiate anywhere, states she took heartburn meds and it didn't help, also states she has had body aches since yesterday, denies fever, while triaging patient she keeps falling asleep History of Present Illness HPI narrative: 56yo F presents to the ER via EMS secondary to vomiting began last night and chest pain. Patient is very somnolent and unable to provide much history at this time. at bedside provides history. States that patient complained of central chest pain that did not radiate. Had several episodes of emesis last night. No recent illness or fever. Reports she not able to sleep well last night. Related Data Home Medications Medication Instructions Recorded Confirmed omeprazole 40 mg capsule,delayed 40 mg PO DAILY GERD 06/14/17 01/26/22 release trazodone 50 mg tablet 75 mg PO HS SLEEP 02/17/19 01/27/22 atorvastatin 40 mg tablet 40 mg PO HS Cholesterol 12/29/19 07/24/22 albuterol sulfate 90 mcg/actuation 2 puffs IH Q4HP PRN Wheezing 12/30/19 07/24/22 breath activated powder inhaler,sensor furosemide 80 mg tablet 80 mg PO DAILY diuretic 02/12/20 07/24/22 fluoxetine 20 mg capsule 80 mg PO DAILY Depression 02/13/20 07/24/22 zbpfyvftpn-gsxvwzu-allronfu 50 1 each PO Q6HP PRN Headache 01/06/21 01/26/22 mg-325 mg-40 mg tablet cyclobenzaprine 5 mg tablet 5 mg PO TIDP PRN Muscle Spasm 01/06/21 07/24/22 ipratropium 0.5 mg-albuterol 3 mg 3 ml IH QIDP PRN COPD 01/06/21 01/26/22 (2.5 mg base)/3 mL nebulization soln bisoprolol fumarate 5 mg tablet 5 mg PO BID Hypertension 10/02/21 07/24/22 hydroxyzine HCl 25 mg tablet 25 mg PO TI
--- NOTE | 2022-07-24 08:42 | PC.NURSE ---
Agustin Admin. rounded on patient
--- NOTE | 2022-07-24 08:47 | CT_ITS ---
FINAL REPORT TECHNIQUE: Axial CT images were performed through the head. Coronal reformatted images were submitted. This study was performed with techniques to keep radiation doses as low as reasonably achievable (ALARA). Individualized dose reduction techniques using automated exposure control or adjustment of mA and/or kV according to the patient's size were employed. CLINICAL HISTORY: Neurodeficit FINDINGS: The brain parenchyma is homogeneous. The ventricles are normal in size. There is no evidence of hemorrhage. There is no mass or edema identified. There is no abnormal extra-axial fluid seen. There is mild mucoperiosteal thickening in the right maxillary sinus. IMPRESSION: No acute intracranial process. Reviewed, Interpreted and Dictated by Camacho Izaguirre MD Transcribed by Arminda Cain Authenticated and [facility]
--- NOTE | 2022-07-24 08:54 | PC.NURSE ---
automotive technician taking patient to CT
--- NOTE | 2022-07-24 09:08 | PC.NURSE ---
PT RETURNED FROM RADIOLOGY.
--- NOTE | 2022-07-24 09:09 | PC.NURSE ---
Patient back from CT
[2022-07-24 09:21] LABS: Microscopic, Urine URINE MICROSCOPIC (MICROSCOPIC)
[2022-07-24 09:27] LABS: Appearance,Urine CLEAR (Clear); Bilirubin,Urine Negative (Negative); Blood, Urine Negative (Negative); Color,Urine YELLOW (Yellow); Glucose,Urine (UA) Negative (Negative); Ketones,Urine Negative (Negative); Leukocyte Esterase,Urine Negative (Negative); Nitrate,Urine Negative (Negative); Protein,Urine Negative (Negative); Specific Gravity, Urine 1.015 (1.005-1.030); Urobilinogen,Urine 0.2 EU/dl (0.2)
[2022-07-24 09:43] LABS: Barbiturates Screen,Urine Negative ng/ml (<200); Benzodiazepines Screen,Urine Positive ng/ml (<200); Cannabinoid Screen,Urine Negative ng/ml (<50); Cocaine Screen,Urine Negative ng/ml (<300); Methadone Screen,Urine Negative ng/ml (<300); Opiate Screen,Urine Negative ng/ml (<300); Phencyclidine Screen,Urine Negative ng/ml (<25)
[2022-07-24 09:53] LABS: Bacteria,Urine Trace /lpf; Squamous Epithelial Cell,Urine Occasional #/hpf (0-5); WBC,Urine Occasional #/hpf (0-3)
[2022-07-24 09:56] LABS: Amphetamine/Metha Screen,Urine Positive ng/ml (<1000)
[2022-07-24 11:39] LABS: Troponin I < 0.01 ng/ml (0.00-0.034)
== END 2022-07-24 14:23 | disposition home or self-care (01) ==
PROVIDERS: Emergency Provider Family Medicine
DX: F13.10 Sedative, hypnotic or anxiolytic abuse, uncomplicated (principal); R07.9 Chest pain, unspecified; R11.10 Vomiting, unspecified; J44.9 Chronic obstructive pulmonary disease, unspecified; J96.21 Acute and chronic respiratory failure with hypoxia; J96.22 Acute and chronic respiratory failure with hypercapnia; Z86.16 Personal history of COVID-19; F17.210 Nicotine dependence, cigarettes, uncomplicated; Z85.9 Personal history of malignant neoplasm, unspecified; Z98.51 Tubal ligation status; Z95.828 Presence of other vascular implants and grafts
CPT/HCPCS: 70450; 71045; 80053; 80305; 81001; 82803; 84484; 85025; 93005; 99285

== ENCOUNTER → 2022-12-16 15:16 | Outpatient (CLI) | payer MEDICARE, SELFPAY ==
[2022-12-16 15:56] LABS: Hemoglobin A1C 7.4 % (4.0-6.0)
== END ==
PROVIDERS: PCP Family Medicine; Visit Provider Nurse Practitioner
DX: E11.9 Type 2 diabetes mellitus without complications (principal); E66.9 Obesity, unspecified
CPT/HCPCS: 36415; 83036

== ENCOUNTER → 2023-01-12 06:43 | Outpatient (CLI) | payer MEDICARE, SELFPAY ==
--- NOTE | 2023-01-12 | CA_ITS ---
APPROVED REPORT Exam: Pharmacologic Technologist: Kate Green Ht: 4 ft 11 in Wt: 275 lbs BSA: 2.11 m2 HR: 85 bpm BP: 159/93 mmHg Rhythm: NSR Indications: Chest pain Medical History Medications: Omeprazole,,,,, Gabapentin,,,,, Losartan,,,,, Atorvastatin,,,,, Albuterol,,,,, Ibuprofen,,,,, BisOPROLOL,,,,, LoraTidine,,,,, Fluoxetine,,,,, Cyclobenzaprine,,,,, SpirOnolactone,,,,, Trazodone,,,,, Stress Test Details Test: LEXISCAN Reversal agent Aminophyline 100.0 mg, given intravenously for dyspnea. HR Resting HR: 85 bpm Max Heart Rate (APMHR): 162 bpm Max HR Achieved: 101 bpm Target HR (85% APMHR): 138 bpm % of APMHR: 62 Recovery HR: 90 bpm BP Resting BP: 159.0/93.0 mmHg Max BP: 179.0/87.0 mmHg Recovery BP: 152.0/86.0 mmHg ECG Resting ECG: Normal sinus rhythm, NS ST abnormalities inferolaterally Stress ECG: No change Arrhythmia: PVCs Clinical Exercise duration: 04:00 min Highest Stage Achieved: Exercise capacity: 1.0 METs Stress ECG Conclusion Symptoms: Shortness of air, mild chest tightness Arrhythmias/Ectopy: Rare PVC ST-T Changes: No ST changes Conclusion: Non-diagnostic Lexiscan stress due to baseline abnormalities. Myoview images reported separately. Test Summary REST . . . . . . . Resting REST 05:18 . . 85 . 159/ 93 . . Stage 1 . . . . . . . Myoview Injected Stage 1 01:00 . . 90 . . . . Stage 2 01:00 . . 100 . . . . Stage 3 01:00 . . 99 . 171/ 87 . . Stage 4 01:00 . . 98 . 179/ 87 . Stop exercise at 04:00 RECOVERY 01:00 . . 97 . . . . RECOVERY 02:00 . . 96 . 151/ 78 . . RECOVERY 03:00 . . 93 . 151/ 78 . . RECOVERY 04:00 . . 91 . 151/ 78 . . RECOVERY 05:00 . . 91 . 151/ 78 . . RECOVERY 05:23 . . 90 . 152/ 86 . . Electronically signed by : Mandi Stephenson, 01/12/2023 20:37:35
--- NOTE | 2023-01-12 06:49 | NM_ITS ---
APPROVED REPORT Exam: Nuclear Stress Test Indication: COPD, OBESITY, HTN, D.M., HYPERLIPIDEMIA, TOB USE, FM HX, C.P., SOB, PALPITATIONS, SYNCOPE, FATIGUE Patient Location: Outpatient Stress Tech: Kate Peter NM Tech:Gretchen Galdamez, ARRT RT (R)(N)(M) Ht: 4 ft 11 in Wt: 275 lbs Bra Size: DD HR: 85 bpm BP: 159/93 mmHg BSA: 2.11 m2 Rhythm: NSR TID: 1.00 BMI: 55.5 History: COPD, OBESITY, HTN, D.M., HYPERLIPIDEMIA, TOB USE, FM HX, C.P., SOB, PALPITATIONS, SYNCOPE, FATIGUE PATIENT COULD NOT LAY ON STOMACH FOR PRONE IMAGES Procedure: Patient received 0.4 mg of intravenous Lexiscan, resting heart rate 85 bpm, resting blood pressure 159/93 mmHg, with Lexiscan maximum heart rate achieved was 100 bpm which is % of the maximum predicted heart rate and blood pressure was 171/87 mmHg. With Lexiscan, patient denied any complaint of chest pain. Cardiac Stress and Resting SPECT Images: Cardiac Stress and Resting SPECT images were obtained using technetium 99m Myoview 31.9 mCi stress and 9.87 mCi at rest. The patient could not lie on her abdomen. Therefore, prone stress imaging could not be obtained. This may affect the diagnostic interpretation of the study findings. Resting and stress imaging in supine position demonstrate no fixed or reversible perfusion defect. Gated imaging demonstrates normal global and regional LV systolic function. LVEF is calculated at 70%. Conclusion: The patient could not lie on her abdomen. Therefore, prone stress imaging could not be obtained. This may affect the diagnostic interpretation of the study findings. No fixed or reversible perfusion defect. Gated imaging demonstrates normal global and regional LV systolic function. LVEF is calculated at 70%. Electronically signed by : Mandi Stephenson, 01/12/2023 20:39:48
--- NOTE | 2023-01-12 08:29 | CA_ITS ---
APPROVED REPORT EXAM: Comprehensive 2D, Doppler, and color-flow Echocardiogram Rack Loader: Eula Lynch CRT Ht: 4 ft 11 in Wt: 270lbs BSA: 2.10 BP: 117/77 mmHg Indications: COPD, Shortness of Breath, CVA/TIA, Palpitations, Peripheral Edema, Hyperlipidemia, hx of covid, lung mass, TDE due to body habitus 2D Dimensions Aortic Root 1.74 cm LA Volume 18.10 mL LA Volume Index 8.40 mL/m2 (M/F) 16-34 M-Mode Dimensions RVDd 2.08 cm (0.9-2.6) LA Diam 3.50 cm (1.9-4.0) LVDd 4.31 cm (3.5-5.7) Ao Diam 3.77 cm (2.0-3.7) LVDs 2.84 cm (3.5-5.7) IVSd 2.12 cm (0.6-1.1) PWd 0.91 cm (0.6-1.1) EF (Teich) 63.40% FS 34.10% EDV (Teich) 83.50 mL TAPSE 2.73 (<1.7) ESV (Teich) 30.60 mL LV Diastology E Decel Time 150.00 (160-240 msec) E/A Ratio 0.69 MED E' 6.10 (< 7 cm/sec) MED A' 10.50 cm/s E'/MED E' Ratio 12.46 (>14) LAT E' 8.40 (<10 cm/sec) LAT A' 10.90 cm/s E/LAT E' Ratio 9.05 (>14) Aortic Valve AO Peak GR. 9.70 mmHg Mitral Valve MV E Max Curt. 76.00 (40-130 cm/s) MV A Velocity 111.00 (40-130 cm/s) E/A Ratio 0.69 MV Decel. Time 150.00 (160-240 ms) MV PHT 44.00 ms Tricuspid Valve TR P. Velocity 156.00 cm/s RAP Estimate 10.00 mmHg RVSP 19.80 mmHg Left Ventricle The left ventricle is normal size. The left ventricular systolic function is normal. The left ventricular ejection fraction is within the normal range. There is normal left ventricular wall thickness. There is normal LV segmental wall motion. The left ventricular diastolic function is normal. LVEF is 60%. Right Ventricle The right ventricle is normal size. The right ventricular systolic function is normal. Atria The left atrium size is normal. The right atrium size is normal. THere is no Doppler evidence of interatrial shunt. Aortic Valve The aortic valve opens well. There is no aortic valvular stenosis. No aortic regurgitation is present. Mitral Valve The mitral valve is normal in structure. No evidence of mitral valve stenosis. Trace mitral regurgitation. Tricuspid Valve The tricuspid valve leaflets are thin and pliable. Trace tricuspid regurgitation. RVSP = 10 mmHg + RA pressure. Pulmonic Valve The pulmonary valve is grossly normal in structure. Trace pulmonic regurgitation. Great Vessels The aortic root is normal in size. The visualized segment of the ascending aorta is normal in size. The IVC is not well visuailized. Pericardium There is no pericardial effusion. Other Information Study Quality: Fair Conclusion Normal biventricular systolic function. No significant valvular disease. Electronically signed by : Mandi Stephenson, 01/12/2023 18:10:58
== END ==
LOC: RAD 06:44
PROVIDERS: PCP Family Medicine; Visit Provider Nurse Practitioner
DX: R07.9 Chest pain, unspecified (principal); I25.10 Atherosclerotic heart disease of native coronary artery without angina pectoris; R94.30 Abnormal result of cardiovascular function study, unspecified
CPT/HCPCS: 78452; 93017; 93306; A9502; J0280; J2785

== ENCOUNTER → 2023-02-03 15:48 | Outpatient (CLI) | payer MEDICARE, SELFPAY ==
[2023-02-03 17:02] LABS: Basophils # 0.1 K/mm3 (0-0.2); Basophils % 0.4 % (0.1-2.0); Eosinophils # 0.6 K/mm3 (0.0-0.4); Hematocrit 45.5 % (37.0-47.0); Hemoglobin 14.4 g/dL (12.2-16.2); Lymphocytes % 20.3 % (10-50); Mean Corpuscular HGB Conc 31.6 g/dL (31.8-35.4); Mean Corpuscular Hemoglobin 26.7 pg (27.0-31.2); Mean Corpuscular Volume 84.5 fl (81-99); Mean Platelet Volume 8.1 fl (7.4-10.4); Monocytes % 6.8 % (1.7-9.3); Neutrophils # 10.2 K/mm3 (1.8-7.8); Neutrophils % 68.5 % (37.0-80.0); Platelet Count 294 K/mm3 (142-424); Red Blood Count 5.39 M/mm3 (4.20-5.40); Red Cell Distribution Width 14.6 % (11.5-17.5); White Blood Count 14.9 K/mm3 (4.8-10.8)
[2023-02-03 17:20] LABS: Free T4 (Free Thyroxine) 0.83 ng/dl (0.78-2.19)
[2023-02-03 17:45] LABS: Alanine Aminotransferase 48 U/L (12-78); Albumin Level 4.3 g/dl (3.5-5.0); Alkaline Phosphatase 144 U/L (38-126); Anion Gap 14.7 mEq/L (5-15); Aspartate Amino Transferase 37 U/L (14-36); Bilirubin,Unconjugated 0.4 mg/dL (0.0-1.1); Blood Urea Nitrogen 18 mg/dl (7-17); Calcium 9.7 mg/dl (8.4-10.2); Carbon Dioxide 36 mmol/L (22.0-30.0); Chloride 96 mmol/L (98-107); Chol/HDL Ratio 2.6 (1-3.5); Cholesterol 118 mg/dl (140-200); Estimated Glomerular Filt Rate 74 ml/min (>60); GFR (African American) 89 ML/MIN (>60); Glucose 93 mg/dl (74-100); HDL Cholesterol 45 mg/dl (40-60); Magnesium 1.7 mg/dl (1.6-2.3); Potassium 4.7 mmoL/L (3.5-5.1); Sodium 142 mmol/L (136-145); Total Protein,Serum 7.7 g/dl (6.3-8.2); Triglycerides 112 mg/dl (30-150); VLDL Cholesterol 22 mg/dL (0-40)
[2023-02-03 17:50] LABS: Bilirubin,Indirect 0.1 mg/dL (0.0-0.9); Bilirubin,Total 0.1 mg/dl (0.2-1.3)
[2023-02-03 17:56] LABS: Direct LDL Cholesterol 53.34 mg/dL (100-129)
[2023-02-03 18:14] LABS: Thyroid Stimulating Hormone 4.09 uIU/mL (0.465-4.68)
== END ==
PROVIDERS: PCP Family Medicine; Visit Provider Internal Medicine
DX: E11.9 Type 2 diabetes mellitus without complications (principal); E66.9 Obesity, unspecified; E78.5 Hyperlipidemia, unspecified; F17.200 Nicotine dependence, unspecified, uncomplicated; F41.9 Anxiety disorder, unspecified; I11.9 Hypertensive heart disease without heart failure; I25.10 Atherosclerotic heart disease of native coronary artery without angina pectoris; R07.9 Chest pain, unspecified; R94.30 Abnormal result of cardiovascular function study, unspecified; Z68.43 Body mass index [BMI] 50.0-59.9, adult
CPT/HCPCS: 36415; 80048; 80061; 80076; 83735; 84439; 84443; 85025

== ENCOUNTER → 2023-05-03 16:02 | Outpatient (CLI) | payer MEDICARE, SELFPAY ==
[2023-05-03 17:19] LABS: Anion Gap 15.1 mEq/L (5-15); Blood Urea Nitrogen 18 mg/dl (7-17); Carbon Dioxide 28 mmol/L (22.0-30.0); Chloride 98 mmol/L (98-107); Estimated Glomerular Filt Rate 74 ml/min (>60); GFR (African American) 89 ML/MIN (>60); Glucose 105 mg/dl (74-100); Potassium 4.1 mmoL/L (3.5-5.1); Sodium 137 mmol/L (136-145)
== END ==
PROVIDERS: PCP Family Medicine; Visit Provider Internal Medicine
DX: I25.10 Atherosclerotic heart disease of native coronary artery without angina pectoris (principal); I11.9 Hypertensive heart disease without heart failure; R94.30 Abnormal result of cardiovascular function study, unspecified; E11.9 Type 2 diabetes mellitus without complications; E78.5 Hyperlipidemia, unspecified; F41.9 Anxiety disorder, unspecified; E66.9 Obesity, unspecified; Z68.43 Body mass index [BMI] 50.0-59.9, adult; F17.200 Nicotine dependence, unspecified, uncomplicated; Z79.84 Long term (current) use of oral hypoglycemic drugs; Z79.85 Long-term (current) use of injectable non-insulin antidiabetic drugs
CPT/HCPCS: 36415; 80048

== ENCOUNTER 2023-06-16 12:06 | Outpatient (CLI) | payer MEDICARE, SELFPAY ==
[2023-06-16 12:57] LABS: Basophils # 0.1 K/mm3 (0-0.2); Basophils % 0.9 % (0.1-2.0); Eosinophils # 0.4 K/mm3 (0.0-0.4); Eosinophils % 3.6 % (0.1-12.0); Hematocrit 44.8 % (37.0-47.0); Hemoglobin 14.5 g/dL (12.2-16.2); Lymphocytes % 18.3 % (10-50); Mean Corpuscular HGB Conc 32.4 g/dL (31.8-35.4); Mean Corpuscular Hemoglobin 26.9 pg (27.0-31.2); Mean Corpuscular Volume 83.1 fl (81-99); Mean Platelet Volume 8.1 fl (7.4-10.4); Monocytes # 0.7 K/mm3 (0.1-1.0); Monocytes % 6.2 % (1.7-9.3); Neutrophils # 7.8 K/mm3 (1.8-7.8); Neutrophils % 70.9 % (37.0-80.0); Platelet Count 300 K/mm3 (142-424); Red Blood Count 5.38 M/mm3 (4.20-5.40); Red Cell Distribution Width 14.8 % (11.5-17.5); White Blood Count 10.9 K/mm3 (4.8-10.8)
[2023-06-16 13:22] LABS: Alanine Aminotransferase 57 U/L (12-78); Albumin Level 4.1 g/dl (3.5-5.0); Alkaline Phosphatase 114 U/L (38-126); Anion Gap 9.5 mEq/L (5-15); Aspartate Amino Transferase 46 U/L (14-36); Bilirubin,Direct 0.1 mg/dl (0.0-0.4); Bilirubin,Indirect 0.2 mg/dL (0.0-0.9); Bilirubin,Total 0.3 mg/dl (0.2-1.3); Bilirubin,Unconjugated 0.2 mg/dL (0.0-1.1); Blood Urea Nitrogen 15 mg/dl (7-17); Carbon Dioxide 30 mmol/L (22.0-30.0); Chloride 98 mmol/L (98-107); Cholesterol 109 mg/dl (140-200); Estimated Glomerular Filt Rate 86 ml/min (>60); GFR (African American) 104 ML/MIN (>60); Glucose 105 mg/dl (74-100); HDL Cholesterol 36 mg/dl (40-60); Magnesium 1.3 mg/dl (1.6-2.3); Potassium 3.5 mmoL/L (3.5-5.1); Sodium 134 mmol/L (136-145); Total Protein,Serum 6.8 g/dl (6.3-8.2); Triglycerides 121 mg/dl (30-150); VLDL Cholesterol 24 mg/dL (0-40)
[2023-06-16 13:39] LABS: Free T4 (Free Thyroxine) 1.24 ng/dl (0.78-2.19)
[2023-06-16 13:42] LABS: Direct LDL Cholesterol 51.92 mg/dL (100-129)
[2023-06-16 13:47] LABS: Thyroid Stimulating Hormone 2.47 uIU/mL (0.465-4.68)
== END 2023-06-16 23:59 ==
PROVIDERS: PCP Family Medicine; Visit Provider Internal Medicine
DX: E11.9 Type 2 diabetes mellitus without complications (principal); E66.9 Obesity, unspecified; E78.5 Hyperlipidemia, unspecified; F17.200 Nicotine dependence, unspecified, uncomplicated; I11.9 Hypertensive heart disease without heart failure; I25.10 Atherosclerotic heart disease of native coronary artery without angina pectoris; R94.30 Abnormal result of cardiovascular function study, unspecified
CPT/HCPCS: 36415; 80048; 80061; 80076; 83735; 84439; 84443; 85025

== ENCOUNTER 2023-08-06 07:29 | Outpatient (CLI) | payer MEDICARE, SELFPAY ==
--- NOTE | 2023-08-06 07:31 | MR_ITS ---
FINAL REPORT CLINICAL HISTORY: LUMBAR SPINE PAIN. HX BACK SURGERY 2016. RIGHT SIDED LOW BACK PAIN FINDINGS: Multiplanar MR imaging of the lumbar spine was performed without contrast. On the sagittal T2-weighted images, multilevel disc degeneration is seen. There is minimal artifact from posterior interbody fusion L4-5. There is minimal spinal listhesis of L4 on L5. The vertebral alignment is otherwise normal. There is no evidence of fracture. No bony mass is identified. The conus is seen at approximately the L1 level and has an unremarkable appearance. L1-2: There is no significant canal stenosis or neural foraminal narrowing. L2-3: Mild diffuse disc bulge with midline disc protrusion and right paracentral disc protrusion. There is compromise of the right side of the canal. L3-4: Moderate diffuse disc bulge with endplate hypertrophy and mild to moderate neuroforaminal narrowing. L4-5: Mild diffuse disc bulge with mild right and mild to moderate left neuroforaminal narrowing. L5-S1: Mild disc bulge with mild to moderate bilateral neuroforaminal narrowing. IMPRESSION: Postoperative change of fusion at L4-5. Neuroforaminal narrowing at L3-4, L4-5 and L5-S1. Reviewed, Interpreted and Dictated by Camacho Izaguirre MD Transcribed by Madeleine Porter Authenticated and [facility]
== END 2023-08-06 23:59 ==
LOC: RAD 07:29
PROVIDERS: PCP Family Medicine; Visit Provider Orthopaedic Surgery
DX: M54.50 Low back pain, unspecified (principal)
CPT/HCPCS: 72148; 76376

== ENCOUNTER 2023-09-08 14:20 | Emergency (ER) | payer MEDICARE, SELFPAY ==
[2023-09-08 14:30] VITALS: BP 154/91; PULSE 96; RESP 18; TEMP 36.6; O2SAT 90; BMI 44.6
--- NOTE | 2023-09-08 14:51 | EXP.UTC ---
Discharge Plan Disposition Patient Disposition: Home, Self-Care Condition: Good Prescriptions Prescriptions: New doxycycline hyclate 100 mg capsule 100 mg PO BID 7 Days Qty: 14 0RF ofloxacin 0.3 % drops 10 drp otic (ear) Q12H 14 Days Qty: 20 0RF Rx Instructions: in right ear as directed No Action bumetanide 1 mg tablet 1 mg PO DAILY Qty: 90 3RF Entresto 97-103 mg tablet 1 tab PO BID Qty: 60 11RF spironolactone 50 mg tablet 50 mg PO DAILY Qty: 30 5RF Farxiga 10 mg tablet 10 mg PO DAILY Qty: 90 3RF Ozempic 2 mg/dose (8 mg/3 mL) pen injector 2 mg SQ WEEKLY Qty: 3 11RF omeprazole 40 MG capsule,delayed release(DR/EC) 40 mg PO DAILY atorvastatin 40 MG tablet 40 mg PO HS albuterol sulfate 90 MCG aero powdr breath act w/sensor 2 puffs inhalation Q4HP PRN (Reason: Wheezing) fluoxetine 20 MG capsule 80 mg PO DAILY bisoprolol fumarate 5 MG tablet 5 mg PO BID hydroxyzine HCl 25 MG tablet 25 mg PO TIDP PRN (Reason: Itching) gabapentin 800 MG tablet 800 mg PO BID loratadine 10 MG tablet 10 mg PO DAILY [id number] 28 PUFF blister with device 1 puff inhalation DAILY trazodone 50 mg tablet 75 mg PO HS ipratropium-albuterol 3 ML solution for nebulization 3 ml inhalation QIDP PRN (Reason: COPD) cyclobenzaprine 5 MG tablet 5 mg PO TIDP PRN (Reason: Muscle Spasm) metformin 500 mg tablet 500 mg PO DAILY bupropion HCl 100 mg tablet sustained-release 12 hr 100 mg PO DAILY Patient Comments: TAKE 1 TABLET BY MOUTH ONCE DAILY DIRECTED FOR ANXIETY, DEPRESSION, AND SMOKING CESSATION. prazosin 2 mg capsule 2 mg PO DAILY Patient Comments: TAKE 1 CAPSULE BY MOUTH ONCE DAILY DIRECTED FOR NIGHTMARES Vraylar 1.5 mg capsule 1.5 mg PO DAILY Patient Comments: TAKE 1 CAPSULE BY MOUTH ONCE DAILY DIRECTED FOR DEPRESSION FOR 30 DAYS Referrals Follow up/Referrals: Sun,Viral [Primary Care Provider] - See instructions Activity Restrictions/Add. Instructions Additional Instructions/Restrictions: Take medication as prescribed Follow up with your Family Doctor if no improvement or any worsening of symptoms Take your prescribed Ibuprofen for pain Use drops as prescribed Clinical Impressions Clinical Impression: Otitis media Instructions Patient Instructions: Middle Ear Infection, Doxycycline Discharge ED Provider: Eliza Meyers [facility] General Stated complaint: Right ear pain, sore throat Mode of Arrival: Ambulatory Source of Information: Patient Limitations: No Limitations Time Seen by Provider: 09/08/23 14:51 Description of Symptoms (Recalled from Triage Doc. by RN): Pt has pain in right ear pain that radiates down her jaw. HEENT Symptoms (Recalled from RN notes): No Resp Symptoms (Recalled from RN notes): No Skin Symptoms (Recalled from RN notes): No MS Symptoms (Recalled from RN notes): No Functional Status (Recalled from RN notes): n/a History of Present Illness Provider Complaint: Patient states that she has COPD and is on home O2 but couldnt get her portable tank turned on so she came anyway and would get on her O2 when she got in a room, States that she has been having pain and pressure in her right ear that hurting when she swallows Related Data Home Medications Medication Instructions Recorded Confirmed omeprazole 40 mg capsule,delayed 40 mg PO DAILY GERD 06/14/17 09/08/23 release trazodone 50 mg tablet 75 mg PO HS SLEEP 02/17/19 09/08/23 atorvastatin 40 mg tablet 40 mg PO HS Cholesterol 12/29/19 09/08/23 albuterol sulfate 90 mcg/actuation 2 puffs inhalation Q4HP PRN 12/30/19 09/08/23 breath activated powder Wheezing inhaler,sensor fluoxetine 20 mg capsule 80 mg PO DAILY Depression 02/13/20 09/08/23 cyclobenzaprine 5 mg tablet 5 mg PO TIDP PRN Muscle Spasm 01/06/21 09/08/23 ipratropium 0.5 mg-albuterol 3 mg 3 ml inhalation QIDP PRN COPD 01/06/21 09/08/23 (2.5 mg base)/3 mL nebulization soln bisoprolol fumarate 5 mg tablet 5 mg PO BID Hypertension 10/02/21 09/08/23 hydroxyzine HCl 25 mg tablet 25 mg PO TIDP PRN Itching 10/02/21 09/08/23 gabapentin 800 mg tablet 800 mg PO BID Pain 01/27/22 09/08/23 loratadine 10 mg tablet 10 mg PO DAILY Allergy symptoms 01/27/22 09/08/23 fluticasone fur. 100 mcg-umeclid 1 puff inhalation DAILY COPD 07/24/22 09/08/23 62.5 mcg-vilant 25 mcg inhalat.powder bupropion HCl 100 mg tablet,12 hr 100 mg PO DAILY 09/08/23 09/08/23 sustained-release cariprazine 1.5 mg capsule 1.5 mg PO DAILY 09/08/23 09/08/23 (Vraylar) metformin 500 mg tablet 500 mg PO DAILY 09/08/23 09/08/23 prazosin 2 mg capsule 2 mg PO DAILY 09/08/23 09/08/23 Previous Rx's Medication Instructions Recorded spironolactone 50 mg tablet 50 mg PO DAILY Fluid #30 tabs 02/20/20 bumetanide 1 mg tablet 1 mg PO DAILY #90 tabs 12/16/22 dapagliflozin propanediol 10 mg 10 mg PO DAILY #90 tabs 04/05/23 tablet (Farxiga) sacubitril 97 mg-valsartan 103 mg 1 tab PO BID #60 tabs 06/16/23 tablet (Entresto) semaglutide 2 mg/dose (8 mg/3 mL) 2 mg (0.75 mL) SQ WEEKLY #3 mL 07/13/23 subcutaneous pen injector (Ozempic) doxycycline hyclate 100 mg capsule 100 mg PO BID 7 days #14 caps 09/08/23 ofloxacin 0.3 % ear drops 10 drp otic (ear) Q12H 14 days #20 09/08/23 mL Allergies Allergy/AdvReac Type Severity Reaction Status Date / Time erythromycin base Allergy Unknown I-RASH Verified 09/08/23 14:45 [ERYTHROMYCIN BASE] Penicillins [PENICILLINS] Allergy Unknown DIFFICULTY Verified 09/08/23 14:45 BREATHING Worker's Comp Is this a Worker's Comp case?: No [facility] Disclaimer: The information contained in this section may have been updated after the patient was seen, as this information can be updated by other users. Medical History Acute exacerbation of chronic obstructive airways disease Acute on chronic respiratory failure with hypoxia and hypercapnia Anxiety COVID Palpitations Pneumonia due to COVID-19 virus Tobacco use disorder Surgical History History of cancer surgery History of cardiac cath History of tubal ligation Social History Smoking Status: Current every day smoker tobacco type: cigarettes packs per day: 1 second hand exposure: No alcohol intake: never substance use type: other current occupational status: disabled Travel in the last 8 weeks: None household members: spouse housing: house current occupational exposures/hazards: No caffeine: Yes ROS Obtained: Yes All systems reviewed & no additional complaints except as documented and Yes Systems reviewed as appropriate & no additional complaints except as documented Constitutional Constitutional: Reports system reviewed and no additional complaints, except as documented and Reports as per HPI ENT Ears, Nose, Mouth, and Throat: Reports system reviewed and no additional complaints, except as documented, Reports as per HPI and Reports otalgia Cardiovascular Cardiovascular: Reports system reviewed and no additional complaints, except as documented and Reports as per HPI Respiratory Respiratory: Reports system reviewed and no additional complaints, except as documented and Reports as per HPI Gastrointestinal Gastrointestingal: Reports system reviewed and no additional complaints, except as documented and as per HPI Physical Exam General General appearance: alert and in no apparent distress ENT ENT exam: Present mucous membranes moist Expanded ENT Exam External ear exam: Present pain with movement and external tenderness TM/Canal exam: Right TM: erythema and bulging Respiratory Respiratory exam: Present normal lung sounds bilaterally; Absent respiratory distress or wheezes Cardiovascular Cardiovascular exam: Present regular rate, normal rhythm and normal heart sounds Neurological Exam Neurological exam: Present alert, oriented X3 and normal gait Medical Decision Making Connor Inquiry Pt receiving controlled substance: No Connor was queried for this patient: No Vital Signs: 09/08/23 14:30 Temperature 97.9 F Temperature Source Oral Pulse Rate [Right Radial] 96 H Respiratory Rate 18 Blood Pressure [Right Arm] 154/91 H Blood Pressure Mean [Right Arm] 112 Blood Pressure Source [Right Arm] Automatic Cuff Blood Pressure Position [Right Arm] Sitting 02 Sat by Pulse Oximetry 90 L Oxygen Delivery Method Room Air Medical Decision Narrative: Due to patient hx and allergy list medication discussed with pharmacy will do Doxy and ofloxacin drops since patient has taken Doxy and flurquinolones in the past without reactions
[2023-09-08 15:16] VITALS: BP 154/91; PULSE 96; RESP 18; TEMP 36.6; O2SAT 90
== END 2023-09-08 15:16 | disposition home or self-care (01) ==
PROVIDERS: Emergency Provider Nurse Practitioner; PCP Family Medicine
DX: H66.91 Otitis media, unspecified, right ear (principal); F17.210 Nicotine dependence, cigarettes, uncomplicated; J44.9 Chronic obstructive pulmonary disease, unspecified
CPT/HCPCS: 99204; 99212; G0463

== ENCOUNTER 2023-11-01 15:03 | Outpatient (CLI) | payer MEDICARE, SELFPAY ==
[2023-11-01 15:20] LABS: Basophils # 0.1 K/mm3 (0-0.2); Basophils % 0.8 % (0.1-2.0); Eosinophils # 0.6 K/mm3 (0.0-0.4); Eosinophils % 4.4 % (0.1-12.0); Hematocrit 42.3 % (37.0-47.0); Hemoglobin 13.9 g/dL (12.2-16.2); Lymphocytes # 2.3 K/mm3 (0.7-4.5); Lymphocytes % 18.1 % (10-50); Mean Corpuscular HGB Conc 32.9 g/dL (31.8-35.4); Mean Corpuscular Hemoglobin 28.1 pg (27.0-31.2); Mean Corpuscular Volume 85.5 fl (81-99); Mean Platelet Volume 7.9 fl (7.4-10.4); Monocytes # 0.8 K/mm3 (0.1-1.0); Neutrophils % 70.8 % (37.0-80.0); Platelet Count 283 K/mm3 (142-424); Red Blood Count 4.95 M/mm3 (4.20-5.40); Red Cell Distribution Width 14.8 % (11.5-17.5); White Blood Count 12.7 K/mm3 (4.8-10.8)
[2023-11-01 16:13] LABS: Alanine Aminotransferase 43 U/L (12-78); Albumin Level 4.1 g/dl (3.5-5.0); Alkaline Phosphatase 102 U/L (38-126); Anion Gap 16.9 mEq/L (5-15); Aspartate Amino Transferase 40 U/L (14-36); Bilirubin,Direct 0.2 mg/dl (0.0-0.4); Bilirubin,Indirect 0.2 mg/dL (0.0-0.9); Bilirubin,Total 0.4 mg/dl (0.2-1.3); Bilirubin,Unconjugated 0.3 mg/dL (0.0-1.1); Blood Urea Nitrogen 20 mg/dl (7-17); Calcium 10.3 mg/dl (8.4-10.2); Carbon Dioxide 29 mmol/L (22.0-30.0); Chloride 92 mmol/L (98-107); Chol/HDL Ratio 2.6 (1-3.5); Cholesterol 140 mg/dl (140-200); Estimated Glomerular Filt Rate 46 ml/min (>60); GFR (African American) 56 ML/MIN (>60); Glucose 84 mg/dl (74-100); HDL Cholesterol 53 mg/dl (40-60); Potassium 4.9 mmoL/L (3.5-5.1); Sodium 133 mmol/L (136-145); Total Protein,Serum 7.2 g/dl (6.3-8.2); Triglycerides 151 mg/dl (30-150); VLDL Cholesterol 30 mg/dL (0-40)
[2023-11-01 16:30] LABS: Free T4 (Free Thyroxine) 1.02 ng/dl (0.78-2.19)
[2023-11-01 16:44] LABS: Thyroid Stimulating Hormone 3.43 uIU/mL (0.465-4.68)
== END 2023-11-01 23:59 | disposition home or self-care (01) ==
LOC: LAB 15:05
PROVIDERS: PCP Family Medicine; Visit Provider Physician Assistant
DX: I11.9 Hypertensive heart disease without heart failure (principal); I20.89 Other forms of angina pectoris; E13.69 Other specified diabetes mellitus with other specified complication; F41.9 Anxiety disorder, unspecified; F17.200 Nicotine dependence, unspecified, uncomplicated; R94.30 Abnormal result of cardiovascular function study, unspecified; E78.5 Hyperlipidemia, unspecified; E66.09 Other obesity due to excess calories; Z68.33 Body mass index [BMI] 33.0-33.9, adult; K21.9 Gastro-esophageal reflux disease without esophagitis; R06.00 Dyspnea, unspecified; Z79.84 Long term (current) use of oral hypoglycemic drugs; Z79.899 Other long term (current) drug therapy
CPT/HCPCS: 36415; 80048; 80061; 80076; 84439; 84443; 85025

== ENCOUNTER 2023-11-17 08:48 | Day surgery (SDC) | payer MEDICARE, SELFPAY ==
[2023-11-17] VITALS (14 sets, daily range): BP systolic 104–126; BP diastolic 54–82; PULSE 79–89; RESP 15–17; O2SAT 91–97; BMI 43.6
--- NOTE | 2023-11-17 07:04 | IR_ITS ---
APPROVED REPORT Patient Location: Outpatient PROCEDURES Selective coronary angiogram Drug-eluting stent deployment to the proximal and mid dominant circumflex artery Drug-eluting stent deployment to the proximal and mid right coronary INDICATION Coronary artery disease, Angina pectoris, Informed consent was obtained prior to the procedure. COMPLICATIONS NONE Estimated Blood Loss: LESS THAN 10 ML TECHNIQUE One percent lidocaine used to anesthetize the right anterior aspect of the wrist. The right radial artery was accessed via the Seldinger technique. A 6 Samoan sheath was placed in the right radial artery. 2.5 mg of Verapamil, 800 mcg of nitroglycerin, 1mg Lidocaine and 5000 U Heparin were given through the arterial sheath. The papa catheter was also used to perform selective coronary angiogram. At the end of the diagnostic angiogram therapeutic Was administered giving a therapeutic ACT and the guide catheter was placed in the left main artery followed by Choice PT extra-support wire down the circumflex artery. 3.5 x 18 mm Somis frontier stent was deployed at 18 indira reducing the severe stenosis to 0%. JASMYNE-3 flow was present before and after the procedure. Following this the guide catheter was placed in the right coronary artery followed by Choice PT extra-support wire. A 3 mm x 30 mm Guy frontier stent was deployed at 18 indira reducing the stenosis. An additional 3.5 x 22 mm Guy frontier stent was placed proximal to the for stent and still overlapping and deployed at 18 indira. The balloon was advanced and deployed at 24 indira to mesh the 2 stents. At the end of the procedure excellent angiograph results were obtained with JASMYNE-3 flow being present before and after the procedure. In the procedure the apparatus was removed the sheath was removed and hemostasis was achieved using TR banding patient was transferred to the postop holding area in stable condition ANGIOGRAPHIC RESULTS The left main artery Normal The left anterior descending artery Has proximal eccentric 30% stenoses with a mid vessel 30% stenosis followed by an additional concentric 40% stenosis The circumflex artery Large codominant with a proximal concentric 70 to 80% stenosis The right coronary artery Codominant with a proximal eccentric 50% stenosis followed by an mid vessel distal 70% stenosis The MARIEE ventriculogram reveals Not performed The left ventricular end-diastolic pressure Not measured IMPRESSION Severe two-vessel coronary disease as described above Successful stenting of the proximal to mid circumflex artery severe disease reduced to 0% with 1 drug-eluting stent Successful stenting of the proximal and mid right coronary severe disease reduced to less than 10% with 2 contiguous drug-eluting stents PLAN 1. Effient and aspirin 2. LDL less than 55 to proceed with high intensity statin 3. Avoidance of tobacco products 4. Risk factor modification 5. Cardiac rehabilitation 6. Recommend sleep study Electronically signed by : Vinicio Jimenes MD 11/17/2023 10:53:57
[2023-11-17 09:30] LABS: Basophils # 0.1 K/mm3 (0-0.2); Basophils % 0.8 % (0.1-2.0); Eosinophils # 0.6 K/mm3 (0.0-0.4); Eosinophils % 4.8 % (0.1-12.0); Hematocrit 44.9 % (37.0-47.0); Hemoglobin 14.7 g/dL (12.2-16.2); Lymphocytes # 2.1 K/mm3 (0.7-4.5); Lymphocytes % 17.5 % (10-50); Mean Corpuscular HGB Conc 32.7 g/dL (31.8-35.4); Mean Corpuscular Hemoglobin 28.1 pg (27.0-31.2); Mean Corpuscular Volume 86.1 fl (81-99); Mean Platelet Volume 7.7 fl (7.4-10.4); Monocytes # 0.9 K/mm3 (0.1-1.0); Monocytes % 7.2 % (1.7-9.3); Neutrophils # 8.5 K/mm3 (1.8-7.8); Neutrophils % 69.7 % (37.0-80.0); Platelet Count 241 K/mm3 (142-424); Red Blood Count 5.22 M/mm3 (4.20-5.40); Red Cell Distribution Width 15.1 % (11.5-17.5); White Blood Count 12.2 K/mm3 (4.8-10.8)
[2023-11-17 09:46] LABS: Chloride 102 mmol/L (98-107)
[2023-11-17 09:47] LABS: Potassium 3.9 mmoL/L (3.5-5.1); Sodium 137 mmol/L (136-145)
[2023-11-17 09:50] LABS: Anion Gap 12.9 mEq/L (5-15); Blood Urea Nitrogen 25 mg/dl (7-17); Calcium 9.5 mg/dl (8.4-10.2); Carbon Dioxide 26 mmol/L (22.0-30.0); Creatinine Clearance Estimated 46 mL/min (50-200); Estimated Glomerular Filt Rate 64 ml/min (>60); GFR (African American) 78 ML/MIN (>60); Glucose 120 mg/dl (74-100)
[2023-11-17] MEDS: diphenhydrAMINE 50MG/ML VIAL 50 MG IV ×2 (10:18→10:20)
[2023-11-17] MEDS: LIDOCAINE 1% 10ML MDV 20 ML IJ (10:18)
[2023-11-17] MEDS: 0.9 % SODIUM CHLORIDE 500 ML 25 ML IV (10:20)
[2023-11-17] MEDS: HEPARIN 1,000 UNITS/500ML NS (CATH LAB) 3000 UNIT IV (10:20)
[2023-11-17] MEDS: NITROGLYCERIN 800MCG/8ML SYR (CATH LAB) 800 MCG IA (10:20)
[2023-11-17] MEDS: VERAPAMIL 2.5MG/ML 2ML VIAL 2.5 MG IV (10:21)
[2023-11-17] MEDS: HEPARIN 1,000 UNITS/ML 10ML VIAL (CATH LAB) 10000 UNIT IV (10:39)
[2023-11-17] MEDS: ASPIRIN 325MG TABLET 325 MG PO (10:50)
[2023-11-17] MEDS: PRASUGREL 10MG TAB 60 MG PO (10:50)
[2023-11-17] MEDS: MIDAZOLAM HCL 1MG/1ML 5ML VIAL 1 MG IV (10:51)
[2023-11-17] MEDS: FENTANYL 100MCG/2ML VIAL 50 MCG IV (10:51)
[2023-11-17] MEDS: MORPHINE 2MG/ML SYRINGE 2 MG IV (11:31)
[2023-11-17] MEDS: IOPAMIDOL-370 (76%);100ML BOTTLE 90 ML IV (11:55)
[2023-11-17 11:59] LABS: CATHL Activated Clotting Time 361 SEC (74-125)
== END 2023-11-17 14:47 | disposition home or self-care (01) ==
PROVIDERS: PCP Family Medicine; Visit Provider Internal Medicine
DX: I25.118 Atherosclerotic heart disease of native coronary artery with other forms of angina pectoris (principal); E11.9 Type 2 diabetes mellitus without complications; F41.9 Anxiety disorder, unspecified; F17.210 Nicotine dependence, cigarettes, uncomplicated; E78.5 Hyperlipidemia, unspecified; R94.30 Abnormal result of cardiovascular function study, unspecified; E66.09 Other obesity due to excess calories; Z68.33 Body mass index [BMI] 33.0-33.9, adult; I11.9 Hypertensive heart disease without heart failure; Z79.84 Long term (current) use of oral hypoglycemic drugs; Z79.899 Other long term (current) drug therapy; Z86.16 Personal history of COVID-19; J96.21 Acute and chronic respiratory failure with hypoxia; J96.22 Acute and chronic respiratory failure with hypercapnia; J44.9 Chronic obstructive pulmonary disease, unspecified
CPT/HCPCS: 80048; 85025; 85347; 92928; 93454; 99152; C1725; C1760; C1769; C1874; C9600; J1644; Q9967

== ENCOUNTER 2023-11-20 12:07 | Outpatient (CLI) | payer MEDICARE, SELFPAY ==
[2023-11-20 13:15] LABS: Anion Gap 16.5 mEq/L (5-15); Blood Urea Nitrogen 17 mg/dl (7-17); Calcium 9.6 mg/dl (8.4-10.2); Carbon Dioxide 26 mmol/L (22.0-30.0); Chloride 98 mmol/L (98-107); Estimated Glomerular Filt Rate 51 ml/min (>60); GFR (African American) 62 ML/MIN (>60); Glucose 105 mg/dl (74-100); Magnesium 1.6 mg/dl (1.6-2.3); Potassium 4.5 mmoL/L (3.5-5.1); Sodium 136 mmol/L (136-145)
== END 2023-11-20 23:59 | disposition home or self-care (01) ==
LOC: LAB 12:09
PROVIDERS: PCP Family Medicine; Visit Provider Nurse Practitioner
DX: R06.09 Other forms of dyspnea (principal); I11.9 Hypertensive heart disease without heart failure; I25.10 Atherosclerotic heart disease of native coronary artery without angina pectoris; R07.9 Chest pain, unspecified; E78.5 Hyperlipidemia, unspecified; Z72.0 Tobacco use
CPT/HCPCS: 36415; 80048; 83735

== ENCOUNTER 2024-04-05 12:06 | Outpatient (CLI) | payer MEDICARE, SELFPAY ==
--- NOTE | 2024-04-05 12:22 | XR_ITS ---
PROCEDURE INFORMATION: Exam: XR Cervical Spine Exam date and time: 04/05/2024 12:25 PM Age: 58 years old Clinical indication: Neck pain TECHNIQUE: Imaging protocol: Radiologic exam of the cervical spine. Views: 4 or 5 views. COMPARISON: CT CERVICAL SPINE WO CON 03/10/2019 3:18 PM FINDINGS: Bones/joints: Alignment normal. posterior vertebral line and the spinal laminar line normal. odontoid process normal. no fracture. Alignment normal. posterior vertebral line and the spinal laminar line normal. odontoid process normal. no fracture. degenerative disc disease most pronounced C4-C5, C5-C6 and C6-C7 reflected as disk space narrowing and anterior osteophyte formation. Soft tissues: Unremarkable. IMPRESSION: Degenerative disc disease most pronounced C4-C5, C5-C6 and C6-C7 reflected as moderate disk space narrowing and anterior osteophyte formation.
--- NOTE | 2024-04-05 12:22 | XR_ITS ---
PROCEDURE INFORMATION: Exam: XR Left Hip Exam date and time: 04/05/2024 12:25 PM Age: 58 years old Clinical indication: Hip pain; Left hip; Additional info: Pain and sciatica TECHNIQUE: Imaging protocol: Radiologic exam of the left hip. Views: 2 or 3 views hip with pelvis when performed. COMPARISON: CT ABDOMEN PELVIS W CON 01/06/2021 12:41 AM FINDINGS: Tubes, catheters and devices: surgical plate and pedicle screws L4 and L5. Interbody fusion. Bones/joints: osseous structures of the pelvis without an acute process. rami are intact. Sacroiliac joints without separation/diastases/fracture. Iliac bones unremarkable/noncontributory. Degenerative changes within the visualized portions of the caudal aspect of the lumbar spine. Mild degenerative changes within the hip including mild joint space narrowing and early osteophyte formation. No fracture. The trabecular stress markings normal. Corticated ossific density adjacent to the left greater trochanter of approximately 8 mm. Ossific density adjacent to the right greater trochanter of approximately 18 mm. Soft tissues: See Bones/joints finding. Other findings: Possibly related to prior trauma. IMPRESSION: 1. No acute process. 2. Mild to moderate degenerative changes within the left hip.
--- NOTE | 2024-04-05 12:22 | XR_ITS ---
PROCEDURE INFORMATION: Exam: XR Right Hip Exam date and time: 04/05/2024 12:25 PM Age: 58 years old Clinical indication: Hip pain; Right hip TECHNIQUE: Imaging protocol: Radiologic exam of the right hip. Views: 2 or 3 views hip with pelvis when performed. COMPARISON: CT ABDOMEN PELVIS W CON 01/06/2021 12:41 AM FINDINGS: Bones/joints: Mild to moderate degenerative changes within the hip including mild joint space narrowing and early osteophyte formation. No fracture. The trabecular stress markings normal. Ossification adjacent to the greater trochanter. Correlate clinically regarding trochanteric bursitis. Soft tissues: Unremarkable. IMPRESSION: Mild to moderate degenerative changes within the hip.
== END 2024-04-05 23:59 | disposition home or self-care (01) ==
PROVIDERS: PCP Family Medicine; Visit Provider Family Medicine
DX: M54.40 Lumbago with sciatica, unspecified side (principal); G89.29 Other chronic pain; M54.2 Cervicalgia; S76.019A Strain of muscle, fascia and tendon of unspecified hip, initial encounter
CPT/HCPCS: 72050; 73502

== ENCOUNTER 2024-07-10 14:04 | Outpatient (CLI) | payer MEDICARE, SELFPAY ==
[2024-07-17 13:58] LABS: Buprenorphine NEGATIVE; Cocaine Metabolite NEGATIVE; Fentanyl NEGATIVE; Nitrites NEGATIVE; Opiates NEGATIVE; Phencyclidine NEGATIVE
[2024-07-17 13:59] LABS: 6-Acetylmorphine NEGATIVE
[2024-07-17 14:01] LABS: Carisoprodol NEGATIVE; Marijuana MTB (THC) NEGATIVE; Methadone NEGATIVE; Propoxyphene NEGATIVE; Tapentadol NEGATIVE; Tramadol NEGATIVE; Urine pH 5.7
== END 2024-07-10 23:59 | disposition home or self-care (01) ==
LOC: LAB 14:08
PROVIDERS: PCP Family Medicine; Visit Provider Nurse Practitioner Family
DX: Z79.899 Other long term (current) drug therapy (principal)
CPT/HCPCS: 80307

== ENCOUNTER 2024-07-13 09:25 | Outpatient (CLI) | payer MEDICARE, SELFPAY ==
[2024-07-13 09:47] LABS: Basophils # 0.1 K/mm3 (0-0.2); Basophils % 0.5 % (0.1-2.0); Eosinophils # 0.5 K/mm3 (0.0-0.4); Eosinophils % 5.1 % (0.1-12.0); Hematocrit 41.3 % (37.0-47.0); Hemoglobin 13.6 g/dL (12.2-16.2); Lymphocytes # 1.9 K/mm3 (0.7-4.5); Lymphocytes % 20.8 % (10-50); Mean Corpuscular HGB Conc 32.9 g/dL (31.8-35.4); Mean Platelet Volume 9.2 fl (7.4-10.4); Monocytes % 10.2 % (1.7-9.3); Neutrophils # 5.8 K/mm3 (1.8-7.8); Neutrophils % 62.6 % (37.0-80.0); Platelet Count 241 K/mm3 (142-424); Red Blood Count 4.86 M/mm3 (4.20-5.40); Red Cell Distribution Width 14.3 % (11.5-17.5); White Blood Count 9.3 K/mm3 (4.8-10.8)
[2024-07-13 10:35] LABS: Hemoglobin A1C 5.6 % (4.0-6.0)
[2024-07-13 10:48] LABS: Alanine Aminotransferase 40 U/L (12-78); Albumin Level 3.9 g/dl (3.5-5.0); Alkaline Phosphatase 117 U/L (38-126); Anion Gap 12.5 mEq/L (5-15); Aspartate Amino Transferase 35 U/L (14-36); Bilirubin,Direct 0.2 mg/dl (0.0-0.4); Bilirubin,Total 0.2 mg/dl (0.2-1.3); Bilirubin,Unconjugated 0.1 mg/dL (0.0-1.1); Blood Urea Nitrogen 21 mg/dl (7-17); Calcium 9.8 mg/dl (8.4-10.2); Carbon Dioxide 31 mmol/L (22.0-30.0); Chloride 98 mmol/L (98-107); Chol/HDL Ratio 2.2 (1-3.5); Cholesterol 107 mg/dl (140-200); Estimated Glomerular Filt Rate 73 ml/min (>60); GFR (African American) 89 ML/MIN (>60); Glucose 83 mg/dl (74-100); HDL Cholesterol 49 mg/dl (40-60); Magnesium 1.2 mg/dl (1.6-2.3); Potassium 4.5 mmoL/L (3.5-5.1); Sodium 137 mmol/L (136-145); Total Protein,Serum 6.3 g/dl (6.3-8.2); Triglycerides 123 mg/dl (30-150); VLDL Cholesterol 25 mg/dL (0-40)
[2024-07-13 11:00] LABS: Direct LDL Cholesterol 35.42 mg/dL (100-129); NT Pro Brain Natriuretic Pep. 25.8 pg/mL (0-125)
[2024-07-13 11:21] LABS: Thyroid Stimulating Hormone 2.82 uIU/mL (0.465-4.68)
[2024-07-13 12:08] LABS: Free T4 (Free Thyroxine) 1.27 ng/dl (0.78-2.19)
== END 2024-07-13 23:59 | disposition home or self-care (01) ==
PROVIDERS: PCP Family Medicine; Visit Provider Nurse Practitioner Family
DX: R94.30 Abnormal result of cardiovascular function study, unspecified (principal); I25.10 Atherosclerotic heart disease of native coronary artery without angina pectoris; R06.09 Other forms of dyspnea; R53.83 Other fatigue; F17.200 Nicotine dependence, unspecified, uncomplicated; E78.5 Hyperlipidemia, unspecified; I11.9 Hypertensive heart disease without heart failure; E66.9 Obesity, unspecified; Z68.33 Body mass index [BMI] 33.0-33.9, adult; E11.8 Type 2 diabetes mellitus with unspecified complications; Z79.84 Long term (current) use of oral hypoglycemic drugs; Z79.85 Long-term (current) use of injectable non-insulin antidiabetic drugs
CPT/HCPCS: 36415; 80048; 80061; 80076; 83036; 83735; 83880; 84439; 84443; 85025

== ENCOUNTER 2024-07-25 08:24 | Outpatient (CLI) | payer MEDICARE, SELFPAY ==
--- NOTE | 2024-07-25 08:26 | CA_ITS ---
APPROVED REPORT EXAM: Comprehensive 2D, Doppler, and color-flow Echocardiogram Shredding Machine Operator: Claudia Hernandez RVT Ht: 4 ft 11 in Wt: 196lbs BSA: 1.83 BP: 105/73 mmHg Indications: DYSPENA,PT ON HOME O2,HTN,COPD,CAD,PALPS,FATIGUE,HTN,HLD TDS 2D Dimensions IVSd 0.95 cm F: 0.6-1.0 LVEF (Visual) 70.70 % PWd 0.79 cm F: 0.6 - 1.0 LA Volume 19.10 mL LVDd 4.60 cm F: 3.9 - 5.3 LA Volume Index 10.44 mL/m2 (M/F) 16-34 LVDs 2.76 cm F: 2.2 - 3.5 M-Mode Dimensions LA Diam 3.61 cm (1.9-4.0) TAPSE 2.17 (<1.7) LV Diastology E Decel Time 150 (160-240 msec) E/A Ratio 0.7 Aortic Valve KRIS Index 1.25 cm2/m2 AoV Peak Curt. 138.0 (50-130 cm/s) AO Peak GR. 7.60 mmHg AO Mean GR. 4.90 (<5 mmHg) AO VTI 25.3 (18-25 cm) KRIS (VTI) 2.33 (2.5-4.5 cm2) Mitral Valve MV E Max Ucrt. 56.0 (40-130 cm/s) MV A Velocity 83.0 (40-130 cm/s) E/A Ratio 0.68 MV PHT 44.0 ms Pulmonary Valve PV Peak Velocity 69.0 (50-150 cm/s) Tricuspid Valve TR P. Velocity 127.00 cm/s RAP Estimate 10.00 mmHg RVSP 16.40 mmHg Left Ventricle The left ventricle is normal size. The left ventricular systolic function is normal. The left ventricular ejection fraction is within the normal range. There is increased LV wall thickness. There is normal LV segmental wall motion. Transmitral Doppler flow pattern suggests impaired LV relaxation. LVEF is 55%. Right Ventricle Right ventricle is mildly dilated. The right ventricular systolic function is borderline reduced. Atria The left atrium size is normal. The right atrium size is normal. There is no Doppler evidence of interatrial shunt. Aortic Valve The aortic valve is mildly thickened. There is no aortic valvular stenosis. Trace aortic regurgitation. Mitral Valve The mitral valve is mildly thickened. No evidence of mitral valve stenosis. Trace mitral regurgitation. Tricuspid Valve Tricuspid valve is grossly normal in structure and function. Trace tricuspid regurgitation. There is insufficient TR jet to estimate RVSP. Pulmonic Valve The pulmonary valve is normal in structure. Trace pulmonic regurgitation. Great Vessels The aortic root is normal in size. The ascending aorta is not well visualized. IVC is normal in size and collapses >50% with inspiration. Pericardium There is no pericardial effusion. Other Information Study Quality: Technically Difficult Conclusion Technically difficult study due to poor accoustic windows. Normal LV systolic function. Mild RV dilation with borderline reduction in RV function. No significant valvular stenosis or regurgitation. Electronically signed by : Mandi Stephenson MD 07/26/2024 19:20:14
== END 2024-07-25 23:59 | disposition home or self-care (01) ==
LOC: RT 08:24
PROVIDERS: PCP Family Medicine; Visit Provider Nurse Practitioner Family
DX: I51.7 Cardiomegaly (principal); R94.30 Abnormal result of cardiovascular function study, unspecified; R06.09 Other forms of dyspnea; R53.83 Other fatigue
CPT/HCPCS: 93306

== ENCOUNTER 2024-09-06 14:20 | Outpatient (CLI) | payer MEDICARE, SELFPAY ==
[2024-09-06 14:58] LABS: Basophils # 0.1 K/mm3 (0-0.2); Basophils % 0.6 % (0.1-2.0); Eosinophils # 0.3 K/mm3 (0.0-0.4); Eosinophils % 2.9 % (0.1-12.0); Hematocrit 36.5 % (37.0-47.0); Hemoglobin 12.4 g/dL (12.2-16.2); Lymphocytes # 2.2 K/mm3 (0.7-4.5); Lymphocytes % 24.4 % (10-50); Mean Corpuscular Hemoglobin 29.1 pg (27.0-31.2); Mean Corpuscular Volume 85.7 fl (81-99); Mean Platelet Volume 9.3 fl (7.4-10.4); Monocytes # 0.9 K/mm3 (0.1-1.0); Monocytes % 9.7 % (1.7-9.3); Neutrophils # 5.5 K/mm3 (1.8-7.8); Neutrophils % 61.3 % (37.0-80.0); Platelet Count 276 K/mm3 (142-424); Red Blood Count 4.26 M/mm3 (4.20-5.40); Red Cell Distribution Width 13.5 % (11.5-17.5)
[2024-09-06 15:21] LABS: Alanine Aminotransferase 28 U/L (12-78); Albumin Level 4.4 g/dl (3.5-5.0); Alkaline Phosphatase 94 U/L (38-126); Anion Gap 15.6 mEq/L (5-15); Aspartate Amino Transferase 26 U/L (14-36); Bilirubin,Direct 0.2 mg/dl (0.0-0.4); Bilirubin,Indirect 0.1 mg/dL (0.0-0.9); Bilirubin,Total 0.3 mg/dl (0.2-1.3); Bilirubin,Unconjugated 0.1 mg/dL (0.0-1.1); Blood Urea Nitrogen 15 mg/dl (7-17); Calcium 9.7 mg/dl (8.4-10.2); Carbon Dioxide 26 mmol/L (22.0-30.0); Chloride 99 mmol/L (98-107); Cholesterol 119 mg/dl (140-200); Estimated Glomerular Filt Rate 73 ml/min (>60); GFR (African American) 89 ML/MIN (>60); Glucose 86 mg/dl (74-100); HDL Cholesterol 60 mg/dl (40-60); Magnesium 1.6 mg/dl (1.6-2.3); Potassium 3.6 mmoL/L (3.5-5.1); Sodium 137 mmol/L (136-145); Total Protein,Serum 6.9 g/dl (6.3-8.2); Triglycerides 65 mg/dl (30-150); VLDL Cholesterol 13 mg/dL (0-40)
[2024-09-06 15:28] LABS: D-Dimer 0.31 ug/mL (0.0-0.5)
[2024-09-06 15:32] LABS: Direct LDL Cholesterol 37.21 mg/dL (100-129)
[2024-09-06 15:37] LABS: NT Pro Brain Natriuretic Pep. 140 pg/mL (0-125); Troponin I 0.02 ng/ml (0.00-0.034)
[2024-09-06 15:43] LABS: Free T4 (Free Thyroxine) 1.39 ng/dl (0.78-2.19)
[2024-09-06 15:55] LABS: Thyroid Stimulating Hormone 1.42 uIU/mL (0.465-4.68)
== END 2024-09-06 23:59 | disposition home or self-care (01) ==
LOC: LAB 14:21
PROVIDERS: PCP Family Medicine; Visit Provider Nurse Practitioner Family
DX: I25.118 Atherosclerotic heart disease of native coronary artery with other forms of angina pectoris (principal); E78.5 Hyperlipidemia, unspecified; R53.83 Other fatigue; R07.89 Other chest pain; I11.0 Hypertensive heart disease with heart failure
CPT/HCPCS: 36415; 80048; 80061; 80076; 83735; 83880; 84439; 84443; 84484; 85025; 85378

== ENCOUNTER 2024-09-21 07:41 | Outpatient (CLI) | payer MEDICARE, SELFPAY ==
--- NOTE | 2024-09-21 09:35 | PC.NURSE ---
Took pt to ER due to low BP, unable to do Lexiscan at this time
[2024-09-21] MEDS: SODIUM CHLORIDE 0.9% 10ML SYR (RAD ONLY) 10 ML IV ×2 (10:02→13:31)
[2024-09-21] MEDS: ISOTOPE MYOVIEW (PER STUDY) 1 DOSE IV ×2 (10:02→13:32)
== END 2024-09-21 23:59 | disposition home or self-care (01) ==
LOC: RAD 07:41
PROVIDERS: PCP Family Medicine; Visit Provider Nurse Practitioner Family
DX: I25.10 Atherosclerotic heart disease of native coronary artery without angina pectoris (principal); E11.9 Type 2 diabetes mellitus without complications
CPT/HCPCS: 78452; A9502

== ENCOUNTER 2024-09-21 09:44 | Observation (INO) | payer MEDICARE, MEDICAID, SELFPAY ==
[2024-09-21] VITALS (14 sets, daily range): BP systolic 79–145; BP diastolic 43–69; PULSE 74–90; RESP 15–23; TEMP 35.3–37.3; O2SAT 94–98; BMI 38.3; BMI 39.2
--- NOTE | 2024-09-21 10:00 | ECG_ITS ---
APPROVED REPORT Exam: Resting ECG HR:80 bpm ECG Measurements Heart Rate 80 AXES AR 152 P 63 QRSd 86 QRS 77 QT 382 T 75 QTc 418 Conclusion SINUS RHYTHM NORMAL ECG Electronically signed by : ALEXA ALMEIDA, 09/22/2024 07:38:26
--- NOTE | 2024-09-21 10:05 | PC.NURSE ---
DR ALMEIDA AT BEDSIDE
--- NOTE | 2024-09-21 10:08 | XR_ITS ---
FINAL REPORT CLINICAL HISTORY: Chest pain and weakness COMPARISON: 07/24/2022 FINDINGS: There is mild right basilar atelectasis. The left lung is clear. There is no evidence of effusion or pneumothorax. Mediastinum is unremarkable. Heart size is normal. IMPRESSION: Mild atelectasis. Reviewed, Interpreted and Dictated by Nnamdi Delacruz MD Transcribed by Megha Carlisle Authenticated and [facility]
--- NOTE | 2024-09-21 10:10 | ED_ITS ---
Discharge Plan Disposition Patient Disposition: Admitted Chief Complaint: Chest Pain Prescriptions Prescriptions: No Action bumetanide 1 mg tablet 1 mg PO DAILY Qty: 90 3RF furosemide 80 mg tablet 40 mg PO DAILY PRN (Reason: edema) bisoprolol fumarate 5 mg tablet 5 mg PO DAILY spironolactone 50 mg tablet 25 mg PO DAILY Qty: 30 5RF ibuprofen 800 mg tablet 800 mg PO TIDP PRN (Reason: Pain (Scale Score 4-6)) fluoxetine 20 mg capsule 20 mg PO TID Rx Instructions: administer in the morning and at noon/midday gstlvexmgp-rqhdckvtvmwlc-uyxs 50-325-40 mg tablet 1 tab PO Q6H PRN (Reason: Migraine Headache) Patient Comments: TAKE 1 TABLET BY MOUTH EVERY 6 HOURS NEEDED prazosin 5 mg capsule 5 mg PO DAILY Vraylar 4.5 mg capsule 4.5 mg PO DAILY Patient Comments: TAKE ONE CAPSULE BY MOUTH EVERY MORNING isosorbide mononitrate 30 mg tablet extended release 24 hr 30 mg PO DAILY Qty: 30 3RF ranolazine 1,000 mg tablet extended release 12 hr 1,000 mg PO BID Qty: 60 5RF clonazepam 0.5 mg tablet 0.5 mg PO BID Patient Comments: TAKE 1 TABLET BY MOUTH TWICE DAILY DIRECTED FOR ANXIETY dapagliflozin propanediol [Farxiga] 10 mg tablet 10 mg PO DAILY 0RF Entresto 97-103 mg tablet 1 tab PO BID Qty: 60 6RF prasugrel HCl [Effient] 10 mg tablet 10 mg PO DAILY Qty: 30 6RF Ozempic 2 mg/dose (8 mg/3 mL) pen injector See Rx Instructions .ROUTE .COMPLEX Qty: 3 0RF Dose Instruction: INJECT 2MG (0.75ML) SUBCUTANEOUSLY ONCE WEEKLY Rx Instructions: INJECT 2MG (0.75ML) SUBCUTANEOUSLY ONCE WEEKLY omeprazole 40 MG capsule,delayed release(DR/EC) 40 mg PO DAILY atorvastatin 40 MG tablet 40 mg PO HS albuterol sulfate 90 MCG aero powdr breath act w/sensor 2 puffs inhalation Q4HP PRN (Reason: Wheezing) hydroxyzine HCl 25 MG tablet 25 mg PO TIDP PRN (Reason: Itching) gabapentin 800 MG tablet 800 mg PO BID loratadine 10 MG tablet 10 mg PO DAILY ywpftjzywpe-dhcqonzss-btklpwqy 28 PUFF blister with device 1 puff inhalation DAILY trazodone 50 mg tablet 75 mg PO HS ipratropium-albuterol 3 ML solution for nebulization 3 ml inhalation QIDP PRN (Reason: COPD) cyclobenzaprine 5 MG tablet 5 mg PO TIDP PRN (Reason: Muscle Spasm) metformin 500 mg tablet 500 mg PO DAILY bupropion HCl 100 mg tablet sustained-release 12 hr 200 mg PO DAILY Patient Comments: TAKE 1 TABLET BY MOUTH ONCE DAILY DIRECTED FOR ANXIETY, DEPRESSION, AND SMOKING CESSATION. Referrals Follow up/Referrals: Dino,Julien, DO [Primary Care Provider] - See instructions Clinical Impressions Clinical Impression: ERIC (acute kidney injury), Chest pain, Hypomagnesemia, Weakness, Hypotension Print Language Print Language: [place] Discharge ED Provider: Rashid Jain HPI General Chief Complaint: Chest Pain Stated Complaint: Low BP, tired, weakness Time Seen by Provider: 09/21/24 09:46 History of Present Illness HPI narrative: Patient is a 59-year-old female with past medical history of chronic respiratory failure on 2 L nasal cannula secondary to COPD at baseline, coronary artery disease status post stenting who presents emergency department as a transfer patient from clinic for evaluation of weakness. Patient was supposed to get a stress test today however before conduction of the test patient had significantly low blood pressure because on refer her here for continued evaluation. Patient had a severe substernal chest pain 3 days ago that was transient and resolved and she did not seek evaluation. She has had intermittent twinges of chest pain since and has had mild chest pain that is continuous in the middle of her chest, no reports of it radiating. She is globally weak without focal weakness no trauma. No dysuria no abdominal pain, she has mild chronic cough which is at her baseline. Normal stooling. She did not take her blood pressure medicine this morning and has been compliant with her medications up until last night. No other acute complaints at this time. Please note that above description of symptoms, in this electronic medical record under categorization of recalled from ER triage doctor by RN are reflective of an initial nursing assessment, however, is not reflective of my full history and physical exam that was personally taken and clarified. Consequentially, this preceding description of symptoms, which may include the patient's categorized chief complaint in the EMR, do not reflect my personal clinical impression, and the ultimate description of history of present illness and patient stated complaints should be deferred to this section of the note. Unless stated otherwise or congruent with this section of the note, additional signs, symptoms, or incongruence should be interpreted as inaccurate with my clinical impression. Related Data Home Medications ?Medication ?Instructions ?Recorded ?Confirmed omeprazole 40 mg capsule,delayed 40 mg PO DAILY GERD 06/14/17 09/21/24 release trazodone 50 mg tablet 75 mg PO HS SLEEP 02/17/19 09/21/24 atorvastatin 40 mg tablet 40 mg PO HS Cholesterol 12/29/19 09/21/24 albuterol sulfate 90 mcg/actuation 2 puffs inhalation Q4HP PRN 12/30/19 09/21/24 breath activated powder Wheezing inhaler,sensor cyclobenzaprine 5 mg tablet 5 mg PO TIDP PRN Muscle Spasm 01/06/21 09/21/24 ipratropium 0.5 mg-albuterol 3 mg 3 ml inhalation QIDP PRN COPD 01/06/21 09/21/24 (2.5 mg base)/3 mL nebulization soln hydroxyzine HCl 25 mg tablet 25 mg PO TIDP PRN Itching 10/02/21 09/21/24 gabapentin 800 mg tablet 800 mg PO BID Pain 01/27/22 09/21/24 loratadine 10 mg tablet 10 mg PO DAILY Allergy symptoms 01/27/22 09/21/24 fluticasone fur. 100 mcg-umeclid 1 puff inhalation DAILY COPD 07/24/22 09/21/24 62.5 mcg-vilant 25 mcg inhalat.powder metformin 500 mg tablet 500 mg PO DAILY 09/08/23 09/21/24 bupropion HCl 100 mg tablet,12 hr 200 mg PO DAILY 11/01/23 09/21/24 sustained-release clonazepam 0.5 mg tablet 0.5 mg PO BID 11/01/23 09/21/24 bisoprolol fumarate 5 mg tablet 5 mg PO DAILY Hypertension 11/24/23 09/21/24 furosemide 80 mg tablet 40 mg PO DAILY PRN edema 11/24/23 09/21/24 fluoxetine 20 mg capsule 20 mg PO TID 07/13/24 09/21/24 ibuprofen 800 mg tablet 800 mg PO TIDP PRN Pain (Scale 07/13/24 09/21/24 Score 4-6) ntsvhjjfxt-zorsaamlvbqnq-wxuvrgwl 1 tab PO Q6H PRN Migraine Headache 09/06/24 09/21/24 50 mg-325 mg-40 mg tablet cariprazine 4.5 mg capsule 4.5 mg PO DAILY 09/06/24 09/21/24 (Vraylar) prazosin 5 mg capsule 5 mg PO DAILY 09/06/24 09/21/24 Previous Rx's ?Medication ?Instructions ?Recorded bumetanide 1 mg tablet 1 mg PO DAILY #90 tabs 12/16/22 spironolactone 50 mg tablet 25 mg (1/2 x 50 mg) PO DAILY Fluid 11/24/23 #30 tabs sacubitril 97 mg-valsartan 103 mg 1 tab PO BID #60 tabs 05/15/24 tablet (Entresto) prasugrel HCl 10 mg tablet 10 mg PO DAILY #30 tabs 06/26/24 (Effient) semaglutide 2 mg/dose (8 mg/3 mL) See Rx Instructions .Route 08/29/24 subcutaneous pen injector (Ozempic) .COMPLEX #3 mL isosorbide mononitrate 30 mg 30 mg PO DAILY #30 tabs 09/06/24 tablet,extended release 24 hr ranolazine 1,000 mg 1,000 mg PO BID #60 tabs 09/06/24 tablet,extended release,12 hr Allergies Allergy/AdvReac Type Severity Reaction Status Date / Time erythromycin base Allergy Unknown I-RASH Verified 09/06/24 13:23 (ERYTHROMYCIN BASE) Penicillins (PENICILLINS) Allergy Unknown DIFFICULTY Verified 09/06/24 13:23 BREATHING PFSH [facility] Disclaimer: The information contained in this section may have been updated after the patient was seen, as this information can be updated by other users. Medical History Hypomagnesemia Acute on chronic respiratory failure with hypoxia and hypercapnia Pneumonia due to COVID-19 virus COVID Tobacco use disorder Palpitations Anxiety Acute exacerbation of chronic obstructive airways disease Surgical History History of tubal ligation History of cardiac cath History of cancer surgery Social History Smoking Status: Current every day smoker tobacco type: cigarettes packs per day: 1 second hand exposure: No alcohol intake: never substance use type: other current occupational status: disabled Travel in the last 8 weeks: None household members: spouse housing: house current occupational exposures/hazards: No caffeine: Yes Other Medical History Have you received the Flu Vaccine for this season: No Have you received the Pneumonia Vaccine: No ROS Obtained: Yes Systems reviewed as appropriate & no additional complaints except as documented Physical Exam General General appearance: alert and in no apparent distress Head Head exam: atraumatic and normocephalic Eye Eye exam: Present PERRL and EOMI ENT ENT exam: Present mucous membranes moist Neck Neck exam: Present normal inspection Chest Chest inspection: Present normal inspection and symmetric chest wall rise Respiratory Respiratory exam: Present normal lung sounds bilaterally; Absent respiratory distress, wheezes or stridor Cardiovascular Cardiovascular exam: Present regular rate and normal rhythm Abdominal Exam Abdominal exam: Present soft; Absent tenderness Extremities Exam Extremities exam: Present normal inspection Neurological Exam Neurological exam: Present alert and CN II-XII intact; Absent motor sensory deficit Psychiatric Psychiatric exam: Present normal affect Skin Skin exam: Present warm and dry HEART Score HEART Score HEART Score assessment performed?: Yes History (anamnesis): Highly suspicious ECG: Normal Age: 45-65 years Risk factors: Atherosclerosis history Troponin: </= normal limit HEART Score: 5 Critical Care Critical Care Time Critical Care Time: Yes Attestation: On 09/21/24, the high probability of a clinically significant, sudden or life threatening deterioration of the following system(s) required my full and direct attention, intervention and personal management. The time I documented below is in addition to time spent performing reported procedures but includes the following listed in this critical care notation. Total Time Total Critical Care Time: 40 Medical Decision Making Connor Inquiry Pt receiving controlled substance: No Vital Signs Vital Signs: 09/21/24 10:00 09/21/24 10:08 09/21/24 10:08 Temperature 98.2 F Temperature Source Oral Pulse Rate 74 74 Pulse Rate [Right] 79 Respiratory Rate 18 16 Blood Pressure 80/57 L Blood Pressure [Right Arm] 80/53 L Blood Pressure Mean 63 Blood Pressure Mean [Right Arm] 62 Blood Pressure Source [Right Arm] Automatic Cuff 02 Sat by Pulse Oximetry 98 94 L Oxygen Delivery Method Nasal Cannula Oxygen Flow Rate (LPM) 2 09/21/24 10:37 09/21/24 11:00 09/21/24 11:30 Temperature Temperature Source Pulse Rate 80 75 76 Pulse Rate [Right] Respiratory Rate 17 16 17 Blood Pressure 79/51 L 92/63 L 98/69 L Blood Pressure [Right Arm] Blood Pressure Mean 60 70 76 Blood Pressure Mean [Right Arm] Blood Pressure Source [Right Arm] 02 Sat by Pulse Oximetry 96 97 97 Oxygen Delivery Method Oxygen Flow Rate (LPM) Lab Data Labs: Lab Results 09/21/24 09:58: SARS-CoV-2 (PCR) Not detected, Influenza A Untype (PCR) Not detected, Influenza Type B (PCR) Not detected 09/21/24 10:40: WBC 10.8, RBC 4.44, Hgb 12.8, Hct 39.4, MCV 88.7, MCH 28.8, MCHC 32.5, RDW 13.5, Plt Count 296, MPV 9.4, Neut % (Auto) 60.4, Lymph % (Auto) 26.6, [place] % (Auto) 8.8, Eos % (Auto) 3.1, Baso % (Auto) 0.6, Neut # (Auto) 6.5, Lymph # (Auto) 2.9, [place] # (Auto) 1.0, Eos # (Auto) 0.3, Baso # (Auto) 0.1, D-Dimer 0.42, Sodium 137, Potassium 5.1, Chloride 93 L, Carbon Dioxide 33 H, Anion Gap 16.1 H, BUN 31 H, Creatinine 1.90 H, Estimated Creat Clear 43, Estimated GFR 27 L, Est GFR ( Amer) 33 L, Glucose 103 H, Lactate 1.5, Calcium 9.6, M agnesium 1.4 L, Total Bilirubin 0.4, AST 27, ALT 24, Alkaline Phosphatase 80, Troponin I < 0.01, NT-Pro-B Natriuret Pep 61.5, Total Protein 7.7, Albumin 4.2, Globulin 3.5 H, Albumin/Globulin Ratio 1.2, TSH 2.61, Free T4 1.19, HCV Ab TIFFANIE w/Rflx PCR Qn Negative, HIV Ag/Ab Combo Qual Negative 09/21/24 10:49: VBG pH 7.33, VBG pCO2 57.9 H, VBG pO2 38.0, VBG HCO3 29.6, VBG Total CO2 31.4 H, VBG O2 Saturation 68.1, VBG Base Excess 3.7 H, VBG Lactic Acid 2.1 H 09/21/24 10:40 09/21/24 10:40 Response Orders (Tests/Meds): ED MEDICATIONS Generic Name Dose Route Start Last Admin Trade Name Freq PRN Reason Stop Dose Admin Magnesium Sulfate 2 gm in 50 mls @ 50 mls/hr 09/21/24 12:07 09/21/24 12:10 Magnesium Sulfate 2gm/50ml Premix IV 09/21/24 13:06 50 mls/hr ONCE ONE Administration Lactated Ringer's 1,000 mls @ 999 mls/hr 09/21/24 12:07 09/21/24 12:10 Lactated Ringer's 1000 Ml Bag IV 09/21/24 13:07 999 mls/hr .Q1H1M ONE Administration Discontinued Medications Generic Name Dose Route Start Last Admin Trade Name Freq PRN Reason Stop Dose Admin Aspirin 324 mg 09/21/24 10:08 09/21/24 10:34 Aspirin 81mg Chewable Tablet PO 09/21/24 10:09 324 mg ONCE ONE Administration Lactated Ringer's 500 mls @ 999 mls/hr 09/21/24 10:09 09/21/24 10:35 Lactated Ringer's 500ml IV 09/21/24 10:39 999 mls/hr .Q31M ONE Administration ORDERS Category Date Time Status CXR --portable [XR chest portable] Stat Exams 09/21/24 10:08 Completed POCUS Point of Care (ER Only) Stat Exams 09/21/24 10:08 Completed BNP [NT Pro Brain Natriuretic Pep.] Stat Lab 09/21/24 10:40 Completed CBC w/Auto Diff [Complete Blood Count Auto Diff] Stat Lab 09/21/24 10:40 Completed CMP [Comprehensive Metabolic Panel] Stat Lab 09/21/24 10:40 Completed D-Dimer Stat Lab 09/21/24 10:40 Completed Free T4 (Free Thyroxine) Stat Lab 09/21/24 10:40 Completed HIV Combo Stat Lab 09/21/24 10:40 Completed Hepatitis C Ab Qual. W/ RFX Stat Lab 09/21/24 10:40 Completed Lactic Acid Stat Lab 09/21/24 10:40 Completed MG [Magnesium] Stat Lab 09/21/24 10:40 Completed Rapid PCR Covid and Flu A/B Stat Lab 09/21/24 09:58 Completed TSH [Thyroid Stimulating Hormone] Stat Lab 09/21/24 10:40 Completed Trop I [Troponin I] Stat Lab 09/21/24 10:40 Completed Troponin I Q3H Lab 09/21/24 13:15 Ordered Troponin I Q3H Lab 09/21/24 16:15 Ordered UA [Urinalysis and Microscopic] Stat Lab 09/21/24 10:08 Ordered Blood Culture Stat Micro 09/21/24 10:50 Received VBG [Venous Blood Gas] Stat RT 09/21/24 10:49 Completed ECG Data Tracing #1: ECG Narrative: Independently interpreted by me rate is 80, rhythm is regular, axis is normal, no ST elevation in anatomical contiguous leads, QTc 418. MDM Narrative Medical Decision Narrative: In summary patient is a 59-year-old female with past medical history described above presents emergency department for evaluation of global weakness and chest pain. Patient has low blood pressure upon arrival 80s over 50s, acceptable mean arterial pressures greater than 60. She does not have any dependent edema. Differential includes ACS, aortic dissection, pulmonary embolism, electrolyte disturbance, among others. Workup will be conducted with hematologic labs, [id number] ultrasound, chest x-ray, EKG, troponin, urinalysis. She is not febrile and does not have a source of infection to suggest sepsis so aggressive fluid resuscitation and broad-spectrum antibiotics was considered but will be deferred at this time. Initial workup reviewed by me, hematologic labs no significant leukocytosis, no anemia, D-dimer excludes low risk aortic dissection and pulmonary embolism compensated acid-base status, there is ERIC present which we will continue to use to just his crystalloid resuscitation. [id number] ultrasound at bedside shows good ejection fraction, mild hypomagnesemia which will be repleted initial troponin undetectably low. Chest x-ray informally interpreted by me no acute dense lobar opacities, formal read atelectatic changes. Additional crystalloid bolus will be given. I suspect it is possible that patient is having low blood pressure as a combination of her diuretics and antihypertensives. Still no concern for infection at this point antibiotics will be deferred. The case was discussed with hospital medicine regarding management and they will admit the patient to her service for continued evaluation at this time. Procedure: Procedure performed was [id number] cardiac ultrasound Indication: Weakness Identified cardiac views: Cardiac parasternal long and apical four-chamber Findings: Cardiac activity present, gross wall motion normal, no large pericardial effusion, grossly normal ejection fraction Impression: - From above Images were saved to permanent archive The study was technically adequate CPT: 23108 This study was performed by me, and I personally interpreted all images/videos. Based on my clinical judgement, these images were adequate and did not necessitate further imaging.
[2024-09-21 10:12] LABS: Coronavirus 19, PCR Not Detected (NotDetected); Influenza A, PCR Not Detected (NotDetected); Influenza B, PCR Not Detected (NotDetected)
--- NOTE | 2024-09-21 10:15 | PC.NURSE ---
Having difficulty placing IV and obtaining blood. Dr Jain notified of this and reason for lab delay
--- NOTE | 2024-09-21 10:26 | PC.NURSE ---
XR AT BEDSIDE
--- NOTE | 2024-09-21 10:31 | PC.NURSE ---
patients FSBS was 89.
[2024-09-21] MEDS: ASPIRIN 81MG CHEWABLE TABLET 324 MG PO (10:34)
[2024-09-21] MEDS: RINGERS SOLUTION,LACTATED 500 ML 999 ML IV (10:35)
--- NOTE | 2024-09-21 10:47 | PC.NURSE ---
Dr Jain at bedside for u/s guided IV attempt and to obtain labs. He also competed POCUS
--- NOTE | 2024-09-21 10:50 | PC.NURSE ---
Respiratory called to notify of VBG order and blood in lab
[2024-09-21 10:58] LABS: VBG Base Excess 3.7 mmol/L (-2.4-2.3); VBG HCO3 29.6 mmol/L (23-30); VBG Oxygen Saturation 68.1 % (50-70); VBG PH 7.33 mmol/L (7.31-7.41); VBG Total CO2 31.4 mmol/L (23-27)
[2024-09-21 11:00] LABS: Basophils # 0.1 K/mm3 (0-0.2); Basophils % 0.6 % (0.1-2.0); Eosinophils # 0.3 K/mm3 (0.0-0.4); Eosinophils % 3.1 % (0.1-12.0); Hematocrit 39.4 % (37.0-47.0); Hemoglobin 12.8 g/dL (12.2-16.2); Lymphocytes # 2.9 K/mm3 (0.7-4.5); Lymphocytes % 26.6 % (10-50); Mean Corpuscular HGB Conc 32.5 g/dL (31.8-35.4); Mean Corpuscular Hemoglobin 28.8 pg (27.0-31.2); Mean Corpuscular Volume 88.7 fl (81-99); Mean Platelet Volume 9.4 fl (7.4-10.4); Monocytes % 8.8 % (1.7-9.3); Neutrophils # 6.5 K/mm3 (1.8-7.8); Neutrophils % 60.4 % (37.0-80.0); Nucleated Red Blood Cells # 0 10^3/uL; Nucleated Red Blood Cells % 0 %; Platelet Count 296 K/mm3 (142-424); Red Blood Count 4.44 M/mm3 (4.20-5.40); Red Cell Distribution Width 13.5 % (11.5-17.5); Red Cell Distribution Width-SD 44.2 fL; White Blood Count 10.8 K/mm3 (4.8-10.8)
[2024-09-21 11:01] LABS: Lactate Venous 2.1 mmol/L (0.4-2.0); VBG PCO2 57.9 mmol/L (35-51)
[2024-09-21 11:11] LABS: Magnesium 1.4 mg/dl (1.6-2.3)
[2024-09-21 11:12] LABS: Alanine Aminotransferase 24 U/L (12-78); Albumin Level 4.2 g/dl (3.5-5.0); Albumin/Globulin Ratio 1.2 (1.1-1.8); Alkaline Phosphatase 80 U/L (38-126); Anion Gap 16.1 mEq/L (5-15); Aspartate Amino Transferase 27 U/L (14-36); Bilirubin,Total 0.4 mg/dl (0.2-1.3); Blood Urea Nitrogen 31 mg/dl (7-17); Calcium 9.6 mg/dl (8.4-10.2); Carbon Dioxide 33 mmol/L (22.0-30.0); Chloride 93 mmol/L (98-107); Creatinine Clearance Estimated 43 mL/min (50-200); Estimated Glomerular Filt Rate 27 ml/min (>60); GFR (African American) 33 ML/MIN (>60); Globulin 3.5 g/dL (1.3-3.2); Glucose 103 mg/dl (74-100); Potassium 5.1 mmoL/L (3.5-5.1); Sodium 137 mmol/L (136-145); Total Protein,Serum 7.7 g/dl (6.3-8.2)
[2024-09-21 11:13] LABS: Lactic Acid 1.5 mmol/L (0.7-2.1)
[2024-09-21 11:16] LABS: D-Dimer 0.42 ug/mL (0.0-0.5)
[2024-09-21 11:23] LABS: NT Pro Brain Natriuretic Pep. 61.5 pg/mL (0-125)
[2024-09-21 11:30] LABS: Troponin I < 0.01 ng/ml (0.00-0.034)
[2024-09-21 11:45] LABS: Thyroid Stimulating Hormone 2.61 uIU/mL (0.465-4.68)
[2024-09-21 11:49] LABS: Free T4 (Free Thyroxine) 1.19 ng/dl (0.78-2.19)
[2024-09-21] MEDS: LACTATED RINGERS 1000ML 1,000 ML 999 ML IV ×2 (12:10→18:47)
[2024-09-21] MEDS: MAGNESIUM SULFATE IN WATER 2 GM/50 ML PIGGYBACK IV (12:10)
[2024-09-21 12:14] LABS: HIV Combo NEGATIVE (Negative)
[2024-09-21 12:22] LABS: Hepatitis C Ab Qual. W/ RFX NEGATIVE (Negative)
--- NOTE | 2024-09-21 12:34 | P.HP_ITS ---
History of Present Illness *Admission Date: 09/21/24 *Reason for visit:: Chest pain *History of present illness: Dorian Webb is a 59-year-old female with a medical history significant for CAD with stents, hypertension, COPD on 2 L baseline who initially presented for outpatient stress test due to intermittent chest pains for a few weeks. However, before the procedure it was noted that her systolic was in the 80s at which point she was directed to the ED. On arrival, patient maintained blood pressures in the 80s over 50s maps around 65, workup revealed creatinine 1.9 (baseline 1.0), AGAP 16, magnesium 1.4. On my evaluation of patient, she was sitting in bed comfortably without acute distress eating her meal. She states she been having intermittent chest pains with radiation to the right arm for a few weeks, in addition to intermittent nausea/vomiting, fever/chills for at l east a month. Denies shortness of breath, abdominal pain, urinary symptoms, constipation/diarrhea. Case discussed with ED provider and decision was made to admit patient for chest pain, ERIC, hypomagnesemia. [facility] Disclaimer: The information contained in this section may have been updated after the patient was seen, as this information can be updated by other users. Medical History (Updated 09/21/24 @ 15:49 by Ryann Cordon RN) Depression PTSD (post-traumatic stress disorder) Hypomagnesemia Acute on chronic respiratory failure with hypoxia and hypercapnia Pneumonia due to COVID-19 virus COVID Tobacco use disorder Palpitations Anxiety Acute exacerbation of chronic obstructive airways disease Surgical History (Updated 09/21/24 @ 15:48 by Ryann Cordon RN) History of back surgery Hx of tonsillectomy History of tubal ligation History of cardiac cath History of cancer surgery Social History (Updated 09/21/24 @ 15:48 by Ryann Cordon RN) Smoking Status: Current every day smoker tobacco type: cigarettes packs per day: 1 second hand exposure: No alcohol intake: never substance use type: other current occupational status: disabled Travel in the last 8 weeks: None household members: spouse housing: house current occupational exposures/hazards: No caffeine: Yes Have you lived/traveled outside [place] in past 30 days?: No Contact w/someone who lives/traveled outside US past 30 days?: No Exposure to someone with infectious disease in past 14 days?: No Do you have a fever (greater than 100.4 F or 38 C)?: No Have you tested positive for COVID-19: No Exposed to someone with COVID-19 in past 14 days?: No Do you have a sore throat?: No Do you have a cough?: No Do you have any weakness?: No Do you have any diarrhea?: No Are you experiencing any unusual bleeding?: No Do you have any muscle aches/pain?: No Do you have any abdominal pain?: No Are you experiencing loss of taste or smell?: No Other Medical History Have you received the Flu Vaccine for this season: No Have you received the Pneumonia Vaccine: No Meds Home Medications and Allergies Home Medications ?Medication ?Instructions ?Recorded ?Confirmed ?Type omeprazole 40 mg capsule,delayed 40 mg PO DAILY 06/14/17 09/21/24 History release trazodone 50 mg tablet 75 mg PO HS 02/17/19 09/21/24 History atorvastatin 40 mg tablet 40 mg PO HS 12/29/19 09/21/24 History cyclobenzaprine 5 mg tablet 5 mg PO TIDP PRN Muscle Spasm 01/06/21 09/21/24 History hydroxyzine HCl 25 mg tablet 25 mg PO TIDP PRN Anxiety 10/02/21 09/21/24 History gabapentin 800 mg tablet 800 mg PO BID 01/27/22 09/21/24 History loratadine 10 mg tablet 10 mg PO DAILY 01/27/22 09/21/24 History metformin 500 mg tablet 500 mg PO DAILY 09/08/23 09/21/24 History bupropion HCl 100 mg tablet,12 hr 100 mg PO BID 11/01/23 09/21/24 History sustained-release clonazepam 0.5 mg tablet 0.5 mg PO BID 11/01/23 09/21/24 History bisoprolol fumarate 5 mg tablet 5 mg PO BID 11/24/23 09/21/24 History sacubitril 97 mg-valsartan 103 mg 1 tab PO BID #60 tabs 05/15/24 09/21/24 Rx tablet (Entresto) prasugrel HCl 10 mg tablet 10 mg PO DAILY #30 tabs 06/26/24 09/21/24 Rx (Effient) fluoxetine 20 mg capsule 60 mg PO DAILY 07/13/24 09/21/24 History ibuprofen 800 mg tablet 800 mg PO TIDP PRN Mild Pain 07/13/24 09/21/24 History (Scale Score 1-4) [id number] 1 tab PO Q6HP PRN Migraine Headache 09/06/24 09/21/24 History 50 mg-325 mg-40 mg tablet cariprazine 4.5 mg capsule 4.5 mg PO DAILY 09/06/24 09/21/24 History (Vraylar) isosorbide mononitrate 30 mg 30 mg PO DAILY #30 tabs 09/06/24 09/21/24 Rx tablet,extended release 24 hr prazosin 5 mg capsule 5 mg PO DAILY 09/06/24 09/21/24 History ranolazine 1,000 mg 1,000 mg PO BID #60 tabs 09/06/24 09/21/24 Rx tablet,extended release,12 hr albuterol sulfate 90 mcg/actuation 2 puff inhalation Q4HP PRN 09/21/24 09/21/24 History aerosol inhaler Shortness Of Breath Or Wheezing dapagliflozin propanediol 10 mg 10 mg PO DAILY 09/21/24 09/21/24 History tablet (Farxiga) semaglutide 2 mg/dose (8 mg/3 mL) 2 mg SQ WEEKLY 09/21/24 09/21/24 History subcutaneous pen injector (Ozempic) spironolactone 50 mg tablet 25 mg PO DAILY 09/21/24 09/21/24 History umeclidinium 62.5 mcg/actuation 1 inh inhalation DAILY 09/21/24 09/21/24 History blister powder for inhalation (Incruse Ellipta) New Prescriptions to Start Prescriptions: Allergies Allergy/AdvReac Type Severity Reaction Status Date / Time erythromycin base Allergy Unknown I-RASH Verified 09/06/24 13:23 (ERYTHROMYCIN BASE) Penicillins (PENICILLINS) Allergy Unknown DIFFICULTY Verified 09/06/24 13:23 BREATHING Exam Data for Last 24 hours Vital signs and Labs for Last 24 Hours: Temp Pulse Resp BP Pulse Ox O2 Del Method O2 Flow Rate 98.2 F 76 17 98/69 L 97 Nasal Cannula 2 09/21/24 10:08 09/21/24 11:30 09/21/24 11:30 09/21/24 11:30 09/21/24 11:30 09/21/24 10:08 09/21/24 10:08 Laboratory Results - last 24 hr 09/21/24 09:58: SARS-CoV-2 (PCR) Not detected, Influenza A Untype (PCR) Not detected, Influenza Type B (PCR) Not detected 09/21/24 10:40: WBC 10.8, RBC 4.44, Hgb 12.8, Hct 39.4, MCV 88.7, MCH 28.8, MCHC 32.5, RDW 13.5, Plt Count 296, MPV 9.4, Neut % (Auto) 60.4, Lymph % (Auto) 26.6, [place] % (Auto) 8.8, Eos % (Auto) 3.1, Baso % (Auto) 0.6, Neut # (Auto) 6.5, Lymph # (Auto) 2.9, [place] # (Auto) 1.0, Eos # (Auto) 0.3, Baso # (Auto) 0.1, D-Dimer 0.42, Sodium 137, Potassium 5.1, Chloride 93 L, Carbon Dioxide 33 H, Anion Gap 16.1 H, BUN 31 H, Creatinine 1.90 H, Estimated Creat Clear 43, Estimated GFR 27 L, Est GFR ( Amer) 33 L, Glucose 103 H, Lactate 1.5, Calcium 9.6, Magnesium 1.4 L, Total Bilirubin 0.4, AST 27, ALT 24, Alkaline Phosphatase 80, Troponin I < 0.01, NT-Pro-B Natriuret Pep 61.5, Total Protein 7.7, Albumin 4.2, Globulin 3.5 H, Albumin/Globulin Ratio 1.2, TSH 2.61, Free T4 1.19, HCV Ab TIFFANIE w/Rflx PCR Qn Negative, HIV Ag/Ab Combo Qual Negative 09/21/24 10:49: VBG pH 7.33, VBG pCO2 57.9 H, VBG pO2 38.0, VBG HCO3 29.6, VBG Total CO2 31.4 H, VBG O2 Saturation 68.1, VBG Base Excess 3.7 H, VBG Lactic Acid 2.1 H I & O for Last 24 hours: Intake & Output 09/18/24 09/19/24 09/20/24 09/21/24 23:59 23:59 23:59 23:59 Weight 86.183 kg Constitutional Constitutional: no acute distress and obese *Routine HEENT Exam Head: Present normocephalic Eye: Present EOMI and PERRL ENT: Present mucous membranes moist *Routine Neck Exam Neck: Present supple; Absent lymphadenopathy *Routine Respiratory Exam Respiratory: Present CTA bilaterally *Routine Cardiovascular Exam Cardiovascular: Present RRR *Routine Abdominal Exam Abdominal: Present soft and normoactive bowel sounds; Absent tenderness *Routine Rectal Exam Rectal:: deferred *Routine Genitalia Exam Genitalia:: deferred *Routine Extremities Exam Extremities: Absent cyanosis, clubbing or edema *Routine Skin Exam Skin: Present warm; Absent rash *Routine Neurological Exam Neurological: Present alert and oriented X3 Assessment and Plan *Assessment and plan (1) Hypotension: Status: Acute Category: Medical Code(s): I95.9 - Hypotension, unspecified Plan Dorian Webb is a 59-year-old female with a medical history significant for CAD with stents, hypertension, COPD on 2 L baseline who initially presented for outpatient stress test due to intermittent chest pains for a few weeks. However, before the procedure it was noted that her systolic was in the 80s at which point she was directed to the ED. On arrival, patient maintained blood pressures in the 80s over 50s maps around 65, workup revealed creatinine 1.9 (baseline 1.0), AGAP 16, magnesium 1.4. On my evaluation of patient, she was s itting in bed comfortably without acute distress eating her meal. She states she been having intermittent chest pains with radiation to the right arm for a few weeks, in addition to intermittent nausea/vomiting, fever/chills for at least a month. Denies shortness of breath, abdominal pain, urinary symptoms, constipation/diarrhea. Case discussed with ED provider and decision was made to admit patient for chest pain, ERIC, hypomagnesemia. #Chest pain #CAD with stents ? Intermittent midsternal chest pain with right arm radiation for at least a week. Was supposed to undergo stress test today but had low blood pressures. ? Troponins normal, EKG without acute ischemic changes. ? A1c, LDL, TSH normal. ? Follow-up limited ECHO. ? Continue home prasugrel and statin, start aspirin 81 mg. Hold off on beta- gómez due to soft pressures. ? Continue home Protonix. ? Cardiology consulted, pending further recommendations. N.p.o. at midnight. #Hypotension #Hypothermia #Nausea/vomiting #Fever/chills #ERIC ? Unclear if the symptoms are related. Hypotension may be more related to hypovolemia from poor oral intake, contributing to ERIC. ? Creatinine 1.9, baseline 1.0. ? Follow-up UA, blood cultures. CXR without acute findings, does have chronic interstitial changes. ? Follow-up CT abdomen/pelvis due to nausea/vomiting, fever/chills and hypert ension. ? Started vancomycin, cefepime for empiric treatment for now. ? Ordered second 1 L bolus. Continue with LR at 100 mL/h thereafter. ? Follow-up free T4, cortisol. ? Continuous cardiac telemetry. #History of hypertension ? Hold home meds due to hypotension. #COPD on 2 L baseline ? Continue home Incruse. #Anxiety/depression ? Continue home medications once reconciled. Full code DVT prophylaxis: Lovenox 30 mg
--- NOTE | 2024-09-21 12:35 | PC.NURSE ---
ELECTRONICS PROCESSOR NOTIFIED OF ADMISSION
--- NOTE | 2024-09-21 12:53 | PC.NURSE ---
Called report to Ryann Pineda RN on med/surg unit
--- NOTE | 2024-09-21 13:44 | PC.NURSE ---
upon arrival to the [facility] floor patients axillary temperature was 96.6, patients temperature was then taken rectally and was 95.6, amber hugger placed, warm blankets applied and room temperature increased.
[2024-09-21] MEDS: LACTATED RINGERS 1000ML 1,000 ML 100 ML IV ×2 (13:59→20:01)
[2024-09-21 14:31] LABS: Troponin I < 0.01 ng/ml (0.00-0.034)
[2024-09-21 15:00] LABS: Reflex Lactic Add Lactic Reflex
[2024-09-21 15:33] LABS: Lactic Acid Follow Up (RFLX 1) 1.6 mmol/L (0.7-2.1)
[2024-09-21 17:56] LABS: Troponin I < 0.01 ng/ml (0.00-0.034)
--- NOTE | 2024-09-21 18:52 | PC.NURSE ---
notified MD of blood pressures continuing to be low (87/55 at 1805) and rectal temp is 98.9, new orders received to transfer patient to stepdown.
[2024-09-21] MEDS: HYDROCODONE/APAP 5/325 MG TABLET 2 TAB PO (19:33)
[2024-09-21] MEDS: VANCOMYCIN CONSULT REQUEST 1 EACH NOTAPPLIC (19:45)
[2024-09-21] MEDS: CEFEPIME HCL 2 GM in 0.9 % SODIUM CHLORIDE 100 ML IV (19:53)
[2024-09-21 19:54] LABS: Microscopic, Urine URINE MICROSCOPIC (MICROSCOPIC)
[2024-09-21 19:55] LABS: Appearance,Urine CLEAR (Clear); Bilirubin,Urine Negative (Negative); Blood, Urine Negative (Negative); Color,Urine YELLOW (Yellow); Glucose,Urine (UA) 3+ (Negative); Ketones,Urine Negative (Negative); Leukocyte Esterase,Urine Negative (Negative); Nitrate,Urine Negative (Negative); Protein,Urine Negative (Negative); Specific Gravity, Urine <= 1.005 (1.005-1.030); Urobilinogen,Urine 0.2 EU/dl (0.2)
[2024-09-21] MEDS: clonazePAM 0.5MG TABLET 0.5 MG PO (20:10)
[2024-09-21] MEDS: ATORVASTATIN 40MG TABLET 40 MG PO (20:11)
[2024-09-21] MEDS: PANTOPRAZOLE 40MG TABLET 40 MG PO (20:12)
[2024-09-21] MEDS: VANCOMYCIN/WATER FOR INJ (PEG) 1.75 GM/350 ML PIGGYBACK IV (20:50)
[2024-09-21 21:00] LABS: Bacteria,Urine 1+ /lpf
[2024-09-22] VITALS (23 sets, daily range): BP systolic 89–157; BP diastolic 54–88; PULSE 72–87; RESP 13–20; TEMP 36.4–36.8; O2SAT 92–98; BMI 40.4
[2024-09-22] MEDS: HYDROCODONE/APAP 5/325 MG TABLET 2 TAB PO ×4 (00:21→14:55)
--- NOTE | 2024-09-22 06:00 | CA_ITS ---
APPROVED REPORT EXAM: Comprehensive 2D, Doppler, and color-flow Echocardiogram Dry Cure Worker: PAOLO Devries, RVS Ht: 4 ft 11 in Wt: 194lbs BSA: 1.82 BP: 98/69 mmHg Indications: COPD, CHF, CAD, CP, Obesity, HTN Echo Enhancing Agent Comments: Extremely limited windows due to body habitus and lung impedance 2D Dimensions IVSd 1.04 cm F: 0.6-1.0 LVEF (Visual) 56.00 % PWd 1.26 cm F: 0.6 - 1.0 LA Volume 48.20 mL LVDd 4.76 cm F: 3.9 - 5.3 LA Volume Index 26.48 mL/m2 (M/F) 16-34 LVDs 3.37 cm F: 2.2 - 3.5 Left Atrium 3.47 cm F: 2.7 - 3.8 M-Mode Dimensions LA Diam 3.93 cm (1.9-4.0) EPSs 0.34 cm TAPSE 2.38 (<1.7) LV Diastology E Decel Time 150 (160-240 msec) E/A Ratio 1.10 MED A' 16.00 cm/s LAT A' 11.10 cm/s Aortic Valve KRIS Index 1.17 cm2/m2 AoV Peak Curt. 125.0 (50-130 cm/s) AO Peak GR. 6.20 mmHg AO Mean GR. 3.10 (<5 mmHg) AO VTI 27.8 (18-25 cm) KRIS (VTI) 2.18 (2.5-4.5 cm2) Mitral Valve MV A Velocity 82.0 (40-130 cm/s) E/A Ratio 1.10 Left Ventricle The left ventricle is normal size. The left ventricular systolic function is normal. The left ventricular ejection fraction is within the normal range. There is increased overall thickness. There is normal LV segmental wall motion. The left ventricular diastolic function is normal. LVEF is 60%. Right Ventricle The right ventricle is normal size. The right ventricular systolic function is normal. Atria The left atrium size is normal. The right atrium size is normal. There is no Doppler evidence of interatrial shunt. Aortic Valve The aortic valve is mildly thickened. There is no aortic valvular stenosis. No aortic regurgitation is present. Mitral Valve The mitral valve is normal in structure. Trace mitral regurgitation. No evidence of mitral valve stenosis. Tricuspid Valve Tricuspid valve is grossly normal in structure and function. Trace tricuspid regurgitation. There is insufficient TR jet to estimate RVSP. Pulmonic Valve The pulmonary valve is normal in structure. Trace pulmonic regurgitation. Great Vessels The aortic root is normal in size. IVC is normal in size and collapses >50% with inspiration. Pericardium There is no pericardial effusion. Other Information Study Quality: Technically Difficult Conclusion Technically difficult study due to poor acoustic windows. Normal biventricular systolic function. No significant valvular stenosis or regurgitation. Electronically signed by : Mandi Stephenson MD 09/22/2024 09:57:17
[2024-09-22] MEDS: LACTATED RINGERS 1000ML 1,000 ML 100 ML IV (06:10)
[2024-09-22 06:14] LABS: Basophils # 0.1 K/mm3 (0-0.2); Basophils % 0.5 % (0.1-2.0); Eosinophils # 0.5 K/mm3 (0.0-0.4); Eosinophils % 4.7 % (0.1-12.0); Hematocrit 34.1 % (37.0-47.0); Lymphocytes # 3.2 K/mm3 (0.7-4.5); Lymphocytes % 31.7 % (10-50); Mean Corpuscular HGB Conc 33.1 g/dL (31.8-35.4); Mean Corpuscular Hemoglobin 29.3 pg (27.0-31.2); Mean Corpuscular Volume 88.3 fl (81-99); Mean Platelet Volume 9.5 fl (7.4-10.4); Monocytes % 10.2 % (1.7-9.3); Neutrophils # 5.2 K/mm3 (1.8-7.8); Neutrophils % 52.3 % (37.0-80.0); Nucleated Red Blood Cells # 0 10^3/uL; Nucleated Red Blood Cells % 0 %; Platelet Count 270 K/mm3 (142-424); Red Blood Count 3.86 M/mm3 (4.20-5.40); Red Cell Distribution Width 13.2 % (11.5-17.5); Red Cell Distribution Width-SD 42.4 fL; White Blood Count 9.9 K/mm3 (4.8-10.8)
[2024-09-22 06:18] LABS: Hemoglobin 11.3 g/dL (12.2-16.2)
[2024-09-22 06:19] LABS: Albumin Level 3.2 g/dl (3.5-5.0); Chloride 100 mmol/L (98-107)
[2024-09-22 06:20] LABS: Potassium 4.9 mmoL/L (3.5-5.1); Sodium 135 mmol/L (136-145)
[2024-09-22 06:22] LABS: Alanine Aminotransferase 18 U/L (12-78); Albumin/Globulin Ratio 1.1 (1.1-1.8); Alkaline Phosphatase 85 U/L (38-126); Anion Gap 8.9 mEq/L (5-15); Aspartate Amino Transferase 19 U/L (14-36); Bilirubin,Total 0.2 mg/dl (0.2-1.3); Blood Urea Nitrogen 21 mg/dl (7-17); Carbon Dioxide 31 mmol/L (22.0-30.0); Creatinine Clearance Estimated 86 mL/min (50-200); Estimated Glomerular Filt Rate 57 ml/min (>60); GFR (African American) 68 ML/MIN (>60); Globulin 2.9 g/dL (1.3-3.2); Total Protein,Serum 6.1 g/dl (6.3-8.2)
[2024-09-22 06:23] LABS: Calcium 9.2 mg/dl (8.4-10.2); Glucose 93 mg/dl (74-100); Magnesium 1.8 mg/dl (1.6-2.3)
[2024-09-22 06:29] LABS: C-Reactive Protein 5.1 mg/L (0-4)
[2024-09-22] MEDS: CEFEPIME HCL 2 GM in 0.9 % SODIUM CHLORIDE 100 ML IV (06:51)
--- NOTE | 2024-09-22 07:00 | CT_ITS ---
FINAL REPORT TECHNIQUE: Oral and IV contrast enhanced exam This study was performed with techniques to keep radiation doses as low as reasonably achievable, (ALARA). Individualized dose reduction techniques using automated exposure control or adjustment of mA and/or kV according to the patient's size were employed. CLINICAL HISTORY: Hypotension, hypothermia, nausea/vomiting COMPARISON: 01/06/2021 FINDINGS: CT ABDOMEN PELVIS WITH CONTRAST: Abdomen: There is a peripheral opacity noted in the right lower lobe, suspicious for pneumonia, with associated atelectasis. A trace pleural effusion is present. There is mild left atelectasis as well. The gallbladder is contracted liver has an unremarkable CT appearance. The spleen, pancreas and adrenal glands are unremarkable. Kidneys show no mass or obstruction. There is mild celiac adenopathy present, stable, considered benign reactive. No bowel obstruction or fluid collection is seen. Pelvis: The appendix is normal in appearance. Pelvic bowel loops are unremarkable. No fluid collection or adenopathy is seen. The uterus is unremarkable. The bladder is normal in appearance. IMPRESSION: No acute intra-abdominal abnormality identified. Right lower lobe opacity suspicious for pneumonia, with associated bibasilar atelectasis. Reviewed, Interpreted and Dictated by Nnamdi Delacruz MD Transcribed by Iris Mason Authenticated and [facility]
[2024-09-22 07:08] LABS: Free T4 (Free Thyroxine) 1.03 ng/dl (0.78-2.19)
[2024-09-22 07:30] LABS: Erythrocyte Sedimentation Rate 95 mm/hr (0-30)
--- NOTE | 2024-09-22 07:39 | PC.NURSE ---
intake from multiple shifts
[2024-09-22] MEDS: SODIUM CHLORIDE 0.9% 10ML SYR (RAD ONLY) 10 ML IV (08:07)
[2024-09-22] MEDS: IOPAMIDOL-370 (76%);100ML BOTTLE 75 ML IV (08:07)
[2024-09-22 08:16] LABS: Procalcitonin 0.049 ng/mL (0.0-2.0)
[2024-09-22] MEDS: ASPIRIN EC 81MG TABLET 81 MG PO (08:31)
[2024-09-22] MEDS: ENOXAPARIN 40MG/0.4ML SYRINGE 40 MG SUBCUT (08:31)
[2024-09-22] MEDS: PRASUGREL 10MG TAB 10 MG PO (08:31)
[2024-09-22] MEDS: clonazePAM 0.5MG TABLET 0.5 MG PO (08:35)
--- NOTE | 2024-09-22 09:15 | IR_ITS ---
APPROVED REPORT Patient Location: Inpatient PROCEDURES Left heart catheterization Left ventriculogram Selective coronary angiogram INDICATION Known coronary artery disease, Unstable angina Informed consent was obtained prior to the procedure. COMPLICATIONS NONE Estimated Blood Loss: LESS THAN 10 ML TECHNIQUE One percent lidocaine used to anesthetize the right anterior aspect of the wrist. The right radial artery was accessed via the Seldinger technique. A 6 [place] sheath was placed in the right radial artery. 2.5 mg of Verapamil, 800 mcg of nitroglycerin, 1mg Lidocaine and 5000 U Heparin were given through the arterial sheath. The 6 [place] JL 3 guide catheter was also used to perform left heart catheterization, left ventriculogram and selective coronary angiogram. At the end of the procedure the sheath was removed good hemostasis was achieved using Traclet band, patient was transferred to the postop holding area in stable condition. ANGIOGRAPHIC RESULTS The left main artery Short and normal The left anterior descending artery Has a proximal 20% stenosis with mild 10% diffuse luminal irregularities The circumflex artery Large dominant with a stent in the proximal to mid segment which is widely patent free of in-stent restenosis with excellent proximal and distal transitioning The right coronary artery Nondominant yet still large with stents in the proximal through mid segment which are widely patent with minimal in-stent restenosis and excellent distal transitioning The MARIEE ventriculogram reveals Slightly hyperdynamic at 75% The left ventricular end-diastolic pressure 20 to 25 mmHg IMPRESSION Patent coronary arteries Hyperdynamic ventricle with elevated LVEDP PLAN 1. Medical management for coronary artery disease 2. Treatment of hyperdynamic ventricle and elevated LVEDP which is likely etiology for patient's symptoms Electronically signed by : Vinicio Jimenes MD 09/22/2024 14:03:41
--- NOTE | 2024-09-22 10:04 | EXP.CARD.CON ---
History of Present Illness History of Present Illness Consult date: 09/22/24 Requesting physician: Trey Obando Chief complaint: Fatigue, weakness, increased soa, low BP History of present illness: This is a 59-year-old white female with past medical history of coronary artery disease status post JAN times 08/18/2023 to circumflex and RCA who presented to stress lab yesterday for outpatient stress testing due to increased episodes of chest pain and shortness of breath. Upon presentation to stress lab patient was noted to be hypotensive with a systolic blood pressure in the 70s to 80s. She also endorsed generalized weakness and overall not feeling well for 24 hours. She was also requiring creased oxygen via nasal cannula to maintain oxygen saturation greater than 92%. Stress test was canceled and patient proceeded to emergency department for evaluation of symptoms. Upon presentation to ER EKG showed normal sinus rhythm at a rate of 80 without acute ischemic changes noted. Labs were as follow: BBC 10.8, hemoglobin 12.8, platelets 296, sodium 137, potassium 5.1, creatinine 1.9 trending down to 1 today, magnesium 1.4 and serial troponins negative. proBNP was 61.5. Chest x-ray was obtained which showed mild atelectasis. Patient was admitted for ERIC and hypomagnesia. ALYSSA CT abdomen pelvis was obtained this morning which shows no acute intra-abdominal abnormalities noted but does note a right lower lobe opacity suspicious for pneumonia. This morning patient is resting comfortably and denies symptoms of chest pain or shortness of breath, she reports she is overall feeling better. She is currently receiving IV antibiotics. [facility] Disclaimer: The information contained in this section may have been updated after the patient was seen, as this information can be updated by other users. Medical History (Updated 09/22/24 @ 10:11 by Chela Lynn APRN) Depression PTSD (post-traumatic stress disorder) Hypomagnesemia Acute on chronic respiratory failure with hypoxia and hypercapnia Pneumonia due to COVID-19 virus COVID Tobacco use disorder Palpitations Anxiety Acute exacerbation of chronic obstructive airways disease Surgical History (Updated 09/21/24 @ 15:48 by Ryann Cordon RN) History of back surgery Hx of tonsillectomy History of tubal ligation History of cardiac cath History of cancer surgery Social History (Updated 09/21/24 @ 15:48 by Ryann Cordon RN) Smoking Status: Current every day smoker tobacco type: cigarettes packs per day: 1 second hand exposure: No alcohol intake: never substance use type: other current occupational status: disabled Travel in the last 8 weeks: None household members: spouse housing: house current occupational exposures/hazards: No caffeine: Yes Have you lived/traveled outside [place] in past 30 days?: No Contact w/someone who lives/traveled outside [place] past 30 days?: No Exposure to someone with infectious disease in past 14 days?: No Do you have a fever (greater than 100.4 F or 38 C)?: No Have you tested positive for COVID-19: No Exposed to someone with COVID-19 in past 14 days?: No Do you have a sore throat?: No Do you have a cough?: No Do you have any weakness?: No Do you have any diarrhea?: No Are you experiencing any unusual bleeding?: No Do you have any muscle aches/pain?: No Do you have any abdominal pain?: No Are you experiencing loss of taste or smell?: No Review of Systems Review of Systems Review of systems:: pertinent systems reviewed and negative unless documented below Constitutional Constitutional: Reports system reviewed and no additional complaints, except as documented and Reports weakness *Cardiovascular Cardiovascular: Reports chest pain and Reports dyspnea on exertion *Respiratory Respiratory: Reports system reviewed and no additional complaints, except as documented and Reports dyspnea on exertion *Gastrointestinal Gastrointestinal: Reports system reviewed and no additional complaints, except as documented *Neurologic Neurologic: Reports system reviewed and no additional complaints, except as documented, Denies confusion and Reports weakness Psychiatric Psychiatric: Reports system reviewed and no additional complaints, except as documented and Denies confusion Exam Data for Last 24 hours Vital signs and Labs for Last 24 Hours: Temp Pulse Resp BP Pulse Ox O2 Del Method O2 Flow Rate 98.1 F 74 20 114/68 95 Nasal Cannula 2 09/22/24 08:00 09/22/24 09:00 09/22/24 09:00 09/22/24 09:00 09/22/24 09:00 09/22/24 09:00 09/22/24 09:00 Laboratory Results - last 24 hr 09/21/24 09:58: SARS-CoV-2 (PCR) Not detected, Influenza A Untype (PCR) Not detected, Influenza Type B (PCR) Not detected 09/21/24 10:40: WBC 10.8, RBC 4.44, Hgb 12.8, Hct 39.4, MCV 88.7, MCH 28.8, MCHC 32.5, RDW 13.5, Plt Count 296, MPV 9.4, Neut % (Auto) 60.4, Lymph % (Auto) 26.6, [place] % (Auto) 8.8, Eos % (Auto) 3.1, Baso % (Auto) 0.6, Neut # (Auto) 6.5, Lymph # (Auto) 2.9, [place] # (Auto) 1.0, Eos # (Auto) 0.3, Baso # (Auto) 0.1, D-Dimer 0.42, Sodium 137, Potassium 5.1, Chloride 93 L, Carbon Dioxide 33 H, Anion Gap 16.1 H, BUN 31 H, Creatinine 1.90 H, Estimated Creat Clear 43, Estimated GFR 27 L, Est GFR ( Amer) 33 L, Glucose 103 H, Lactate 1.5, Calcium 9.6, Magnesium 1.4 L, Total Bilirubin 0.4, AST 27, ALT 24, Alkaline Phosphatase 80, Troponin I < 0.01, NT-Pro-B Natriuret Pep 61.5, Total Protein 7.7, Albumin 4.2, Globulin 3.5 H, Albumin/Globulin Ratio 1.2, TSH 2.61, Free T4 1.19, HCV Ab TIFFANIE w/Rflx PCR Qn Negative, HIV Ag/Ab Combo Qual Negative 09/21/24 10:49: VBG pH 7.33, VBG pCO2 57.9 H, VBG pO2 38.0, VBG HCO3 29.6, VBG Total CO2 31.4 H, VBG O2 Saturation 68.1, VBG Base Excess 3.7 H, VBG Lactic Acid 2.1 H 09/21/24 13:50: Troponin I < 0.01 09/21/24 15:10: Lactate 1.6 09/21/24 17:15: Troponin I < 0.01 09/21/24 : Urine Color Yellow, Urine Appearance Clear, Urine pH 6.0, Ur Specific [place] <= 1.005, Urine Protein Negative, Urine Glucose (UA) 3+, Urine Ketones Negative, Urine Blood Negative, Urine Nitrate Negative, Urine Bilirubin Negative, Urine Urobilinogen 0.2, Ur Leukocyte Esterase Negative, Urine RBC None, Urine WBC 3-5, Ur Squamous Epith Cells 3-5, Urine Bacteria 1+ 09/22/24 05:53: WBC 9.9, RBC 3.86 L, Hgb 11.3 L D, Hct 34.1 L, MCV 88.3, MCH 29.3, MCHC 33.1, RDW 13.2, Plt Count 270, MPV 9.5, Neut % (Auto) 52.3, Lymph % (Auto) 31.7, [place] % (Auto) 10.2 H, Eos % (Auto) 4.7, Baso % (Auto) 0.5, Neut # (Auto) 5.2, Lymph # (Auto) 3.2, [place] # (Auto) 1.0, Eos # (Auto) 0.5 H, Baso # (Auto) 0.1, ESR 95 H, Sodium 135 L, Potassium 4.9, Chloride 100, Carbon Dioxide 31 H, Anion Gap 8.9, BUN 21 H D, Creatinine 1.00 D, Estimated Creat Clear 86, Estimated GFR 57 L, Est GFR ( Amer) 68 D, Glucose 93, Calcium 9.2, Magnesium 1.8 D, Total Bilirubin 0.2, AST 19 D, ALT 18, Alkaline Phosphatase 85, C-Reactive Protein 5.1 H, Total Protein 6.1 L, Albumin 3.2 L D, Globulin 2.9, Albumin/Globulin Ratio 1.1, Procalcitonin 0.049, Free T4 1.03 I & O for Last 24 hours: Intake & Output 09/19/24 09/20/24 09/21/24 09/22/24 23:59 23:59 23:59 23:59 Intake Total 1550 / 2150 2829 / 2829 Output Total 400 / 400 0 / 0 Balance 1150 / 1750 2829 / 2829 Weight 194 lb 9 oz 200 lb 14.4 oz Constitutional Constitutional: no acute distress *Routine Respiratory Exam Respiratory: Present CTA bilaterally and symmetric chest movement *Routine Cardiovascular Exam Cardiovascular: Present RRR, Normal S1 and Normal S2 *Routine Abdominal Exam Abdominal: Present soft and normoactive bowel sounds; Absent tenderness *Routine Extremities Exam Extremities: Present full ROM and normal capillary refill; Absent edema *Routine Skin Exam Skin: Present intact, dry and warm Detailed Neck Exam: Thyroids Thyroid: Absent bruit Meds Home Medications and Allergies Home Medications ?Medication ?Instructions ?Recorded ?Confirmed ?Type omeprazole 40 mg capsule,delayed 40 mg PO DAILY 06/14/17 09/21/24 History release trazodone 50 mg tablet 75 mg PO HS 02/17/19 09/21/24 History atorvastatin 40 mg tablet 40 mg PO HS 12/29/19 09/21/24 History cyclobenzaprine 5 mg tablet 5 mg PO TIDP PRN Muscle Spasm 01/06/21 09/21/24 History hydroxyzine HCl 25 mg tablet 25 mg PO TIDP PRN Anxiety 10/02/21 09/21/24 History gabapentin 800 mg tablet 800 mg PO BID 01/27/22 09/21/24 History loratadine 10 mg tablet 10 mg PO DAILY 01/27/22 09/21/24 History metformin 500 mg tablet 500 mg PO DAILY 09/08/23 09/21/24 History bupropion HCl 100 mg tablet,12 hr 100 mg PO BID 11/01/23 09/21/24 History sustained-release clonazepam 0.5 mg tablet 0.5 mg PO BID 11/01/23 09/21/24 History bisoprolol fumarate 5 mg tablet 5 mg PO BID 11/24/23 09/21/24 History sacubitril 97 mg-valsartan 103 mg 1 tab PO BID #60 tabs 05/15/24 09/21/24 Rx tablet (Entresto) prasugrel HCl 10 mg tablet 10 mg PO DAILY #30 tabs 06/26/24 09/21/24 Rx (Effient) fluoxetine 20 mg capsule 60 mg PO DAILY 07/13/24 09/21/24 History ibuprofen 800 mg tablet 800 mg PO TIDP PRN Mild Pain 07/13/24 09/21/24 History (Scale Score 1-4) uptaoikncu-ksowtosagwtgy-llcitsgm 1 tab PO Q6HP PRN Migraine Headache 09/06/24 09/21/24 History 50 mg-325 mg-40 mg tablet cariprazine 4.5 mg capsule 4.5 mg PO DAILY 09/06/24 09/21/24 History (Vraylar) isosorbide mononitrate 30 mg 30 mg PO DAILY #30 tabs 09/06/24 09/21/24 Rx tablet,extended release 24 hr prazosin 5 mg capsule 5 mg PO DAILY 09/06/24 09/21/24 History ranolazine 1,000 mg 1,000 mg PO BID #60 tabs 09/06/24 09/21/24 Rx tablet,extended release,12 hr albuterol sulfate 90 mcg/actuation 2 puff inhalation Q4HP PRN 09/21/24 09/21/24 History aerosol inhaler Shortness Of Breath Or Wheezing dapagliflozin propanediol 10 mg 10 mg PO DAILY 09/21/24 09/21/24 History tablet (Farxiga) semaglutide 2 mg/dose (8 mg/3 mL) 2 mg SQ WEEKLY 09/21/24 09/21/24 History subcutaneous pen injector (Ozempic) spironolactone 50 mg tablet 25 mg PO DAILY 09/21/24 09/21/24 History umeclidinium 62.5 mcg/actuation 1 inh inhalation DAILY 09/21/24 09/21/24 History blister powder for inhalation (Incruse Ellipta) New Prescriptions to Start Prescriptions: Allergies Allergy/AdvReac Type Severity Reaction Status Date / Time erythromycin base Allergy Unknown I-RASH Verified 09/06/24 13:23 (ERYTHROMYCIN BASE) Penicillins (PENICILLINS) Allergy Unknown DIFFICULTY Verified 09/06/24 13:23 BREATHING Assessment and Plan *Assessment and plan (1) Hypotension: Status: Acute Category: Medical Code(s): I95.9 - Hypotension, unspecified (2) Weakness: Status: Acute Category: Medical Code(s): R53.1 - Weakness (3) Chest pain: Status: Acute Category: Medical Code(s): R07.9 - Chest pain, unspecified (4) ERIC (acute kidney injury): Status: Acute Category: Medical Code(s): N17.9 - Acute kidney failure, unspecified (5) CAD (coronary artery disease): Status: Chronic Qualifiers: Coronary Disease-Associated Artery/Lesion type: [place] artery [place] vs. transplanted heart: [place] heart Associated angina: without angina Qualified Code(s): I25.10 - Atherosclerotic heart disease of [place] coronary artery without angina pectoris Category: Medical Code(s): I25.10 - Atherosclerotic heart disease of [place] coronary artery without angina pectoris (6) Unstable angina: Status: Acute Category: Medical Code(s): I20.0 - Unstable angina (7) Pneumonia: Status: Acute Category: Medical Code(s): J18.9 - Pneumonia, unspecified organism Plan Generalized weakness Hypotension Increased oxygen demand CT abdomen pelvis today shows no acute intra-abdominal abnormalities but does note a right lower lobe opacity concerning for pneumonia Will defer to primary service ERIC Creatinine on admission 1.9 trending down to 1 today Continue to monitor History of coronary artery disease Unstable angina JAN times 15 November 2023 to mid circumflex and RCA Patient was scheduled for outpatient stress test due to increased frequency and episodes of chest pressure and shortness of breath both with activity and rest Stress test was canceled yesterday due to symptoms Echocardiogram shows normal biventricular systolic function with no significant valvular stenosis or regurg. Today offered patient the option of proceeding with a left heart catheterization to evaluate symptoms versus outpatient stress testing-she states she would like to proceed with left heart catheterization today as symptoms are becoming more frequent and lasting longer. Will proceed with left heart catheterization to evaluate for coronary artery disease given patient's history of extensive coronary disease and increased frequency and severity of symptoms. Discussed risk versus benefits with patient she is agreeable to proceed. CV summary 09/22/2024: Normal biventricular systolic function noted on echo. Will proceed with left heart catheterization to further evaluate for coronary artery disease.
--- NOTE | 2024-09-22 11:56 | PC.NURSE ---
notified provider GOPAL Espinal of consult ordered on pt. Printed out recent note and MRI on pt for provider review.
[2024-09-22] MEDS: VERAPAMIL 2.5MG/ML 2ML VIAL 2.5 MG IV (13:05)
[2024-09-22] MEDS: diphenhydrAMINE 50MG/ML VIAL 50 MG IV (13:05)
[2024-09-22] MEDS: HEPARIN 1,000 UNITS/500ML NS (CATH LAB) 3000 UNIT IV (13:05)
[2024-09-22] MEDS: 0.9 % SODIUM CHLORIDE 500 ML 25 ML IV (13:05)
[2024-09-22] MEDS: NITROGLYCERIN 800MCG/8ML SYR (CATH LAB) 800 MCG IA (13:05)
[2024-09-22] MEDS: HEPARIN 1,000 UNITS/ML 10ML VIAL (CATH LAB) 5000 UNIT IV (13:05)
[2024-09-22] MEDS: LIDOCAINE 1% 10ML MDV 10 ML IJ (13:05)
[2024-09-22] MEDS: MIDAZOLAM HCL 1MG/ML 5ML VIAL 1 MG IV (13:29)
[2024-09-22] MEDS: FENTANYL 100MCG/2ML VIAL 50 MCG IV (13:30)
--- NOTE | 2024-09-22 13:37 | PC.NURSE ---
pt left the floor to factory laborer via wheelchair at 1240
--- NOTE | 2024-09-22 14:29 | PC.NURSE ---
pt is back to M/S from laborer heading and moved from room 217 to room 208 at this time. pt is settled and call light is within reach.
--- NOTE | 2024-09-22 14:32 | PC.NURSE ---
All patient care and documentation completed by Elaina THRASHER was completed under my direct supervision. . Dyana Olivera RN
[2024-09-22] MEDS: IOPAMIDOL-370 (76%);100ML BOTTLE 60 ML IV (14:39)
--- NOTE | 2024-09-22 16:06 | EXP.DC.SUM ---
General Admission date:: 09/21/24 HPI HPI HPI: Dorian Webb is a 59-year-old female with a medical history significant for CAD with stents, hypertension, COPD on 2 L baseline who initially presented for outpatient stress test due to intermittent chest pains for a few weeks. However, before the procedure it was noted that her systolic was in the 80s at which point she was directed to the ED. On arrival, patient maintained blood pressures in the 80s over 50s maps around 65, workup revealed creatinine 1.9 (baseline 1.0), AGAP 16, magnesium 1.4. On my evaluation of patient, she was sitting in bed comfortably without acute distress eating her meal. She states she been having intermittent chest pains with radiation to the right arm for a few weeks, in addition to intermittent nausea/vomiting, fever/chills for at least a month. Denies shortness of breath, abdominal pain, urinary symptoms, constipation/diarrhea. Case discussed with ED provider and decision was made to admit patient for chest pain, ERIC, hypomagnesemia. Hospital Course Hospital Course Hospital Course: Dorian Webb is a 59-year-old female with a medical history significant for CAD with stents, hypertension, COPD on 2 L baseline who initially presented for outpatient stress test due to intermittent chest pains for a few weeks. However, before the procedure it was noted that her systolic was in the 80s at which point she was directed to the ED. On arrival, patient maintained blood pressures in the 80s over 50s maps around 65, workup revealed creatinine 1.9 (baseline 1.0), AGAP 16, magnesium 1.4. On my evaluation of patient, she was sitting in bed comfortably without acute distress eating her meal. She states she been having intermittent chest pains with radiation to the right arm for a few weeks, in addition to intermittent nausea/vomiting, fever/chills for at least a month. Denies shortness of breath, abdominal pain, urinary symptoms, constipation/diarrhea. Case discussed with ED provider and decision was made to admit patient for chest pain, ERIC, hypomagnesemia. #Chest pain #History of CAD with stents ? Intermittent midsternal chest pain with right arm radiation for at least a week. Was supposed to undergo stress test yesterday but had low blood pressures. ? Troponins normal, EKG without acute ischemic changes. ? Cardiology consulted, s/p [facility] 09/22/2024 without occlusive disease. Did show hyperdynamic left ventricle and elevated LVEDP. ? A1c 5.6, LDL 37, TSH normal. ? Limited ECHO showed normal biventricular systolic function. ? Continue home prasugrel 10 mg, bisoprolol 5 mg twice daily, ranolazine 1000 mg twice daily, Imdur 30 mg, atorvastatin 40 mg, ? Continue home omeprazole 40 mg for GERD. ? Patient does have underlying pneumonia which might have contributed to chest pain. Patient also takes Phendimetrazine for weight loss which could be contributing to chest pains, nausea/vomiting. Highly encourage patient to discuss with PCP about alternatives to weight loss. ? Follow-up with cardiology within 2 weeks. #Community-acquired pneumonia #Hypotension #Hypothermia #Nausea/vomiting #Fever/chills #ERIC ? CT abdomen/pelvis revealed right lower lobe pneumonia. Initial creatinine 1.9, baseline 1.0. ? Clinically improved with vancomycin and cefepime and IV fluid resuscitation. ? Cortisol still pending. ? Discharged with levofloxacin for 5 more days. #Hypertension #Elevated LVEDP ? Held home Entresto due to normal pressures now and normal left ventricular systolic function. ? Will follow-up with cardiology to discuss resuming his medications. ? Continue bisoprolol, Imdur. Continue spironolactone due to LVEDP. #Type 2 diabetes #Obesity ? Continue home Ozempic. Patient also takes Phendimetrazine for weight loss which could be contributing to chest pains, nausea/vomiting. Highly encourage patient to discuss with PCP about alternatives to weight loss. ? Hemoglobin A1c 5.6%. Continue home metformin 500 mg daily. #COPD on 2 L baseline ? Continue home Incruse. #Anxiety/depression ? Continue home medications once reconciled. #Low back pain with lumbar fusion ? Referred to pain management for further evaluation management, has an appointment next week. ? Discharged with [place] 5 mg for 3 days as needed. Total time spent on discharge: 35 minutes on chart review, counseling, documentation, and direct care with patient. Exam Data for Last 24 hours Vital signs and Labs for Last 24 Hours: Temp Pulse Resp BP Pulse Ox O2 Del Method O2 Flow Rate 97.8 F 75 18 129/63 96 Nasal Cannula 2 09/22/24 12:10 09/22/24 15:30 09/22/24 15:30 09/22/24 15:30 09/22/24 15:30 09/22/24 15:30 09/22/24 15:30 Laboratory Results - last 24 hr 09/21/24 17:15: Troponin I < 0.01 09/21/24 : Urine Color Yellow, Urine Appearance Clear, Urine pH 6.0, Ur Specific [place] <= 1.005, Urine Protein Negative, Urine Glucose (UA) 3+, Urine Ketones Negative, Urine Blood Negative, Urine Nitrate Negative, Urine Bilirubin Negative, Urine Urobilinogen 0.2, Ur Leukocyte Esterase Negative, Urine RBC None, Urine WBC 3-5, Ur Squamous Epith Cells 3-5, Urine Bacteria 1+ 09/22/24 05:53: WBC 9.9, RBC 3.86 L, Hgb 11.3 L D, Hct 34.1 L, MCV 88.3, MCH 29.3, MCHC 33.1, RDW 13.2, Plt Count 270, MPV 9.5, Neut % (Auto) 52.3, Lymph % (Auto) 31.7, [place] % (Auto) 10.2 H, Eos % (Auto) 4.7, Baso % (Auto) 0.5, Neut # (Auto) 5.2, Lymph # (Auto) 3.2, [place] # (Auto) 1.0, Eos # (Auto) 0.5 H, Baso # (Auto) 0.1, ESR 95 H, Sodium 135 L, Potassium 4.9, Chloride 100, Carbon Dioxide 31 H, Anion Gap 8.9, BUN 21 H D, Creatinine 1.00 D, Estimated Creat Clear 86, Estimated GFR 57 L, Est GFR ( Amer) 68 D, Glucose 93, Calcium 9.2, Magnesium 1.8 D, Total Bilirubin 0.2, AST 19 D, ALT 18, Alkaline Phosphatase 85, C-Reactive Protein 5.1 H, Total Protein 6.1 L, Albumin 3.2 L D, Globulin 2.9, Albumin/Globulin Ratio 1.1, Procalcitonin 0.049, Free T4 1.03 I & O for Last 24 hours: Intake & Output 09/19/24 09/20/24 09/21/24 09/22/24 23:59 23:59 23:59 23:59 Intake Total 1550 / 2150 2829 / 2829 Output Total 400 / 400 0 / 0 Balance 1150 / 1750 282 / 2829 Weight 88.252 kg 91.127 kg Microbiology Reports for the Last 24 Hours: Microbiology 09/21/24 10:40 Blood Blood Culture - Preliminary NO GROWTH AFTER 24 HOURS 09/21/24 10:50 Blood Blood Culture - Preliminary NO GROWTH AFTER 24 HOURS Constitutional Constitutional: no acute distress and obese *Routine HEENT Exam Head: Present normocephalic Eye: Present EOMI and PERRL ENT: Present mucous membranes moist *Routine Neck Exam Neck: Present supple; Absent lymphadenopathy *Routine Respiratory Exam Respiratory: Present CTA bilaterally *Routine Cardiovascular Exam Cardiovascular: Present RRR *Routine Abdominal Exam Abdominal: Present soft and normoactive bowel sounds; Absent tenderness *Routine Extremities Exam Extremities: Absent cyanosis, clubbing or edema *Routine Skin Exam Skin: Present warm; Absent rash *Routine Neurological Exam Neurological: Present alert and oriented X3 Results Data Completed and Pending Labs on day of discharge: Labs from last 24 hours 09/22/24 09/21/24 09/21/24 05:53 Unknown 17:15 WBC 9.9 RBC 3.86 L Hgb 11.3 L D Hct 34.1 L MCV 88.3 MCH 29.3 MCHC 33.1 RDW 13.2 Plt Count 270 MPV 9.5 Neut % (Auto) 52.3 Lymph % (Auto) 31.7 [place] % (Auto) 10.2 H Eos % (Auto) 4.7 Baso % (Auto) 0.5 Neut # (Auto) 5.2 Lymph # (Auto) 3.2 [place] # (Auto) 1.0 Eos # (Auto) 0.5 H Baso # (Auto) 0.1 ESR 95 H Sodium 135 L Potassium 4.9 Chloride 100 Carbon Dioxide 31 H Anion Gap 8.9 BUN 21 H D Creatinine 1.00 D Estimated Creat Clear 86 Estimated GFR 57 L Est GFR ( Amer) 68 D Glucose 93 Calcium 9.2 Magnesium 1.8 D Total Bilirubin 0.2 AST 19 D ALT 18 Alkaline Phosphatase 85 Troponin I < 0.01 C-Reactive Protein 5.1 H Total Protein 6.1 L Albumin 3.2 L D Globulin 2.9 Albumin/Globulin Ratio 1.1 Procalcitonin 0.049 Free T4 1.03 Urine Color Yellow Urine Appearance Clear Urine pH 6.0 Ur Specific [place] <= 1.005 Urine Protein Negative Urine Glucose (UA) 3+ Urine Ketones Negative Urine Blood Negative Urine Nitrate Negative Urine Bilirubin Negative Urine Urobilinogen 0.2 Ur Leukocyte Esterase Negative Urine RBC None Urine WBC 3-5 Ur Squamous Epith Cells 3-5 Urine Bacteria 1+ Preliminary micro results at discharge 09/21/24 10:40 Blood Culture - Preliminary Blood NO GROWTH AFTER 24 HOURS 09/21/24 10:50 Blood Culture - Preliminary Blood NO GROWTH AFTER 24 HOURS DS: Diagnosis Discharge Diagnosis (1) Hypotension: Status: Acute Code(s): I95.9 - Hypotension, unspecified (2) Weakness: Status: Acute Code(s): R53.1 - Weakness (3) Chest pain: Status: Acute Code(s): R07.9 - Chest pain, unspecified (4) ERIC (acute kidney injury): Status: Acute Code(s): N17.9 - Acute kidney failure, unspecified (5) CAD (coronary artery disease): Status: Chronic Code(s): I25.10 - Atherosclerotic heart disease of [place] coronary artery without angina pectoris Qualifiers: Coronary Disease-Associated Artery/Lesion type: [place] artery [place] vs. transplanted heart: [place] heart Associated angina: without angina Qualified Code(s): I25.10 - Atherosclerotic heart disease of [place] coronary artery without angina pectoris (6) Unstable angina: Status: Acute Code(s): I20.0 - Unstable angina (7) Pneumonia: Status: Acute Code(s): J18.9 - Pneumonia, unspecified organism Meds Home Medications and Allergies Home Medications ?Medication ?Instructions ?Recorded ?Confirmed ?Type omeprazole 40 mg capsule,delayed 40 mg PO DAILY 06/14/17 09/21/24 History release trazodone 50 mg tablet 75 mg PO HS 02/17/19 09/21/24 History atorvastatin 40 mg tablet 40 mg PO HS 12/29/19 09/21/24 History cyclobenzaprine 5 mg tablet 5 mg PO TIDP PRN Muscle Spasm 01/06/21 09/21/24 History hydroxyzine HCl 25 mg tablet 25 mg PO TIDP PRN Anxiety 10/02/21 09/21/24 History gabapentin 800 mg tablet 800 mg PO BID 01/27/22 09/21/24 History loratadine 10 mg tablet 10 mg PO DAILY 01/27/22 09/21/24 History metformin 500 mg tablet 500 mg PO DAILY 09/08/23 09/21/24 History bupropion HCl 100 mg tablet,12 hr 100 mg PO BID 11/01/23 09/21/24 History sustained-release clonazepam 0.5 mg tablet 0.5 mg PO BID 11/01/23 09/21/24 History bisoprolol fumarate 5 mg tablet 5 mg PO BID 11/24/23 09/21/24 History sacubitril 97 mg-valsartan 103 mg 1 tab PO BID #60 tabs 05/15/24 09/21/24 Rx tablet (Entresto) prasugrel HCl 10 mg tablet 10 mg PO DAILY #30 tabs 06/26/24 09/21/24 Rx (Effient) fluoxetine 20 mg capsule 60 mg PO DAILY 07/13/24 09/21/24 History ibuprofen 800 mg tablet 800 mg PO TIDP PRN Mild Pain 07/13/24 09/21/24 History (Scale Score 1-4) [id number] 1 tab PO Q6HP PRN Migraine Headache 09/06/24 09/21/24 History 50 mg-325 mg-40 mg tablet cariprazine 4.5 mg capsule 4.5 mg PO DAILY 09/06/24 09/21/24 History (Emile) isosorbide mononitrate 30 mg 30 mg PO DAILY #30 tabs 09/06/24 09/21/24 Rx tablet,extended release 24 hr prazosin 5 mg capsule 5 mg PO DAILY 09/06/24 09/21/24 History ranolazine 1,000 mg 1,000 mg PO BID #60 tabs 09/06/24 09/21/24 Rx tablet,extended release,12 hr albuterol sulfate 90 mcg/actuation 2 puff inhalation Q4HP PRN 09/21/24 09/21/24 History aerosol inhaler Shortness Of Breath Or Wheezing dapagliflozin propanediol 10 mg 10 mg PO DAILY 09/21/24 09/21/24 History tablet (Farxiga) semaglutide 2 mg/dose (8 mg/3 mL) 2 mg SQ WEEKLY 09/21/24 09/21/24 History subcutaneous pen injector (Ozempic) spironolactone 50 mg tablet 25 mg PO DAILY 09/21/24 09/21/24 History umeclidinium 62.5 mcg/actuation 1 inh inhalation DAILY 09/21/24 09/21/24 History blister powder for inhalation (Incruse Ellipta) hydrocodone 5 mg-acetaminophen 325 1 tab PO Q6HP PRN Moderate Pain 09/22/24 Rx mg tablet (4-6) 3 days #12 tabs levofloxacin 750 mg tablet 750 mg PO DAILY 5 days #5 tabs 09/22/24 Rx New Prescriptions to Start Prescriptions: hydrocodone-acetaminophen Trey Obando levofloxacin Trey Obando Allergies Allergy/AdvReac Type Severity Reaction Status Date / Time erythromycin base Allergy Unknown I-RASH Verified 09/06/24 13:23 (ERYTHROMYCIN BASE) Penicillins (PENICILLINS) Allergy Unknown DIFFICULTY Verified 09/06/24 13:23 BREATHING Discharge Plan Disposition Patient Disposition: Home, Self-Care Condition: Fair Follow up Plan Follow up with: Chela Lynn APRN [Nurse Practitioner] - 09/27/24 11:00 am Helen Rolon APRN [Nurse Practitioner] - 09/27/24 1:00 pm Julien Sun DO [Primary Care Provider] - 09/26/24 3:00 pm Prescriptions/Medication Reconciliation: New hydrocodone-acetaminophen 5-325 mg Tablet 1 tab PO Q6HP PRN (Reason: Moderate Pain (4-6)) 3 Days Qty: 12 0RF levofloxacin 750 mg tablet 750 mg PO DAILY 5 Days Qty: 5 0RF Continued bisoprolol fumarate 5 mg tablet 5 mg PO BID ibuprofen 800 mg tablet 800 mg PO TIDP PRN (Reason: Mild Pain (Scale Score 1-4)) fluoxetine 20 mg capsule 60 mg PO DAILY vbshhufocu-bplwzeqicfjis-giby 50-325-40 mg tablet 1 tab PO Q6HP PRN (Reason: Migraine Headache) Patient Comments: TAKE 1 TABLET BY MOUTH EVERY 6 HOURS NEEDED prazosin 5 mg capsule 5 mg PO DAILY Vraylar 4.5 mg capsule 4.5 mg PO DAILY Patient Comments: TAKE ONE CAPSULE BY MOUTH EVERY MORNING isosorbide mononitrate 30 mg tablet extended release 24 hr 30 mg PO DAILY Qty: 30 3RF ranolazine 1,000 mg tablet extended release 12 hr 1,000 mg PO BID Qty: 60 5RF clonazepam 0.5 mg tablet 0.5 mg PO BID Patient Comments: TAKE 1 TABLET BY MOUTH TWICE DAILY DIRECTED FOR ANXIETY prasugrel HCl [Effient] 10 mg tablet 10 mg PO DAILY Qty: 30 6RF omeprazole 40 MG capsule,delayed release(DR/EC) 40 mg PO DAILY atorvastatin 40 MG tablet 40 mg PO HS hydroxyzine HCl 25 MG tablet 25 mg PO TIDP PRN (Reason: Anxiety) gabapentin 800 MG tablet 800 mg PO BID loratadine 10 MG tablet 10 mg PO DAILY albuterol sulfate 90 mcg/actuation HFA aerosol inhaler 2 puff INHALATION Q4HP PRN (Reason: Shortness Of Breath Or Wheezing) Patient Comments: INHALE TWO PUFFS BY MOUTH INTO THE LUNGS EVERY 4 HOURS NEEDED FOR WHEEZING dapagliflozin propanediol [Farxiga] 10 mg tablet 10 mg PO DAILY Patient Comments: TAKE 1 TABLET BY MOUTH ONCE DAILY Incruse Ellipta 62.5 mcg/actuation blister with device 1 inh INHALATION DAILY Patient Comments: INHALE 1 PUFF BY MOUTH ONCE DAILY spironolactone 50 mg tablet 25 mg PO DAILY Ozempic 2 mg/dose (8 mg/3 mL) pen injector 2 mg SQ WEEKLY trazodone 50 mg tablet 75 mg PO HS cyclobenzaprine 5 MG tablet 5 mg PO TIDP PRN (Reason: Muscle Spasm) metformin 500 mg tablet 500 mg PO DAILY bupropion HCl 100 mg tablet sustained-release 12 hr 100 mg PO BID Patient Comments: TAKE 1 TABLET BY MOUTH ONCE DAILY DIRECTED FOR ANXIETY, DEPRESSION, AND SMOKING CESSATION. Held Entresto 97-103 mg tablet 1 tab PO BID Qty: 60 6RF Hold Instructions: Resume on 10/06/24. Your blood pressures were normal without this medication. Please follow-up with PCP or cardiology to discuss resuming this medication. Problem Reconciliation Problems Reviewed?: Yes Patient Discharge Instructions Additional Instructions: Strongly encouraged discussing with PCP about alternatives to Phendimetrazine as this can cause chest pain, nausea/vomiting. Patient Instructions: Magnesium, Acute Kidney Injury, DI for Chest Pain Print Language: [place] Providers Primary Care Provider: Julien Sun Admit Provider: Trey Obando Attending Provider: Trey Obando
--- NOTE | 2024-09-22 17:44 | PC.NURSE ---
PT STATED TO HOSPITALIST SHE WAS READY TO BE DISCHARGED. RADIALBAND REMOVED. DRESSING TO RT RADIAL CATH SITE C/D/I. PT AND FAMILY UNDERSTOOD DC INSTRUCTIONS. CATH VSS. PT ATE DINNER AND AMBULATED IN THE BATHROOM AND AROUND THE ROOM BEFORE DISCHARGE. SOME CARE PROVIDED BY INTELLIGENCE INTERN JANE ARMSTRONG WITH [employer]ABEL [employer]OPES SUPERVISION.
[2024-09-23 15:14] LABS: Adrenocorticotropic Hormone 10.8 pg/mL (7.2-63.3)
[2024-09-24 16:16] LABS: Cortisol,AM 2.1 ug/dL (6.2-19.4)
--- NOTE | 2024-09-25 10:54 | SW/DCPLANNER ---
Spoke with patient on the phone. Patient stated that she is doing well. Patient stated that she is aware of her upcoming appointments. 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 Patient stated that she has no concerns or questions at this time. Becky Huerta
== END 2024-09-22 17:48 | disposition home or self-care (01) ==
LOC: ER 12:37 → 2ND 12:42
PROVIDERS: Internal Medicine; Admitting Provider Student in an Organized Health Care Education/Training Program; Emergency Provider Emergency Medicine; PCP Family Medicine; Visit Provider Student in an Organized Health Care Education/Training Program
DX: I25.110 Atherosclerotic heart disease of native coronary artery with unstable angina pectoris (principal); I95.9 Hypotension, unspecified; R53.1 Weakness; R07.9 Chest pain, unspecified; N17.9 Acute kidney failure, unspecified; J18.9 Pneumonia, unspecified organism; J44.9 Chronic obstructive pulmonary disease, unspecified; F17.210 Nicotine dependence, cigarettes, uncomplicated; Z88.0 Allergy status to penicillin; Z88.1 Allergy status to other antibiotic agents; Z79.84 Long term (current) use of oral hypoglycemic drugs; Z79.85 Long-term (current) use of injectable non-insulin antidiabetic drugs; Z79.899 Other long term (current) drug therapy; Z95.5 Presence of coronary angioplasty implant and graft; Z99.81 Dependence on supplemental oxygen; Z68.41 Body mass index [BMI] 40.0-44.9, adult; E66.9 Obesity, unspecified; I10 Essential (primary) hypertension; Z86.16 Personal history of COVID-19
CPT/HCPCS: 36415; 71045; 74177; 80053; 81001; 82024; 82533; 82803; 83605; 83735; 83880; 84145; 84439; 84443; 84484; 85025; 85378; 85651; 86140; 86803; 87040; 87086; 87088; 87186; 87389; 87636; 93005; 93306; 93458; 99152; 99291; C1725; C1769; G0378; J1200; J1644; J1650; J2250; J3010; J3372; J3475; J7120; Q9967

== ENCOUNTER 2024-09-27 11:37 | Outpatient (CLI) | payer MEDICARE, MEDICAID, SELFPAY ==
[2024-09-27 12:35] LABS: Chloride 97 mmol/L (98-107); Potassium 4.6 mmoL/L (3.5-5.1); Sodium 136 mmol/L (136-145)
[2024-09-27 12:38] LABS: Anion Gap 15.6 mEq/L (5-15); Blood Urea Nitrogen 14 mg/dl (7-17); Carbon Dioxide 28 mmol/L (22.0-30.0); Estimated Glomerular Filt Rate 57 ml/min (>60); GFR (African American) 68 ML/MIN (>60)
[2024-09-27 12:39] LABS: Calcium 9.3 mg/dl (8.4-10.2); Glucose 95 mg/dl (74-100)
== END 2024-09-27 23:59 | disposition home or self-care (01) ==
LOC: LAB 11:38
PROVIDERS: PCP Family Medicine; Visit Provider Nurse Practitioner
DX: E13.69 Other specified diabetes mellitus with other specified complication (principal); R94.30 Abnormal result of cardiovascular function study, unspecified; I11.9 Hypertensive heart disease without heart failure; I25.10 Atherosclerotic heart disease of native coronary artery without angina pectoris; F41.9 Anxiety disorder, unspecified; E66.09 Other obesity due to excess calories; Z68.38 Body mass index [BMI] 38.0-38.9, adult; F17.210 Nicotine dependence, cigarettes, uncomplicated; Z79.84 Long term (current) use of oral hypoglycemic drugs; Z79.85 Long-term (current) use of injectable non-insulin antidiabetic drugs
CPT/HCPCS: 36415; 80048

== ENCOUNTER 2024-09-27 12:58 | Outpatient (POV) | payer MEDICARE, MEDICAID, SELFPAY ==
--- NOTE | 2024-09-27 13:10 | A.OFFVIS_ITS ---
HPI Data of Consult Patient: new to practice Consult date: 09/27/24 Requesting Physician: Helen Rolon APRN Primary Care Provider: Viral Sun Consult Narrative Reason for consult: Chronic low back pain, bilateral leg pain History of present illness: Ms. Webb is a 59 year old female who presents today as a new patient. She was a referral from the [facility]. Today she rates her pain a 8 out of 10. Patient states that she has had chronic back pain for years that is progressively worsened. She states that she would at least say it has been going on for 10 years + related to any specific trauma or injury. She states in the past she did have injections however they never really seem to help. She states then she did go through a lumbar fusion with Dr. Matthew Rolon there at [place]. She states that she roughly thinks that was about 8 years ago. She does state the pain is pretty much constant and describes it as an aching, throbbing sensation with numbness and tingling that goes into both her legs down to her feet. Patient states that any certain positions are very aggravated like prolonged sitting or laying down. Patient states she frequently changes positioning due to the worsening symptoms. Patient states she has also tried physical therapy, oral medication, heat and ice, topicals with minimal changes.Patient is currently managed with a temporary dose of [place] 5 mg, clonazepam, gabapentin, butal from outside providers. She does state that she has had Flexeril however that it makes additional issues with her legs and that she has had Robaxin and tizanidine with no changes. Patient does state that she is not necessarily interested in additional injections. Her Connor has been reviewed. CC: Helen Rolon APRN [facility] Disclaimer: The information contained in this section may have been updated after the patient was seen, as this information can be updated by other users. Medical History Pneumonia Unstable angina Hypotension Weakness Hypomagnesemia Chest pain ERIC (acute kidney injury) Incurvated nail Discoloration and thickening of nails both feet Keratosis Ingrown nail of great toe of left foot Onychodystrophy Atypical angina Otitis media Benzodiazepine abuse COVID-19 Hemoptysis Dog bite Dehydration Enteritis SIRS (systemic inflammatory response syndrome) UTI (urinary tract infection) COPD with acute exacerbation Dental infection Dental abscess Acute knee pain COPD exacerbation Hyperlipidemia Tobacco use Atypical chest pain Acute bronchitis Chest pain Contusion of multiple sites of left hand and wrist Fatigue Chest tightness Dyspnea Musculoskeletal pain Asthma exacerbation in COPD Depression PTSD (post-traumatic stress disorder) Hypomagnesemia Acute on chronic respiratory failure with hypoxia and hypercapnia Pneumonia due to COVID-19 virus COVID Tobacco use disorder Palpitations Anxiety Acute exacerbation of chronic obstructive airways disease Surgical History History of back surgery Hx of tonsillectomy History of tubal ligation History of cardiac cath History of cancer surgery Family History (Updated 09/27/24 @ 13:36 by Guadalupe Jones RN) Other Unknown family medical history Social History Smoking Status: Current every day smoker tobacco type: cigarettes packs per day: 1 second hand exposure: No alcohol intake: never substance use type: other current occupational status: disabled Travel in the last 8 weeks: None household members: spouse housing: house current occupational exposures/hazards: No caffeine: Yes Have you lived/traveled outside [place] in past 30 days?: No Contact w/someone who lives/traveled outside [place] past 30 days?: No Exposure to someone with infectious disease in past 14 days?: No Do you have a fever (greater than 100.4 F or 38 C)?: No Have you tested positive for COVID-19: No Exposed to someone with COVID-19 in past 14 days?: No Do you have a sore throat?: No Do you have a cough?: No Do you have any weakness?: No Do you have any diarrhea?: No Are you experiencing any unusual bleeding?: No Do you have any muscle aches/pain?: No Do you have any abdominal pain?: No Are you experiencing loss of taste or smell?: No Review of Systems Review of Systems Review of systems:: pertinent systems reviewed and negative unless documented below Review of systems (narrative): Review of Systems: General: No recent weight changes, no fever, no sleep disturbances Respiratory: No cough, no shortness of air, no recurring pulmonary infections Cardiovascular/peripheral vascular: No chest pain, no palpitations, no edema, no shortness of breath Gastrointestinal: No new onset incontinence, normal bowel movements reported Genitourinary: No new onset incontinence Musculoskeletal: Chronic back pain, bilateral hip pain, leg pain Psychiatric: [Normal mood/affect] Neurological: [Denies weakness in extremities], [denies balance issues] Meds Home Medications and Allergies Home Medications ?Medication ?Instructions ?Recorded ?Confirmed ?Type omeprazole 40 mg capsule,delayed 40 mg PO DAILY 06/14/17 09/27/24 History release trazodone 50 mg tablet 75 mg PO HS 02/17/19 09/27/24 History atorvastatin 40 mg tablet 40 mg PO HS 12/29/19 09/27/24 History cyclobenzaprine 5 mg tablet 5 mg PO TIDP PRN Muscle Spasm 01/06/21 09/27/24 History hydroxyzine HCl 25 mg tablet 25 mg PO TIDP PRN Anxiety 10/02/21 09/27/24 History gabapentin 800 mg tablet 800 mg PO BID 01/27/22 09/27/24 History loratadine 10 mg tablet 10 mg PO DAILY 01/27/22 09/27/24 History metformin 500 mg tablet 500 mg PO DAILY 09/08/23 09/27/24 History bupropion HCl 100 mg tablet,12 hr 100 mg PO BID 11/01/23 09/27/24 History sustained-release clonazepam 0.5 mg tablet 0.5 mg PO BID 11/01/23 09/27/24 History bisoprolol fumarate 5 mg tablet 5 mg PO BID 11/24/23 09/27/24 History sacubitril 97 mg-valsartan 103 mg 1 tab PO BID #60 tabs 05/15/24 09/27/24 Rx tablet (Entresto) prasugrel HCl 10 mg tablet 10 mg PO DAILY #30 tabs 06/26/24 09/27/24 Rx (Effient) fluoxetine 20 mg capsule 60 mg PO DAILY 07/13/24 09/27/24 History ibuprofen 800 mg tablet 800 mg PO TIDP PRN Mild Pain 07/13/24 09/27/24 History (Scale Score 1-4) [id number] 1 tab PO Q6HP PRN Migraine Headache 09/06/24 09/27/24 History 50 mg-325 mg-40 mg tablet cariprazine 4.5 mg capsule 4.5 mg PO DAILY 09/06/24 09/27/24 History (Vraylar) isosorbide mononitrate 30 mg 30 mg PO DAILY #30 tabs 09/06/24 09/27/24 Rx tablet,extended release 24 hr prazosin 5 mg capsule 5 mg PO DAILY 09/06/24 09/27/24 History ranolazine 1,000 mg 1,000 mg PO BID #60 tabs 09/06/24 09/27/24 Rx tablet,extended release,12 hr albuterol sulfate 90 mcg/actuation 2 puff inhalation Q4HP PRN 09/21/24 09/27/24 History aerosol inhaler Shortness Of Breath Or Wheezing dapagliflozin propanediol 10 mg 10 mg PO DAILY 09/21/24 09/27/24 History tablet (Farxiga) spironolactone 50 mg tablet 25 mg PO DAILY 09/21/24 09/27/24 History umeclidinium 62.5 mcg/actuation 1 inh inhalation DAILY 09/21/24 09/27/24 History blister powder for inhalation (Incruse Ellipta) hydrocodone 5 mg-acetaminophen 325 1 tab PO Q6HP PRN Moderate Pain 09/22/24 09/27/24 Rx mg tablet (4-6) 3 days #12 tabs semaglutide 2 mg/dose (8 mg/3 mL) 2 mg (0.75 mL) SQ WEEKLY #3 mL 09/27/24 09/27/24 Rx subcutaneous pen injector (Ozempic) New Prescriptions to Start Prescriptions: Allergies Allergy/AdvReac Type Severity Reaction Status Date / Time erythromycin base Allergy Unknown I-RASH Verified 09/27/24 11:11 (ERYTHROMYCIN BASE) Penicillins (PENICILLINS) Allergy Unknown DIFFICULTY Verified 09/27/24 11:11 BREATHING Objective Narrative: Physical Exam: General: Alert and oriented x3, no acute distress, pleasant and cooperative Lungs: Respirations even and unlabored, symmetrical chest expansion Eyes: PERRL Musculoskeletal: Flexion and extension of lumbar [spine] somewhat guarded secondary to pain, [antalgic gait noted] point tenderness along bilateral SIs with positive bilateral Leticia's, Willi's, Gaenslen's, compression and distraction exam Neurological: Speech clear, no gross sensory deficit Additional findings Additional findings: FINDINGS: Multiplanar MR imaging of the lumbar spine was performed without contrast. On the sagittal T2-weighted images, multilevel disc degeneration is seen. There is minimal artifact from posterior interbody fusion L4-5. There is minimal spinal listhesis of L4 on L5. The vertebral alignment is otherwise normal. There is no evidence of fracture. No bony mass is identified. The conus is seen at approximately the L1 level and has an unremarkable appearance. L1-2: There is no significant canal stenosis or neural foraminal narrowing. L2-3: Mild diffuse disc bulge with midline disc protrusion and right paracentral disc protrusion. There is compromise of the right side of the canal. L3-4: Moderate diffuse disc bulge with endplate hypertrophy and mild to moderate neuroforaminal narrowing. L4-5: Mild diffuse disc bulge with mild right and mild to moderate left neuroforaminal narrowing. L5-S1: Mild disc bulge with mild to moderate bilateral neuroforaminal narrowing. IMPRESSION: Postoperative change of fusion at L4-5. Neuroforaminal narrowing at L3-4, L4-5 and L5-S1. Reviewed, Interpreted and Dictated by Camacho Izaguirre MD Transcribed by Madeleine Porter Authenticated and [facility] Assessment and Plan *Assessment and plan (1) Bilateral sacroiliitis: Status: Acute Category: Medical Code(s): M46.1 - Sacroiliitis, not elsewhere classified (2) Degenerative disc disease, lumbar: Status: Acute Category: Medical Code(s): M51.369 - Other intervertebral disc degeneration, lumbar region without mention of lumbar back pain or lower extremity pain Plan I did discuss with the patient that I do believe she would benefit from bilateral SI injections however at this time she would not like to proceed forward with this option. I will order the patient compounded cream and also send in a 2-week dose of baclofen 10 mg 3 times a day as needed. Patient will return to clinic in 2 weeks for reevaluation of symptoms and plan of care. Patient has been instructed to contact the clinic with any concerns before the next appointment. Dr. Boateng has reviewed this note and agrees with this plan of care. This note was dictated using voice recognition software and make contain errors or omissions. All injections are used with Lidocaine, Bupivacaine and Depo Medrol. Occasionally urine drug screen is needed to verify patient's compliance with our office pain contract. This is ordered based off specific treatments related to chronic pain with the potential to abuse certain medications.
[2024-09-27 13:35] VITALS: BP 122/77; PULSE 89; RESP 18; O2SAT 94; BMI 38.7
== END 2024-09-27 23:59 | disposition home or self-care (01) ==
PROVIDERS: PCP Family Medicine; Visit Provider Nurse Practitioner Family
DX: M46.1 Sacroiliitis, not elsewhere classified (principal); M51.369 Other intervertebral disc degeneration, lumbar region without mention of lumbar back pain or lower extremity pain; F17.210 Nicotine dependence, cigarettes, uncomplicated; Z79.899 Other long term (current) drug therapy
CPT/HCPCS: 99202; G0463

== ENCOUNTER 2024-11-01 14:23 | Outpatient (POV) | payer MEDICARE, MEDICAID, SELFPAY ==
[2024-11-01 14:39] VITALS: BP 109/75; PULSE 82; RESP 14; O2SAT 93; BMI 38.5
--- NOTE | 2024-11-01 15:13 | A.OFFVIS_ITS ---
[facility] Disclaimer: The information contained in this section may have been updated after the patient was seen, as this information can be updated by other users. Medical History Pneumonia Unstable angina Hypotension Weakness Hypomagnesemia Chest pain ERIC (acute kidney injury) Incurvated nail Discoloration and thickening of nails both feet Keratosis Ingrown nail of great toe of left foot Onychodystrophy Atypical angina Otitis media Benzodiazepine abuse COVID-19 Hemoptysis Dog bite Dehydration Enteritis SIRS (systemic inflammatory response syndrome) UTI (urinary tract infection) COPD with acute exacerbation Dental infection Dental abscess Acute knee pain COPD exacerbation Hyperlipidemia Tobacco use Atypical chest pain Acute bronchitis Chest pain Contusion of multiple sites of left hand and wrist Fatigue Chest tightness Dyspnea Musculoskeletal pain Asthma exacerbation in COPD Depression PTSD (post-traumatic stress disorder) Hypomagnesemia Acute on chronic respiratory failure with hypoxia and hypercapnia Pneumonia due to COVID-19 virus COVID Tobacco use disorder Palpitations Anxiety Acute exacerbation of chronic obstructive airways disease Surgical History History of back surgery Hx of tonsillectomy History of tubal ligation History of cardiac cath History of cancer surgery Family History Other Unknown family medical history Social History Smoking Status: Current every day smoker tobacco type: cigarettes packs per day: 1 second hand exposure: No alcohol intake: never substance use type: other current occupational status: other Travel in the last 8 weeks?: None household members: spouse housing: house current occupational exposures/hazards: No caffeine: Yes PM Subjective & Objective Subjective Subjective:: Patient is a pleasant 59-year-old female who presents today for follow-up. Today she rates her pain an 8 out of 10. Patient states this is all from her neck shoulders and lower back. Patient denies any new trauma or injury from her last visit. Patient does states she is continue to have worsening shoulder pain and feels like this is more bothersome than her neck and her low back symptoms. Patient describes it as a constant achy sensation that is worse with increased movement. She states that even trying to make her bed was so painful that she had to stop and take a break. She does states she has very limited movement and it does interfere with her ability perform activities of daily living such as cooking and cleaning. Patient denies any previous surgery in her shoulders or injections. Patient does state today that she would be interested in trying some injections for this pain. Patient was ordered compounded cream and baclofen 10 mg 3 times a day from our office at the last visit however she states she has not gotten the compounded cream. Patient states that she misunderstood and thought this is something she picks up at her local pharmacy. Patient does also state that the baclofen she did not really feel like did much but did cause some fatigue. Patient is asking if we can try the tizanidine again that she has had in the past. Her Connor has been reviewed and is appropriate. Review of Systems: General: No recent weight changes, no fever, no sleep disturbances Respiratory: No cough, no shortness of air, no recurring pulmonary infections Cardiovascular/peripheral vascular: No chest pain, no palpitations, no edema, no shortness of breath Gastrointestinal: No new onset incontinence, normal bowel movements reported Genitourinary: No new onset incontinence Musculoskeletal: Bilateral shoulder pain, neck pain, low back pain Psychiatric: [Normal mood/affect] Neurological: [Denies weakness in extremities], [denies balance issues] Pain at rest (0-10 scale): 8 Objective Objective:: Physical Exam: General: Alert and oriented x3, no acute distress, pleasant and cooperative Lungs: Respirations even and unlabored, symmetrical chest expansion Eyes: PERRL Musculoskeletal: Flexion and extension of bilateral shoulders somewhat guarded secondary to pain, [antalgic gait noted] Neurological: Speech clear, no gross sensory deficit Has patient had previous pain injection?: No Conservative treatment options previously tried: Home exercise plan Length of treatment: longer than 12 weeks Meds Home Medications and Allergies Home Medications ?Medication ?Instructions ?Recorded ?Confirmed ?Type omeprazole 40 mg capsule,delayed 40 mg PO DAILY 06/14/17 11/01/24 History release trazodone 50 mg tablet 75 mg PO HS 02/17/19 11/01/24 History atorvastatin 40 mg tablet 40 mg PO HS 12/29/19 11/01/24 History cyclobenzaprine 5 mg tablet 5 mg PO TIDP PRN Muscle Spasm 01/06/21 11/01/24 History hydroxyzine HCl 25 mg tablet 25 mg PO TIDP PRN Anxiety 10/02/21 11/01/24 History gabapentin 800 mg tablet 800 mg PO BID 01/27/22 11/01/24 History loratadine 10 mg tablet 10 mg PO DAILY 01/27/22 11/01/24 History metformin 500 mg tablet 500 mg PO DAILY 09/08/23 11/01/24 History bupropion HCl 100 mg tablet,12 hr 100 mg PO BID 11/01/23 11/01/24 History sustained-release clonazepam 0.5 mg tablet 0.5 mg PO BID 11/01/23 11/01/24 History bisoprolol fumarate 5 mg tablet 5 mg PO BID 11/24/23 11/01/24 History sacubitril 97 mg-valsartan 103 mg 1 tab PO BID #60 tabs 05/15/24 11/01/24 Rx tablet (Entresto) prasugrel HCl 10 mg tablet 10 mg PO DAILY #30 tabs 06/26/24 11/01/24 Rx (Effient) fluoxetine 20 mg capsule 60 mg PO DAILY 07/13/24 11/01/24 History ibuprofen 800 mg tablet 800 mg PO TIDP PRN Mild Pain 07/13/24 11/01/24 History (Scale Score 1-4) neznnhzktp-ayuwzcusfuvfr-eudbvswr 1 tab PO Q6HP PRN Migraine Headache 09/06/24 11/01/24 History 50 mg-325 mg-40 mg tablet cariprazine 4.5 mg capsule 4.5 mg PO DAILY 09/06/24 11/01/24 History (Nomanlar) isosorbide mononitrate 30 mg 30 mg PO DAILY #30 tabs 09/06/24 11/01/24 Rx tablet,extended release 24 hr prazosin 5 mg capsule 5 mg PO DAILY 09/06/24 11/01/24 History ranolazine 1,000 mg 1,000 mg PO BID #60 tabs 09/06/24 11/01/24 Rx tablet,extended release,12 hr albuterol sulfate 90 mcg/actuation 2 puff inhalation Q4HP PRN 09/21/24 11/01/24 History aerosol inhaler Shortness Of Breath Or Wheezing dapagliflozin propanediol 10 mg 10 mg PO DAILY 09/21/24 11/01/24 History tablet (Farxiga) spironolactone 50 mg tablet 25 mg PO DAILY 09/21/24 11/01/24 History umeclidinium 62.5 mcg/actuation 1 inh inhalation DAILY 09/21/24 11/01/24 History blister powder for inhalation (Incruse Ellipta) hydrocodone 5 mg-acetaminophen 325 1 tab PO Q6HP PRN Moderate Pain 09/22/24 11/01/24 Rx mg tablet (4-6) 3 days #12 tabs baclofen 10 mg tablet 10 mg PO TID #42 tabs 09/27/24 11/01/24 Rx semaglutide 2 mg/dose (8 mg/3 mL) 2 mg (0.75 mL) SQ WEEKLY #3 mL 09/27/24 11/01/24 Rx subcutaneous pen injector (Ozempic) New Prescriptions to Start Prescriptions: Allergies Allergy/AdvReac Type Severity Reaction Status Date / Time erythromycin base Allergy Unknown I-RASH Verified 09/27/24 11:11 (ERYTHROMYCIN BASE) Penicillins (PENICILLINS) Allergy Unknown DIFFICULTY Verified 09/27/24 11:11 BREATHING Assessment and Plan *Assessment and plan (1) Degenerative disc disease, lumbar: Status: Acute Category: Medical Code(s): M51.369 - Other intervertebral disc degeneration, lumbar region without mention of lumbar back pain or lower extremity pain (2) Bilateral shoulder pain: Status: Acute Category: Medical Code(s): M25.511 - Pain in right shoulder; M25.512 - Pain in left shoulder Plan Patient is experiencing worsening pain in her bilateral shoulders with limited range of motion. Patient has had chronic shoulder pain for longer than 6 months and denies any previous surgery or injections. Patient has tried oral medication, heat and ice, topicals, at home stretching exercise for longer than 12 weeks. I did discuss with the patient that she may benefit from bilateral shoulder intra-articular injections. Risk and benefits were discussed with the patient and she would like to proceed forward with this plan of care. I will reach out to the compound pharmacy and let them know that she should be calling them for the topical as well as send in a prescription of the tizanidine 2 mg 3 times daily as needed with a 2-week supply. Patient will be scheduled for bilateral shoulder intra-articular injections without fluoroscopic or ultrasound guidance. Patient has been instructed to contact the clinic with any concerns before the next appointment. Dr. Boateng has reviewed this note and agrees with this plan of care. This note was dictated using voice recognition software and make contain errors or omissions. All injections are used with Lidocaine, Bupivacaine and dexamethasone. Occasionally urine drug screen is needed to verify patient's compliance with our office pain contract. This is ordered based off specific treatments related to chronic pain with the potential to abuse certain medications.
== END 2024-11-01 23:59 | disposition home or self-care (01) ==
PROVIDERS: PCP Family Medicine; Visit Provider Nurse Practitioner Family
DX: M51.369 Other intervertebral disc degeneration, lumbar region without mention of lumbar back pain or lower extremity pain (principal); M25.511 Pain in right shoulder; M25.512 Pain in left shoulder; F17.210 Nicotine dependence, cigarettes, uncomplicated; Z73.89 Other problems related to life management difficulty; Z79.899 Other long term (current) drug therapy
CPT/HCPCS: 99212; G0463

== ENCOUNTER 2024-12-05 10:08 | Day surgery (SDC) | payer MEDICARE, MEDICAID, SELFPAY ==
[2024-12-05 10:17] VITALS: BP 122/78; PULSE 79; RESP 16; O2SAT 97; BMI 38.3
[2024-12-05] MEDS: DEXAMETHASONE 10MG/ML 1ML VIAL 10 MG (10:34)
[2024-12-05] MEDS: LIDOCAINE 1% 5ML PF VIAL 5 ML (10:34)
[2024-12-05] MEDS: BUPIVACAINE 0.25% 10ML INJ 25 MG IJ (10:34)
[2024-12-05 10:35] VITALS: BP 122/78; PULSE 79; RESP 18; O2SAT 97
[2024-12-05 10:36] VITALS: BP 122/78; PULSE 79; RESP 18; O2SAT 97
--- NOTE | 2024-12-05 10:43 | EXP.PAIN.PRO ---
Procedure Date: 12/05/24 Time: 10:20 Anesthesiologist:: Dami Nash CRNA Complications:: None Pre-procedure Diagnosis:: DJD bilateral shoulder. Chronic bilateral shoulder pain. Post-procedure Diagnosis:: Same. Indications for Procedure:: Patient is a very pleasant 59-year-old female who comes our clinic today for bilateral shoulder injection of cortisone local anesthetic. Patient describes bilateral shoulder pain as constant, dull, aching. Patient has 5/5 strength in the upper extremities. However, limited range of motion secondary to bilateral shoulder pain. Patient rates her pain 7/10. Procedure Details:: Procedure Details: Left shoulder intra-articular injection Informed consent was obtained risk and benefits of the procedure were explained to the patient. Patient was taken to the procedure room. The Left shoulder was prepped using ChloraPrep. A 25-gauge needle was used posteriorly to inject 10 mL bupivacaine 0.25% and 5 mg of dexamethasone. Patient tolerated procedure well with no complications. Procedure Details: Right shoulder intra-articular injection Informed consent was obtained risk and benefits of the procedure were explained to the patient. Patient was taken to the procedure room. The right shoulder was prepped using ChloraPrep. A 25-gauge needle was used posteriorly to inject 10 mL bupivacaine 0.25% and 5 mg of dexamethasone. Patient tolerated procedure well with no complications. Plan and Disposition:: Patient was discharged without incident.
[2024-12-05 10:52] VITALS: BP 96/70; PULSE 82; RESP 16; O2SAT 93
== END 2024-12-05 10:52 | disposition home or self-care (01) ==
PROVIDERS: PCP Family Medicine; Visit Provider Nurse Anesthetist, Certified Registered
DX: M19.012 Primary osteoarthritis, left shoulder (principal); M19.011 Primary osteoarthritis, right shoulder; J44.89 Other specified chronic obstructive pulmonary disease; F41.9 Anxiety disorder, unspecified; Z86.16 Personal history of COVID-19; F32.A Depression, unspecified; E78.5 Hyperlipidemia, unspecified; F17.210 Nicotine dependence, cigarettes, uncomplicated; Z88.0 Allergy status to penicillin; Z88.8 Allergy status to other drugs, medicaments and biological substances; Z79.84 Long term (current) use of oral hypoglycemic drugs; Z79.899 Other long term (current) drug therapy
CPT/HCPCS: 20610; J0665; J1100; J2003

== ENCOUNTER 2024-12-21 15:26 | Outpatient (POV) | payer MEDICARE, MEDICAID, SELFPAY ==
--- OUTSIDE RECORDS SUMMARY | 2024-11-14 14:00 | XMS_ITS | Encounter Summary ---
Author Organization [place] [address] Care Team Providers Care Health Safety Specialist Name Role Phone Dino Thao DO, Viral Primary Care Provider [phone] Reason for Visit * Reason Comments Degenerative Disc Disease Med follow up Chronic Obstructive Pulmonary Disease Re cert for Oxygen Encounter Details Date Type Department Care Team (Latest Contact Info) Description 11/14/2024 2:00 PM EDT Office Visit [facility] [address] [place] [address] Sun, Viral V, DO [address] [place] [address] Type 2 diabetes mellitus with hyperlipidemia (HCC) (Primary Dx); COPD, moderate (HCC); COPD exacerbation (HCC); Nonintractable headache, unspecified chronicity pattern, unspecified headache type; Neck pain; DDD (degenerative disc disease), cervical; Chronic bilateral low back pain with sciatica, sciatica laterality unspecified; Seasonal allergic rhinitis, unspecified trigger; Hyperlipidemia, unspecified hyperlipidemia type; Screening for thyroid disorder; Encounter for long-term (current) drug use; Chronic systolic heart failure (HCC); Major depressive disorder, recurrent, moderate (HCC); Body mass index (BMI) 45.0-49.9, adult (HCC); Acute and chronic respiratory failure with hypoxia (HCC) Social History Tobacco Use Types Packs/Day Years Used Date Smoking Tobacco: Former Cigarettes 0.5 40.3 0 06/14/1981 - 10/2021 Smokeless Tobacco: Never Tobacco Cessation:Counseling Given: Not Answered Alcohol Use Standard Drinks/Week Comments No 0 (1 standard drink = 0.6 oz pur e alcohol) Overall Financial Resource Strain (CARDIA) Answe r Date Recorded How hard is it for you to pa y for the very basics like food, housing, medical care, and heating? Not very hard 11/14/2024 PHQ-2 Answer Date Recorded PHQ-2 Total Score 0 12/24/2023 [facility] - Occupational Stress Questionnaire Answer Date Recorded Do you feel stress - tense, restless, nervous, or anxious, or unable to sleep at night because your mind is troubled all the time - these days? Very much 11/14/2024 Exercise Vital Sign Answer Date Recorde d On average, how many days pe r week do you engage in moderate to strenuous exercise (like a brisk walk)? 0 days 11/14/2024 On average, how many minutes do you engage in exercise at this level? 0 min 11/14/2024 Hunger Vital Sign Answer Date Recorded Within the past 12 months, y ou worried that your food would run out before you got the money to buy more. Sometimes true Within the past 12 months, t he food you bought just didn't last and you didn't have money to get more. Sometimes true 08/2024 PRAPARE - Transportation Answer Date Re corded In the past 12 months, has l ack of transportation kept you from medical appointments or from getting medications? No 08/2024 In the past 12 months, has l ack of transportation kept you from meetings, work, or from getting things needed for daily living? No 11/14/2024 Comments No Sex and Gender Information Value Date Recorded Sex Assigned at Not on file Legal Sex Female 4:02 AM EDT Gender Identity Not on file Sexual Orientation Not on file documented as of this encounter Last Filed Vital Signs Vital Sign Reading Time Taken Comments Blood Pressure 126/84 11/14/2024 1:51 PM EDT Pulse 86 11/14/2024 1:51 PM EDT Temperature 36.7 C (98 F) 11/14/2024 1:51 PM EDT Respiratory Rate - - Oxygen Saturation 91% 11/14/2024 1:51 PM EDT Inhaled Oxygen Concentration - - Weight 87.5 kg (193 lb) 11/14/2024 1:51 PM EDT Height 149.9 cm (4' 11 ) 11/14/2024 1:51 PM EDT Body Mass Index 38.98 11/14/2024 1:51 PM EDT documented in this encounter Functional Status * Is the person deaf or does he/she have serious difficulty hearing? Answer Date of Assessment Author No 11/26/2021 1:28 PM EDMihir Neil RMA * Is the person blind or does he/she have serious difficulty seeing even when wearing glasses? Answer Date of Assessment Author No 11/26/2021 1:28 PM Mihir Fairchild RMA * Does this person have serious difficulty walking or climbing stairs? Answer Date of Assessment Author No 11/26/2021 1:28 PM Mihir Fairchild RMA * Does this person have difficulty dressing or bathing? Answer Date of Assessment Author No 11/26/2021 1:28 PM EDT Mihir Martin RMA * Because of a physical, mental or emotional condition, does this person have difficulty doing errands alone such as visiting a doctor's office or shopping? Answer Date of Assessment Author No 11/26/2021 1:28 PM Mihir Fairchild RMA documented as of this encounter Mental Status * Because of a physical, mental or emotional condition, does this person have serious difficulty concentrating, remembering or making decisions? Answer Entry Date Author No 11/26/2021 1:28 PM Mihir Fairchild RMA documented in this encounter Ordered Prescriptions Prescription Sig Dispense Quantity Refills Last Filled Start Date End Date fluticasone-umecli din-vilanter (TRELEGY ELLIPTA) 100-62.5-25 mcg Inhl Disk with DeviceIndications: COPD, moderate (HCC),COPD exacerbation (HCC) Inhale 1 Puff into the lungs daily. 1 Each 2 11/14/2024 fluticasone propionate (FLONASE) 50 mcg/actuation Nasl [place], SuspensionIndicati ons:Seasonal allergic rhinitis, unspecified trigger 1 [place] by Nasal route daily. 9.9 mL 3 11/14/2024 gabapentin (NEURONTIN) 800 mg Oral TabletIndications: Neck pain,DDD (degenerative disc disease), cervical,Chronic bilateral low back pain with sciatica, sciatica laterality unspecified Take 1 Tablet by mouth 2 times daily. 60 Tablet 2 11/14/2024 butalbital-acetami nophen-caffeine (FIORICET) 50-325-40 mg Oral TabletIndications: Nonintractable headache, unspecified chronicity pattern, unspecified headache type Take 1 Tablet by mouth every 6 hours as needed. 60 Tablet 2 11/14/2024 albuterol (PROVENTIL HFA;VENTOLIN HFA) 90 mcg/actuation Inhl HFA Aerosol InhalerIndications :COPD, moderate (HCC),COPD exacerbation (HCC) Inhale 2 Puffs into the lungs every 4 hours as needed. for wheezing 6.7 g 2 11/14/2024 documented in this encounter Progress Notes * Julien Sun DO - 11/14/2024 2:00 PM EDTAssociated Problem(s): COPD, moderate (HCC) mMRC Dyspnea Scale: Grade 1: I get short of breath when hurrying on level ground or walking up a slight hill Home Oxygen: Home O2: Yes, 2 LPM Short Acting Beta Agonist:Yes Guideline Decision Tree: > 2 Moderate exacerbations or > 1 leading to hospitalization: currently on LABA+LAMA+ICS Immunizations: immunizations are up to date Lung Cancer Screening Up to Date or not indicated: Yes Compliance: - compliant with medications Advice: - avoid second hand smoke, lung irritants - continue inhalers as prescribed Medication Management: - medication management decisions took place at today's visit (see orders) Orders: albuterol (PROVENTIL HFA;VENTOLIN HFA) 90 mcg/actuation Inhl HFA Aerosol Inhaler; Inhale 2 Puffs into the lungs every 4 hours as needed. for wheezing tvudsguddbq-lcjkvirhj-shamlutd (TRELEGY ELLIPTA) 100-62.5-25 mcg Inhl Disk with Device; Inhale 1 Puff into the lungs daily. * Dino Viral V, DO - 11/14/2024 2:00 PM EDTAssociated Problem(s): DDD (degenerative disc disease), cervical Orders: gabapentin (NEURONTIN) 800 mg Oral Tablet; Take 1 Tablet by mouth 2 times daily. * Dino Viral V, DO - 11/14/2024 2:00 PM EDTAssociated Problem(s): Backache, unspecified Orders: gabapentin (NEURONTIN) 800 mg Oral Tablet; Take 1 Tablet by mouth 2 times daily. * Julien Sun V, DO - 11/14/2024 2:00 PM EDT Vitals: 11/14/24 1351 BP: 126/84 Pulse: 86 Temp: 98 ??F (36.7 ??C) SpO2: 91% Weight: 193 lb (87.5 kg) Height: 4' 11 (1.499 m) Body mass index is 38.98 kg/m??. SUBJECTIVE: Chief Complaint Patient presents with Degenerative Disc Disease Med follow up Chronic Obstructive Pulmonary Disease Recert for Oxygen HPI: Controlled Substance Common Conditions Interval Assessment: Chronic Pain: Reason for visit: Chronic Pain Follow-Up - Dorian Webb is here for regular follow-up for chronic pain. She reports that his pain is stable and unchanged since last evaluation. Dorian Webb has not followed up with another provider since last evaluation for this issue. The location(s) of the pain include: low back. She describes the quality of pain as: very deep withsevere aching. When the pain is most severe, she rates the pain as 10 / 10. When the pain is the least severe, she rates the pain as 4 / 10. Functional limitations include: inability to perform tasksrequired for employment. She has been compliant with elements of the controlled substance contract and with recommendations outlined during last assessment. Doing well, No SE's with medication. No evidence of abuse/diversion. Pt informed and aware of medication's potential for abuse/dependence. Functional goal/goals of treatment: control pain Review of Systems Constitutional: Negative. HENT: Negative. Eyes: Negative. Respiratory: Positive for cough and shortness of breath. Cardiovascular: Negative. Gastrointestinal: Negative. Endocrine: Negative. Genitourinary: Negative. Musculoskeletal: Positive for arthralgias, gait problem and joint swelling. OBJECTIVE: Physical Exam Vitals and nursing note reviewed. Constitutional: Appearance: She is well-developed. HENT: Head: Normocephalic. Right Ear: External ear normal. Left Ear: External ear normal. Eyes: Conjunctiva/sclera: Conjunctivae normal. Pupils: Pupils are equal, round, and reactive to light. Cardiovascular: Rate and Rhythm: Normal rate and regular rhythm. Heart sounds: Normal heart sounds. Pulmonary: Effort: Pulmonary effort is normal. Breath sounds: Normal breath sounds. No wheezing or rhonchi. Abdominal: General: Bowel sounds are normal. Palpations: Abdomen is soft. Musculoskeletal: General: Normal range of motion. Cervical back: Normal range of motion and neck supple. Skin: General: Skin is warm. Neurological: Mental Status: She is alert and oriented to person, place, and time. Psychiatric: Mood and Affect: Mood normal. Behavior: Behavior normal. Thought Content: Thought content normal. Assessment & Plan COPD, moderate (HCC) mMRC Dyspnea Scale: Grade 1: I get short of breath when hurrying on level ground or walking up a slight hill Home Oxygen: Home O2: Yes, 2 LPM Short Acting Beta Agonist:Yes Guideline Decision Tree: > 2 Moderate exacerbations or > 1 leading to hospitalization: currently on LABA+LAMA+ICS Immunizations: immunizations are up to date Lung Cancer Screening Up to Date or not indicated: Yes Compliance: - compliant with medications Advice: - avoid second hand smoke, lung irritants - continue inhalers as prescribed Medication Management: - medication management decisions took place at today's visit (see orders) Orders: albuterol (PROVENTIL HFA;VENTOLIN HFA) 90 mcg/actuation Inhl HFA Aerosol Inhaler; Inhale 2 Puffs into the lungs every 4 hours as needed. for wheezing gudrieijhip-hzyjgycbk-msszqxpv (TRELEGY ELLIPTA) 100-62.5-25 mcg Inhl Disk with Device; Inhale 1 Puff into the lungs daily. COPD exacerbation ([facility]) Orders: albuterol (PROVENTIL HFA;VENTOLIN HFA) 90 mcg/actuation Inhl HFA Aerosol Inhaler; Inhale 2 Puffs into the lungs every 4 hours as needed. for wheezing pvhnmiztjmw-glcjlpyef-kttmmcvg (TRELEGY ELLIPTA) 100-62.5-25 mcg Inhl Disk with Device; Inhale 1 Puff into the lungs daily. methylPREDNISolone acetate (DEPO-Medrol) injection 80 mg Nonintractable headache, unspecified chronicity pattern, unspecified headache type Orders: yhqerlntbn-crmfiwokqlxnd-qymewadc (FIORICET) 50-325-40 mg Oral Tablet; Take 1 Tablet by mouth every6 hours as needed. Neck pain Orders: gabapentin (NEURONTIN) 800 mg Oral Tablet; Take 1 Tablet by mouth 2 times daily. DDD (degenerative disc disease), cervical Orders: gabapentin (NEURONTIN) 800 mg Oral Tablet; Take 1 Tablet by mouth 2 times daily. Chronic bilateral low back pain with sciatica, sciatica laterality unspecified Orders: gabapentin (NEURONTIN) 800 mg Oral Tablet; Take 1 Tablet by mouth 2 times daily. Seasonal allergic rhinitis, unspecified trigger Orders: fluticasone propionate (FLONASE) 50 mcg/actuation Nasl [place], Suspension; 1 [place] by Nasal route daily. Type 2 diabetes mellitus with hyperlipidemia ([facility]) Goal A1C: < 6.5 and TIR >70% - Last A1c - 6 - 12/24/2023 - at goal Compliance: - compliant with diet and medications Home Glucose Monitoring: - none Retinopathy Screening: - patient has no know retinopathy and was reminded to complete a retinal exam every 2 years Nephropathy Assessment: - microalbumin screening completed in the past 12 months Foot Assessment: - no ulcers or pre-ulcers Diet Advice: - discussed improving diet by reducing carbohydrates at today's visit Statin Therapy: - currently on a statin Medication Management: - medication management decisions took place at today's visit (see orders) Orders: CBC WITH DIFF; Future COMPREHENSIVE METABOLIC PANEL; Future HEMOGLOBIN A1C; Future MICROALBUMIN/CREATININE RATIO URINE; Future Hyperlipidemia, unspecified hyperlipidemia type Goal: - Last LDL Cholesterol - 64 12/24/2023 - moderate intensity statin and lifestyle modifications for primary prevention in a moderate risk patient Compliance: - compliant with medications Advice: - take medications as prescribed Medication Management: - medication management decisions took place at today's visit (see orders) Orders: LIPID PANEL REFLEX; Future Screening for thyroid disorder Orders: THYROID STIMULATING HORMONE; Future Encounter for long-term (current) drug use Orders: COMPLIANCE PANEL, URINE; Future Chronic systolic heart failure (HCC) Stable on treatment Major depressive disorder, recurrent, moderate ([facility]) Goal: achieve mental health wellness where ADLs, family, social and work relationships are optimal Depression Screen Score: Addressed: - Current stressors contributing to sx explored and discussed Compliance: - compliant with medications Advice: - remain compliant with follow up and medications Medication Management: - medication management decisions took place at today's visit (see orders) - responding as expected This visit constituted management of a single serious and/or complex multiple conditions for which we have developed an ongoing, longitudinal, regularly reviewed plan of care.. We will continue regular long-term follow up for this/ these conditions and the patient will follow up with me in 3 months. Body mass index (BMI) 45.0-49.9, adult ([facility]) Goals: - lose 10 pounds in 3 months (4 pounds the first month and 3 pounds the next two months) Advice: - exercise 30 minutes daily - low carb diet Medication Management: - medication management decisions took place at today's visit (see orders) Acute and chronic respiratory failure with hypoxia ([facility]) Walk test done.. patient stable on treatment Patient also seen by COPD Resp therapist. Working Diagnosis (not symptoms): Chronic Pain Syndrome Treatment Plan: There are no diagnoses linked to this encounter. Goal(s) for treatment is/are: Pain control to allow for completion of ADLs Areas of improved function include: Completion of ADLs Next evaluation will be in 3 days By next evaluation, treatment failure will be considered if Pain has increased, Excess use of medication, and Breakthrough pain is not controlled. Drug screen is not due today Breakthrough Pain: Current triggers include: ADLs Treatment modalities for breakthrough pain include: PRN medications Preventative Medicine: Last medical health screening was not within last 12 months. * Gisella Rojas - 11/14/2024 2:00 PM EDT Oxygen walk test: (SpO2 must drop to or below 88% to qualify for oxygen therapy.) Pre SpO2 at rest without oxygen: 94% (If less than 88% no further steps are needed) 2. SpO2 with ambulation (without oxygen): 88% 3. Post SpO2 on 2 liters of oxygen: 95% documented in this encounter Miscellaneous Notes * Addendum Note - Olamide Lockhart RMA - 11/14/2024 2:00 PM EDTAddended by: OLAMIDE LOCKHART on: 11/14/2024 02:13 PM Modules accepted: Orders documented in this encounter Plan of Treatment Scheduled Orders Name Type Priority Associated Diagnoses Orde r Schedule CBC WITH DIFF Lab Routine Type 2 diabetes mellitus with hyperlipidemia (HCC) 1 Occurrences starting 11/14/2024 until 11/14/2025 COMPREHENSIVE METABOLIC PANEL Lab Routine Type 2 diabetes mellitus with hyperlipidemia (HCC) 1 Occurrences starting 11/14/2024 until 11/14/2025 HEMOGLOBIN A1C Lab Routine Type 2 diabetes mellitus with hyperlipidemia (HCC) 1 Occurrences starting 11/14/2024 until 11/14/2025 LIPID PANEL REFLEX Lab Routine Hyperlipidemia, unspecified hyperlipidemia type 1 Occurrences starting 11/14/2024 until 11/14/2025 THYROID STIMULATING HORMONE Lab Routine Screening for thyroid disorder 1 Occurrences starting 11/14/2024 until 11/14/2025 documented as of this encounter Goals Goal Patient Goal Type Associated Problems Recent Progress Patient-Stated? Author Blood Pressure < 140/90 Blood Pressure 126/84(2024 1:51 PM EDT) Cirilo Hebert MD Maintain a healthy diet, exercise regularly and maintain an ideal body weight General No Rubi Rolon RMA Stay Tobacco Free Lifestyle No Rubi Rolon RMA documented as of this encounter Procedures Procedure Name Priority Date/Time Associated Diagnosis Comments COMPLIANCE PANEL, URINE Routine 11/14/2024 2:13 PM EDT Encounter for long-term (current) drug use MICROALBUMIN/CREATI NINE RATIO URINE Routine 11/14/2024 2:13 PM EDT Type 2 diabetes mellitus with hyperlipidemia (HCC) documented in this encounter Results * (ABNORMAL) COMPLIANCE PANEL, URINE (11/14/2024 2:13 PM EDT) Medications Expected Gabapentin Butalbital Klonopin(TM) (clonazepam) 5 4:37 PM EDT PREFERRED [facility] [employer] [facility] [employer] Barbiturates Presumptive Pos(A) Cutoff 200 ng/mL 5 4:37 PM EDT [facility]REFERRED [facility] [employer] [facility] [employer] Butalbital 526(H) Cutoff 50 ng/mL ng/mL 5 4:37 PM EDT [facility] [employer] [employer] Comment:e.g. Fiorinal Phenobarbital <50 Cutoff 50 ng/mL ng/mL 5 4:37 PM EDT [facility]REF[facility] [employer] [facility] [employer] Comment:e.g. Nembutal, Lumin al, Bellergal-S Secobarbital <50 Cutoff 50 ng/mL ng/mL 5 4:37 PM EDT [facility]REF[facility] [employer] [facility] [employer] Comment:e.g. Seconal, [place] Pentobarbital <50 Cutoff 50 ng/mL ng/mL 5 4:37 PM EDT [facility] Comment:e.g. Nembutal THC <10 Cutoff 10 ng/mL ng/mL 5 4:37 PM EDT [facility] Comment:6-fxfcfrn-sbusvgprui cannabinol; does not distinguish between prescribed and illicit forms THC Glucuronide <10 Cutoff 10 ng/mL ng/mL 5 4:37 PM EDT [facility] Comment:Metabolite of THC Amphetamine <50 Cutoff 50 ng/mL ng/mL 5 4:37 PM EDT [facility] Comment:e.g., Adderall, Vyva nse, Dexedrine, Obetrol MDA <50 Cutoff 50 ng/mL ng/mL 5 4:37 PM EDT [facility] Comment:Metabolite of MDMA, and MDEA MDEA <50 Cutoff 50 ng/mL ng/mL 5 4:37 PM EDT [facility] Comment:e.g., Nathalie MDMA <50 Cutoff 50 ng/mL ng/mL 5 4:37 PM EDT [facility] Comment:e.g., Ecstasy, Stella Methamphetamine <50 Cutoff 50 ng/mL ng/mL 5 4:37 PM EDT [facility] Comment:d- and l- isomers ar e not distinguished by this test; may reflect Rony's inhaler, Desoxyn, Selegiline, or illicit source Phentermine <50 Cutoff 50 ng/mL ng/mL 5 4:37 PM EDT [facility] Comment:e.g., Adipex, Lomair a, Ionamin,Fastin,Zantryl Gabapentin >2,000(H) Cutoff 50 ng/mL ng/mL 5 4:37 PM EDT [facility] Comment:e.g, Neurontin Pregabalin <50 Cutoff 50 ng/mL ng/mL 5 4:37 PM EDT [facility] Comment:Lyrica Alprazolam <8 Cutoff 8 ng/mL ng/mL 5 4:37 PM EDT [facility] Comment:e.g, Xanax, Niravam alpha-Hydroxyalprazolam <25 Cutoff 25 ng/mL ng/mL 5 4:37 PM EDT [facility] Comment:Metabolite of Alpraz olam Clonazepam 12(H) Cutoff 10 ng/mL ng/mL 5 4:37 PM EDT [facility] Comment:e.g., Klonopin, Clon opin 7-Aminoclonazepam 538(H) Cutoff 25 ng/mL ng/mL 5 4:37 PM EDT [facility] Comment:Metabolite of Clonaz epam Diazepam <10 Cutoff 10 ng/mL ng/mL 5 4:37 PM EDT [facility] Comment:e.g, Valium, Diastat Nordiazepam <25 Cutoff 25 ng/mL ng/mL 5 4:37 PM EDT [facility] Comment:Metabolite of Chlord iazepoxide(Librium), Clorazepate(Tranxene), Diazepam, Halazepam, (Alapryl), Prazepam(Centrax) Flunitrazepam <50 Cutoff 50 ng/mL ng/mL 5 4:37 PM EDT [facility] Comment:e.g.,Rohypnol, Narco zep 7-Aminoflunitrazepam <50 Cutoff 50 ng/mL ng/mL 5 4:37 PM EDT [facility] Comment:Metabolite of Flunit razepam Flurazepam <50 Cutoff 50 ng/mL ng/mL 5 4:37 PM EDT [facility] Comment:e.g., Dalmane Hydroxyethylflurazepam <50 Cutoff 50 ng/mL ng/mL 5 4:37 PM EDT [facility] Comment:Metabolite of Fluraz epam Lorazepam <50 Cutoff 50 ng/mL ng/mL 5 4:37 PM EDT [facility] Comment:e.g., Ativan Lorazepam Glucuronide <50 Cutoff 50 ng/mL ng/mL 5 4:37 PM EDT [facility] Comment:Metabolite of Loraze bereket Midazolam <50 Cutoff 50 ng/mL ng/mL 5 4:37 PM EDT [facility] Comment:e.g., Versed alpha-hydroxymidazolam <50 Cutoff 50 ng/mL ng/mL 5 4:37 PM EDT [facility] Comment:Metabolite of Versed Oxazepam <50 Cutoff 50 ng/mL ng/mL 5 4:37 PM EDT [facility] Comment:e.g., Serax; also Me tabolite of Temazepam, and Nordiazepam Oxazepam Glucuronide <50 Cutoff 50 ng/mL ng/mL 5 4:37 PM EDT [facility] Comment:Metabolite of Oxazep am Temazepam <50 Cutoff 50 ng/mL ng/mL 5 4:37 PM EDT [facility] Comment:e.g., Restoril; also Metabolite of Diazepam Temazepam Glucuronide <50 Cutoff 50 ng/mL ng/mL 5 4:37 PM EDT [facility] Comment:Metabolite of Temaze bereket and Diazepam Triazolam <50 Cutoff 50 ng/mL ng/mL 5 4:37 PM EDT [facility] Comment:e.g., Halcion alpha-hydroxytriazolam <50 Cutoff 50 ng/mL ng/mL 5 4:37 PM EDT [facility] Comment:Metabolite of Triazo mendoza Buprenorphine <5 Cutoff 5 ng/mL ng/mL 5 4:37 PM EDT [facility] Comment:e.g., Suboxone, Subu jae,Sublocade, Buprenex Buprenorphine Glucuronide <10 Cutoff 10 ng/mL ng/mL 5 4:37 PM EDT [facility] Comment:Buprenorphine Metabo lite Norbuprenorphine <5 Cutoff 5 ng/mL ng/mL 5 4:37 PM EDT [facility] Comment:Buprenorphine Metabo lite Norbuprenorphine Glucuronide <10 Cutoff 10 ng/mL ng/mL 5 4:37 PM EDT [facility] Comment:Buprenorphine Metabo lite Benzoylecgonine <50 Cutoff 50 ng/mL ng/mL 5 4:37 PM EDT [facility] Comment:Cocaine Metabolite Fentanyl <1 Cutoff 1 ng/mL ng/mL 5 4:37 PM EDT [facility] Comment:e.g.,Duragesic, Oral et, Actiq, Sublimaze, Innovar, Lazanda Norfentanyl <1 Cutoff 1 ng/mL ng/mL 5 4:37 PM EDT [facility] Comment:Metabolite of Fentan yl 6-Monoacetylmorphine (6MAM) <10 Cutoff 10 ng/mL ng/mL 5 4:37 PM EDT [facility] Comment:Metabolite of Heroin ; Morphine is expected Methadone <50 Cutoff 50 ng/mL ng/mL 5 4:37 PM EDT [facility] Comment:e.g., Dolophine, Met hadose, Amidone EDDP <50 Cutoff 50 ng/mL ng/mL 5 4:37 PM EDT [facility] Comment:Methadone Metabolite Carisoprodol <100 Cutoff 100 ng/mL ng/mL 5 4:37 PM EDT [facility] Comment:e.g., Soma Meprobamate <100 Cutoff 100 ng/mL ng/mL 5 4:37 PM EDT [facility] Comment:e.g., [place], Equa nil, Micrainin, Equagesic; Metabolite of Carisoprodol Codeine <50 Cutoff 50 ng/mL ng/mL 5 4:37 PM EDT [facility] Comment:e.g., Acetaminophen w/Codeine, Tylenol3 w/ Codeine Codeine Glucuronide <50 Cutoff 50 ng/mL ng/mL 5 4:37 PM EDT [facility] Comment:Metabolite of Codein e Meperidine <50 Cutoff 50 ng/mL ng/mL 5 4:37 PM EDT [facility] Comment:e.g., Demerol, Pethi dine Normeperidine <50 Cutoff 50 ng/mL ng/mL 5 4:37 PM EDT [facility] Comment:Metabolite of Meperi dine Morphine <50 Cutoff 50 ng/mL ng/mL 5 4:37 PM EDT [facility] Comment:e.g., MS Contin, Marlene anol; Metabolite of Codeine and Heroin; may reflect poppy seed ingestion Ndjahutx-1-Nlxeqovlcbj <25 Cutoff 25 ng/mL ng/mL 5 4:37 PM EDT [facility] Comment:Metabolite of Morphi ne. Dqpsijlw-6-Roydzgrembq <25 Cutoff 25 ng/mL ng/mL 5 4:37 PM EDT [facility] Comment:Metabolite of [place] ne. Naloxone <25 Cutoff 25 ng/mL ng/mL 5 4:37 PM EDT [facility] Comment:e.g., Narcan, Evzio Hydrocodone <50 Cutoff 50 ng/mL ng/mL 5 4:37 PM EDT [facility] Comment:e.g., Lorcet, Lortab , Vicodin, Jaffrey; Minor Metabolite of Codeine Dihydrocodeine <50 Cutoff 50 ng/mL ng/mL 5 4:37 PM EDT [facility] Comment:e.g., Didrate, Parzo ne, Parlor, Synalgos; Metabolite of Hydrocodone Norhydrocodone <50 Cutoff 50 ng/mL ng/mL 5 4:37 PM EDT [facility] Comment:Metabolite of Hydroc odone Hydromorphone <50 Cutoff 50 ng/mL ng/mL 5 4:37 PM EDT [facility] Comment:e.g., Dilaudid; also Metabolite of Hydrocodone and Minor Metabolite of Morphine Hydromorphone Glucuronide <50 Cutoff 50 ng/mL ng/mL 5 4:37 PM EDT [facility] Comment:Metabolite of Hydrom orphone Oxycodone >2,000(H) Cutoff 50 ng/mL ng/mL 5 4:37 PM EDT [facility] Comment:e.g., Oxycontin, Per cocet, Endocet, Percodan, Roxicet Noroxycodone >2,000(H) Cutoff 50 ng/mL ng/mL 5 4:37 PM EDT [facility], [facility] Comment:Metabolite of Oxycod one Oxymorphone <50 Cutoff 50 ng/mL ng/mL 5 4:37 PM EDT [facility], [facility] Comment:e.g., Opana; Metabol ite of Oxycodone Oxymorphone Glucuronide 325(H) Cutoff 50 ng/mL ng/mL 5 4:37 PM EDT [facility], [facility] Comment:Metabolite of Oxycod one Noroxymorphone <50 Cutoff 50 ng/mL ng/mL 5 4:37 PM EDT [facility] Comment:Metabolite of Oxycod one, and Oxymorphone, Noroxycodone Metabolite Tramadol <50 Cutoff 50 ng/mL ng/mL 5 4:37 PM EDT [facility] Comment:e.g., Ultram, ConZip W-Nboopooxb-sgm-Tramadol <50 Cutoff 50 ng/mL ng/mL 5 4:37 PM EDT [facility] Comment:Metabolite of Tramad ol Tapentadol <50 Cutoff 50 ng/mL ng/mL 5 4:37 PM EDT [facility] Comment:Nucynta Tapentadol-Glucuronide <50 Cutoff 50 ng/mL ng/mL 5 4:37 PM EDT [facility], [facility] Comment:Metabolite of Tapent adol Urine Creatinine 159.0 mg/dL 11/17/19 2 5 4:37 PM EDT [facility] Comment: Greater than 20: Consistent with valid sample Greater than 2 but less than 20: Possible dilution Less than 2: Questionable valid sample Urine STRUCTURE OF URINARY TRACT PROPER / Unknown 11/14/2024 2:13 PM EDT 11/14/2024 2:13 PM EDT Narrative [facility] - 11/16/2024 4:37 PM EDT The absence of expected drug(s), and/or drug metabolite(s), may indicate non-compliance, diluted or adulterated urine, poor drug absorption, concentration of drug below the cut-off, timing of specimen collection relative to administration of drug, or limitations of testing. Specimens are held for 7 days. This test was developed, and its performance characteristics determined by [facility] ([facility]). It has not been cleared or approved by the FDA. This test is used for clinical purposes. It should not be regarded as investigational or for research. [facility] is certified under the Clinical Laboratory Improvement Amendments (CLIA) as qualified to perform high complexity clinical laboratory testing. Viral Sun V, DO URINE ORDERABLES Final Result Performing Organization Address [facility] Co de Phone Number [facility] [employer], [facility] [address] [facility] , [place] [address] [facility] [address] [place] [id number] * MICROALBUMIN/CREATININE RATIO URINE (11/14/2024 2:13 PM EDT) Urine Microalb 15.7 mg/L 11/14/2024 9:56 PM EDT [facility] [employer], [facility] Urine Creatinine 158.0 mg/dL 11/14/2024 9:56 PM EDT [facility] [employer], [facility] Ur Microalb/Creat 10 0 - 30 mg/g 11/14/2024 9:56 PM EDT [facility] Urine STRUCTURE OF URINARY TRACT PROPER / Unknown 11/14/2024 2:13 PM EDT 11/14/2024 2:13 PM EDT Viral Sun V, DO URINE ORDERABLES Final Result Performing Organization Address [facility] de Phone Number [phone] [facility] [address] [facility] [address] [place] [address] [place] [address] [facility] [address] [place] [address] documented in this encounter Visit Diagnoses Diagnosis Type 2 diabetes mellitus with hyperlipidemia (HCC)- Primary COPD, moderate (HCC) Chronic airway obstruction, not elsewhere classified COPD exacerbation (HCC) Obstructive chronic bronchitis with exacerbation Nonintractable headache, unspecified chronicity pattern, unspecified headache type Neck pain Cervicalgia DDD (degenerative disc disease), cervical Degeneration of cervical intervertebral disc Chronic bilateral low back pain with sciatica, sciatica laterality unspecified Seasonal allergic rhinitis, unspecified trigger Hyperlipidemia, unspecified hyperlipidemia type Screening for thyroid disorder Encounter for long-term (current) drug use Chronic systolic heart failure (HCC) Chronic systolic heart failure Major depressive disorder, recurrent, moderate (HCC) Major depressive disorder, recurrent episode, moderate Body mass index (BMI) 45.0-49.9, adult (HCC) Acute and chronic respiratory failure with hypoxia (HCC) Acute and chronic respiratory failure documented in this encounter Administered Medications Inactive Administered Medications - up to 1 most recent administrations Medication Order MAR Action Action Date Dose Rate Site methylPREDNISolone acetate (DEPO-Medrol) injection 80 mg 80 mg, Intramuscular, ONCE, 1 dose, On Wed11/14/24 at 1415, Dx: 1. COPD exacerbation ([facility])Indications:COPD exacerbation (HCC) Given 11/14/2024 2:09 PM EDT 80 mg Right upper gluteus documented in this encounter Discontinued Medications Medication Sig Discontinue Reason Start Date End Da te albuterol (PROVENTIL HFA;VENTOLIN HFA) 90 mcg/actuation Inhl HFA Aerosol InhalerIndications:COPD, moderate (HCC),COPD exacerbation (HCC) INHALE TWO PUFFS BY MOUTH INTO THE LUNGS EVERY 4 HOURS NEEDED FOR WHEEZING Reorder 04/27/2024 11/14/2024 fluticasone propionate (FLONASE) 50 mcg/actuation Nasl [place], SuspensionIndications:Se asonal allergic rhinitis, unspecified trigger 1 [place] by Nasal route daily. Reorder 07/17/2024 11/14/2024 gabapentin (NEURONTIN) 800 mg Oral TabletIndications:Neck pain,DDD (degenerative disc disease), cervical,Chronic bilateral low back pain with sciatica, sciatica laterality unspecified Take 1 Tablet by mouth 2 times daily. Reorder 07/17/2024 11/14/2024 butalbital-acetaminophen -caffeine (FIORICET) 50-325-40 mg Oral TabletIndications:Nonint ractable headache, unspecified chronicity pattern, unspecified headache type Take 1 Tablet by mouth every 6 hours as needed. Reorder 07/17/2024 11/14/2024 documented as of this encounter Care Teams Health Safety Specialist Relationship Specialty Start Date End Date Julien Sun DO [address] [place] [phone] PCP - General Family Medicine 10/18/13 documented as of this encounter
--- OUTSIDE RECORDS SUMMARY | 2024-11-14 14:45 | XMS_ITS | Encounter Summary ---
Author Organization [place] [address] Care Team Providers Care Shade Cutter Name Role Phone Sun DO Keesha, Viral Primary Care Provider [phone] Reason for Visit * Reason Comments Care Management - Face To Face CM- Consultation CM-Resource Coordination Encounter Details Date Type Department Care Team (Latest Contact Info) Description 11/14/2024 2:45 PM EDT Clinical Support SEP Care Managment [phone] Appointment [place] [address] Gisella Rojas COPD, moderate (HCC) (Primary Dx) Social History Tobacco Use Types Packs/Day Years Used Date Smoking Tobacco: Former Cigarettes 0.5 40.3 0 06/14/1981 - 10/2021 Smokeless Tobacco: Never Alcohol Use Standard Drinks/Week Comments No 0 (1 standard drink = 0.6 oz pur e alcohol) Overall Financial Resource Strain (CARDIA) Answe r Date Recorded How hard is it for you to pa y for the very basics like food, housing, medical care, and heating? Not very hard 11/14/2024 PHQ-2 Answer Date Recorded PHQ-2 Total Score 0 12/24/2023 [facility] [place] [facility] Occupat ional Health - Occupational Stress [...] on file documented as of this encounter Functional Status * Is the person deaf or does he/she have serious difficulty hearing? Answer Date of Assessment Author No 11/26/2021 1:28 PM Mihir Fairchild RMA * Is the person blind or [...] 11/26/2021 1:28 PM Mihir Fairchild RMA * Because of a physical, mental [...] Entry Date Author No 11/26/2021 1:28 PM EDT Mihir Martin RMA documented in this encounter Progress Notes * Gisella Rojas - 11/14/2024 2:45 PM EDT Respiratory Deck Scaler (RCC) Initial Encounter Reason for rrmh-lk-natu visit: Chronic Obstructive Pulmonary Disease (COPD) Diagnosis: COPD Assessment: Symptoms per patient: Cough: Chronic Risk Factors: Previous Smoker Age > 40 years Smoking History: Updated Note: Patient states she continues to having coughing spells at night time. This is worse than usual. Patient wears 2L of oxygen at night and as needed throughout the day. She does have a pulse oximeter athome and monitors occasionally. Patient is on Incruse but was on Trelegy in the past. States this worked much better for her than Incruse. sent new prescription for Trelegy to pharmacy, reviewed proper use and technique. Patient currently receives her oxygen supplies through [facility]. RCC contacted [facility], they will fax over new oxygen order for renewal. Management: Current Medications: Albuterol rescue inhaler: every four hours as needed Duo Neb: four times daily as needed Trelegy: once daily Reminded patient to rinse mouth after use of Trelegy Respiratory Medication Affordability: No affordability concerns Education Provided: Inhaler technique Oxygen saturation (sats) with goal greater than or equal to 88% per Global Initiative for Chronic Obstructive Lung Disease (GOLD) guidelines Breathing education: pursed-lip breathing Signs of a flare up When to call primary care physician, Nurse Now Line &/or 911 Interventions: Contacted the patient's durable medical equipment provider regarding oxygen recertification Respiratory Deck Scaler contact information given/confirmed: [place] ~ [phone] Socioeconomic and Lifestyle questionnaire completed Denies need for counseling services at this time Next Steps/Outcome: Patient will contact RCC if additional questions or concerns arise Respiratory Deck Scaler will no longer follow. Patient does not have any respiratory questionsor concerns at this time. documented in this encounter Plan of Treatment Not on file documented as of this encounter Goals Goal Patient Goal Type Associated Problems Recent Progress Patient-Stated? Author Blood Pressure < 140/90 Blood Pressure 126/84(2024 1:51 PM EDT) No Cirilo Quiñonez MD Maintain a healthy diet, exercise regularly and maintain an ideal body weight General No Rubi Rolon RMA Stay Tobacco Free Lifestyle No Rubi Rolon RMA documented as of this encounter Visit Diagnoses Diagnosis COPD, moderate (HCC)- Primary Chronic airway obstruction, not elsewhere classified documented in this encounter Care Teams Shade Cutter Relationship Specialty Start Date End Date Julien Sun DO [address] [place] [phone] PCP - General Family Medicine 10/18/13 documented as of this encounter
[2024-12-21 14:15] VITALS: BP 150/90; PULSE 83; RESP 18; O2SAT 91; BMI 39.2
--- OUTSIDE RECORDS SUMMARY | 2024-12-21 15:32 | XMS_ITS | Clinical Summary ---
Author Organization [facility] Address [address] [place] [address] Phone Care Team Providers Care Heel Burnisher Name Role Phone Dino Thao DO, Viral Primary Care Provider [phone] Allergies Active Allergy Reactions Criticality Noted Date Comments Erythromycin Hives Penicillins Other (See Comments) choking Metaxalone Nausea Only Medications * This document contains information received from the source organization and may not represent a complete record from that organization. mupirocin (BACTROBAN) 2 % Top OintmentIndication s:Dog bite, subsequent encounter,Wound infection Apply topically 3 times daily. 15 g 021 Active Additional Information Patient not taking.Reason: Other, Reported on 11/14/2024 Pump Set Misc MiscIndications:CO PD, moderate (HCC),COPD exacerbation (HCC) Nebulizer machine 1 Each 021 Active Nebulizers (TERESITA BABY NEBULIZER) Misc Misc Nebulizer DX: acute bronchitis. Use with duoneb 1 Each 022 Active Lancets Misc MiscIndications:Ty pe 2 diabetes mellitus with hyperlipidemia (HCC) Use to test blood sugar daily 100 Each 2 023 Active ACCU-CHEK GUIDE GLUCOSE METER Misc MiscIndications:Ty pe 2 diabetes mellitus with hyperlipidemia (HCC) USE TO CHECK GLUCOSE ONCE DAILY 1 Each 023 Active ACCU-CHEK GUIDE TEST STRIPS [facility] StripIndications:T ype 2 diabetes mellitus with hyperlipidemia (HCC) USE TO TEST BLOOD SUGAR DAILY 100 Each Active clonazePAM (KLONOPIN) 0.5 mg Oral Tablet Take 0.5 mg by mouth 2 times daily. Active VRAYLAR 1.5 mg Oral Capsule Take 1.5 mg by mouth daily. Active buPROPion (WELLBUTRIN SR) 100 mg Oral tablet sustained-release 12 hr 200 mg. Active semaglutide 2 mg/dose (8 mg/3 mL) SubQ Pen Injector 2 mg. Active prasugreL (EFFIENT) 10 mg Oral Tablet Take 10 mg by mouth daily. Active ENTRESTO 97-103 mg Oral Tablet Take 1 Tablet by mouth 2 times daily. Active prazosin (MINIPRESS) 2 mg Oral Capsule Take 5 mg by mouth nightly. 024 Active prazosin (MINIPRESS) 1 mg Oral Capsule 5 mg. 024 Active FARXIGA 10 mg Oral Tablet 10 mg. 023 Active bumetanide (BUMEX) 1 mg Oral Tablet 1 mg. 023 Active hydrOXYzine (ATARAX) 25 mg Oral TabletIndications: Anxiety disorder, unspecified type,Major depressive disorder, recurrent episode, mild,Generalized anxiety disorder TAKE ONE TABLET BY MOUTH THREE TIMES DAILY NEEDED FOR ITCHING (VIAL) 270 Tablet 11 024 Active atorvastatin (LIPITOR) 40 mg Oral TabletIndications: Hyperlipidemia, unspecified hyperlipidemia type TAKE ONE TABLET BY MOUTH DAILY AT 5 PM 90 Tablet 11 024 Active fluticasone-umecli din-vilanter (TRELEGY ELLIPTA) 100-62.5-25 mcg Inhl Disk with Device 1 Puff. 023 Active aspirin 81 mg Oral Tablet, Chewable Take 81 mg by mouth daily. - chew and swallow Active bisoprolol (ZEBETA) 5 mg Oral TabletIndications: Essential hypertension TAKE ONE TABLET BY MOUTH TWICE DAILY @ 9AM & 5PM 180 Tablet 11 024 Active fUROsemide (LASIX) 80 mg Oral TabletIndications: Right leg swelling,Acute and chronic respiratory failure with hypercapnia (HCC),Chronic systolic heart failure (HCC) TAKE 1 TABLET BY MOUTH ONCE DAILY AT 9 AM 100 Tablet 1 024 Active FLUoxetine (PROZAC) 20 mg Oral CapsuleIndications :Anxiety disorder, unspecified type Take 3 Capsules by mouth daily. 270 Capsule 1 024 Active loratadine (CLARITIN) 10 mg Oral TabletIndications: Seasonal allergic rhinitis, unspecified trigger Take 1 Tablet by mouth daily. 90 Tablet 3 024 Active traZODone (DESYREL) 50 mg Oral TabletIndications: Insomnia, persistent TAKE 1 AND 1/2 TABLETS BY MOUTH DAILY AT 9 PM NIGHTLY 135 Tablet 11 025 Active promethazine-dextr omethorphan (PROMETHAZINE-DM) 6.25-15 mg/5 mL Oral SyrupIndications:A cute gastroenteritis Take 5 mL by mouth every 6 hours as needed. 240 mL 025 Active albuterol-ipratrop ium (DUO-NEB) 0.5 mg-3 mg(2.5 mg base)/3 mL Inhl Solution for NebulizationIndica tions:COPD, moderate (HCC),COPD exacerbation (HCC) USE 1 AMPULE IN NEBULIZER 4 TIMES DAILY (8AM, 12PM, 4PM, AND 8 PM) FOR COPD 360 mL 025 Active promethazine (PHENERGAN) 25 mg Oral TabletIndications: Nausea TAKE 1/2 TO 1 (ONE-HALF TO ONE) TABLET BY MOUTH EVERY 6 HOURS NEEDED 20 Tablet 025 Active ondansetron (ZOFRAN) 4 mg Oral Tablet Take 1 Tablet by mouth 2 times daily as needed. for nausea 30 Tablet 025 Active spironolactone (ALDACTONE) 50 mg Oral TabletIndications: Essential hypertension Take 1 Tablet by mouth daily. 90 Tablet 025 Active clotrimazole-betam ethasone (LOTRISONE) Top CreamIndications:I ntertrigo Apply topically 2 times daily. 15 g 1 025 Active metFORMIN (GLUCOPHAGE) 500 mg Oral TabletIndications: Type 2 diabetes mellitus with hyperlipidemia (HCC) TAKE 1 TABLET BY MOUTH TWICE DAILY WITH MEALS 200 Tablet 025 Active INCRUSE ELLIPTA 62.5 mcg/actuation Inhl Disk with DeviceIndications: COPD, moderate (HCC) Inhale 1 puff by mouth once daily 90 Each 025 Active omeprazole (PRILOSEC) 40 mg Oral Capsule, Delayed Release(E.C.)Indic ations:Gastroesoph ageal reflux disease without esophagitis TAKE ONE CAPSULE BY MOUTH DAILY AT 9 AM 100 Capsule 11 025 Active albuterol (PROVENTIL HFA;VENTOLIN HFA) 90 mcg/actuation Inhl HFA Aerosol InhalerIndications :COPD, moderate (HCC),COPD exacerbation (HCC) Inhale 2 Puffs into the lungs every 4 hours as needed. for wheezing 6.7 g 2 025 Active butalbital-acetami nophen-caffeine (FIORICET) 50-325-40 mg Oral TabletIndications: Nonintractable headache, unspecified chronicity pattern, unspecified headache type Take 1 Tablet by mouth every 6 hours as needed. 60 Tablet 2 025 Active gabapentin (NEURONTIN) 800 mg Oral TabletIndications: Neck pain,DDD (degenerative disc disease), cervical,Chronic bilateral low back pain with sciatica, sciatica laterality unspecified Take 1 Tablet by mouth 2 times daily. 60 Tablet 2 025 Active fluticasone propionate (FLONASE) 50 mcg/actuation Nasl [place], SuspensionIndicati ons:Seasonal allergic rhinitis, unspecified trigger 1 [place] by Nasal route daily. 9.9 mL 3 025 Active fluticasone-umecli din-vilanter (TRELEGY ELLIPTA) 100-62.5-25 mcg Inhl Disk with DeviceIndications: COPD, moderate (HCC),COPD exacerbation (HCC) Inhale 1 Puff into the lungs daily. 1 Each 2 025 Active cyclobenzaprine (FLEXERIL) 5 mg Oral TabletIndications: Neck pain,Chronic bilateral low back pain with sciatica, sciatica laterality unspecified TAKE ONE TABLET BY MOUTH THREE TIMES DAILY NEEDED FOR MUSCLE SPASMS 90 Tablet 11 025 Active ibuprofen (ADVIL;MOTRIN) 800 mg Oral Tablet TAKE ONE TABLET BY MOUTH EVERY 8 HOURS NEEDED FOR PAIN 90 Tablet 11 025 Active cyclobenzaprine (FLEXERIL) 5 mg Oral TabletIndications: Neck pain,Chronic bilateral low back pain with sciatica, sciatica laterality unspecified TAKE ONE TABLET BY MOUTH THREE TIMES DAILY NEEDED FOR MUSCLE SPASMS (VIAL) 90 Tablet 11 024 2024 Discontinued ibuprofen (ADVIL;MOTRIN) 800 mg Oral Tablet TAKE ONE TABLET BY MOUTH EVERY 8 HOURS NEEDED FOR PAIN (VIAL) 90 Tablet 11 024 2024 Discontinued Active Problems Patient Care Coordination No te Formatting of this note migh t be different from the original. [facility] - Addy Anderson MD Interventional Pain Protocol: Connor report completed (EVERY 3 MONTHS) ( 03/19/2021 ) Pharmacy: [facility] [place] [address] - [address] [facility] [phone] [facility] [place] CSTA/Benzo/SOAPP/Qeust 06/02/2012 Connor 09/29/2024 [id number] UDS 11/26/2021 no medication present Care gap audit completed by Suyapa Chadwick RN on 01/26/2024. Problem Noted Date Diagnosed Date Positive colorectal cancer screening using Colog uard test 04/08/2021 Overview (04/08/2021): Added automatically from request for surgery [id number] Change in bowel habit 04/08/2021 Overview (04/08/2021): Added automatically from request for surgery [id number] Nausea 04/08/2021 Overview (04/08/2021): Added automatically from request for surgery [id number] COPD, moderate 04/18/2019 Assessment & Plan (11/23/2024 4:58 PM EDT): mMRC Dyspnea Scale: Grade 1: I get [...] every 4 hours as needed. for wheezing clyoluzsyeb-zgbneqshe-xiyuxpht (TRELEGY ELLIPTA) 100-62.5-25 mcg Inhl Disk with Device; Inhale 1 Puff into the lungs daily. Chronic bilateral low back pain with right-sided sciatica 11/23/2018 DDD (degenerative disc disease), cervical 2018 Assessment & Plan (11/23/2024 4:58 PM EDT): Orders: gabapentin (NEURONTIN) 800 mg Oral Tablet; Take 1 Tablet by mouth 2 times daily. Chronic pain syndrome 11/23/2018 Failed back syndrome of lumbar spine 11/23/2018 Encounter for long-term (cur rent) use of high-risk medication 11/23/2018 Morbid obesity with body mas s index (BMI) of 40.0 to 44.9 in adult 04/13/2017 Essential hypertension 06/23/2016 Coronary artery disease invo lving [place] coronary artery of [place] heart without angina pectoris 06/23/2016 Hypoxemia 11/01/2013 Acute bronchitis 11/01/2013 Anxiety 11/01/2013 Tobacco abuse 11/01/2013 Chest pain 11/01/2013 Abnormal drug screen 07/08/2011 Overview (12/05/2012): See UDS 1-19-12 + for Amphetamine See UDS 11/2012 Xanax in system,not rx'ed Insomnia 10/10/2010 GERD (gastroesophageal reflux disease) 0 Backache, unspecified Assessment & Plan (11/23/2024 4:58 PM EDT): Orders: gabapentin (NEURONTIN) 800 mg Oral Tablet; Take 1 Tablet by mouth 2 times daily. Generalized anxiety disorder Unspecified essential hypertension Migraine without status migrainosus, not intract able DDD (degenerative disc disease), lumbar Encounters Date Type Department Care Team Description 12/13/2024 [place]ill [facility] [place] [address] [address] Sun, Viral V, DO Medication Refill 11/15/2024 Results Follow-Up [address] [phone] Sun, Viral V, DO MICROALBUMIN/CREATININ E RATIO URINE, COMPLIANCE PANEL, URINE 11/14/2024 2:45 PM EDT Clinical Support [facility] Managment [facility] Ruben Rodriguez [address] [place] [address] Gisella Rojas COPD, moderate (HCC) (Primary Dx) 11/14/2024 2:00 PM EDT Office Visit [address] [phone] Sun, Viral V, DO Type 2 diabetes mellitus with hyperlipidemia (HCC) [...] and chronic respiratory failure with hypoxia (HCC) 11/14/[address] [address] Sun, Viral V, DO Medication Refill 11/03/[address] [phone] Sun, Viral V, DO Medication Refill 10/10/[address] [phone] Sun, Viral V, DO Medication Refill from Last 3 Months Immunizations Immunization Administration Dates Next Due Influenza Seasonal Injectable 06/01/2013 Influenza Vaccine Quadrivalent 05/02/2018,2017,05/01/2016 Influenza Vaccine, Unspecified Formulation 06/02,04/08/2011,03/10/2010 Influenza Virus Vaccine Quad rivalant, Flublok 02/24/2021,04/05/2019 Pneumococcal Conjugate Vaccine 13 Valent 016 Pneumococcal Polysaccharide 23 Valent 05/16/2010 Tdap 01/31/2021,07/08/2015 Surgical History Surgery Date Site/Laterality Comments CYST REMOVAL 06/14/1998 TONSILLECTOMY UNKNOWN BACK SURGERY L4 & L5 fusion TUMOR REMOVAL Left Tumor on the anteroir side removed; under left breast area UPPER GASTROINTESTINAL ENDOSCOPY 05/14/2021 N/A Esophagogastroduodenoscopy with savary dilation and colonoscopy with cold snare polypectomy and hot snare polypectomy; Surgeon: Grant Bhagat MD; Location: [facility]; Service: Endoscopy COLONOSCOPY 05/14/2021 N/A Surgeon: Grant Bhagat MD; Location: [facility] END[facility]; Service: Endoscopy Medical History Medical History Date Comments Backache, unspecified Generalized anxiety disorder Unspecified essential hypertension Migraine, unspecified, witho ut mention of intractable migraine without mention of status migrainosus Degeneration of intervertebral disc, site unspec ified COPD (chronic obstructive pulmonary disease) (HC C) Family History Medical History Relation Name Comments Ovarian Cancer Maternal Grandmother Relation Name Status Comments Maternal Grandmother ovarian cancer less than 50 years old Social History Tobacco Use Types Packs/Day Years [...] Date Recorded PHQ-2 Total Score 0 12/24/2023 [facility] [place] of Occupat ional Health - Occupational Stress [...] on file Sexual Orientation Not on file Obstetrics History Para Term AB IAB SAB Ectopic Multiple Livin g Live Births 3 Last Filed Vital Signs Vital Sign Reading Time Taken Comments Blood Pressure 126/84 11/14/2024 1:51 PM EDT Pulse 86 11/14/2024 1:51 PM EDT Temperature 36.7 C (98 F) 11/14/2024 1:51 PM EDT Respiratory Rate 16 11/26/2021 1:27 PM EDT Oxygen Saturation 91% 11/14/2024 1:51 PM EDT Inhaled Oxygen Concentration - - Weight 87.5 kg (193 lb) 11/14/2024 1:51 PM EDT Height 149.9 cm (4' 11 ) 11/14/2024 1:51 PM EDT Body Mass Index 38.98 11/14/2024 1:51 PM EDT Plan of Treatment Health Maintenance Due Date Last Done Comments Cervical Cancer Screening 1985 Pap Smear 1985 HPV/Pap Cotest 1994 FIT 2009 Sigmoidoscopy 2009 Virtual Colonography 2009 Zoster (1 of 2) 2014 Pneumococcal Vaccine 50+ (3 of 3 - PCV20 or PCV21) 07/08/2020 07/08/2015, 05/16/2010 COVID-19 Vaccine (1 - 2023- season) 2024 Cologuard 03/14/2024 03/14/2021, 03/14/2021 Colon Cancer Screening 05/14/2024 Colonoscopy 05/14/2024 05/14/2021 RSV or 60+ (1 - Risk 60-74 years 1-dose series) 2024 Kidney Health: eGFR 12/23/2024 12/24/2023, 11/26/2021, 08/19/2021, Additional history exists Wellness Exam Medicare 12/24/2024 12/24/2023 Hemoglobin A1c 01/10/2025 07/13/2024, 12/12, 12/16/2022, Additional history exists Low Dose Lung Cancer Screening 02/08/2025 02/09/2024 Influenza Vaccine (#1) 2025 , 04/05/2019, 05/02/2018, Additional history exists Lipids 09/06/2025 09/06/2024, 06/16, 12/24/2023, Additional history exists Kidney Health: uACR 11/14/2025 11/14/2024 Diabetic Eye Exam 12/24/2025 12/25/2023 Breast Cancer Screening 02/08/2026 02/09/20 24, 06/25/2020, 04/21/2019, Additional history exists DTaP/TDaP/Td (3 - Td or Tdap) 01/31/2031 01/31/2021, 07/08/2015 Hepatitis C Screening Completed 06/30/2017 Hepatitis B Vaccine Aged Out No longe r eligible based on patient's age to complete this topic Meningococcal B Vaccine Aged Out No l onger eligible based on patient's age to complete this topic Goals Goal Patient Goal Type Associated Problems Recent Progress Patient-Stated? Author Blood Pressure < 140/90 Blood Pressure 126/84(2024 1:51 PM EDT) No Cirilo Quiñonez MD Maintain a healthy diet, exercise regularly and maintain an ideal body weight General No Rubi Rolon RMA Stay Tobacco Free Lifestyle No Rubi Rolon RMA Procedures Procedure Name Priority Date/Time Associated Diagnosis Comments MICROALBUMIN/CREATINI NE RATIO URINE Routine 11/14/2024 2:13 PM EDT Type 2 diabetes mellitus with hyperlipidemia (HCC) COMPLIANCE PANEL, URINE Routine 11/14/2024 2:13 PM EDT Encounter for long-term (current) drug use MM MAMMO DIGITAL EDGAR SCREEN BILAT Routine 02/09/2024 2:50 PM EDT Encounter for screening mammogram for breast cancer CT LUNG CANCER SCREENING LOW DOSE Routine 02/09/2024 1:52 PM EDT Screening for lung cancer Cigarette nicotine dependence without complication COMPREHENSIVE METABOLIC PANEL Routine 12/24/2023 12:41 PM EDT Type 2 diabetes mellitus with hyperlipidemia (HCC) Unspecified essential hypertension LIPID PANEL REFLEX Routine 12/24/2023 12 :41 PM EDT Hyperlipidemia, unspecified hyperlipidemia type HEMOGLOBIN A1C Routine 12/24/2023 12:41 PM EDT Type 2 diabetes mellitus with hyperlipidemia (HCC) GMED EGD-COLONOSCOPY Routine 05/14/2021 11:20 AM EST COLOGUARD Routine 03/14/2021 12:00 PM EDT HCV ANTIBODY SCREEN W/ REFLEX Routine 06/30/2017 3:02 PM EST Need for hepatitis C screening test from Last 3 Months or Most Recently Relevant to Health Maintenance Results * (ABNORMAL) COMPLIANCE PANEL, URINE (11/14/2024 2:13 PM EDT) Medications Expected Gabapentin Butalbital Klonopin(TM) (clonazepam) 4:37 PM EDT [employer] [facility] Barbiturates Presumptive Pos(A) Cutoff 200 ng/mL 5 4:37 PM EDT [facility] Butalbital 526(H) Cutoff 50 ng/mL ng/mL 5 4:37 PM EDT [facility] Comment:e.g. Fiorinal Phenobarbital <50 Cutoff 50 ng/mL ng/mL 5 4:37 PM EDT [facility] Comment:e.g. Nembutal, Lumin al, Bellergal-S Secobarbital <50 Cutoff 50 ng/mL ng/mL 5 4:37 PM EDT [facility] Comment:e.g. Seconal, [place] Pentobarbital <50 Cutoff 50 ng/mL ng/mL 5 4:37 PM EDT [facility] Comment:e.g. Nembutal THC <10 Cutoff 10 ng/mL ng/mL 5 4:37 PM EDT [facility] Comment:3-mbhesmr-ihazjxmyol cannabinol; does not distinguish between prescribed and illicit forms THC Glucuronide <10 Cutoff 10 ng/mL ng/mL 5 4:37 PM EDT [facility] Comment:Metabolite of THC Amphetamine <50 Cutoff 50 ng/mL ng/mL 5 4:37 PM EDT [facility] Comment:e.g., Adderall, Vyva nse, Dexedrine, Obetrol MDA <50 Cutoff 50 ng/mL ng/mL 5 4:37 PM EDT [facility] Comment:Metabolite of MDMA, and MDEA MDEA <50 [...] 5 4:37 PM EDT [facility] Comment:e.g., Adipex, Lomair a, Ionamin,Fastin,Zantryl Gabapentin >2,000(H) Cutoff 50 ng/mL ng/mL 5 4:37 PM EDT [facility] Comment:e.g, Neurontin Pregabalin <50 Cutoff 50 ng/mL ng/mL 5 4:37 PM EDT [facility] Comment:Lyrica Alprazolam <8 Cutoff 8 ng/mL ng/mL 5 4:37 PM EDT [facility] Comment:e.g, Xanax, Niravam alpha-Hydroxyalprazolam <25 Cutoff 25 ng/mL ng/mL 5 4:37 PM EDT [facility] Comment:Metabolite of Alpraz olam Clonazepam 12(H) Cutoff 10 ng/mL ng/mL 5 4:37 PM EDT [facility] Comment:e.g., Klonopin, Clon opin 7-Aminoclonazepam 538(H) Cutoff 25 ng/mL ng/mL 5 4:37 PM EDT [facility] Comment:Metabolite of Clonaz epam Diazepam <10 Cutoff 10 ng/mL ng/mL 5 4:37 PM EDT [facility] Comment:e.g, Valium, Diastat Nordiazepam <25 Cutoff 25 ng/mL ng/mL 5 4:37 PM EDT [facility] Comment:Metabolite of Chlord iazepoxide(Librium), Clorazepate(Tranxene), Diazepam, Halazepam, (Alapryl), Prazepam(Centrax) Flunitrazepam <50 Cutoff 50 ng/mL ng/mL 5 4:37 PM EDT [facility] Comment:e.g.,Rohypnol, Narco zep 7-Aminoflunitrazepam <50 Cutoff 50 ng/mL ng/mL 5 4:37 PM EDT [facility] Comment:Metabolite of Flunit razepam Flurazepam <50 Cutoff 50 ng/mL ng/mL 5 4:37 PM EDT [facility] Comment:e.g., Dalmane Hydroxyethylflurazepam <50 Cutoff 50 ng/mL ng/mL 5 4:37 PM EDT [facility] Comment:Metabolite of Fluraz epam Lorazepam <50 Cutoff 50 ng/mL ng/mL 5 4:37 PM EDT [facility] Comment:e.g., Ativan Lorazepam Glucuronide <50 Cutoff 50 ng/mL ng/mL 5 4:37 PM EDT [facility] Comment:Metabolite of Loraze bereket Midazolam <50 Cutoff 50 ng/mL ng/mL 5 4:37 PM EDT [facility] Comment:e.g., Versed alpha-hydroxymidazolam <50 Cutoff 50 ng/mL ng/mL 5 4:37 PM EDT [facility] Comment:Metabolite of Versed Oxazepam <50 Cutoff 50 ng/mL ng/mL 5 4:37 PM EDT [facility] Comment:e.g., Serax; also Me tabolite of Temazepam, and Nordiazepam Oxazepam Glucuronide <50 Cutoff 50 ng/mL ng/mL 5 4:37 PM EDT [facility] Comment:Metabolite of Oxazep am Temazepam <50 Cutoff 50 ng/mL ng/mL 5 4:37 PM EDT [facility] Comment:e.g., Restoril; also Metabolite of Diazepam Temazepam Glucuronide <50 Cutoff 50 ng/mL ng/mL 5 4:37 PM EDT [facility] Comment:Metabolite of Temaze bereket and Diazepam Triazolam <50 Cutoff 50 ng/mL ng/mL 5 4:37 PM EDT [facility] Comment:e.g., Halcion alpha-hydroxytriazolam <50 Cutoff 50 ng/mL ng/mL 5 4:37 PM EDT [facility] Comment:Metabolite of Triazo mendoza Buprenorphine <5 Cutoff 5 ng/mL ng/mL 5 4:37 PM EDT [facility] Comment:e.g., Suboxone, Subu jae,Sublocade, Buprenex Buprenorphine Glucuronide <10 Cutoff 10 ng/mL ng/mL 5 4:37 PM EDT [facility] Comment:Buprenorphine Metabo lite Norbuprenorphine <5 Cutoff 5 ng/mL ng/mL 5 4:37 PM EDT [facility] Comment:Buprenorphine Metabo lite Norbuprenorphine Glucuronide <10 Cutoff 10 ng/mL ng/mL 5 4:37 PM EDT [facility] Comment:Buprenorphine Metabo lite Benzoylecgonine <50 Cutoff 50 ng/mL ng/mL 5 4:37 PM EDT [facility] Comment:Cocaine Metabolite Fentanyl <1 Cutoff 1 ng/mL ng/mL 5 4:37 PM EDT [facility] Comment:e.g.,Duragesic, Oral et, Actiq, Sublimaze, Innovar, Lazanda Norfentanyl <1 Cutoff 1 ng/mL ng/mL 5 4:37 PM EDT [facility] Comment:Metabolite of Fentan yl 6-Monoacetylmorphine (6MAM) <10 Cutoff 10 ng/mL ng/mL 5 4:37 PM EDT [facility] Comment:Metabolite of Heroin ; Morphine is expected Methadone <50 Cutoff 50 ng/mL ng/mL 5 4:37 PM EDT [facility] Comment:e.g., Dolophine, Met hadose, Amidone EDDP <50 Cutoff 50 ng/mL ng/mL 5 4:37 PM EDT [facility] Comment:Methadone Metabolite Carisoprodol <100 Cutoff 100 ng/mL ng/mL 5 4:37 PM EDT [facility] Comment:e.g., Soma Meprobamate <100 Cutoff 100 ng/mL ng/mL 5 4:37 PM EDT [facility] Comment:e.g., [place], Equa nil, Micrainin, Equagesic; Metabolite of Carisoprodol Codeine <50 Cutoff 50 ng/mL ng/mL 5 4:37 PM EDT [facility] Comment:e.g., Acetaminophen w/Codeine, Tylenol3 w/ Codeine Codeine Glucuronide <50 Cutoff 50 ng/mL ng/mL 5 4:37 PM EDT [facility] Comment:Metabolite of Codein e Meperidine <50 Cutoff 50 ng/mL ng/mL 5 4:37 PM EDT [facility] Comment:e.g., Demerol, Pethi dine Normeperidine <50 Cutoff 50 ng/mL ng/mL 5 4:37 PM EDT [facility] Comment:Metabolite of Meperi dine Morphine <50 Cutoff 50 ng/mL ng/mL 5 4:37 PM EDT [facility] Comment:e.g., MS Contin, Marlene anol; Metabolite of Codeine and Heroin; may reflect poppy seed ingestion Cuavngdv-0-Oagjxqygnae <25 Cutoff 25 ng/mL ng/mL 5 4:37 PM EDT [facility] Comment:Metabolite of [place]phi ne. Luwqvdjt-9-Vntumglncjr <25 Cutoff 25 ng/mL ng/mL 5 4:37 PM EDT [facility] Comment:Metabolite of [place] ne. Naloxone <25 Cutoff 25 ng/mL ng/mL 5 4:37 PM EDT [facility] Comment:e.g., Narcan, Evzio Hydrocodone <50 Cutoff 50 ng/mL ng/mL 5 4:37 PM EDT [facility] Comment:e.g., Lorcet, Lortab , Vicodin, [place]; Minor Metabolite of Codeine Dihydrocodeine <50 Cutoff 50 ng/mL ng/mL 5 4:37 PM EDT [facility] Comment:e.g., Didrate, Parzo ne, Parlor, Synalgos; Metabolite of Hydrocodone Norhydrocodone <50 Cutoff 50 ng/mL ng/mL 5 4:37 PM EDT [facility] Comment:Metabolite of Hydroc odone Hydromorphone <50 Cutoff 50 ng/mL ng/mL 5 4:37 PM EDT [facility] Comment:e.g., Dilaudid; also Metabolite of Hydrocodone and Minor Metabolite of Morphine Hydromorphone Glucuronide <50 Cutoff 50 ng/mL ng/mL 5 4:37 PM EDT [facility] Comment:Metabolite of Hydrom orphone Oxycodone >2,000(H) Cutoff 50 ng/mL ng/mL 5 4:37 PM EDT [facility] Comment:e.g., Oxycontin, Per cocet, Endocet, Percodan, Roxicet Noroxycodone >2,000(H) Cutoff 50 ng/mL ng/mL 5 4:37 PM EDT [facility] Comment:Metabolite of Oxycod one Oxymorphone <50 Cutoff 50 ng/mL ng/mL 5 4:37 PM EDT [facility] Comment:e.g., Opana; Metabol ite of Oxycodone Oxymorphone Glucuronide 325(H) Cutoff 50 ng/mL ng/mL 5 4:37 PM EDT [facility] Comment:Metabolite of Oxycod one Noroxymorphone <50 Cutoff 50 ng/mL ng/mL 5 4:37 PM EDT [facility] Comment:Metabolite of Oxycod one, and Oxymorphone, Noroxycodone Metabolite Tramadol <50 Cutoff 50 ng/mL ng/mL 5 4:37 PM EDT [facility] Comment:e.g., Ultram, ConZip B-Hhwlghgtl-ayu-Tramadol <50 Cutoff 50 ng/mL ng/mL 5 4:37 PM EDT [facility] Comment:Metabolite of Tramad ol Tapentadol <50 Cutoff 50 ng/mL ng/mL 5 4:37 PM EDT [facility] Comment:Nucynta Tapentadol-Glucuronide <50 Cutoff 50 ng/mL ng/mL 4:37 PM EDT [facility] Comment:Metabolite of Tapent adol Urine Creatinine 159.0 mg/dL 11/17/19 2 5 4:37 PM EDT [facility] Comment: Greater than 20: Consistent with valid sample Greater than 2 but less than 20: Possible dilution Less than 2: Questionable valid sample Urine STRUCTURE OF URINARY TRACT PROPER / Unknown 11/14/2024 2:13 PM EDT 11/14/2024 2:13 PM EDT Narrative [facility] - 11/16/2024 4:37 PM EDT The absence of expected drug(s), and/or drug metabolite(s), may indicate non-compliance, diluted or adulterated urine, poor drug absorption, concentration of drug below the cut-off, timing of specimen collection relative to administration of drug, or limitations of testing. Specimens are held for 7 days. This test was developed, and its performance characteristics determined by [facility] ([facility]). It has not been cleared or approved by the FDA. This test is used for clinical purposes. It should not be regarded as investigational or for research. [facility] is certified under the Clinical Laboratory Improvement Amendments (CLIA) as qualified to perform high complexity clinical laboratory testing. us Viral Sun V, DO URINE ORDERABLES Final Result [facility] [address], [address] [place] [id number] [facility] [address] [place] [address] * MICROALBUMIN/CREATININE RATIO URINE (11/14/2024 2:13 PM EDT) Urine Microalb 15.7 mg/L 11/14/2024 9:56 PM EDT [facility] Urine Creatinine 158.0 mg/dL 11/14/2024 9:56 PM EDT [facility] Ur Microalb/Creat 10 0 - 30 mg/g 11/14/2024 9:56 PM EDT [facility] Urine STRUCTURE OF URINARY TRACT PROPER / Unknown 11/14/2024 2:13 PM EDT 11/14/2024 2:13 PM EDT us Viral Sun V, DO URINE ORDERABLES Final Result [facility] [address] [facility], [place] [address] [facility] [address] [place] [address] * MM MAMMO DIGITAL EDGAR SCREEN BILAT (02/09/2024 2:50 PM EDT) Anatomical Region Laterality Modality Breast Bilateral Mammography 02/09/2024 2:50 PM EDT Impressions 02/10/2024 8:23 AM EDT Negative ([id number]) RECOMMENDATION: Routine Screening Mammogram in 1 Year COMMENTS: Narrative 02/10/2024 8:23 AM EDT EXAM: MM MAMMO DIGITAL EDGAR SCREEN BILAT EXAM DATE: 02/09/2024 2:50 PM INDICATION: Z12.31-Encounter for screening mammogram for malignant neoplasm of jvxdss-XSU-80-CM COMPARISON STUDIES: Compared with prior studies the most recent being 06/25/2020, 09/22/2016 TISSUE DENSITY: There are scattered areas of fibroglandular density. FINDINGS: No mammographic evidence of malignancy. Procedure Note Rashid Santos III, MD - 02/10/2024 EXAM: MM MAMMO DIGITAL EDGAR SCREEN BILAT EXAM DATE: 02/09/2024 2:50 PM INDICATION: Z12.31-Encounter for screening mammogram for malignantneoplasm of pqtzbl-ELV-50-CM COMPARISON STUDIES: Compared with prior studies the most recent being06/25/2020, 09/22/2016 TISSUE DENSITY: There are scattered areas of fibroglandular density. FINDINGS: No mammographic evidence of malignancy. IMPRESSION: Negative ([id number]-Vhwservf-1) RECOMMENDATION: Routine Screening Mammogram in 1 Year COMMENTS: us Viral Sun V, DO IMG MAMMOGRAPHY ORDERABLES Fin al Result * CT LUNG CANCER SCREENING LOW DOSE (02/09/2024 1:52 PM EDT) Anatomical Region Laterality Modality Lung Computed Tomogra phy 02/09/2024 1:52 PM EDT Impressions 02/09/2024 2:21 PM EDT Two 5 mm posterior right upper lobe nodules. Recommend follow-up CT chest in 6 months to ensure stability. RECOMMENDATION: Low Dose CT - 6 Mo A summary letter communicating these results will be mailed to the patient's address of record. CODE Lung Follow Up--does not pertain to Pulmonary, Thoracic Surgery, or Oncology ordered scans. Note: Radiology results need to be interpreted within a comprehensive clinical context. If you have questions about the radiology report, please contact the office of the ordering clinician. [email or web address] Narrative 02/09/2024 2:[address] LUNG CANCER SCREENING LOW DOSE 02/09/2024 1:52 PM CLINICAL HISTORY: Asymptomatic patient meeting NCCN high risk criteria for lung screening. Z12.2-Encounter for screening for malignant neoplasm of respiratory qvqdpx-MFW-33-CM F17.210-Nicotine dependence, cigarettes, cczvhhabdaojo-WZO-15-CM. COMPARISON: None. PROCEDURE COMMENTS: Noncontrast, low-dose, multidetector CT chest per department protocol. Interactive 3-D postprocessing done by the reviewing physician on a [employer] workstation, using Maximum intensity projections (MIPS) and Backchat LUNG CAD for improved lesion detection. Olson images archived to PACS. Dose 1 : CT DLP Total : 44.08 mGycm DLP Spiral Max : 40.66 mGycm Maximum CTDI Vol : 1.29 mGy FINDINGS: Two 5 mm posterior right upper lobe nodules (axial images 78 and 96). Right lower lobe calcified broncholith/granuloma with associated focal subsegmental atelectasis (axial image 173). No acute inflammatory process. Heart and mediastinum unremarkable. Coronary artery calcification: Severe. FOLLOW-UP CODE: Lung-RADS Category 3 : Probably Benign. Probably benign finding(s) - short term follow up suggested; includes nodules with a low likelihood of becoming a clinically active cancer. Lung-RADS Modifier N/A: No Modifier Needed Procedure Note Julian, Claudio, MD - 02/09/2024 CT LUNG CANCER SCREENING LOW DOSE 02/09/2024 1:52 PM CLINICAL HISTORY: Asymptomatic patient meeting NCCN high risk criteria forlung screening. Z12.2-Encounter for screening for malignant neoplasm ofrespiratory hjhrhp-ZPT-63-CM F17.210-Nicotine dependence, cigarettes, nwwrfqjheskqy-OUL-16-CM. COMPARISON: None. PROCEDURE COMMENTS: Noncontrast, low-dose, multidetector CT chest perdepartment protocol. Interactive 3-D postprocessing done by the reviewing physicianon a [employer]chat workstation, using Maximum intensity projections (MIPS) and [employer] CAD for improved lesion detection. Olson images archived to PACS. Dose 1 : CT DLP Total : 44.08 mGycm DLP Spiral Max : 40.66 mGycm Maximum CTDI Vol : 1.29 mGy FINDINGS: Two 5 mm posterior right upper lobe nodules (axial images 78and 96). Right lower lobe calcified broncholith/granuloma with associated focal subsegmental atelectasis (axial image 173). No acute inflammatory process. Heart and mediastinum unremarkable. Coronary artery calcification: Severe. FOLLOW-UP CODE: Lung-RADS Category 3 : Probably Benign. Probably benign finding(s) - short term follow up suggested; includes nodules with a low likelihood of becoming a clinically active cancer. Lung-RADS Modifier N/A: No Modifier Needed IMPRESSION: Two 5 mm posterior right upper lobe nodules. Recommend follow-up CT chestin 6 months to ensure stability. RECOMMENDATION: Low Dose CT - 6 Mo A summary letter communicating these results will be mailed to thepatient's address of record. CODE Lung Follow Up--does not pertain to Pulmonary, Thoracic Surgery, or Oncology ordered scans. Note: Radiology results need to be interpreted within a comprehensiveclinical context. If you have questions about the radiology report, please contactthe office of the ordering clinician. [email or web address] us Viral Sun V, DO IMG CT ORDERABLES Final Result * LIPID PANEL REFLEX (12/24/2023 12:41 PM EDT) Cholesterol 129 <200 mg/dL 12/24/2023 8:35 PM EDT [facility] Comment: < 200 Desirable 200 - 239 Borderline High >= 240 High Triglyceride 117 <150 mg/dL 12/24/2023 8:35 PM EDT [facility] Comment: < 150 Normal 150 - 199 Borderline High 200 - 499 High >= 500 Very High HDL 44 >=40 mg/dL 12/24/2023 8:35 PM EDT [facility] Comment: > 60 Optimal 40 - 60 Acceptable < 40 Low LDL Calculated 64 <100 mg/dL 12/24/2023 8:35 PM EDT [facility] Non-HDL-C Calculated 85 <=129 mg/dL 12/24/2023 8:35 PM EDT [facility] Comment: <130 Desirable 130-159 Above Desirable 160-189 Borderline High 190-219 High >= 220 Very High Fasting Specimen? No None 024 8:35 PM EDT [facility] Blood VENOUS BLOOD / Unknown Venipuncture / Unknown 12/24/2023 12:41 PM EDT 12/24/2023 12:41 PM EDT us Viral Sun V, DO CHEMISTRY ORDERABLES Final Res ult [facility], [address], [place] [address] [facility] [address] [place] [address] * (ABNORMAL) HEMOGLOBIN A1C (12/24/2023 12:41 PM EDT) Hgb A1C 6.0(H) 4.2 - 5.6 % 12/24/2023 11:00 PM EDT [facility] Est. Avg Glucose 126 mg/dL 12/24/2023 11:00 PM EDT [facility] Blood VENOUS BLOOD / Unknown Venipuncture / Unknown 12/24/2023 12:41 PM EDT 12/24/2023 12:41 PM EDT Narrative [facility] - 12/24/2023 11:00 PM EDT REFERENCE RANGE: Normal: 4.0-5.6% Pre-diabetes: 5.7-6.4% Provisional diagnosis of diabetes: >6.4% Hgb F>10% and anything which shortens red cell survival, such as hemolytic anemia, or unstable hemoglobin variants such as HbSS, HbSC, or HbCC, will lower the HbA1c value associated with a given level of glycemic control. us Viral Sun V, DO CHEMISTRY ORDERABLES Final Res ult [facility] [address] [facility] , [place] [address] * (ABNORMAL) COMPREHENSIVE METABOLIC PANEL (12/24/2023 12:41 PM EDT) Sodium 134(L) 136 - 145 mmol/L 12/24/2023 8:35 PM EDT [facility] Potassium 5.1(H) 3.5 - 5.0 mmol/L 12/24/2023 8:35 PM EDT [facility] Comment:Hemolysis detected b y analyzer. Hemolysis at this level may increase the potassium concentration > 0.1 mmol/L. Recommend recollection if clinically indicated. Chloride 100 98 - 107 mmol/L 12/24/2023 8:35 PM EDT [facility] Total CO2 20(L) 22 - 29 mmol/L 12/24/2023 8:35 PM EDT [facility] Anion Gap 14 7 - 16 mmol/L 12/24/2023 8:35 PM EDT [facility] Calcium 9.9 8.6 - 10.4 mg/dL 12/24/2023 8:35 PM EDT [facility] Glucose Lvl 92 70 - 99 mg/dL 12/24/2023 8:35 PM EDT [facility] BUN 15 6 - 20 mg/dL 12/24/2023 8:35 PM EDT [facility] Creatinine 0.90 0.51 - 1.30 mg/dL 12/24/2023 8:35 PM EDT [facility] Albumin 4.1 3.5 - 5.2 gm/dL 12/24/2023 8:35 PM EDT [facility] Total Protein 7.5 6.4 - 8.3 gm/dL 12/24/2023 8:35 PM EDT [facility] Bili Total 0.2 0.2 - 1.3 mg/dL 12/24/2023 8:35 PM EDT [facility] ALT 44(H) <=41 U/L 12/24/2023 8:35 PM EDT [facility] AST 30 <=40 U/L 12/24/2023 8:35 PM EDT [facility] Alk Phos 117 36 - 123 U/L 12/24/2023 8:35 PM EDT [facility] eGFR (CKD-EPIcr 2020) 73 >=60 mL/min/1. 73 m2 12/24/2023 8:35 PM EDT [facility] Comment:Estimated GFR was ca lculated using the CKD-EPIcr (2020) equation refit without race. The equation is recommended by the National Kidney Foundation - Australian Society of Nephrology Task Force. Blood VENOUS BLOOD / Unknown Venipuncture / Unknown 12/24/2023 12:41 PM EDT 12/24/2023 12:41 PM EDT us Viral Sun V, DO CHEMISTRY ORDERABLES Final Res ult [facility], [facility] [address] [facility], [place] [address] [facility] [address] [place], [place] [id number] * GMED EGD-COLONOSCOPY (05/14/2021 11:20 AM EST) 05/14/2021 11:2 0 AM EST Impressions [facility] - 05/14/2021 12:17 PM EST Plan: - Await pathology - Likely repeat colonoscopy in 3 years - No findings to account for intermittent dysphagia, if ongoing, can consider manometry - Advised patient about smoking cessation This section is an excerpt of the full report. us Grant Bhagat MD GI PROCEDURE ORDERABLES Elise dillon Result [facility] [address] [place] [address] * (ABNORMAL) COLOGUARD (03/14/2021 12:00 PM EDT) COLOGUARD CLINICAL REPORT Positive( A) Negative [employer] Comment: POSITIVE TEST RESULT. A positive Cologuard result should be followed with a colonoscopy or visual examination of the colon. The normal value (reference range) for this assay is negative. TEST DESCRIPTION: Composite algorithmic analysis of stool DNA-biomarkers with hemoglobin immunoassay. Quantitative values of individual biomarkers are not reportable and are not associated with individual biomarker result reference ranges. Cologuard is intended for colorectal cancer screening of adults of either sex, 45 years or older, who are at average-risk for colorectal cancer (CRC). Cologuard has been approved for use by the U.S. FDA. The performance of Cologuard was established in a cross sectional study of average-risk adults aged 50-84. Cologuard performance in patients ages 45 to 49 years was estimated by sub-group analysis of near-age groups. Colonoscopies performed for a positive result may find as the most clinically significant lesion: colorectal cancer [4.0%], advanced adenoma (including sessile serrated polyps greater than or equal to 1cm diameter) [20%] or non- advanced adenoma [31%]; or no colorectal neoplasia [45%]. These estimates are derived from a prospective cross-sectional screening study of 10,000 individuals at average risk for colorectal cancer who were screened with both Cologuard and colonoscopy. (Jena Mckeon al, N Engl J Med 2014;370(14):3628-4426.) Cologuard may produce a false negative or false positive result (no colorectal cancer or precancerous polyp present at colonoscopy follow up). A negative Cologuard test result does not guarantee the absence of CRC or advanced adenoma (pre-cancer). The current Cologuard screening interval is every 3 years. (Australian Cancer Society and U.S. Multi-Society Task Force). Cologuard performance data in a 10,000 patient pivotal study using colonoscopy as the reference method can be accessed at the following location: www.[employer]/results. Additional description of the Cologuard test process, warnings and precautions can be found at www.[email or web address] Mobile [email or web address].[email or web address]. Stool 03/14/2021 12:0 0 PM EDT 03/15/2021 6:55 PM EDT us Viral Sun V, DO EXACT SCIENCE - ORDERABLES Fin al Result Performing Organization Address City/[facility]/ZIP Co de Phone Number [facility], [facility] [address] [employer] [address] [place] [address] * HEPATITIS C ANTIBODY - SCREENING (06/30/2017 3:02 PM EST) Hep C Ab Negative Negative 07/01/2017 8:47 AM EST [facility] Blood Venipuncture / Unknown 06/30/2017 3:02 PM EST 06/30/2017 3:02 PM EST us Viral Sun V, DO HEMATOLOGY ORDERABLES Final Re sult Performing Organization Address City/[facility] Co de Phone Number [facility] [address] [place] [address] from Last 3 Months or Most Recently Relevant to Health Maintenance Insurance [employer] MEDICARE MR [employer] MEDICARE MR Advance Directives For more information, please contact: [phone] * Full Code (Latest Code Status on File) Date Activated Date Inactivated Comments 06/29/2019 6:36 AM 06/30/2019 11:53 PM Care Teams Heel Burnisher Relationship Specialty Start Date End Date Julien Sun DO [address] [place] [id number] PCP - General Family Medicine 10/18/13
--- OUTSIDE RECORDS SUMMARY | 2024-12-21 15:32 | XMS_ITS | Encounter Summary ---
Author Organization [place] [address] Care Team Providers Care Restaurant Shift Leader Name Role Phone Sun V, DO, Viral Primary Care Provider [phone] Reason for Visit * Reason Comments Medication Refill Encounter Details Date Type Department Care Team (Late st Contact Info) Description 11/03/2024 Refill [facility] [address] [place] [address] Sun, Viral V, DO [address] [place] [address] Medication Refill Social History Tobacco Use Types Packs/Day Years Used Date Smoking Tobacco: Former Cigarettes 0.5 40.3 0 06/14/1981 - 10/2021 Smokeless Tobacco: Never Alcohol Use Standard Drinks/Week Comments No 0 (1 standard drink = 0.6 oz pur e alcohol) PHQ-2 Answer Date Recorded PHQ-2 Total Score 0 12/24/2023 Comments No Sex and Gender Information Value [...] 1:28 PM EDT Mihir Martin RMA * Is the person blind or does he/she have serious difficulty seeing even when wearing glasses? Answer Date of Assessment Author No 11/26/2021 1:28 PM EDT MarioMihir NIXON * Does this person have serious difficulty walking or climbing stairs? Answer Date of Assessment Author No 11/26/2021 1:28 PM EDT MarioMihir NIXON * Does this person have difficulty dressing or bathing? Answer Date of Assessment Author No 11/26/2021 1:28 PM EDT MarioMihir NIXON * Because of a physical, mental or emotional condition, does this person have difficulty doing errands alone such as visiting a doctor's office or shopping? Answer Date of Assessment Author No 11/26/2021 1:28 PM EDT MarioMihir NIXON documented as of this encounter Mental Status * Because of a physical, mental or emotional condition, does this person have serious difficulty concentrating, remembering or making decisions? Answer Entry Date Author No 11/26/2021 1:28 PM EDT Mihir Martin NIXON documented in this encounter Ordered Prescriptions Prescription Sig Dispense Quantity Refills Last Filled Start Date End Date INCRUSE ELLIPTA 62.5 mcg/actuation Inhl Disk with DeviceIndications:C OPD, moderate (HCC) Inhale 1 puff by mouth once daily 90 Each 11/03/2024 documented in this encounter Miscellaneous Notes * Telephone Encounter - Cassia Kaminski CPhT - 11/03/2024 2:32 PM EDT Incruse Future Visit: 11/07/24 Last Assessed Visit: 07/05/24 Follow-Up Date: 01/02/25 All protocols passed. Refills approved and sent to requesting pharmacy. Routed to [facility] if applicable. documented in this encounter Plan of Treatment Not on file documented as of this encounter Goals Goal Patient Goal Type Associated Problems Recent Progress Patient-Stated? Author Blood Pressure < 140/90 Blood Pressure 126/84(2024 1:51 PM EDT) No Cirilo Quiñonez MD Maintain a healthy diet, exercise regularly and maintain an ideal body weight General No RolonRubi RMA Stay Tobacco Free Lifestyle No Rolon, NIXON [place] documented as of this encounter Visit Diagnoses Diagnosis COPD, moderate (HCC) Chronic airway obstruction, not elsewhere classified documented in this encounter Discontinued Medications Medication Sig Discontinue Reason Start Date End Da te umeclidinium (INCRUSE ELLIPTA) 62.5 mcg/actuation Inhl Disk with DeviceIndications:COPD, moderate (HCC) Inhale 1 puff by mouth once daily 08/09/2024 11/03/2024 documented as of this encounter Care Teams Restaurant Shift Leader Relationship Specialty Start Date End Date Julien Sun DO [address] [place] [phone] PCP - General Family Medicine 10/18/13 documented as of this encounter
--- OUTSIDE RECORDS SUMMARY | 2024-12-21 15:32 | XMS_ITS | Encounter Summary ---
Author Organization [place] [address] Care Team Providers Care Reinsurance Analyst Name Role Phone Sun V, DO, Viral Primary Care Provider [phone] Reason for Visit * Reason Comments Medication Refill Encounter Details Date Type Department Care Team (Late Contact Info) Description 11/14/2024 [facility]ill [facility] [address] [place] [address] Sun, Viral V, DO [address] [place] [address] Medication Refill Social History Tobacco [...] Date Recorded PHQ-2 Total Score 0 12/24/2023 [facility] [place] of Occupat ional Health - Occupational Stress [...] Author No 11/26/2021 1:28 PM EDT Mihir Matrin RMA documented in this encounter Ordered Prescriptions Prescription Sig Dispense Quantity Refills Last Filled Start Date End Date omeprazole (PRILOSEC) 40 mg Oral Capsule, Delayed Release(E.C.)Indic ations:Gastroesoph ageal reflux disease without esophagitis TAKE ONE CAPSULE BY MOUTH DAILY AT 9 AM 100 Capsule 11 11/15/2024 documented in this encounter Miscellaneous Notes * Telephone Encounter - Alley Beltran CPhT - 11/15/2024 8:03 AM EDT Omeprazole - Future Visit: N/A Last Assessed Visit: 10/15/23 Follow-Up Date: 04/16/24 Appointment protocol failed. No odette supply sent to pharmacy. Routed to Office. documented in this encounter Plan of Treatment Not on file documented as of this encounter Goals Goal Patient Goal Type Associated Problems Recent Progress Patient-Stated? Author Blood Pressure < 140/90 Blood Pressure 126/84(2024 1:51 PM EDT) No Cirilo Quiñonez MD Maintain a healthy diet, exercise regularly and maintain an ideal body weight General No Rubi Rolon RMA Stay Tobacco Free Lifestyle Rubi Campbell RMA documented as of this encounter Visit Diagnoses Diagnosis Gastroesophageal reflux disease without esophagitis Esophageal reflux documented in this encounter Discontinued Medications Medication Sig Discontinue Reason Start Date End Da te omeprazole (PRILOSEC) 40 mg Oral Capsule, Delayed Release(E.C.)Indications :Gastroesophageal reflux disease without esophagitis TAKE ONE CAPSULE BY MOUTH DAILY AT 9 AM 08/15/2024 11/15/2024 documented as of this encounter Care Teams Reinsurance Analyst Relationship Specialty Start Date End Date Julien Sun DO [address] [place] [phone] PCP - General Family Medicine 10/18/13 documented as of this encounter
--- OUTSIDE RECORDS SUMMARY | 2024-12-21 15:32 | XMS_ITS | Encounter Summary ---
Author Organization [place] [address] Care Team Providers Care American Sign Language Teacher Name Role Phone Sun V, DO, Viral Primary Care Provider [phone] Encounter Details Date Type Department Care Team (Late Contact Info) Description 11/15/2024 Results Follow-Up [facility] [address] [place] [address] Sun, Viral V, DO [address] [place] [address] MICROALBUMIN/CREATIN INE RATIO URINE, COMPLIANCE PANEL, URINE Social History Tobacco Use Types Packs/Day Years [...] Date Recorded PHQ-2 Total Score 0 12/24/2023 [facility] [place] of Occupat ional Health - Occupational Stress [...] Mihir Martin RMA documented in this encounter Plan of Treatment [...] documented as of this encounter Visit Diagnoses Not on filedocumented in this encounter Care Teams American Sign Language Teacher Relationship Specialty Start Date End Date Julien Sun DO [address] [place] [id number] PCP - General Family Medicine 10/18/13 documented as of this encounter
--- OUTSIDE RECORDS SUMMARY | 2024-12-21 15:32 | XMS_ITS | Encounter Summary ---
Author Organization [place] [address] Care Team Providers Care Community Pharmacist Name Role Phone Sun V, DO, Viral Primary Care Provider [phone] Reason for Visit * Reason Comments Medication Refill Encounter Details Date Type Department Care Team (Late Contact Info) Description 12/13/2024 Refill [facility] [address] [place] [address] Sun, Viral V, DO [address] [place] [address] Medication Refill Social History Tobacco [...] Date Recorded PHQ-2 Total Score 0 12/24/2023 [facility] [place] of Occupat ional Health - Occupational Stress [...] Mihir Martin RMA documented in this encounter Ordered Prescriptions Prescription Sig Dispense Quantity Refills Last Filled Start Date End Date ibuprofen (ADVIL;MOTRIN) 800 mg Oral Tablet TAKE ONE TABLET BY MOUTH EVERY 8 HOURS NEEDED FOR PAIN 90 Tablet 11 12/13/2024 cyclobenzaprine (FLEXERIL) 5 mg Oral TabletIndications:N yady pain,Chronic bilateral low back pain with sciatica, sciatica laterality unspecified TAKE ONE TABLET BY MOUTH THREE TIMES DAILY NEEDED FOR MUSCLE SPASMS 90 Tablet 11 12/13/2024 documented in this encounter Plan of Treatment [...] as of this encounter Visit Diagnoses Diagnosis Neck pain Cervicalgia Chronic bilateral low back pain with sciatica, sciatica laterality unspecified documented in this encounter Discontinued Medications Medication Sig Discontinue Reason Start Date End Da te cyclobenzaprine (FLEXERIL) 5 mg Oral TabletIndications:Neck pain,Chronic bilateral low back pain with sciatica, sciatica laterality unspecified TAKE ONE TABLET BY MOUTH THREE TIMES DAILY NEEDED FOR MUSCLE SPASMS (VIAL) 12/22/2023 12/13/2024 ibuprofen (ADVIL;MOTRIN) 800 mg Oral Tablet TAKE ONE TABLET BY MOUTH EVERY 8 HOURS NEEDED FOR PAIN (VIAL) 12/22/2023 12/13/2024 documented as of this encounter Care Teams Community Pharmacist Relationship Specialty Start Date End Date Julien Sun DO [address] [place] [id number] PCP - General Family Medicine 10/18/13 documented as of this encounter
--- NOTE | 2024-12-21 15:48 | EXP.PAIN.SOA ---
[facility] Disclaimer: The information contained in this section may have been updated after the patient was seen, as this information can be updated by other users. Medical History Pneumonia Unstable angina Hypotension Weakness Hypomagnesemia Chest pain ERIC (acute kidney injury) Incurvated nail Discoloration and thickening of nails both feet Keratosis Ingrown nail of great toe of left foot Onychodystrophy Atypical angina Otitis media Benzodiazepine abuse COVID-19 Hemoptysis Dog bite Dehydration Enteritis SIRS (systemic inflammatory response syndrome) UTI (urinary tract infection) COPD with acute exacerbation Dental infection Dental abscess Acute knee pain COPD exacerbation Hyperlipidemia Tobacco use Atypical chest pain Acute bronchitis Chest pain Contusion of multiple sites of left hand and wrist Fatigue Chest tightness Dyspnea Musculoskeletal pain Asthma exacerbation in COPD Depression PTSD (post-traumatic stress disorder) Hypomagnesemia Acute on chronic respiratory failure with hypoxia and hypercapnia Pneumonia due to COVID-19 virus COVID Tobacco use disorder Palpitations Anxiety Acute exacerbation of chronic obstructive airways disease Surgical History History of back surgery Hx of tonsillectomy History of tubal ligation History of cardiac cath History of cancer surgery Family History Other Unknown family medical history Social History Smoking Status: Current every day smoker tobacco type: cigarettes packs per day: 1 second hand exposure: No alcohol intake: never substance use type: other current occupational status: other Travel in the last 8 weeks?: None household members: spouse housing: house current occupational exposures/hazards: No caffeine: Yes PM Subjective & Objective Subjective Subjective:: Patient is a pleasant 59-year-old female who presents today for follow-up of her bilateral shoulder intra-articular injections on 12/05/2024. Today she rates her pain a 9 out of 10. Patient states that she only had improvement while her injections were numb.. Patient states she is back to her baseline today. Patient states the pain is constant and is affecting her ability to perform activities of daily living such as cooking and cleaning. Patient states that she does toss and turn at night because it is so painful adding pressure onto her shoulders. Patient does state this pain is still worse than the low back symptoms. Patient is currently managed with compounded cream and baclofen 10 mg 3 times a day from our office. Patient did have fatigue with the baclofen and was given a recent prescription of tizanidine 2 mg 3 [address] in [address] of it. Her Connor has been reviewed and is appropriate. Review of Systems: General: No recent weight changes, no fever, no sleep disturbances Respiratory: No cough, no shortness of air, no recurring pulmonary infections Cardiovascular/peripheral vascular: No chest pain, no palpitations, no edema, no shortness of breath Gastrointestinal: No new onset incontinence, normal bowel movements reported Genitourinary: No new onset incontinence Musculoskeletal: Neck pain, bilateral shoulder pain Psychiatric: [Normal mood/affect] Neurological: [Denies weakness in extremities], [denies balance issues] Pain at rest (0-10 scale): 9 Objective Objective:: Physical Exam: General: Alert and oriented x3, no acute distress, pleasant and cooperative Lungs: Respirations even and unlabored, symmetrical chest expansion Eyes: PERRL Musculoskeletal: Flexion and extension of bilateral shoulders somewhat guarded secondary to pain, [antalgic gait noted] Neurological: Speech clear, no gross sensory deficit Has patient had previous pain injection?: Yes Percent improvement in pain since last injection: Only while numb Conservative treatment options previously tried: Home exercise plan Length of treatment: Longer than 12 weeks Meds Home Medications and Allergies Home Medications ?Medication ?Instructions ?Recorded ?Confirmed ?Type omeprazole 40 mg capsule,delayed 40 mg PO DAILY 06/14/17 12/14/24 History release trazodone 50 mg tablet 75 mg PO HS 02/17/19 12/14/24 History atorvastatin 40 mg tablet 40 mg PO HS 12/29/19 12/14/24 History hydroxyzine HCl 25 mg tablet 25 mg PO TIDP PRN Anxiety 10/02/21 12/14/24 History gabapentin 800 mg tablet 800 mg PO BID 01/27/22 12/14/24 History loratadine 10 mg tablet 10 mg PO DAILY 01/27/22 12/14/24 History metformin 500 mg tablet 500 mg PO DAILY 09/08/23 12/14/24 History bupropion HCl 100 mg tablet,12 hr 100 mg PO BID 11/01/23 12/14/24 History sustained-release clonazepam 0.5 mg tablet 0.5 mg PO BID 11/01/23 12/14/24 History bisoprolol fumarate 5 mg tablet 5 mg PO BID 11/24/23 12/14/24 History sacubitril 97 mg-valsartan 103 mg 1 tab PO BID #60 tabs 05/15/24 12/14/24 Rx tablet (Entresto) Held on 09/22/24. Instructions: Resume on 10/06/24. Your blood pressures were normal without this medication. Please follow-up with PCP or cardiology to discuss resuming this medication. prasugrel HCl 10 mg tablet 10 mg PO DAILY #30 tabs 06/26/24 12/14/24 Rx (Effient) fluoxetine 20 mg capsule 60 mg PO DAILY 07/13/24 12/14/24 History ibuprofen 800 mg tablet 800 mg PO TIDP PRN Mild Pain 07/13/24 12/14/24 History (Scale Score 1-4) blbglynwrl-prtmfnoendglv-okozphbe 1 tab PO Q6HP PRN Migraine Headache 09/06/24 12/14/24 History 50 mg-325 mg-40 mg tablet cariprazine 4.5 mg capsule 4.5 mg PO DAILY 09/06/24 12/14/24 History (Vraylar) prazosin 5 mg capsule 5 mg PO DAILY 09/06/24 12/14/24 History ranolazine 1,000 mg 1,000 mg PO BID #60 tabs 09/06/24 12/14/24 Rx tablet,extended release,12 hr albuterol sulfate 90 mcg/actuation 2 puff inhalation Q4HP PRN 09/21/24 12/14/24 History aerosol inhaler Shortness Of Breath Or Wheezing dapagliflozin propanediol 10 mg 10 mg PO DAILY 09/21/24 12/14/24 History tablet (Farxiga) baclofen 10 mg tablet 10 mg PO TID #42 tabs 09/27/24 12/14/24 Rx tizanidine 2 mg tablet 2 mg PO TID #42 tabs 11/01/24 12/14/24 Rx fluticasone fur. 100 mcg-umeclid 1 inh inhalation ONCE 12/14/24 12/14/24 History 62.5 mcg-vilant 25 mcg inhalat.powder (Trelegy Ellipta) isosorbide mononitrate 60 mg 60 mg PO DAILY 90 days #90 tabs 12/14/24 12/14/24 Rx tablet,extended release 24 hr nitroglycerin 0.4 mg sublingual 0.4 mg sublingual Q5-15M PRN chest 12/14/24 12/14/24 Rx tablet pain #30 tabs semaglutide 2 mg/dose (8 mg/3 mL) See Rx Instructions .Route 12/14/24 Rx subcutaneous pen injector (Ozempic) .COMPLEX #3 mL spironolactone 50 mg tablet 50 mg PO DAILY 12/14/24 History New Prescriptions to Start Prescriptions: Allergies Allergy/AdvReac Type Severity Reaction Status Date / Time erythromycin base Allergy Unknown I-RASH Verified 12/14/24 09:04 (ERYTHROMYCIN BASE) Penicillins (PENICILLINS) Allergy Unknown DIFFICULTY Verified 12/14/24 09:04 BREATHING Assessment and Plan *Assessment and plan (1) Cervical radiculopathy: Status: Acute Category: Medical Code(s): M54.12 - Radiculopathy, cervical region (2) Bilateral shoulder pain: Status: Acute Category: Medical Code(s): M25.511 - Pain in right shoulder; M25.512 - Pain in left shoulder (3) Degenerative disc disease, lumbar: Status: Acute Category: Medical Code(s): M51.369 - Other intervertebral disc degeneration, lumbar region without mention of lumbar back pain or lower extremity pain Plan I did discuss with the patient regarding ordering x-rays of her bilateral shoulders as well as her neck. Patient agrees with this plan of care. We will plan to proceed forward with advanced imaging in future due to the worsening pain symptoms. Patient was also counseled that she may benefit from suprascapular nerve blocks bilaterally. Patient continues to have very limited range of motion of her bilateral shoulders with pain. Risk and benefits were discussed with patient and she would like to proceed forward with this plan of care. Patient will follow-up in clinic in 1 week for her x-ray imaging finding and she will be submitted to insurance for the bilateral suprascapular nerve blocks. These will be done without fluoroscopic or ultrasound guidance. Patient has had chronic shoulder pain. Patient has tried and failed conservative therapy including oral medication, heat and ice, topicals, at home stretching exercise for longer than 12 weeks. We did also discuss in future that we may send her for referral to orthopedics if there are significant findings in her imaging related to her shoulders. Patient agrees with this plan of care. Patient has been instructed to contact the clinic with any concerns before the next appointment. Dr. Boateng has reviewed this note and agrees with this plan of care. This note was dictated using voice recognition software and make contain errors or omissions. All injections are used with Lidocaine, Bupivacaine and dexamethasone. Occasionally urine drug screen is needed to verify patient's compliance with our office pain contract. This is ordered based off specific treatments related to chronic pain with the potential to abuse certain medications.
--- NOTE | 2024-12-21 15:50 | XR_ITS ---
FINAL REPORT TECHNIQUE: 5 views CLINICAL HISTORY: Neck pain COMPARISON: None FINDINGS: CERVICAL SPINE: 5 views of the cervical spine were obtained. There is no fracture present. There is no malalignment. There is moderate diffuse degenerative disc disease, most pronounced at the C5-6 and C6-7 levels. There is bilateral neural foraminal narrowing at the C4-5, C5-6, and C6-7 levels. IMPRESSION: Multilevel degenerative change as described, with no acute process. Reviewed, Interpreted and Dictated by Nnamdi Delacruz MD Transcribed by Iris Mason Authenticated and [facility]
--- NOTE | 2024-12-21 15:50 | XR_ITS ---
FINAL REPORT CLINICAL HISTORY: Shoulder pain FINDINGS: Right shoulder Three views were obtained. There is no fracture or dislocation. The joint spaces appear normal. There are mild changes of calcific or calcific tendinitis of the distal supraspinatus tendon. IMPRESSION: No acute process. Reviewed, Interpreted and Dictated by Camacho Izaguirre MD Transcribed by Arminda Cain Authenticated and [facility]
--- NOTE | 2024-12-21 15:50 | XR_ITS ---
FINAL REPORT CLINICAL HISTORY: Shoulder pain FINDINGS: Left shoulder Three views were obtained. There is no fracture or dislocation. The joint spaces appear normal. There are mild changes of calcific or calcific tendinitis of the distal supraspinatus tendon. IMPRESSION: No acute process. Reviewed, Interpreted and Dictated by Camacho Izaguirre MD Transcribed by Arminda Cain Authenticated and [facility]
== END 2024-12-21 23:59 | disposition home or self-care (01) ==
PROVIDERS: PCP Family Medicine; Visit Provider Nurse Practitioner Family
DX: M25.511 Pain in right shoulder (principal); M25.512 Pain in left shoulder; M54.12 Radiculopathy, cervical region; M51.369 Other intervertebral disc degeneration, lumbar region without mention of lumbar back pain or lower extremity pain; Z79.899 Other long term (current) drug therapy
CPT/HCPCS: 72040; 72050; 73030; 99212; G0463

== ENCOUNTER 2025-04-10 10:38 | Day surgery (SDC) | payer MEDICARE, MEDICAID, SELFPAY ==
[2025-04-10 10:48] VITALS: BP 101/67; PULSE 82; RESP 16; O2SAT 91; BMI 37.8
[2025-04-10] MEDS: BUPIVACAINE 0.25% 10ML INJ 25 MG IJ (11:09)
[2025-04-10] MEDS: LIDOCAINE 1% 5ML PF VIAL 5 ML (11:09)
[2025-04-10 11:16] VITALS: BP 95/65; PULSE 84; RESP 16; O2SAT 94
--- NOTE | 2025-04-10 11:18 | P.PCN_ITS ---
Procedure Date: 04/10/25 Time: 10:50 Anesthesiologist:: All Nash CRNA Complications:: None Pre-procedure Diagnosis:: Bilateral sacroiliitis Post-procedure Diagnosis:: Same Indications for Procedure:: Patient is a very pleasant 59-year-old female who comes our clinic today for bob gnostic bilateral sacroiliac joint injections of local anesthetic. Patient describes low lumbar back pain off the midline bilaterally. Bilateral posterior hip pain. Difficulty transitioning from sitting to standing. Difficulty with ambulation. Difficulty with lumbar flexion, extension, left and right rotation. Procedure Details:: Procedure: Bilateral sacroiliac joint injections under fluoroscopy Informed consent was obtained and the risks and benefits of the procedure were explained to the patient.~ The patient was taken to the procedure room and noninvasive monitors were placed including a noninvasive blood pressure cuff and pulse oximeter.~ The patient was placed prone on the procedure table. Both hips were cleansed using Betadine as a cleansing solution. C-arm fluoroscopy was used to view the right sacroiliac joint.~ The skin and subcutaneous tissues were anesthetized using lidocaine 1.5% and a 25-gauge needle.~ After this, a 22-gauge spinal needle was inserted under fluoroscopic guidance into the inferior aspect of the right sacroiliac joint.~ Omnipaque dye was injected and good spread was seen throughout the joint.~ After this, approximately 5 mL of bupivacaine, 0.25% was incrementally injected into the right sacroiliac joint. We then moved to the left sacroiliac joint.~ The skin and subcutaneous tissues were anesthetized using lidocaine 1.5% and a 25-gauge needle.~ After this, a 22- gauge spinal needle was inserted under fluoroscopic guidance into the inferior aspect of the left sacroiliac joint.~ Omnipaque dye was injected and good spread was seen throughout the joint. After this, approximately 5 mL of bupivacaine, 0.25% was incrementally injected into the left sacroiliac joint.~ The patient tolerated the procedure well with no complications. The patient was observed in the Pain Clinic and then was discharged home neurologically intact. Plan and Disposition:: Patient was discharged without incident.
[2025-04-10 11:23] VITALS: BP 98/66; PULSE 81; RESP 18; O2SAT 92
[2025-04-10 11:25] VITALS: BP 98/66; PULSE 81; RESP 18; O2SAT 92
== END 2025-04-10 11:16 | disposition home or self-care (01) ==
PROVIDERS: PCP Family Medicine; Visit Provider Nurse Anesthetist, Certified Registered
DX: M46.1 Sacroiliitis, not elsewhere classified (principal); F41.9 Anxiety disorder, unspecified; F32.A Depression, unspecified; E78.5 Hyperlipidemia, unspecified; F43.10 Post-traumatic stress disorder, unspecified; J44.89 Other specified chronic obstructive pulmonary disease; F17.210 Nicotine dependence, cigarettes, uncomplicated; Z88.0 Allergy status to penicillin; Z88.1 Allergy status to other antibiotic agents; Z98.890 Other specified postprocedural states; Z79.1 Long term (current) use of non-steroidal anti-inflammatories (NSAID); Z79.51 Long term (current) use of inhaled steroids; Z79.899 Other long term (current) drug therapy
CPT/HCPCS: G0260; J0665; J2003